=== PATIENT | female | born 2000 | race Caucasian/White ===

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

== ENCOUNTER 2021-02-15 05:43 | Emergency (ER) | payer BC, MEDICAID ==
[~2021-02-15] VITALS: Ht 175.2 cm; Wt 62.1 kg
--- NOTE | 2021-02-15 06:53 | ED Psychosocial ---
General Chief Complaint: Psych/Social Disorder Stated Complaint: ANXIETY Nursing Triage Note: ARRIVES THIS AM STATING SHE HAS BEEN HAVING DEPRESSION RELATED TO GIVING HER BABY UP FOR ADOPTION 11 MONTHS AGO AND FOR THE LAST 3 MONTHS SHE HAS HAD INCREASINGLY MORE ANXIETY THE DATE OF THE OF THE CHILD COMES UP NEXT MONTH. STATES SHE IS VERY ANXIOUS, WAKING AROUND 530 TO 6AM DAILY WITH HER STOMACH TIGHT, FEELING NAUSEOUS AND SHAKEY BECAUSE OF HER ANXIETY. STATES SHE HAS BEEN TO [facility], [facility] AND "NO ONE WILL HELP ME". PATIENT IS TEARFUL. CALL LIGHT IN REACH, ENCOURAGED TO CALL FOR NEEDS, WARM BLANKET PROVIDED. Source: patient Exam Limitations: no limitations (CYNTHIA HUGGINS STUDENT) History of Present Illness Date Seen by Provider: Feb 15, 2021 Time Seen by Provider: 06:45 Initial Comments Patient is a 20-year-old female who presents to the emergency department with the chief complaint of anxiety. Patient states that her anxiety is primarily associated to giving her baby for adoption about 1 year ago. She states her anxiety woke her up this morning at 430AM. She reports that when she gets anxious, she also gets an "upset stomach", nausea, and vomiting. Patient denies suicidal ideation. She denies auditory or visual hallucinations but does report occasionally feeling "phantom kicks" from her previous . She normally talks to her father about her anxiety, which helps calm her down, but she states she was at a friend's house last night. She currently lives with her father in [place] and is getting ready to move into a new house. She states that it was an open adoption, and that she is in good communication with the family and receives photos. She states she wants relief of her symptoms and treatment for her anxiety, and is interested in therapy. She has previously tried 3 different therapists for this but has not found one she likes yet. Patient does vape 3-5 times a day and is drinks socially with friends on weekends. She is a , delivered on Feb 26 2020, full term, and had no complications. Denies fever, chill, recent illness, symptoms. All review of systems reviewed and negative except stated above. Timing/Duration: this morning, other (last 3 months) Severity: mild Associated Symptoms: anxiety (CYNTHIA HUGGINS MED STUDENT) Allergies and Home Medications Allergies Coded Allergies: No Known Drug Allergies (Unverified , 10/22/16) Home Medications Hydroxyzine Pamoate 25 Mg Capsule, 25 MG PO HS PRN for INSOMNIA Prescribed by: FRANK PORTER on 10/01/20 165 Hydroxyzine Pamoate 25 Mg Capsule, 25 MG PO Q6H PRN for anxiety Prescribed by: SHANTEL INFANTE on 02/15/21 0736 Mag Hydrox/Aluminum Hyd/Simeth 355 Ml Oral.susp, 15 ML PO BID Prescribed by: SYDNEE GUZMÁN on 10/23/20 134 Naproxen 500 Mg Tablet, 500 MG PO BID Prescribed by: FRANK PORTER on 06/23/20 043 Nitrofurantoin Monohyd/M-Cryst 100 Mg Capsule, 1 TAB PO BID Prescribed by: FRANK PORTER on 10/01/201651 Omeprazole 20 Mg Capsule.dr, 20 MG PO BID Prescribed by: FRANK PORTER on 06/23/20430 Ondansetron 4 Mg Tab.rapdis, 4 MG PO Q8H PRN for nausea Prescribed by: SHANTEL INFANTE on 02/15/21 0736 Pantoprazole Sodium 40 Mg Tablet.dr, 40 MG PO DAILY Prescribed by: SYDNEE GUZMÁN on 10/23/20 134 Sucralfate 1 Gm Tablet, 1 GM PO QIDACHS Prescribed by: FRANK PORTER on 06/23/20430 Patient Home Medication List Home Medication List Reviewed: Yes (SHANTEL INFANTE MD) Review of Systems Constitutional: no symptoms reported EENTM: no symptoms reported Respiratory: no symptoms reported Cardiovascular: no symptoms reported Gastrointestinal: abdominal pain (epigastric, mild), diarrhea (nonbloody, once this am), loss of appetite (lost at the site of food), nausea (mild), vomiting (nonbloody) Genitourinary: no symptoms reported : No LMP: Feb 01, 2021 Control/STD Prophylaxis: Depo Provera Musculoskeletal: no symptoms reported Skin: no symptoms reported Psychiatric/Neurological: See HPI, Anxiety, Depressed, Emotional Problems (CYNTHIA HUGGINS MED STUDENT) All Other Systems Reviewed Negative Unless Noted: Yes (CYNTHIA HUGGINS MED STUDENT) Past Pjargaf-Ewvdbh-Dzjyoh Hx Patient Social History Alcohol Use: Occasionally Uses Number of Drinks Today: AA Alcohol Beverage of Choice: Beer Type Used: Electronic/Vapor Recent Infectious Disease Expo: No Recent Hopitalizations: No Ebola Symptoms: Denies Symptoms Listed (CYNTHIA HUGGINS MED STUDENT) Past Medical History Surgeries: Yes Adenoidectomy, Tonsillectomy Respiratory: No Cardiac: No Neurological: No Sexually Transmitted Disease: No Genitourinary: Yes Kidney Infection Gastrointestinal: No Musculoskeletal: No Endocrine: No HEENT: No Tonsilitis Cancer: No Psychosocial: No Integumentary: No Blood Disorders: No (CYNTHIA HUGGINS MED STUDENT) Physical Exam Vital Signs - First Documented 02/15/21 05:50 Temp 36.6 Pulse 112 Resp 18 B/P (MAP) 123/67 Pulse Ox 100 (SHANTEL INFANTE MD) Capillary Refill : (CYNTHIA HUGGINS MED STUDENT) Height, Weight, BMI Height: 5'8.00" Weight: 132lbs. oz. 59.764151me; 20.00 BMI Method:Stated General Appearance: WD/WN, no apparent distress Neck: normal inspection Respiratory: chest non-tender, lungs clear, normal breath sounds, no respiratory distress, no accessory muscle use Cardiovascular: regular rate, rhythm, no gallop, no JVD, no murmur Gastrointestinal: normal bowel sounds, soft, no organomegaly, no pulsatile mass; No distended, No guarding, No rebound; tenderness (mild tenderness to palpation in epigastric region) Extremities: non-tender, normal inspection, no pedal edema Neurologic/Psychiatric: alert, oriented x 3 Appearance/Memory: appropriate appearance, appropriate insight (Patient appears to have good insight about the source of her anxiety, and shows willingness to take next steps in treatment and therapy.), neat, no memory impairment Behavior/Eye Contact: cooperative, good eye contact, normal speech, other (appropriately tearful) Thoughts/Hallucinations: normal thought pattern, no apparent hallucination, other ("phantom kicks" in belly) Skin: normal color, warm/dry Lymphatic: no adenopathy (CYNTHIA HUGGINS MED STUDENT) Progress/Results/Core Measures Results/Orders My Orders Orders - SHANTEL INFANTE MD Ondansetron Oral Dissolve Tab (Zofran (02/15/21 07:15) Hydroxyzine Cap/Tab (Vistaril) (02/15/21 07:15) (SHANTEL INFANTE MD) Medications Given in ED (SHANTEL INFANTE MD) Vital Signs/I&O (SHANTEL INFANTE MD) Departure Impression Primary Impression: Anxiety Disposition: 01 HOME, SELF-CARE Condition: Stable Departure-Patient Inst. Decision time for Depature: 07:32 (SHANTEL INFANTE MD) Referrals: [facility] [place] PHYSICIAN (PCP) Primary Care Physician Patient Instructions: Anxiety, Adult (DC) Add. Discharge Instructions: Drink plenty of fluids to stay well-hydrated. Make sure that you are getting proper nutrition. Take the Vistaril 1 tablet every 6 hours as needed for anxiety. The Zofran is used for nausea. You can take this every 8 hours. Please call [facility] at [phone] to get plugged into counselling services. You can also call [facility] in [place], [place] and they can help direct you to resources. Come back to the Emergency Department if you have any worsening symptoms, new concerns or emergent complaints. Scripts Ondansetron (Ondansetron Odt) 4 Mg Tab.rapdis 4 MG PO Q8H PRN for nausea, #20 TAB Prov: SHANTEL INFANTE MD 02/15/21 Hydroxyzine Pamoate (Vistaril) 25 Mg Capsule 25 MG PO Q6H PRN for anxiety, #30 CAP Prov: SHANTEL INFANTE MD 02/15/21 I have seen and evaluated the patient I performed the history and physical examination. I agree with the medical student's assessment and documentation. I have performed the medical decision making on this patient. (SHANTEL INFANTE MD) CYNTHIA HUGGINS MED STUDENT Feb 15, 2021 06:53 SHANTEL INFANTE MD Feb 15, 2021 07:37
[2021-02-15] MEDS ORDERED: hydrOXYzine (VISTARIL/ATARAX) 25 MG capsule/tablet PO ONE (07:15)
[2021-02-15] MEDS ORDERED: ONDANSETRON 4 MG (ZOFRAN) ORAL DISSOLVE TAB PO ONE (07:15)
[2021-02-15] MEDS ORDERED: ONDA4TAB11 PO ×2 (07:34→07:36)
[2021-02-15] MEDS ORDERED: HYDR25CA PO ×2 (07:34→07:36)
== END 2021-02-15 08:04 | disposition home or self-care (01) ==
LOC: EDUNIT# 05:43 → ER 05:47
DX: F41.9 Anxiety disorder, unspecified (principal)
CPT/HCPCS: 99283

== ENCOUNTER 2021-03-25 22:08 | Emergency (ER) | payer BC, MEDICAID ==
[~2021-03-25] VITALS: Ht 172 cm; Wt 61.0 kg
[~2021-03-25 22:08] MED LIST changes: +ONDA4TAB11 PO
[2021-03-25 22:38] LABS: BILIRUBIN,URINE NEGATIVE (NEGATIVE); CLARITY,URINE CLOUDY; COLOR,URINE YELLOW; GLUCOSE, URINE (UA) NEGATIVE (NEGATIVE); KETONES,URINE NEGATIVE (NEGATIVE); LEUKOCYTE ESTERASE ,URINE 2+ (NEGATIVE); NITRITE,URINE POSITIVE (NEGATIVE); PROTEIN,URINE 2+ (NEGATIVE)
[2021-03-25] MEDS ORDERED: KETOROLAC 30 MG/ML VIAL IVP STA (22:41)
[2021-03-25] MEDS ORDERED: ONDANSETRON 4 MG/2 ML (SDV) Z0FRAN IVP ONE (22:45)
[2021-03-25] MEDS ORDERED: LACTATED RINGERS 1,000 ML IV ONE (22:45)
[2021-03-25 22:46] LABS: BASOPHILS % (AUTO) 0 % (0-10); EOSINOPHILS % (AUTO) 0 % (0-10); HEMATOCRIT 36 % (35-52); HEMOGLOBIN 11.8 g/dL (11.5-16.0); LYMPHOCYTES % (AUTO) 7 % (12-44); MEAN CORPUSCULAR HEMOGLOBIN 29 pg (25-34); MEAN CORPUSCULAR HGB CONC 33 g/dL (32-36); MEAN CORPUSCULAR VOLUME 87 fL (80-99); MEAN PLATELET VOLUME 10.2 fL (9.0-12.2); MONOCYTES # (AUTO) 1.1 10^3/uL (0.0-1.0); MONOCYTES % (AUTO) 7 % (0-12); NEUTROPHILS # (AUTO) 12.1 10^3/uL (1.8-7.8); NEUTROPHILS % (AUTO) 85 % (42-75); PLATELET COUNT 246 10^3/uL (130-400); WHITE BLOOD COUNT 14.3 10^3/uL (4.3-11.0)
[2021-03-25 22:49] LABS: BACTERIA,URINE LARGE /HPF; RBC,URINE 50-100 /HPF; WBC,URINE 50-100 /HPF
[2021-03-25 22:59] LABS: AMPHETAMINE SCREEN, URINE NEGATIVE (NEGATIVE); BARBITURATE SCREEN URINE NEGATIVE (NEGATIVE); BENZODIAZEPINES SCREEN URINE NEGATIVE (NEGATIVE); CANNABINOID SCREEN, URINE POSITIVE (NEGATIVE); COCAINE SCREEN URINE NEGATIVE (NEGATIVE); METHADONE STAT NEGATIVE (NEGATIVE); METHAMPHETAMINE SCREEN URINE S NEGATIVE (NEGATIVE); OPIATE SCREEN URINE NEGATIVE (NEGATIVE); OXYCODONE STAT NEGATIVE (NEGATIVE); PROPOXYPHENE STAT NEGATIVE (NEGATIVE); TRICYCLIC ANTIDEPRESSANTS SCRE NEGATIVE (NEGATIVE)
[2021-03-25 23:06] LABS: ALANINE AMINOTRANSFERASE 12 U/L (0-55); ALBUMIN 4.3 GM/DL (3.2-4.5); ALKALINE PHOSPHATASE 67 U/L (40-136); AMYLASE 23 U/L (25-125); BILIRUBIN,TOTAL 0.5 MG/DL (0.1-1.0); BUN/CREATININE RATIO 11; CARBON DIOXIDE 21 MMOL/L (21-32); CHLORIDE 108 MMOL/L (98-107); CREATININE SERUM 0.85 MG/DL (0.60-1.30); GFR ESTIMATED > 60; GLUCOSE 88 MG/DL (70-105); LIPASE 11 U/L (8-78); MAGNESIUM 1.7 MG/DL (1.6-2.4); POTASSIUM 3.9 MMOL/L (3.6-5.0); SODIUM 139 MMOL/L (135-145); TOTAL PROTEIN 6.7 GM/DL (6.4-8.2)
[2021-03-25 23:34] LABS: BAND NEUTROPHILS 0 %; BASOPHILS % (MANUAL) 0 %; EOSINOPHILS % (MANUAL) 1 %; LYMPHOCYTES % (MANUAL) 5 %; MONOCYTES % (MANUAL) 4 %; NEUTROPHILS % (MANUAL) 90 %; RBC MORPH NORMAL
[2021-03-25] MEDS ORDERED: cefTRIAXone FOR IV USE 1,000 MG in WATER (STERILE) FOR INJECTION 10 ML IV ONE (23:45)
[2021-03-26] MEDS ORDERED: fentaNYL INJ 100 MCG/2 ML AMP IVP ONE
[2021-03-26] MEDS ORDERED: KETO10TA PO ×2 (00:40→02:38)
[2021-03-26] MEDS ORDERED: NITR-65 PO ×2 (00:40→02:38)
[2021-03-26] MEDS ORDERED: ACHD5005 PO ×2 (00:40→02:38)
[2021-03-26] MEDS ORDERED: TMSL.4C PO ×2 (00:40→02:38)
[2021-03-26] MEDS ORDERED: ONDA8TAB13 PO ×2 (00:40→02:38)
[2021-03-26] MEDS ORDERED: RX-NAPROXEN (NAPROSYN) 250 MG TAB PPK#4 PO STA (00:40)
[2021-03-26] MEDS ORDERED: RX-ONDANSETRON 4 MG ODT (ZOFRAN) PPK #4 PO STA (00:40)
--- NOTE | 2021-03-26 00:40 | ED Abdominal Pain ---
General Chief Complaint: Abdominal/GI Problems Stated Complaint: ABD PAIN Nursing Triage Note: PT ARRIVES TO ER WITH C/O L LOWER ABD PAIN X1 DAY. PT STATES PAIN FEELS LIKE A BURNING, STABBING PAIN. PT ALSO SAID SHE HAS VOMITTED TODAY Sepsis Screen: No Definite Risk Source of Information: Patient History of Present Illness Date Seen by Provider: Mar 25, 2021 Time Seen by Provider: 22:29 Initial Comments PT ARRIVES VIA POV C/O LLQ PAIN/CRAMPING ALL DAY TODAY PAIN RADIATES TO LEFT FLANK STATES PAIN WAXES AND WANES AND IS VERY SHARP AT TIMES NOTHING WORSENS OR IMPROVES PAIN STATES SHE "CAN'T WALK" DUE TO PAIN, BUT PT WAS ABLE TO WALK INTO ER AND BACK TO ER ROOM ON HER OWN C/O NAUSEA AND VOMITING DUE TO PAIN --HAS VOMITED >5 <10 TIMES TODAY C/O URINARY URGENCY AND FREQUENCY, BUT NO PAIN ON URINATION NO FEVER LAST FOOD INTAKE WAS AT 1300--ATE A SANDWICH. DRANK WATER AN HOUR AGO. NO HISTORY OF SIMILAR HAS NOT TAKEN ANYTHING FOR PAIN LMP 02/20/21--AND LASTED UNTIL 4 DAYS AGO. PT IS ON DEPO-PROVERA. LAST SHOT WAS APPROXIMATELY 1 MONTH AGO. PCP: DIANNA Allergies and Home Medications Allergies Coded Allergies: No Known Drug Allergies (Unverified , 10/22/16) Home Medications Hydroxyzine Pamoate 25 Mg Capsule, 25 MG PO HS PRN for INSOMNIA Prescribed by: FRANK PORTER on 10/01/20 1652 Hydroxyzine Pamoate 25 Mg Capsule, 25 MG PO Q6H PRN for anxiety Prescribed by: SHANTEL INFANTE on 02/15/21 0736 Ketorolac Tromethamine 10 Mg Tablet, 10 MG PO Q6H Prescribed by: EFRAÍN PINEDA on 03/26/21 0238 Mag Hydrox/Aluminum Hyd/Simeth 355 Ml Oral.susp, 15 ML PO BID Prescribed by: SYDNEE GUZMÁN on 10/23/20 1349 Naproxen 500 Mg Tablet, 500 MG PO BID Prescribed by: FRANK PORTER on 06/23/20 0431 Nitrofurantoin Monohyd/M-Cryst 100 Mg Capsule, 1 TAB PO BID Prescribed by: FRANK PORTER on 10/01/20 1652 Nitrofurantoin Monohyd/M-Cryst 100 Mg Capsule, 1 TAB PO BID Prescribed by: EFRAÍN PINEDA on 03/26/21237 Omeprazole 20 Mg Capsule.dr, 20 MG PO BID Prescribed by: FRANK PORTER on 06/23/20430 Ondansetron 4 Mg Tab.rapdis, 4 MG PO Q8H PRN for nausea Prescribed by: SHANTEL INFANTE on 02/15/21 0736 Ondansetron 8 Mg Tab.rapdis, 8 MG PO Q6H Prescribed by: EFRAÍN PINEDA on 03/26/21237 Pantoprazole Sodium 40 Mg Tablet.dr, 40 MG PO DAILY Prescribed by: SYDNEE GUZMÁN on 10/23/20 1349 Sucralfate 1 Gm Tablet, 1 GM PO QIDACHS Prescribed by: FRANK PORTER on 06/23/20430 Tamsulosin HCl 0.4 Mg Cap, 0.4 MG PO DAILY Prescribed by: EFRAÍN PINEDA on 03/26/21237 Patient Home Medication List Home Medication List Reviewed: Yes Review of Systems Review of Systems Constitutional: no symptoms reported Respiratory: No Symptoms Reported Cardiovascular: No Symptoms Reported Gastrointestinal: See HPI, Abdominal Pain; Denies Diarrhea; Nausea, Vomiting Genitourinary: See HPI, Frequency, Flank Pain, Urgency Musculoskeletal: see HPI, back pain Skin: no symptoms reported Psychiatric/Neurological: Anxiety Endocrine: No Symptoms Reported Hematologic/Lymphatic: No Symptoms Reported Past Bbifkzs-Vkfzbi-Kauzlo Hx Past Med/Social Hx: Reviewed and Corrections made Patient Social History Alcohol Use: Occasionally Uses Number of Drinks Today: AA Alcohol Beverage of Choice: Beer Drug of Choice: DENIES BUT UDS + FOR THC Smoking Status: Current Everyday Smoker Type Used: Electronic/Vapor 2nd Hand Smoke Exposure: Yes Recent Infectious Disease Expo: No Recent Hopitalizations: No Substance type: Marijuana Immunizations Up To Date Tetanus Booster (TDap): More than 5yrs Past Medical History Surgeries: Yes (WISDOM TEETH REMOVED) Adenoidectomy, Tonsillectomy Respiratory: No Cardiac: No Neurological: No Sexually Transmitted Disease: No Genitourinary: Yes Kidney Infection Gastrointestinal: No Musculoskeletal: No Endocrine: No HEENT: Yes (WISDOM TEETH REMOVED; S/P TONSILLECTOMY) Tonsilitis Cancer: No Psychosocial: No Integumentary: No Blood Disorders: No Physical Exam Vital Signs Vital Signs - First Documented 6/5/21 6/6/21 22:20 01:05 Temp 37.2 Pulse 107 Resp 20 B/P (MAP) 127/74 (91) Pulse Ox 100 O2 Delivery Room Air Capillary Refill : Less Than 3 Seconds Height/Weight/BMI Height: 5'8.00" Weight: 132lbs. oz. 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, no motor/sensory deficits, alert, oriented x 3 Skin: normal color, warm/dry; No rash; tattoos/piercings (MULTIPLE TATTOOS) Progress/Results/Core Measures Results/Orders Lab Results Laboratory Tests Test 03/25/21 22:10 03/25/21 22:40 Range/Units Urine Color YELLOW Urine Clarity CLOUDY Urine pH 6.0 5-9 Urine Specific [place] >=1.030 1.016-1.022 Urine Protein 2+ H NEGATIVE Urine Glucose (UA) NEGATIVE NEGATIVE Urine Ketones NEGATIVE NEGATIVE Urine Nitrite POSITIVE H NEGATIVE Urine Bilirubin NEGATIVE NEGATIVE Urine Urobilinogen 0.2 < = 1.0 MG/DL Urine Leukocyte Esterase 2+ H NEGATIVE Urine RBC (Auto) 3+ H NEGATIVE Urine RBC 50-100 H /HPF Urine WBC 50-100 H /HPF Urine Squamous Epithelial Cells 5-10 /HPF Urine Crystals NONE /LPF Urine Bacteria LARGE H /HPF Urine Casts NONE /LPF Urine Mucus NEGATIVE /LPF Urine Culture Indicated YES Urine Opiates Screen NEGATIVE NEGATIVE Urine Oxycodone Screen NEGATIVE NEGATIVE Urine Methadone Screen NEGATIVE NEGATIVE Urine Propoxyphene Screen NEGATIVE NEGATIVE Urine Barbiturates Screen NEGATIVE NEGATIVE Ur Tricyclic Antidepressants Screen NEGATIVE NEGATIVE Urine Phencyclidine Screen NEGATIVE NEGATIVE Urine Amphetamines Screen NEGATIVE NEGATIVE Urine Methamphetamines Screen NEGATIVE NEGATIVE Urine Benzodiazepines Screen NEGATIVE NEGATIVE Urine Cocaine Screen NEGATIVE NEGATIVE Urine Cannabinoids Screen POSITIVE H NEGATIVE White Blood Count 14.3 H 4.3-11.0 10^3/uL Red Blood Count 4.12 3.80-5.11 10^6/uL Hemoglobin 11.8 11.5-16.0 g/dL Hematocrit 36 35-52 % Mean Corpuscular Volume 87 80-99 fL Mean Corpuscular Hemoglobin 29 25-34 pg Mean Corpuscular Hemoglobin Concent 33 32-36 g/dL Red Cell Distribution Width 14.5 10.0-14.5 % Platelet Count 246 130-400 10^3/uL Mean Platelet Volume 10.2 9.0-12.2 fL Immature Granulocyte % (Auto) 0 % Neutrophils (%) (Auto) 85 H 42-75 % Lymphocytes (%) (Auto) 7 L 12-44 % Monocytes (%) (Auto) 7 0-12 % Eosinophils (%) (Auto) 0 0-10 % Basophils (%) (Auto) 0 0-10 % Neutrophils # (Auto) 12.1 H 1.8-7.8 10^3/uL Lymphocytes # (Auto) 1.0 1.0-4.0 10^3/uL Monocytes # (Auto) 1.1 H 0.0-1.0 10^3/uL Eosinophils # (Auto) 0.0 0.0-0.3 10^3/uL Basophils # (Auto) 0.0 0.0-0.1 10^3/uL Immature Granulocyte # (Auto) 0.0 0.0-0.1 10^3/uL Neutrophils % (Manual) 90 % Lymphocytes % (Manual) 5 % Monocytes % (Manual) 4 % Eosinophils % (Manual) 1 % Basophils % (Manual) 0 % Band Neutrophils 0 % Blood Morphology Comment NORMAL Sodium Level 139 135-145 MMOL/L Potassium Level 3.9 3.6-5.0 MMOL/L Chloride Level 108 H 98-107 MMOL/L Carbon Dioxide Level 21 21-32 MMOL/L Anion Gap 10 5-14 MMOL/L Blood Urea Nitrogen 9 7-18 MG/DL Creatinine 0.85 0.60-1.30 MG/DL Estimat Glomerular Filtration Rate > 60 BUN/Creatinine Ratio 11 Glucose Level 88 70-105 MG/DL Calcium Level 9.0 8.5-10.1 MG/DL Corrected Calcium 8.8 8.5-10.1 MG/DL Magnesium Level 1.7 1.6-2.4 MG/DL Total Bilirubin 0.5 0.1-1.0 MG/DL Aspartate Amino Transf (AST/SGOT) 14 5-34 U/L Alanine Aminotransferase (ALT/SGPT) 12 0-55 U/L Alkaline Phosphatase 67 40-136 U/L Total Protein 6.7 6.4-8.2 GM/DL Albumin 4.3 3.2-4.5 GM/DL Amylase Level 23 L 25-125 U/L Lipase 11 8-78 U/L Serum Test, Qualitative NEGATIVE NEGATIVE My Orders Orders - EFRAÍN PINEDA DO Ed Iv/Invasive Line Start (03/25/21 22:29) Amylase (03/25/21 22:29) Cbc With Automated Diff (03/25/21:29) Comprehensive Metabolic Panel (03/25/21 22:29) Drug Screen Stat (Urine) (03/25/21:29) Hcg,Qualitative Serum (03/25/21:) Lipase (03/25/21:29) Magnesium (03/25/21:29) Ua Culture If Indicated (03/25/21 22:29) Ed Iv/Invasive Line Start (03/25/21 22:36) Lactated Ringers (Lr 1000 Ml Iv Solution (03/25/21 22:45) Ondansetron Injection (Zofran Injectio (03/25/21 22:45) Ketorolac Injection (Toradol Injection) (03/25/21 22:41) Ct Abd/Pelvis Wo(Kidney Stone) (03/25/21 22:46) Abdomen/Kub 1view (03/25/21 22:46) Urine Culture (03/25/21 22:10) Manual Differential (03/25/21 22:40) Ceftriaxone For Iv Use (Rocephin For I (03/25/21 23:45) Fentanyl Inj (Sublimaze Injection) (03/26/21 00:00) Tamsulosin Capsule (Flomax Capsule) (03/26/21 00:45) Rx-Hydrocodone/Apap 5-325 Mg (Rx-Vicodin (03/26/21 00:45) Rx-Ondansetron Po (Rx-Zofran Po) (03/26/21 00:40) Rx-Naproxen (Rx-Naprosyn) (03/26/21 00:40) Medications Given in ED Current Medications Medications Dose Ordered Sig/Lane Route Start Time Stop Time Status Last Admin Dose Admin Acetaminophen/ Hydrocodone Bitart 1 ea Q4H PRN PO 03/26/21 00:45 03/26/21 01:06 DC 03/26/21 01:00 1 EA Ceftriaxone Sodium 1000 mg/ Sterile Water 10 ml @ 200 mls/hr ONCE ONCE IV 03/25/21 23:45 03/25/21 23:47 DC 03/25/21 23:58 200 MLS/HR Fentanyl Citrate 50 mcg ONCE ONCE IVP 03/26/21 00:00 03/26/21 00:01 DC 03/25/21 23:59 50 MCG Lactated Ringer's 1,000 ml @ 0 mls/hr Q0M ONCE IV 03/25/21 22:45 03/25/21 22:46 DC 03/25/21 22:49 1,000 MLS/HR Ondansetron HCl 4 mg ONCE ONCE IVP 03/25/21 22:45 03/25/21 22:46 DC 03/25/21 22:49 4 MG Vital Signs/I&O 03/25/21 03/26/21 22:20 01:05 Temp 37.2 Pulse 107 101 Resp 20 16 B/P (MAP) 127/74 (91) 105/76 (91) Pulse Ox 100 O2 Delivery Room Air Blood Pressure Mean: 91 Progress Progress Note : Progress Note GAVE IV FLUIDS, ZOFRAN AND TORADOL WITHOUT RELIEF PT LATER SCREAMING AND WAILING AND ON HER HANDS AND KNEES, THEN SITTING UP, ROCKING BACK AND FORTH, ETC GIVEN FENTANYL WITH MUCH IMPROVEMENT Diagnostic Imaging Comments KUB--CALCIFICATION IN LLQ, PENDING RADIOLOGIST REVIEW CT ABDOMEN/PELVIS--3 MM DISTAL URETERAL STONE AT LEFT UVJ, WITH MILD LEFT HYDRONEPHROSIS, FEW SMALL 1 MM STONES IN RIGHT KIDNEY. PER [facility] VIA FAX AT [phone] Reviewed: Reviewed by Me Departure Impression Primary Impression: Calculus of distal left ureter Additional Impression: UTI (urinary tract infection) Disposition: HOME, SELF-CARE Condition: Improved Departure-Patient Inst. Decision time for Depature: 00:25 Referrals: NO,LOCAL PHYSICIAN (PCP) Primary Care Physician VIET SAMUELS MD [facility] Patient Instructions: Urinary Tract Infection, Adult (DC), Kidney Stones (DC), How to Strain Your Urine Add. Discharge Instructions: LOTS OF CLEAR LIQUIDS STRAIN ALL URINE--RETURN ANY STONES TO 'S OFFICE FOLLOW UP WITH DR. SAMUELS IN 2-3 DAYS FOR FURTHER CARE--CALL ON SATURDAY MORNING TO SCHEDULE AN APPOINTMENT RETURN TO ER IF SYMPTOMS WORSEN All discharge instructions reviewed with patient and/or family. Voiced understanding. Scripts Tamsulosin HCl (Flomax) 0.4 Mg Cap 0.4 MG PO DAILY, #10 CAP Prov: EFRAÍN PINEDA DO 03/26/21 Ketorolac Tromethamine (Ketorolac Tromethamine) 10 Mg Tablet 10 MG PO Q6H for Pain, #15 TAB Prov: EFRAÍN PINEDA DO 03/26/21 Ondansetron (Ondansetron Odt) 8 Mg Tab.rapdis 8 MG PO Q6H, #10 TAB Prov: EFRAÍN PINEDA DO 03/26/21 Nitrofurantoin Monohyd/M-Cryst (Macrobid 100 mg Capsule) 100 Mg Capsule 1 TAB PO BID, #20 CAP Prov: EFRAÍN PINEDA DO 03/26/21 EFRAÍN PINEDA DO Mar 26, 2021 00:40
[2021-03-26] MEDS ORDERED: TAMSULOSIN 0.4 MG (FLOMAX) CAP PO SCH (00:45)
[2021-03-26 01:05] VITALS: BP 105/76
--- NOTE | 2021-03-26 05:52 | Diagnostic Imaging Report ---
EXAMINATION: Supine abdomen at 1146 PM INDICATION: Abdominal pain A single supine view is obtained. The CT abdomen/pelvis exam performed in conjunction with the study showed partial obstruction of the left collecting system due to 3 mm calcification at the ureterovesical junction. That obstructive calculus is again visualized on this study and does not seem to have changed in position. There is no other abnormality of the abdomen noted. IMPRESSION: The obstructive calculus in the distal left ureter seen on the recent CT abdomen/pelvis exam is again evident and does not appear to have changed. Dictated by: Dictated on workstation # [id number]
--- NOTE | 2021-03-26 06:58 | Diagnostic Imaging Report ---
PROCEDURE: CT urinary tract, rule out kidney stone. TECHNIQUE: Multiple contiguous axial images were obtained through the abdomen and pelvis without the use of intravenous contrast. Auto Exposure Controls were utilized during the CT exam to meet ALARA standards for radiation dose reduction. INDICATION: Left flank pain The previous CT abdomen/pelvis exam of 10/23/2020 failed to show any sign of an acute abnormality. There was a 2.7 cm left adnexal cyst. The images through the low pelvis do show that there is a 3 mm calculus at the ureterovesical junction on the left (image 105 of 27). The left ureter and left renal pelvis are slightly dilated and most likely there is partial obstruction of the left collecting system due to the aforementioned calculus. There also appear to be 2 minute (1 mm) nonobstructive calculi within both kidneys. There is no evidence for obstruction of the right collecting system. There are a number of prominent nodes in the region of the root of the mesentery. There is also some distortion of the mesenteric fat in this area. The possibility of coexistent mesenteric adenitis should be considered. The appendix was visualized and is not abnormally thickened. The left adnexal cyst seen on the previous study is not as well-visualized on this exam. There is no acute abnormality of the abdomen or pelvis noted otherwise. The lung bases are clear. The bone windows show no sign of a fracture or of a destructive lesion. IMPRESSION: 1. There is partial obstruction of the left collecting system due to a 3 mm calculus at the ureterovesical junction. There are also minute nonobstructive calculi within both kidneys. 2. The nodes in the region of the root of the mesentery and the distortion of the mesenteric fat in this area does suggest there may be an element of coexistent mesenteric adenitis. Clinical follow-up is recommended. 3.There is no acute abnormality of the abdomen or pelvis noted otherwise. 4. I agree with the [facility] interpretation of this exam. Dictated by: Dictated on workstation # [id number]
== END 2021-03-26 01:06 | disposition home or self-care (01) ==
LOC: EDUNIT# 22:08 → ER 22:09
DX: N13.2 Hydronephrosis with renal and ureteral calculous obstruction (principal); N39.0 Urinary tract infection, site not specified; F17.290 Nicotine dependence, other tobacco product, uncomplicated
CPT/HCPCS: 36415; 74018; 74176; 80053; 80306; 81000; 82150; 83690; 83735; 84703; 85007; 85027; 87077; 87088; 87186

== ENCOUNTER 2021-05-31 08:55 | Observation (INO) | payer BC, MEDICAID ==
[~2021-05-31] VITALS: Ht 172.7 cm; Wt 60.7 kg
[~2021-05-31 08:55] MED LIST changes: +ACHD5005 PO; +KETO10TA PO; +ONDA8TAB13 PO; +TMSL.4C PO
[2021-05-31] MEDS ORDERED: ONDANSETRON 4 MG (ZOFRAN) ORAL DISSOLVE TAB SL ONE ×2 (09:30→10:30)
[2021-05-31] MEDS ORDERED: LORazepam INJ 2 MG/ML (ATIVAN) VIAL IM ONE (09:30)
[2021-05-31] MEDS ORDERED: LACTATED RINGERS 1,000 ML IV ONE ×2 (10:45→13:45)
[2021-05-31] MEDS ORDERED: PROMETHAZINE INJ 25 MG/ML (PHENERGAN) AMP IVP ONE (10:45)
[2021-05-31 11:15] LABS: BASOPHILS % (AUTO) 0 % (0-10); EOSINOPHILS % (AUTO) 0 % (0-10); HEMATOCRIT 39 % (35-52); HEMOGLOBIN 13.1 g/dL (11.5-16.0); LYMPHOCYTES # (AUTO) 0.8 10^3/uL (1.0-4.0); LYMPHOCYTES % (AUTO) 8 % (12-44); MEAN CORPUSCULAR HEMOGLOBIN 29 pg (25-34); MEAN CORPUSCULAR HGB CONC 34 g/dL (32-36); MEAN CORPUSCULAR VOLUME 87 fL (80-99); MEAN PLATELET VOLUME 10.9 fL (9.0-12.2); MONOCYTES # (AUTO) 0.6 10^3/uL (0.0-1.0); MONOCYTES % (AUTO) 6 % (0-12); NEUTROPHILS % (AUTO) 85 % (42-75); PLATELET COUNT 282 10^3/uL (130-400); WHITE BLOOD COUNT 9.5 10^3/uL (4.3-11.0)
[2021-05-31 11:22] LABS: ALBUMIN 4.7 GM/DL (3.2-4.5); CHLORIDE 107 MMOL/L (98-107); POTASSIUM 3.1 MMOL/L (3.6-5.0); SODIUM 141 MMOL/L (135-145)
[2021-05-31 11:23] LABS: CALCIUM 9.7 MG/DL (8.5-10.1)
[2021-05-31 11:24] LABS: GLUCOSE 110 MG/DL (70-105)
[2021-05-31 11:25] LABS: TOTAL PROTEIN 7.5 GM/DL (6.4-8.2)
[2021-05-31 11:26] LABS: BILIRUBIN,TOTAL 1.1 MG/DL (0.1-1.0); CARBON DIOXIDE 18 MMOL/L (21-32)
[2021-05-31 11:28] LABS: ALKALINE PHOSPHATASE 58 U/L (40-136); CREATININE SERUM 0.87 MG/DL (0.60-1.30); GFR ESTIMATED 84
[2021-05-31 11:29] LABS: BUN/CREATININE RATIO 14
[2021-05-31 11:31] LABS: ALANINE AMINOTRANSFERASE 9 U/L (0-55); MAGNESIUM 1.6 MG/DL (1.6-2.4)
[2021-05-31 11:32] LABS: LIPASE 9 U/L (8-78)
[2021-05-31] MEDS ORDERED: KETOROLAC 30 MG/ML VIAL IVP ONE (12:00)
[2021-05-31 12:39] LABS: BILIRUBIN,URINE NEGATIVE (NEGATIVE); CLARITY,URINE CLEAR; COLOR,URINE YELLOW; GLUCOSE, URINE (UA) NEGATIVE (NEGATIVE); KETONES,URINE 3+ (NEGATIVE); LEUKOCYTE ESTERASE ,URINE NEGATIVE (NEGATIVE); NITRITE,URINE NEGATIVE (NEGATIVE); PROTEIN,URINE TRACE (NEGATIVE)
[2021-05-31 12:53] LABS: AMPHETAMINE SCREEN, URINE NEGATIVE (NEGATIVE); BARBITURATE SCREEN URINE NEGATIVE (NEGATIVE); BENZODIAZEPINES SCREEN URINE NEGATIVE (NEGATIVE); CANNABINOID SCREEN, URINE POSITIVE (NEGATIVE); COCAINE SCREEN URINE NEGATIVE (NEGATIVE); METHADONE STAT NEGATIVE (NEGATIVE); METHAMPHETAMINE SCREEN URINE S NEGATIVE (NEGATIVE); OPIATE SCREEN URINE POSITIVE (NEGATIVE); OXYCODONE STAT NEGATIVE (NEGATIVE); PROPOXYPHENE STAT NEGATIVE (NEGATIVE); TRICYCLIC ANTIDEPRESSANTS SCRE NEGATIVE (NEGATIVE)
[2021-05-31 12:59] LABS: BACTERIA,URINE FEW /HPF; WBC,URINE 0-2 /HPF
[2021-05-31] MEDS ORDERED: SCOPOLAMINE 1.5 MG (TRANSDERM-SCOP) PATCH TD ONE (13:15)
[2021-05-31] MEDS ORDERED: ONDANSETRON 4 MG/2 ML (SDV) Z0FRAN IVP ONE (15:15)
--- NOTE | 2021-05-31 15:18 | Diagnostic Imaging Report ---
PROCEDURE: US Gallbladder. TECHNIQUE: Multiple Real-time grayscale images were obtained over the right upper quadrant in various projections. INDICATION: Right upper quadrant abdominal pain. FINDINGS: Grayscale imaging of the gallbladder reveals no intraluminal filling defect. There is no gallbladder wall thickening or pericholecystic fluid. No intra or extrahepatic biliary ductal dilatation is identified. No pancreatic, right renal, abdominal aortic, or inferior vena caval abnormality is documented. No ascites was noted. IMPRESSION: Unremarkable gallbladder ultrasound. Dictated by: Dictated on workstation # [id number]
--- NOTE | 2021-05-31 15:27 | ED General ---
General Chief Complaint: Psych/Social Disorder Stated Complaint: PANIC ATTACK Nursing Triage Note: AMB TO ED WITH C/O ANXIEY AND PANIC ATTACT REPORTS SOMETHING HAPPENED TO SET IT OFF. ROCKING BACK AND [place] ON ADMT. DID DRIVE SELF TO HOSPITAL Source of Information: Patient, Old Records Exam Limitations: No Limitations History of Present Illness Date Seen by Provider: May 31, 2021 Time Seen by Provider: 09:25 Initial Comments This 20-year-old young lady presents to the emergency room with nausea and vomiting, epigastric pain, and panic attack. She states this was triggered by a social situation last night. She has had this type of GI reaction to social distress and anxiety in the past. She has recently placed a child into adoption as well. See prior records for more information. She denies any recent illness before the anxiety and vomiting started last night. She denies any drug or alcohol use but states she has notable secondhand marijuana smoke exposure from her roommates. She has not smoked marijuana herself in about 3 months. She does not take any prescribed medications. She is in distress on arrival and does not want to talk or have an IV placed. Sublingual Zofran and IM Ativan were used initially to help manage her symptoms. She has history of ureteral and kidney stones but states this pain is different and centrally located rather than located in the flanks. Allergies and Home Medications Allergies Coded Allergies: Penicillins (Verified Allergy, Unknown, 05/31/21) morphine (Verified Allergy, Unknown, 05/31/21) Home Medications Hydroxyzine Pamoate 25 Mg Capsule, 25 MG PO HS PRN for INSOMNIA Prescribed by: FRANK PORTER on 10/01/20 1652 Hydroxyzine Pamoate 25 Mg Capsule, 25 MG PO Q6H PRN for anxiety Prescribed by: SHANTEL INFANTE on 02/15/21 0736 Ketorolac Tromethamine 10 Mg Tablet, 10 MG PO Q6H Prescribed by: EFRAÍN PINEDA on 03/26/21 0238 Mag Hydrox/Aluminum Hyd/Simeth 355 Ml Oral.susp, 15 ML PO BID Prescribed by: SYDNEE GUZMÁN on 10/23/20 1349 Naproxen 500 Mg Tablet, 500 MG PO BID Prescribed by: FRANK PORTER on 06/23/20 0431 Nitrofurantoin Monohyd/M-Cryst 100 Mg Capsule, 1 TAB PO BID Prescribed by: FRANK PORTER on 10/01/20 1652 Nitrofurantoin Monohyd/M-Cryst 100 Mg Capsule, 1 TAB PO BID Prescribed by: EFRAÍN PINEDA on 03/26/21237 Omeprazole 20 Mg Capsule.dr, 20 MG PO BID Prescribed by: FRANK PORTER on 06/23/20430 Ondansetron 4 Mg Tab.rapdis, 4 MG PO Q8H PRN for nausea Prescribed by: SHANTEL INFANTE on 02/15/21 0736 Ondansetron 8 Mg Tab.rapdis, 8 MG PO Q6H Prescribed by: EFRAÍN PINEDA on 03/26/21237 Pantoprazole Sodium 40 Mg Tablet.dr, 40 MG PO DAILY Prescribed by: SYDNEE GUZMÁN on 10/23/20 1349 Sucralfate 1 Gm Tablet, 1 GM PO QIDACHS Prescribed by: FRANK PORTER on 06/23/20430 Tamsulosin HCl 0.4 Mg Cap, 0.4 MG PO DAILY Prescribed by: EFRAÍN PINEDA on 03/26/21237 Patient Home Medication List Home Medication List Reviewed: Yes Review of Systems Review of Systems Constitutional: see HPI EENTM: no symptoms reported Respiratory: see HPI, other (Rapid breathing with appearance of hyperventilating) Cardiovascular: no symptoms reported Gastrointestinal: see HPI Genitourinary: no symptoms reported Musculoskeletal: muscle pain, muscle cramps Skin: no symptoms reported Psychiatric/Neurological: See HPI Hematologic/Lymphatic: No Symptoms Reported Immunological/Allergic: no symptoms reported Past Aaatdej-Asfwrt-Gcqnjk Hx Patient Social History Tobacco Use?: No Substance use?: Yes Substance type: Marijuana Pt feels they are or have been: No Immunizations Up To Date Tetanus Booster (TDap): More than 5yrs Past Medical History Surgeries: Yes (WISDOM TEETH REMOVED) Adenoidectomy, Tonsillectomy Respiratory: No Cardiac: No Neurological: No Sexually Transmitted Disease: No Genitourinary: Yes Kidney Infection, Kidney Stones Gastrointestinal: No Musculoskeletal: No Endocrine: No HEENT: Yes (WISDOM TEETH REMOVED; S/P TONSILLECTOMY) Tonsilitis Cancer: No Psychosocial: No Integumentary: No Blood Disorders: No Physical Exam Vital Signs Vital Signs - First Documented 05/31/21 05/31/21 09:08 11:22 Temp 36.2 Pulse 99 Resp 18 B/P (MAP) 94/77 (83) Pulse Ox 100 O2 Delivery Room Air Capillary Refill : Less Than 3 Seconds Height, Weight, BMI Height: 5'8.00" Weight: 132lbs. oz. 59.217656xg; 19.00 BMI Method:Stated General Appearance: Moderate Distress (Vomiting) HEENT: PERRL/EOMI, Normal ENT Inspection Neck: Normal Inspection Respiratory: Lungs Clear, Normal Breath Sounds, No Accessory Muscle Use Cardiovascular: Regular Rate, Rhythm, No Edema, No Murmur Gastrointestinal: Normal Bowel Sounds, Soft, Tenderness (Epigastric) Extremity: Normal Inspection, No Pedal Edema Neurologic/Psychiatric: Alert, Other (Anxious, tremors, difficulty focusing on questions and interview) Skin: Normal Color, Warm/Dry Progress/Results/Core Measures Suspected Sepsis SIRS Temperature: Pulse: 99 Respiratory Rate: 18 Laboratory Tests 05/31/21 11:00: White Blood Count 9.5 Blood Pressure 94 /77 Mean: 99 Laboratory Tests 05/31/21 11:00: Creatinine 0.87, Platelet Count 282, Total Bilirubin 1.1H Results/Orders Lab Results Laboratory Tests Test 05/31/21 11:00 05/31/21 12:27 Range/Units White Blood Count 9.5 4.3-11.0 10^3/uL Red Blood Count 4.51 3.80-5.11 10^6/uL Hemoglobin 13.1 11.5-16.0 g/dL Hematocrit 39 35-52 % Mean Corpuscular Volume 87 80-99 fL Mean Corpuscular Hemoglobin 29 25-34 pg Mean Corpuscular Hemoglobin Concent 34 32-36 g/dL Red Cell Distribution Width 14.2 10.0-14.5 % Platelet Count 282 130-400 10^3/uL Mean Platelet Volume 10.9 9.0-12.2 fL Immature Granulocyte % (Auto) 0 % Neutrophils (%) (Auto) 85 H 42-75 % Lymphocytes (%) (Auto) 8 L 12-44 % Monocytes (%) (Auto) 6 0-12 % Eosinophils (%) (Auto) 0 0-10 % Basophils (%) (Auto) 0 0-10 % Neutrophils # (Auto) 8.0 H 1.8-7.8 10^3/uL Lymphocytes # (Auto) 0.8 L 1.0-4.0 10^3/uL Monocytes # (Auto) 0.6 0.0-1.0 10^3/uL Eosinophils # (Auto) 0.0 0.0-0.3 10^3/uL Basophils # (Auto) 0.0 0.0-0.1 10^3/uL Immature Granulocyte # (Auto) 0.0 0.0-0.1 10^3/uL Sodium Level 141 135-145 MMOL/L Potassium Level 3.1 L 3.6-5.0 MMOL/L Chloride Level 107 98-107 MMOL/L Carbon Dioxide Level 18 L 21-32 MMOL/L Anion Gap 16 H 5-14 MMOL/L Blood Urea Nitrogen 12 7-18 MG/DL Creatinine 0.87 0.60-1.30 MG/DL Estimat Glomerular Filtration Rate 84 BUN/Creatinine Ratio 14 Glucose Level 110 H 70-105 MG/DL Calcium Level 9.7 8.5-10.1 MG/DL Corrected Calcium 8.5-10.1 MG/DL Magnesium Level 1.6 1.6-2.4 MG/DL Total Bilirubin 1.1 H 0.1-1.0 MG/DL Aspartate Amino Transf (AST/SGOT) 13 5-34 U/L Alanine Aminotransferase (ALT/SGPT) 9 0-55 U/L Alkaline Phosphatase 58 40-136 U/L Total Protein 7.5 6.4-8.2 GM/DL Albumin 4.7 H 3.2-4.5 GM/DL Lipase 9 8-78 U/L Serum Test, Qualitative NEGATIVE NEGATIVE Serum Alcohol < 10 <10 MG/DL Urine Color YELLOW Urine Clarity CLEAR Urine pH 7.0 5-9 Urine Specific [place] 1.015 L 1.016-1.022 Urine Protein TRACE H NEGATIVE Urine Glucose (UA) NEGATIVE NEGATIVE Urine Ketones 3+ H NEGATIVE Urine Nitrite NEGATIVE NEGATIVE Urine Bilirubin NEGATIVE NEGATIVE Urine Urobilinogen 0.2 < = 1.0 MG/DL Urine Leukocyte Esterase NEGATIVE NEGATIVE Urine RBC (Auto) 2+ H NEGATIVE Urine RBC 10-25 H /HPF Urine WBC 0-2 /HPF Urine Squamous Epithelial Cells 2-5 /HPF Urine Crystals NONE /LPF Urine Bacteria FEW H /HPF Urine Casts NONE /LPF Urine Mucus MODERATE H /LPF Urine Culture Indicated YES Urine Opiates Screen POSITIVE H NEGATIVE Urine Oxycodone Screen NEGATIVE NEGATIVE Urine Methadone Screen NEGATIVE NEGATIVE Urine Propoxyphene Screen NEGATIVE NEGATIVE Urine Barbiturates Screen NEGATIVE NEGATIVE Ur Tricyclic Antidepressants Screen NEGATIVE NEGATIVE Urine Phencyclidine Screen NEGATIVE NEGATIVE Urine Amphetamines Screen NEGATIVE NEGATIVE Urine Methamphetamines Screen NEGATIVE NEGATIVE Urine Benzodiazepines Screen NEGATIVE NEGATIVE Urine Cocaine Screen NEGATIVE NEGATIVE Urine Cannabinoids Screen POSITIVE H NEGATIVE My Orders Orders - APOLONIA BERG MD Lorazepam Injection (Ativan Injection) (05/31/21 09:30) Ondansetron Oral Dissolve Tab (Zofran (05/31/21 09:30) Ondansetron Oral Dissolve Tab (Zofran (05/31/21 10:30) Ed Iv/Invasive Line Start (05/31/21 10:40) Lactated Ringers (Lr 1000 Ml Iv Solution (05/31/21 10:45) Alcohol (05/31/21 10:40) Cbc With Automated Diff (05/31/21 10:40) Comprehensive Metabolic Panel (05/31/21 10:40) Drug Screen Stat (Urine) (05/31/21 10:40) Hcg,Qualitative Serum (05/31/21 10:40) Magnesium (05/31/21 10:40) Ua Culture If Indicated (05/31/21 10:40) Lipase (05/31/21 10:40) Promethazine Injection (Phenergan Injec (05/31/21 10:45) Ketorolac Injection (Toradol Injection) (05/31/21 12:00) Urine Culture (05/31/21 12:27) Scopolamine Patch (Transderm-Scop Patch) (05/31/21 13:15) Lactated Ringers (Lr 1000 Ml Iv Solution (05/31/21 13:45) Us Gallbladder [id number] (05/31/21 14:45) Ondansetron Injection (Zofran Injectio (05/31/21 15:15) Medications Given in ED Current Medications Medications Dose Ordered Sig/Lane Route Start Time Stop Time Status Last Admin Dose Admin Ketorolac Tromethamine 30 mg ONCE ONCE IVP 05/31/21 12:00 05/31/21 12:01 DC 05/31/21 12:23 30 MG Lactated Ringer's 1,000 ml @ 0 mls/hr Q0M ONCE IV 05/31/21 13:45 05/31/21 13:46 DC 05/31/21 13:55 1,000 MLS/HR Ondansetron HCl 8 mg ONCE ONCE IVP 05/31/21 15:15 05/31/21 15:16 DC 05/31/21 15:20 8 MG Scopolamine 1.5 mg ONCE ONCE TD 05/31/21 13:15 05/31/21 13:16 DC 05/31/21 13:49 1.5 MG Vital Signs/I&O 05/31/21 05/31/21 09:08 11:22 Temp 36.2 Pulse 99 97 Resp 18 18 B/P (MAP) 94/77 (83) 110/93 (99) Pulse Ox 100 O2 Delivery Room Air Capillary Refill : Less Than 3 Seconds Blood Pressure Mean: 99 Progress Note : Time: 15:24 Progress Note Patient continued to have persistent vomiting and nausea despite Zofran 4 mg sublingual, Phenergan 25 mg IV, and scopolamine patch. She is now receiving additional Zofran 8 mg IV. I do not have confidence based on her lack of resp onse to medications that she can manage the symptoms at home. Gallbladder ultrasound was obtained and was unremarkable. She is on her second liter of LR. She is hypokalemic and will have potassium replaced by IV route on admission. Case was discussed with Dr. Green who is in agreement with admission. Diagnostic Imaging Diagonstic Imaging: Ultrasound Plain Films/CT/US/NM/MRI: abdomen Comments NAME: ABHISHEK HENRIQUEZ [facility] REC#: [id number] PT STATUS: REG ER : 2000 PHYSICIAN: APOLONIA BERG MD ADMIT DATE: 05/31/21/ER Draft Date of Exam:05/31/21 US GALLBLADDER [id number] PROCEDURE: US Gallbladder. TECHNIQUE: Multiple Real-time grayscale images were obtained over the right upper quadrant in various projections. INDICATION: Right upper quadrant abdominal pain. FINDINGS: Grayscale imaging of the gallbladder reveals no intraluminal filling defect. There is no gallbladder wall thickening or pericholecystic fluid. No intra or extrahepatic biliary ductal dilatation is identified. No pancreatic, right renal, abdominal aortic, or inferior vena caval abnormality is documented. No ascites was noted. IMPRESSION: Unremarkable gallbladder ultrasound. Dictated on workstation # [id number] Dict: 05/31/21 1516 Trans: 05/31/21 1518 [id number] Interpreted by: CLINT CHUN MD Departure Communication (Admissions) Time/Spoke to Admitting Phy: 14:40 Dr. Green Impression Primary Impression: Intractable nausea and vomiting Additional Impressions: Anxiety Hypokalemia Disposition: ADMITTED INPATIENT Condition: Stable Admissions Decision to Admit Reason: Admit from ER (General) Decision to Admit/Date: May 31, 2021 Time/Decision to Admit Time: 14:40 Departure-Patient Inst. Referrals: NO,LOCAL PHYSICIAN (PCP/Family) Primary Care Physician APOLONIA BERG MD May 31, 2021 15:26
[2021-05-31 16:48] VITALS: BP 115/64
[2021-05-31] MEDS ORDERED: PROMETHAZINE INJ 25 MG/ML (PHENERGAN) AMP IV PRN (17:00)
[2021-05-31] MEDS ORDERED: CATHETER FLUSH 10 ML SYR IV PRN (17:00)
[2021-05-31] MEDS: D5 1/2 NS W/KCL 40 MEQ/L 1,000 ML IV SCH (17:24)
[2021-05-31 19:31] VITALS: BP 100/54
[2021-05-31] MEDS: FAMOTIDINE 20MG/2ML IV (PEPCID) IV SCH (19:47)
[2021-05-31] MEDS: ONDANSETRON 4 MG/2 ML (SDV) Z0FRAN IV PRN (21:17)
[2021-05-31] MEDS: KETOROLAC 15 MG/ML VIAL IV PRN (21:58)
[2021-05-31] MEDS: LORazepam INJ 2 MG/ML (ATIVAN) VIAL IV PRN (22:04)
[2021-05-31 23:52] VITALS: BP 114/61
[2021-06-01] MEDS: LORazepam INJ 2 MG/ML (ATIVAN) VIAL IV PRN ×2 (00:30→22:43)
[2021-06-01] MEDS: D5 1/2 NS W/KCL 40 MEQ/L 1,000 ML IV SCH ×4 (01:35→20:18)
[2021-06-01 04:17] VITALS: BP 100/54
[2021-06-01 06:59] LABS: POTASSIUM 4.7 MMOL/L (3.6-5.0)
[2021-06-01 07:00] LABS: CALCIUM 8.7 MG/DL (8.5-10.1)
[2021-06-01 07:04] LABS: CREATININE SERUM 0.95 MG/DL (0.60-1.30)
[2021-06-01 07:58] VITALS: BP 97/49
[2021-06-01] MEDS: FAMOTIDINE 20MG/2ML IV (PEPCID) IV SCH ×2 (09:02→20:28)
--- NOTE | 2021-06-01 10:17 | Short Stay Summary-Hospitalist ---
History of Present Illness HPI/Chief Complaint Pt is a 20yoCF who was admitted due to intractable nauea and vomiting. She presented to the ER due to a panic attack. Her symptoms started the evening of 05/30 when she was triggered for her anxiety by an issue with "jealousy." She reports GI upset is common for her when she is anxious. She had significant nausea and vomiting. They attempted to get her symptoms under control in the ER but she continued to dry heave and was unable to keep anything down. Overnight she need phenergan once for nausea and did not take much in orally. She is still sleeping and her breakfast tray was untouched when I saw her around 10am. Her only request is to have her curtain shut. Source: patient Date Seen 06/01/21 Time Seen by a Provider: 10:16 Attending Physician Kayla Green MD PCP No,Local Physician Referring Physician Date of Admission May 31, 2021 at 15:19 Home Medications & Allergies Home Medications Reviewed patient Home Medication Reconciliation performed by pharmacy medication reconciliations audiology technician and/or nursing. Patients Allergies have been reviewed. Allergies Allergies Coded Allergies Penicillins (Verified Allergy, Unknown, 05/31/21) morphine (Verified Allergy, Unknown, 05/31/21) Past Scwnfwi-Omexvh-Rxmuqw Hx Patient Social History Marrital Status: single Tobacco Use?: No Use of E-Cig and/or Vaping dev: Yes E-Cig or Vaping type used: Nicotine Use of E-Cig and/or Vaping Edmund: Current Everyday User Substance use?: Yes Substance type: Marijuana Substance frequency: Rarely Alcohol Use?: Yes Alcohol type: Hard Liquor Alcohol Frequency: Once in a while Pt feels they are or have been: No Immunizations Up To Date First/Initial COVID19 Vaccinat: HAS NOT RECEIVED VACCINE Tetanus Booster (TDap): Unknown Hepatitis A: No Hepatitis B: No Current Status status: No status: No Advance Directives: No Communicates: Verbally Primary Language: Macedonian Preferred Spoken Language: Macedonian Is interpretation needed?: No Implanted or Applied Medical D: None Past Medical History Surgeries: Adenoidectomy, Tonsillectomy Sexually Transmitted Disease: No Kidney Infection, Kidney Stones Tonsilitis Anxiety Blood Disorders: No Family Medical History Reviewed Nursing Family Hx Review of Systems Constitutional: No chills, No fever EENTM: no symptoms reported Respiratory: no symptoms reported Cardiovascular: No chest pain, No palpitations Gastrointestinal: see HPI Genitourinary: No dysuria Musculoskeletal: no symptoms reported Skin: no symptoms reported Psychiatric/Neurological: See HPI Physical Exam Physical Exam Vital Signs Vital Signs - First Documented 05/31/21 05/31/21 09:08 11:22 Temp 36.2 Pulse 99 Resp 18 B/P (MAP) 94/77 (83) Pulse Ox 100 O2 Delivery Room Air Capillary Refill : Less Than 3 Seconds Height, Weight, BMI Height: 5'8.00" Weight: 132lbs. oz. 59.034072ij; 20.35 BMI Method:Stated General Appearance: No Apparent Distress, WD/WN, Thin Neck: Normal Inspection, Supple Respiratory: Lungs Clear, No Accessory Muscle Use, No Respiratory Distress Cardiovascular: Regular Rate, Rhythm, No Edema, No Murmur Gastrointestinal: Normal Bowel Sounds, Non Tender, Soft Extremity: Normal Inspection, No Pedal Edema Neurologic/Psychiatric: Alert, Oriented x3, Normal Mood/Affect Skin: Normal Color, Warm/Dry Results Results/Procedures Labs Laboratory Tests 06/01/21 06:35 Patient resulted labs reviewed. Imaging: Reviewed Imaging Report Imaging [facility] [place] NAME: ABHISHEK HENRIQUEZ [facility] REC#: [id number] PT STATUS: ADM Yordy : 2000 PHYSICIAN: APOLONIA BERG MD ADMIT DATE: 05/31/21 Signed Date of Exam:05/31/21 US GALLBLADDER [id number] PROCEDURE: US Gallbladder. TECHNIQUE: Multiple Real-time grayscale images were obtained over the right upper quadrant in various projections. INDICATION: Right upper quadrant abdominal pain. FINDINGS: Grayscale imaging of the gallbladder reveals no intraluminal filling defect. There is no gallbladder wall thickening or pericholecystic fluid. No intra or extrahepatic biliary ductal dilatation is identified. No pancreatic, right renal, abdominal aortic, or inferior vena caval abnormality is documented. No ascites was noted. IMPRESSION: Unremarkable gallbladder ultrasound. Dictated by: Dictated on workstation # [id number] Dict: 05/31/21 1516 Trans: 06/01/21 0751 [id number] Interpreted by: CLINT CHUN MD Electronically signed by: CLINT CHUN MD 06/01/21 0751 Short Stay Diagnosis Discharge Diagnosis-Short Stay Admission Diagnosis Intractable nausea and vomiting Final Discharge Diagnosis Intractable nausea and vomiting Conclusion Plan Intractable nausea and vomiting No further vomiting overnight Encouraged to eat breakfast Will DC home if tolerates diet throughout the day Needs PCP follow up Diagnosis/Problems Diagnosis/Problems (1) Intractable nausea and vomiting Status: Acute (2) Anxiety Status: Acute (3) Hypokalemia Status: Acute KAYLA GREEN MD Jun 01, 2021 10:17
[2021-06-01] MEDS: ONDANSETRON 4 MG/2 ML (SDV) Z0FRAN IV PRN ×2 (10:49→17:22)
[2021-06-01 11:55] VITALS: BP 106/54
[2021-06-01] MEDS: hydrOXYzine (ATARAX) 10 MG TAB PO PRN ×2 (13:07→20:28)
[2021-06-01] MEDS ORDERED: NAPH15DR62 OP (14:06)
[2021-06-01] MEDS ORDERED: NAPR220T66 PO (14:06)
[2021-06-01 15:18] VITALS: BP 98/53
[2021-06-01] MEDS ORDERED: PROMETHAZINE INJ 25 MG/ML (PHENERGAN) AMP IV PRN (17:00)
[2021-06-01 19:30] VITALS: BP 103/75
[2021-06-01] MEDS: KETOROLAC 15 MG/ML VIAL IV PRN (23:44)
[2021-06-02] VITALS: BP 125/81
[2021-06-02] MEDS: ONDANSETRON 4 MG/2 ML (SDV) Z0FRAN IV PRN (04:19)
[2021-06-02] MEDS: LORazepam INJ 2 MG/ML (ATIVAN) VIAL IV PRN ×2 (04:19→09:38)
[2021-06-02 04:35] VITALS: BP 108/70
[2021-06-02 07:35] VITALS: BP 105/57
[2021-06-02] MEDS: FAMOTIDINE 20MG/2ML IV (PEPCID) IV SCH ×2 (09:39→21:24)
[2021-06-02] MEDS: D5 1/2 NS W/KCL 40 MEQ/L 1,000 ML IV SCH (09:40)
[2021-06-02 11:34] VITALS: BP 117/60
[2021-06-02] MEDS ORDERED: PROMETHAZINE 25 MG (PHENERGAN) SUPP PR PRN (12:30)
[2021-06-02] MEDS ORDERED: PROMETHAZINE 25 MG (PHENERGAN) TAB PO PRN (12:30)
--- NOTE | 2021-06-02 12:36 | Progress Note - Hospitalist ---
Subjective HPI/CC On Admission Date Seen by Provider: Jun 02, 2021 Time Seen by Provider: 12:31 Pt is a 20yoCF who was admitted due to intractable nauea and vomiting. She presented to the ER due to a panic attack. Her symptoms started the evening of 05/30 when she was triggered for her anxiety by an issue with "jealousy." She reports GI upset is common for her when she is anxious. She had significant nausea and vomiting. They attempted to get her symptoms under control in the ER but she continued to dry heave and was unable to keep anything down. Overnight she need phenergan once for nausea and did not take much in orally. She is still sleeping and her breakfast tray was untouched when I saw her around 10am. Her only request is to have her curtain shut. Subjective/Events-last exam Pt reports feeling somewhat better today but hasn't eaten. Documentation indicates that she ate 100% of her dinner last night though. Breakfast tray was still at bedside when I saw her around 1030. Started crying upon discussion of going home tomorrow. Discussed plan to transition all meds to oral and do essentially a home trial. Objective Exam Vital Signs Vital Signs Date Time Temp Pulse Resp B/P (MAP) Pulse Ox O2 Delivery O2 Flow Rate FiO2 06/02/21 11:34 36.8 60 18 117/60 (79) 98 Room Air Capillary Refill : Less Than 3 Seconds General Appearance: No Apparent Distress, Thin Respiratory: Lungs Clear, No Respiratory Distress Cardiovascular: Regular Rate, Rhythm, No Murmur Neurologic/Psychiatric: Alert, Oriented x3 Results/Procedures Lab Patient resulted labs reviewed. Imaging: Reviewed Imaging Report Assessment/Plan Assessment and Plan Assess & Plan/Chief Complaint Intractable nausea and vomiting No further vomiting overnight Encouraged to eat breakfast again today Needs PCP follow up Will do home trial with only oral meds Discussed with Miguel SRIVASTAVA regarding plan for oral meds only Home tomorrow Diagnosis/Problems Diagnosis/Problems (1) Intractable nausea and vomiting Status: Acute (2) Anxiety Status: Acute (3) Hypokalemia Status: Acute KAYLA LARKIN MD Jun 02, 2021 12:36
[2021-06-02] MEDS: KETOROLAC 15 MG/ML VIAL IV PRN (15:22)
[2021-06-02] MEDS: ONDANSETRON 4 MG (ZOFRAN) ORAL DISSOLVE TAB PO PRN (15:22)
[2021-06-02 16:00] VITALS: BP 109/67
[2021-06-02 19:31] VITALS: BP 112/62
[2021-06-02] MEDS ORDERED: ACETAMINOPHEN 500 MG TAB (TYLENOL) PO PRN (22:30)
[2021-06-03] VITALS: BP 133/84
[2021-06-03] MEDS: ONDANSETRON 4 MG (ZOFRAN) ORAL DISSOLVE TAB PO PRN ×2 (00:19→08:13)
[2021-06-03 04:00] VITALS: BP 114/73
[2021-06-03] MEDS: hydrOXYzine (ATARAX) 10 MG TAB PO PRN ×2 (04:09→09:58)
[2021-06-03 07:53] VITALS: BP 112/76
[2021-06-03] MEDS: FAMOTIDINE 20MG/2ML IV (PEPCID) IV SCH (09:00)
[2021-06-03] MEDS ORDERED: HYDR-3584 PO (10:14)
[2021-06-03] MEDS ORDERED: PROM25TA14 PO (10:14)
[2021-06-03] MEDS ORDERED: ONDA4TAB11 PO (10:14)
--- NOTE | 2021-06-03 10:16 | Discharge Inst-Simple/Standard ---
Discharge Inst-Standard Discharge Medications New, Converted or Re-Newed RX: Transmitted to Pharmacy Patient Instructions/Follow Up Plan of Care/Instructions/FU: Please continue to take your medications as written. Please follow up with a primary care doctor to follow up this hospital stay. Activity as Tolerated: Yes Discharge Diet: No Restrictions Return to The Hospital For: Worsening nausea or vomiting, inability to keep anything down orally, fever, chills, if you feel you are getting worse. KAYLA LARKIN MD Jun 03, 2021 10:16
[2021-06-03] MEDS ORDERED: SCOPOLAMINE 1.5 MG (TRANSDERM-SCOP) PATCH TD NR (11:00)
--- NOTE | 2021-06-03 11:42 | Discharge Summary ---
Diagnosis/Chief Complaint Date of Admission May 31, 2021 at 15:19 Date of Discharge Discharge Date: Jun 03, 2021 Admission Diagnosis Intractable nausea and vomiting Primary Care No,Local Physician Discharge Diagnosis (1) Intractable nausea and vomiting Status: Acute (2) Anxiety Status: Acute (3) Hypokalemia Status: Acute Discharge Summary Discharge Physical Exam Allergies: Coded Allergies: Penicillins (Verified Allergy, Unknown, 05/31/21) morphine (Verified Allergy, Unknown, 05/31/21) Vitals & I&Os Vital Signs Date Time Temp Pulse Resp B/P (MAP) Pulse Ox O2 Delivery O2 Flow Rate FiO2 06/03/21 12:00 35.7 82 16 112/76 98 Room Air General Appearance: No Apparent Distress, WD/WN Respiratory: Lungs Clear, No Respiratory Distress Cardiovascular: Regular Rate, Rhythm, No Murmur Gastrointestinal: Normal Bowel Sounds, Soft Neurologic/Psychiatric: Alert, Oriented x3 Hospital Course Pt was admitted with intractable nausea and vomiting which was a somatic response to her anxiety and panic attacks. She was treated with IV antiemetics and hydroxyzine prn. She does not have a primary care physician and this was recommended to her. director learning services was also consulted to assist with setting her up with [facility] as well. She was discharged home in stable and improved condition. Labs (last 24 hrs) Microbiology 05/31/21 Urine Culture - Final, Complete Gram Pos Mixed Bacterial Carolyne Strep agalactiae Group B Patient resulted labs reviewed. Imaging: Reviewed Imaging Report Discussion & Recommendations Discharge Planning: >30 minutes discharge planning Discharge Home Medications: Active Scripts Active Ondansetron Odt (Ondansetron) 4 Mg Tab.rapdis 4 Mg PO Q6H PRN Hydroxyzine HCl 10 Mg Tablet 10 Mg PO TID PRN Promethazine Tablet (Promethazine HCl) 25 Mg Tablet 25 Mg PO Q4H PRN Reported Allergy Eye Drops (Naphazoline HCl/Pheniramine) 15 Ml Drops 1-2 Drops OP UD PRN Aleve (Naproxen Sodium) 220 Mg Tablet 220 Mg PO TID PRN Instructions to patient/family Please see electronic discharge instructions given to patient. KAYLA LARKIN MD Jun 03, 2021 11:42
[2021-06-03 12:00] VITALS: BP 112/76
[2021-06-06] MEDS ORDERED: SCOPOLAMINE PATCH REMOVAL TP SCH (11:00)
== END 2021-06-03 12:40 | disposition home or self-care (01) ==
LOC: EDUNIT# 08:55 → ER 08:56 → 4TH 15:19
PROVIDERS: ADMIT Family Medicine; ATTEND Family Medicine
DX: F41.9 Anxiety disorder, unspecified (principal); F41.0 Panic disorder [episodic paroxysmal anxiety]; R11.2 Nausea with vomiting, unspecified; E87.6 Hypokalemia; Z79.1 Long term (current) use of non-steroidal anti-inflammatories (NSAID); Z79.899 Other long term (current) drug therapy; Z87.442 Personal history of urinary calculi
CPT/HCPCS: 76705; 80048; 80053; 80306; 81000; 83690; 83735 ×2; 84703; 85025; 87077; 87088; 96361; 96372; 96374; 96375; 99284; G0378; G0480; 36415; 80320

== ENCOUNTER 2021-06-24 08:53 | Emergency (ER) | payer MEDICAID ==
[~2021-06-24] VITALS: Ht 172.7 cm; Wt 58.9 kg
[~2021-06-24 08:53] MED LIST changes: +HYDR-3584 PO; +NAPH15DR62 OP; +NAPR220T66 PO; +PROM25TA14 PO
[2021-06-24] MEDS ORDERED: ONDANSETRON 4 MG/2 ML (SDV) Z0FRAN IVP ONE (09:30)
[2021-06-24] MEDS ORDERED: LORazepam INJ 2 MG/ML (ATIVAN) VIAL IVP ONE (09:30)
[2021-06-24] MEDS ORDERED: LACTATED RINGERS 1,000 ML IV ONE (09:30)
[2021-06-24 09:33] LABS: BILIRUBIN,URINE NEGATIVE (NEGATIVE); CLARITY,URINE CLEAR; COLOR,URINE YELLOW; GLUCOSE, URINE (UA) NEGATIVE (NEGATIVE); KETONES,URINE 1+ (NEGATIVE); LEUKOCYTE ESTERASE ,URINE TRACE (NEGATIVE); NITRITE,URINE NEGATIVE (NEGATIVE); PROTEIN,URINE NEGATIVE (NEGATIVE)
[2021-06-24 09:40] LABS: RBC,URINE 0-2 /HPF; WBC,URINE RARE /HPF
[2021-06-24 09:41] LABS: BACTERIA,URINE TRACE /HPF
[2021-06-24 09:49] LABS: BASOPHILS % (AUTO) 0 % (0-10); EOSINOPHILS % (AUTO) 0 % (0-10); HEMATOCRIT 41 % (35-52); HEMOGLOBIN 13.4 g/dL (11.5-16.0); LYMPHOCYTES # (AUTO) 0.9 10^3/uL (1.0-4.0); LYMPHOCYTES % (AUTO) 15 % (12-44); MEAN CORPUSCULAR HEMOGLOBIN 29 pg (25-34); MEAN CORPUSCULAR HGB CONC 33 g/dL (32-36); MEAN CORPUSCULAR VOLUME 88 fL (80-99); MEAN PLATELET VOLUME 10.2 fL (9.0-12.2); MONOCYTES # (AUTO) 0.2 10^3/uL (0.0-1.0); MONOCYTES % (AUTO) 3 % (0-12); NEUTROPHILS # (AUTO) 5.2 10^3/uL (1.8-7.8); NEUTROPHILS % (AUTO) 81 % (42-75); PLATELET COUNT 268 10^3/uL (130-400); WHITE BLOOD COUNT 6.4 10^3/uL (4.3-11.0)
[2021-06-24] MEDS ORDERED: PROMETHAZINE INJ 25 MG/ML (PHENERGAN) AMP IVP ONE (10:00)
[2021-06-24 10:04] LABS: ALBUMIN 4.6 GM/DL (3.2-4.5); CHLORIDE 110 MMOL/L (98-107); POTASSIUM 3.9 MMOL/L (3.6-5.0); SODIUM 142 MMOL/L (135-145)
[2021-06-24 10:06] LABS: CALCIUM 9.9 MG/DL (8.5-10.1)
[2021-06-24 10:07] LABS: GLUCOSE 108 MG/DL (70-105); TOTAL PROTEIN 7.8 GM/DL (6.4-8.2)
[2021-06-24 10:08] LABS: CARBON DIOXIDE 18 MMOL/L (21-32)
[2021-06-24 10:09] LABS: BILIRUBIN,TOTAL 0.6 MG/DL (0.1-1.0)
[2021-06-24 10:10] LABS: ALKALINE PHOSPHATASE 57 U/L (40-136); CREATININE SERUM 0.85 MG/DL (0.60-1.30); GFR ESTIMATED 86
[2021-06-24 10:11] LABS: BUN/CREATININE RATIO 7
[2021-06-24 10:13] LABS: ALANINE AMINOTRANSFERASE 14 U/L (0-55); MAGNESIUM 1.9 MG/DL (1.6-2.4)
[2021-06-24 10:14] LABS: LIPASE 10 U/L (8-78)
[2021-06-24] MEDS ORDERED: FAMOTIDINE 20MG/2ML IV (PEPCID) IVP ONE (11:30)
[2021-06-24] MEDS ORDERED: HALOPERIDOL 5 MG/ML (HALDOL) VIAL IV ONE (11:30)
[2021-06-24] MEDS ORDERED: diphenhydrAMINE 50 MG/ML INJ (BENADRYL) IVP ONE (11:45)
[2021-06-24] MEDS ORDERED: fentaNYL INJ 100 MCG/2 ML AMP IVP ONE (13:30)
[2021-06-24] MEDS ORDERED: IOHEXOL 350 MG/ML 100 ML (OMNIPAQUE 350) VIAL IV ONE (13:45)
[2021-06-24] MEDS ORDERED: NS 100 ML (IVPB) BAG IV ONE (13:45)
[2021-06-24] MEDS ORDERED: HOLD METFORMIN - RECEIVED CONTRAST 20 ML VIAL IV SCH (13:45)
--- NOTE | 2021-06-24 14:29 | Diagnostic Imaging Report ---
PROCEDURE: CT abdomen and pelvis with contrast. TECHNIQUE: Multiple contiguous axial images were obtained through the abdomen and pelvis after administration of intravenous contrast. Auto Exposure Controls were utilized during the CT exam to meet ALARA standards for radiation dose reduction. All CT scans use one or more of the following dose optimizing techniques: automated exposure control, MA and/or KvP adjustment based on patient size and exam type or iterative reconstruction. DATE: June 24, 2021. COMPARISON: Right upper quadrant ultrasound May 31, 2021. CT abdomen pelvis March 25, 2021. INDICATION: 20-year-old female, abdominal pain for 4 months. FINDINGS: The visualized portions of the lung bases are clear. The heart is not enlarged. There is no pericardial effusion. The liver is heterogeneous in attenuation. The liver contours are not nodular. The gallbladder is unremarkable. There is no identified biliary ductal dilation. The main pancreatic duct is not grossly dilated. Unremarkable appearance of the pancreatic parenchyma. The spleen is normal in size. The adrenal glands are unremarkable. Unremarkable appearance of the renal parenchyma. The urinary collecting systems are not distended. There is no identified renal or ureteral stone. Urinary bladder is unremarkable. There is a cystic right adnexal mass measuring up to 5.5 cm in size in axial image 74. The intestinal tract is not distended. There is no evidence to suggest acute appendicitis. There are mildly prominent right lower quadrant lymph nodes measuring up to approximately 7 mm in short axis. There is no free intraperitoneal air. There is no drainable fluid collection. There is a small volume free pelvic fluid. There is no identified abnormally enlarged lymph node in the abdomen or pelvis meeting CT size criteria for adenopathy. There is a retroaortic left renal vein. There is a lumbar levoscoliosis. There is no identified acute bony abnormality. IMPRESSION: CT ABDOMEN AND PELVIS. 1. Very heterogeneous attenuation of the liver without nodular liver contours or focal identified liver lesion. Recommend correlation with liver function tests. 2. No evidence of cholelithiasis or acute cholecystitis. No biliary ductal dilation. 3. Cystic right adnexal mass which may reflect an ovarian cyst although is not able to be definitively classified on CT. 4. Small volume free pelvic fluid. Dictated by: Dictated on workstation # [id number]
[2021-06-24] MEDS ORDERED: KETOROLAC 30 MG/ML VIAL IVP ONE (15:00)
--- NOTE | 2021-06-24 15:00 | ED General ---
General Chief Complaint: Psych/Social Disorder Stated Complaint: PANIC ATTACK Nursing Triage Note: PT AMB TO RM 3 WITH COMPLAINT OF PANIC ATTACK. STATES STARTED THIS MORNING AROUND 0400. STATES SHE HAS BEEN UNABLE TO KEEP HER MEDICATIONS DOWN. TAKES HYDROXYZINE FOR ANXIETY. Source of Information: Patient, Old Records Exam Limitations: No Limitations History of Present Illness Date Seen by Provider: Jun 24, 2021 Time Seen by Provider: 09:14 Initial Comments This 20-year-old young lady presents to the emergency room with complaints of nausea, vomiting, generalized abdominal pain, and anxiety that woke her from sleep around 0300. She has had recurrent problems with similar symptoms over past several months. She was admitted to the hospital for similar symptoms in May. She presumes these episodes are triggered by anxiety. She denies any alcohol use for the past 4 months. She does use marijuana and has used as recently as last night. She is thin and reports very poor appetite in recent months. She also reports having significant pelvic cramping yesterday and passing a large clot. She wonders if she had a miscarriage. Serum test was negative on her prior admission. She also reports some diarrhea recently and believes there may have been some blood in the stool. Allergies and Home Medications Allergies Coded Allergies: Penicillins (Verified Allergy, Unknown, 05/31/21) morphine (Verified Allergy, Unknown, 05/31/21) Patient Home Medication List Home Medication List Reviewed: Yes Hydroxyzine HCl (Hydroxyzine HCl) 10 Mg Tablet, 10 MG PO TID PRN for anxiety Prescribed by: KAYLA LARKIN on 06/03/21 1014 Hydroxyzine HCl (Hydroxyzine HCl) 25 Mg Tablet, 25 MG PO Q6H PRN for ANXIETY Prescribed by: APOLONIA HAGEN on 06/24/21 1506 Naphazoline HCl/Pheniramine (Allergy Eye Drops) 15 Ml Drops, 1-2 DROPS OP UD PRN for EYE REDNESS/DRY EYES, (Reported) Entered as Reported by: RUFINO RAJAN on 06/01/21 1406 Naproxen Sodium (Aleve) 220 Mg Tablet, 220 MG PO TID PRN for PAIN-MILD (1-4), (Reported) Entered as Reported by: RUFINO RAJAN on 06/01/21 1406 Ondansetron (Ondansetron Odt) 4 Mg Tab.rapdis, 4 MG PO Q6H PRN for NAUSEA/VOMITING-1ST LINE Prescribed by: KAYLA LARKIN on 06/03/21 1014 Promethazine HCl (Promethazine Tablet) 25 Mg Tablet, 25 MG PO Q4H PRN for NAUSEA/VOMITING-2ND LINE Prescribed by: KAYLA LARKIN on 06/03/21 1014 Review of Systems Review of Systems Constitutional: no symptoms reported EENTM: no symptoms reported Respiratory: no symptoms reported Cardiovascular: no symptoms reported Gastrointestinal: see HPI Genitourinary: no symptoms reported : No Musculoskeletal: no symptoms reported Skin: no symptoms reported Psychiatric/Neurological: See HPI Hematologic/Lymphatic: No Symptoms Reported Immunological/Allergic: no symptoms reported Past Wbvludl-Kuswvz-Lppsha Hx Patient Social History Tobacco Use?: No Use of E-Cig and/or Vaping dev: Yes Substance use?: Yes Substance type: Marijuana Alcohol Use?: No Pt feels they are or have been: No Immunizations Up To Date Tetanus Booster (TDap): More than 5yrs First/Initial COVID19 Vaccinat: HAS NOT RECEIVED VACCINE Second COVID19 Vaccination James: HAS NOT RECEIVED VACCINE Past Medical History Surgeries: Yes (WISDOM TEETH REMOVED) Adenoidectomy, Tonsillectomy Respiratory: No Cardiac: No Neurological: No : No Sexually Transmitted Disease: No Genitourinary: Yes Kidney Infection, Kidney Stones Gastrointestinal: No Musculoskeletal: No Endocrine: No HEENT: Yes (WISDOM TEETH REMOVED; S/P TONSILLECTOMY) Tonsilitis Cancer: No Psychosocial: No Anxiety Integumentary: No Blood Disorders: No Physical Exam Vital Signs Vital Signs - First Documented 06/24/21 08:58 Temp 36.3 Pulse 100 Resp 16 B/P (MAP) 109/86 (94) Pulse Ox 100 O2 Delivery Room Air Capillary Refill : Less Than 3 Seconds Height, Weight, BMI Height: 5'8.00" Weight: 132lbs. oz. 59.116155vh; 19.00 BMI Method:Stated General Appearance: WD/WN, Anxious, Moderate Distress HEENT: PERRL/EOMI, Normal ENT Inspection Neck: Normal Inspection Respiratory: Lungs Clear, Normal Breath Sounds, No Accessory Muscle Use Cardiovascular: Regular Rate, Rhythm, No Edema, No Murmur Gastrointestinal: Normal Bowel Sounds, Soft, Tenderness (Generalized but more prominent in the right upper quadrant and right lower quadrant) Extremity: Normal Inspection, No Pedal Edema Neurologic/Psychiatric: Alert, Oriented x3, No Motor/Sensory Deficits, geomagnetist II- XII Norm as Tested, Other (Quite anxious, tremoring at times) Skin: Normal Color, Warm/Dry Progress/Results/Core Measures Suspected Sepsis SIRS Temperature: Pulse: 100 Respiratory Rate: 16 Laboratory Tests 06/24/21 09:44: White Blood Count 6.4 Blood Pressure 109 /86 Mean: 94 Laboratory Tests 06/24/21 09:44: Creatinine 0.85, Platelet Count 268, Total Bilirubin 0.6 Results/Orders Lab Results Laboratory Tests Test 06/24/21 09:20 06/24/21 09:44 Range/Units Urine Color YELLOW Urine Clarity CLEAR Urine pH 6.0 5-9 Urine Specific [place] <=1.005 1.016-1.022 Urine Protein NEGATIVE NEGATIVE Urine Glucose (UA) NEGATIVE NEGATIVE Urine Ketones 1+ H NEGATIVE Urine Nitrite NEGATIVE NEGATIVE Urine Bilirubin NEGATIVE NEGATIVE Urine Urobilinogen 0.2 < = 1.0 MG/DL Urine Leukocyte Esterase TRACE H NEGATIVE Urine RBC (Auto) 3+ H NEGATIVE Urine RBC 0-2 /HPF Urine WBC RARE /HPF Urine Squamous Epithelial Cells 2-5 /HPF Urine Crystals NONE /LPF Urine Bacteria TRACE /HPF Urine Casts NONE /LPF Urine Mucus NEGATIVE /LPF Urine Culture Indicated NO White Blood Count 6.4 4.3-11.0 10^3/uL Red Blood Count 4.63 3.80-5.11 10^6/uL Hemoglobin 13.4 11.5-16.0 g/dL Hematocrit 41 35-52 % Mean Corpuscular Volume 88 80-99 fL Mean Corpuscular Hemoglobin 29 25-34 pg Mean Corpuscular Hemoglobin Concent 33 32-36 g/dL Red Cell Distribution Width 13.7 10.0-14.5 % Platelet Count 268 130-400 10^3/uL Mean Platelet Volume 10.2 9.0-12.2 fL Immature Granulocyte % (Auto) 0 % Neutrophils (%) (Auto) 81 H 42-75 % Lymphocytes (%) (Auto) 15 12-44 % Monocytes (%) (Auto) 3 0-12 % Eosinophils (%) (Auto) 0 0-10 % Basophils (%) (Auto) 0 0-10 % Neutrophils # (Auto) 5.2 1.8-7.8 10^3/uL Lymphocytes # (Auto) 0.9 L 1.0-4.0 10^3/uL Monocytes # (Auto) 0.2 0.0-1.0 10^3/uL Eosinophils # (Auto) 0.0 0.0-0.3 10^3/uL Basophils # (Auto) 0.0 0.0-0.1 10^3/uL Immature Granulocyte # (Auto) 0.0 0.0-0.1 10^3/uL Sodium Level 142 135-145 MMOL/L Potassium Level 3.9 3.6-5.0 MMOL/L Chloride Level 110 H 98-107 MMOL/L Carbon Dioxide Level 18 L 21-32 MMOL/L Anion Gap 14 5-14 MMOL/L Blood Urea Nitrogen 6 L 7-18 MG/DL Creatinine 0.85 0.60-1.30 MG/DL Estimat Glomerular Filtration Rate 86 BUN/Creatinine Ratio 7 Glucose Level 108 H 70-105 MG/DL Calcium Level 9.9 8.5-10.1 MG/DL Corrected Calcium 8.5-10.1 MG/DL Magnesium Level 1.9 1.6-2.4 MG/DL Total Bilirubin 0.6 0.1-1.0 MG/DL Aspartate Amino Transf (AST/SGOT) 18 5-34 U/L Alanine Aminotransferase (ALT/SGPT) 14 0-55 U/L Alkaline Phosphatase 57 40-136 U/L Total Protein 7.8 6.4-8.2 GM/DL Albumin 4.6 H 3.2-4.5 GM/DL Lipase 10 8-78 U/L TSH [place] Testing 0.48 0.35-4.94 UIU/ML Serum Test, Qualitative NEGATIVE NEGATIVE My Orders Orders - APOLONIA BERG MD Ondansetron Injection (Zofran Injectio (06/24/21 09:30) Lorazepam Injection (Ativan Injection) (06/24/21 09:30) Ed Iv/Invasive Line Start (06/24/21:27) Lactated Ringers (Lr 1000 Ml Iv Solution (06/24/21 09:30) Cbc With Automated Diff (06/24/21:27) Comprehensive Metabolic Panel (06/24/21 09:27) Hcg,Qualitative Serum (9/4/21 09:27) Lipase (06/24/21 09:27) Magnesium (06/24/21 09:27) Ua Culture If Indicated (06/24/21 09:27) Thyroid Analyzer (06/24/21 09:51) Promethazine Injection (Phenergan Injec (06/24/21 10:00) Famotidine Injection (Pepcid Injection) (06/24/21 11:30) Haloperidol Injection (Haldol Injectio (06/24/21 11:30) Diphenhydramine Injection (Benadryl Inje (06/24/21 11:45) Fentanyl Inj (Sublimaze Injection) (06/24/21 13:30) Ct Abdomen/Pelvis W (06/24/21 13:21) Iohexol Injection (Omnipaque 350 Mg/Ml 1 (06/24/21 13:45) Received Contrast (Hold Metformin- Contr (06/24/21 13:45) Ns (Ivpb) (Sodium Chloride 0.9% Ivpb Bag (06/24/21 13:45) Ketorolac Injection (Toradol Injection) (06/24/21 15:00) Medications Given in ED Current Medications Medications Dose Ordered Sig/Lane Route Start Time Stop Time Status Last Admin Dose Admin Diphenhydramine HCl 25 mg ONCE ONCE IVP 06/24/21 11:45 06/24/21 11:46 DC 06/24/21 11:44 25 MG Famotidine 20 mg ONCE ONCE IVP 06/24/21 11:30 06/24/21 11:31 DC 06/24/21 11:44 20 MG Fentanyl Citrate 50 mcg ONCE ONCE IVP 06/24/21 13:30 06/24/21 13:31 DC 06/24/21 13:33 50 MCG Haloperidol Lactate 2.5 mg ONCE ONCE IV 06/24/21 11:30 06/24/21 11:31 DC 06/24/21 12:28 2.5 MG Iohexol 100 ml ONCE ONCE IV 06/24/21 13:45 06/24/21 13:46 DC 06/24/21 13:56 75 ML Ketorolac Tromethamine 15 mg ONCE ONCE IVP 06/24/21 15:00 06/24/21 15:01 DC 06/24/21 15:35 15 MG Lactated Ringer's 1,000 ml @ 0 mls/hr Q0M ONCE IV 06/24/21 09:30 06/24/21 09:31 DC 06/24/21 09:38 0 MLS/HR Lorazepam 0.5 mg ONCE ONCE IVP 06/24/21 09:30 06/24/21 09:31 DC 06/24/21 09:38 0.5 MG Ondansetron HCl 8 mg ONCE ONCE IVP 06/24/21 09:30 06/24/21 09:31 DC 06/24/21 09:38 8 MG Promethazine HCl 25 mg ONCE ONCE IVP 06/24/21 10:00 06/24/21 10:01 DC 06/24/21 10:00 25 MG Sodium Chloride 100 ml ONCE ONCE IV 06/24/21 13:45 06/24/21 13:46 DC 06/24/21 13:56 80 ML Vital Signs/I&O 06/24/21 06/24/21 08:58 15:37 Temp 36.3 Pulse 100 76 Resp 16 15 B/P (MAP) 109/86 (94) 114/75 Pulse Ox 100 99 O2 Delivery Room Air Room Air Capillary Refill : Less Than 3 Seconds Blood Pressure Mean: 94 Progress Note : Time: 14:53 Progress Note Patient was initially treated with Zofran, Ativan, and IV fluids. This initially helped her anxiety but she had refractory nausea and vomiting. Phenergan was added to her bag of LR. This seemed to help her nausea but she seemed to have some agitation associated with it. Benadryl was given to counter that agitation. She had again some refractory nausea and Haldol was given. The Haldol did resolve the nausea and vomiting. Pain was rebounding and she was given fentanyl prior to CT scan. Since she was having persistent pain, as well as multiple visits to the ER and an observation visit, imaging was determined to be appropriate. CT scan showed a cystic structure in the right pelvis consistent with ovarian association. There was no significant free fluid. She also demonstrated an unusually heterogeneous liver. The cause of this is uncertain. Patient denies any history of alcohol consumption within the last month. She only occasionally drink alcohol prior to that. Transaminases and bilirubin are not consistent with liver disease. Patient was reexamined and found to have tenderness in both the right upper quadrant and right lower q uadrant. She states the right lower quadrant tenderness has been present for about 3 years and is relatively unchanged. The right upper quadrant tenderness is newer. Patient symptoms are relatively well controlled at this time. Plan is to discharge home if she is able to tolerate an oral fluid challenge. Toradol will be given for additional pain control. Diagnostic Imaging Diagonstic Imaging: CT Plain Films/CT/US/NM/MRI: abdomen, pelvis Comments CT abdomen and pelvis viewed by me and report reviewed. See report below: NAME: ABHISHEK HENRIQUEZ [facility] REC#: [id number] PT STATUS: REG ER : 2001 PHYSICIAN: APOLONIA BERG MD ADMIT DATE: 06/24/21/ER Draft Date of Exam:06/24/21 CT ABDOMEN/PELVIS W PROCEDURE: CT abdomen and pelvis with contrast. TECHNIQUE: Multiple contiguous axial images were obtained through the abdomen and pelvis after administration of intravenous contrast. Auto Exposure Controls were utilized during the CT exam to meet ALARA standards for radiation dose reduction. All CT scans use one or more of the following dose optimizing techniques: automated exposure control, MA and/or KvP adjustment based on patient size and exam type or iterative reconstruction. DATE: June 24, 2021. COMPARISON: Right upper quadrant ultrasound May 31, 2021. CT abdomen pelvis March 25, 2021. INDICATION: 20-year-old female, abdominal pain for 4 months. FINDINGS: The visualized portions of the lung bases are clear. The heart is not enlarged. There is no pericardial effusion. The liver is heterogeneous in attenuation. The liver contours are not nodular. The gallbladder is unremarkable. There is no identified biliary ductal dilation. The main pancreatic duct is not grossly dilated. Unremarkable appearance of the pancreatic parenchyma. The spleen is normal in size. The adrenal glands are unremarkable. Unremarkable appearance of the renal parenchyma. The urinary collecting systems are not distended. There is no identified renal or ureteral stone. Urinary bladder is unremarkable. There is a cystic right adnexal mass measuring up to 5.5 cm in size in axial image 74. The intestinal tract is not distended. There is no evidence to suggest acute appendicitis. There are mildly prominent right lower quadrant lymph nodes measuring up to approximately 7 mm in short axis. There is no free intraperitoneal air. There is no drainable fluid collection. There is a small volume free pelvic fluid. There is no identified abnormally enlarged lymph node in the abdomen or pelvis meeting CT size criteria for adenopathy. There is a retroaortic left renal vein. There is a lumbar levoscoliosis. There is no identified acute bony abnormality. IMPRESSION: CT ABDOMEN AND PELVIS. 1. Very heterogeneous attenuation of the liver without nodular liver contours or focal identified liver lesion. Recommend correlation with liver function tests. 2. No evidence of cholelithiasis or acute cholecystitis. No biliary ductal dilation. 3. Cystic right adnexal mass which may reflect an ovarian cyst although is not able to be definitively classified on CT. 4. Small volume free pelvic fluid. Dictated on workstation # [id number] Dict: 06/24/21 1416 Trans: 06/24/21 1427 [facility] [id number] Interpreted by: WILLIS JACOBS Departure Impression Primary Impression: Nausea & vomiting Qualified Codes: R11.2 - Nausea with vomiting, unspecified Additional Impressions: Right sided abdominal pain Anxiety Right ovarian cyst Abnormal CT of liver Marijuana use Disposition: HOME, SELF-CARE Condition: Improved Departure-Patient Inst. Decision time for Depature: 14:59 Referrals: MORRO ADRIAN MD [facility]/TROY MALDONADO MD, DANIEL J MD ,LOCAL PHYSICIAN (PCP) Primary Care Physician SOHEILA AKERS RICK D MD STEWART, CHAD C MD Patient Instructions: Ovarian Cysts, Severe Abdominal Pain Add. Discharge Instructions: Start with a noncarbonated clear liquid diet. Gradually advance your diet with small quantities of bland food as tolerated. Avoid use of marijuana as this may ultimately worsen your vomiting and abdominal pain. It is best to stop completely and long-term to determine if marijuana is a contributing factor to your abdominal pain and vomiting. You did have some abnormal findings on your CT scan including a heterogeneous liver and an ovarian cyst. The long-term significances of these findings are uncertain. You should follow-up with a primary care provider soon as possible to discuss monitoring of these findings. Discuss these imaging results with your primary care provider to determine if further studies such as ultrasound of the liver, gallbladder, and ovaries are appropriate. You may continue using hydroxyzine for anxiety. You are being prescribed a higher dose than your previous dose for better control of your anxiety. Use Zofran (ondansetron) for your primary nausea control. Add Phenergan (promethazine) to the Zofran for additional nausea control if needed. If promethazine makes you jittery or agitated, you may take the hydroxyzine or Benadryl (diphenhydramine) 25 to 50 mg to counteract any agitation. A list of primary care providers is provided below for your convenience. Call with questions or concerns. Return to the ER if you have worsening symptoms. All discharge instructions reviewed with patient and/or family. Voiced understanding. Scripts Hydroxyzine HCl (Hydroxyzine HCl) 25 Mg Tablet 25 MG PO Q6H PRN for ANXIETY, #20 TAB Prov: APOLONIA BERG MD 06/24/21 APOLONIA BERG MD Jun 24, 2021 14:59
[2021-06-24] MEDS ORDERED: HYDR-700 PO (15:06)
[2021-06-24 15:37] VITALS: BP 114/75
== END 2021-06-24 15:37 | disposition home or self-care (01) ==
LOC: EDUNIT# 08:53 → ER 08:55
DX: R11.2 Nausea with vomiting, unspecified (principal); F41.9 Anxiety disorder, unspecified; N83.201 Unspecified ovarian cyst, right side; R93.2 Abnormal findings on diagnostic imaging of liver and biliary tract; F12.90 Cannabis use, unspecified, uncomplicated
CPT/HCPCS: 36415; 74177; 80053; 81000; 83690; 83735; 84443; 84703; 85025

== ENCOUNTER 2021-07-01 04:48 | Emergency (ER) | payer MEDICAID ==
[~2021-07-01] VITALS: Ht 172.7 cm; Wt 55.0 kg
[~2021-07-01 04:48] MED LIST changes: +HYDR-700 PO
[2021-07-01] MEDS ORDERED: FAMOTIDINE 20 MG (PEPCID) TABLET PO STA (05:45)
[2021-07-01] MEDS ORDERED: LIDOCAINE 2% VISCOUS 15 ML UDC PO ONE (05:45)
[2021-07-01] MEDS ORDERED: ANTACID SUSP 30 ML UDC (MYLANTA) PO ONE (05:45)
--- NOTE | 2021-07-01 05:57 | ED Abdominal Pain ---
General Chief Complaint: Abdominal/GI Problems Stated Complaint: ABD PAIN & LIVER PAIN Nursing Triage Note: Pt ambulatory into ER with complaint of pain to abdomen. Pt states that she was seen in ER for same thing on 06/25/21, but didn't follow up or get prescriptions filled. Pt rates pain at a 9/10. Source of Information: Patient Exam Limitations: No Limitations (FRANK PORTER) History of Present Illness Date Seen by Provider: Jul 01, 2021 Time Seen by Provider: 05:22 Initial Comments Patient to the ER by private conveyance from home with chief complaint of waking up around 3:00 in the morning with some epigastric abdominal pain. She is had this in the past. She took some antiacids and it made it better but then her anxiety was getting the better of her so she decided to come in. She was here 6 days ago seen worked up and had a CT scan showing some nonspecific heterogeneity of the liver and told to follow-up with a primary care provider. She has not selected a primary care provider. She does see a counselor for her anxiety and she feels that her anxiety has been getting under better control. She is not on any medicines for it just yet. She has never had EGD. She has no family or personal history of irritable bowel or inflammatory bowel. She had an episode of stool this morning with a little bright red blood in it. She does not have any pain in her rectum. She did just finish her menstrual cycle today. She says since she has been using Depo-Medrol since she was 17 she is not having very regular periods. No fevers chills. She did have some nausea and took a Zofran but says that the taste of it makes her vomit so she promptly vomited that back up. She is not having any nausea presently. She states that she stopped using marijuana after her last visit when she was told that it can cause high cannabis hyperemesis syndrome. (FRANK PORTER) Allergies and Home Medications Allergies Coded Allergies: Penicillins (Verified Allergy, Unknown, 05/31/21) morphine (Verified Allergy, Unknown, 05/31/21) Patient Home Medication List Home Medication List Reviewed: Yes (FRANK PORTER) Home Medication List Reviewed: Yes (EFRAÍN PINEDA DO) Hydroxyzine HCl (Hydroxyzine HCl) 10 Mg Tablet, 10 MG PO TID PRN for anxiety Prescribed by: KAYLA LARKIN on 06/03/21 1014 Hydroxyzine HCl (Hydroxyzine HCl) 25 Mg Tablet, 25 MG PO Q6H PRN for ANXIETY Prescribed by: APOLONIA HAGEN on 06/24/21 1506 Hyoscyamine Sulfate (Levsin-Sl) 0.125 Mg Tab.subl, 0.25 MG SL Q4H Prescribed by: EFRAÍN PINEDA on 07/01/21 0745 Naphazoline HCl/Pheniramine (Allergy Eye Drops) 15 Ml Drops, 1-2 DROPS OP UD PRN for EYE REDNESS/DRY EYES, (Reported) Entered as Reported by: RUFINO RAJAN on 06/01/21 1406 Naproxen Sodium (Aleve) 220 Mg Tablet, 220 MG PO TID PRN for PAIN-MILD (1-4), (Reported) Entered as Reported by: RUFINO RAJAN on 06/01/21 1406 Ondansetron (Ondansetron Odt) 4 Mg Tab.rapdis, 4 MG PO Q6H PRN for NAUSEA/VOMITING-1ST LINE Prescribed by: KAYLA LARKIN on 06/03/21 1014 Ondansetron (Ondansetron Odt) 8 Mg Tab.rapdis, 8 MG PO Q6H Prescribed by: EFRAÍN PINEDA on 07/01/21 0745 Pantoprazole Sodium (Protonix) 40 Mg Tablet.dr, 40 MG PO DAILY Prescribed by: EFRAÍN PINEDA on 07/01/21 0745 Promethazine HCl (Promethazine Tablet) 25 Mg Tablet, 25 MG PO Q4H PRN for NAUSEA/VOMITING-2ND LINE Prescribed by: KAYLA LARKIN on 06/03/21 1014 Sucralfate (Carafate) 1 Gm Tablet, 1 GM PO QID Prescribed by: EFRAÍN PINEDA on 07/01/21 0745 Review of Systems Review of Systems Constitutional: No chills, No diaphoresis EENTM: No Blurred Vision, No Double Vision Respiratory: Denies Cough, Denies Shortness of Air Cardiovascular: Denies Chest Pain, Denies Lightheadedness Gastrointestinal: Denies Constipated; Diarrhea, Nausea, Vomiting Genitourinary: Denies Burning, Denies Discharge, Denies Drainage Musculoskeletal: No back pain, No joint pain (FRANK PORTER) All Other Systems Reviewed Negative Unless Noted: Yes (FRANK PORTER) Past [place] Hx Patient Social History Tobacco Use?: No Use of E-Cig and/or Vaping dev: Yes E-Cig or Vaping type used: Nicotine Substance use?: No Alcohol Use?: Yes Alcohol type: Beer Alcohol Frequency: Couple times a week Pt feels they are or have been: No (FRANK PORTER) Immunizations Up To Date Tetanus Booster (TDap): More than 5yrs Influenza Vaccine Up-to-Date: No; Not Current First/Initial COVID19 Vaccinat: 06/27/21 Second COVID19 Vaccination James: HAS NOT RECEIVED VACCINE COVID19 Vaccine Hvac R Instructor: Jose (FRANK PORTER) Past Medical History Surgeries: Yes (WISDOM TEETH REMOVED) Adenoidectomy, Tonsillectomy Respiratory: No Cardiac: No Neurological: No Sexually Transmitted Disease: No Genitourinary: Yes Kidney Infection, Kidney Stones Gastrointestinal: No Musculoskeletal: No Endocrine: No HEENT: Yes (WISDOM TEETH REMOVED; S/P TONSILLECTOMY) Tonsilitis Cancer: No Psychosocial: No Anxiety Integumentary: No Blood Disorders: No (FRANK PORTER) Hx Para: 1 (HAD A BABY AT AGE 18, GAVE UP FOR ADOPTION) (EFRAÍN PINEDA DO) Physical Exam Vital Signs Vital Signs - First Documented 07/01/21 04:58 Temp 36.5 Pulse 90 Resp 18 B/P (MAP) 116/84 (95) Pulse Ox 99 O2 Delivery Room Air (EFRAÍN PINEDA DO) Vital Signs Capillary Refill : Less Than 3 Seconds (FRANK PORTER) Height/Weight/BMI Height: 5'8.00" Weight: 132lbs. oz. 59.106174xm; 18.00 BMI Method:Stated General Appearance: mild distress, thin HEENT: PERRL/EOMI, pharynx normal Neck: full range of motion, normal inspection Respiratory: lungs clear, normal breath sounds, no respiratory distress, no accessory muscle use Cardiovascular: normal peripheral pulses, regular rate, rhythm Peripheral Pulses: 2+ Radial Pulses (R), 2+ Radial Pulses (L) Gastrointestinal: normal bowel sounds, non tender, soft, no organomegaly, other (Negative for mesenteric signs, Montgomery sign, Rovsing sign, McBurney's point tenderness or rebound tenderness) Extremities: normal range of motion, non-tender, normal capillary refill Neurologic/Psychiatric: alert, oriented x 3, other (Anxious affect) Skin: normal color, warm/dry (FRANK PORTER) Progress/Results/Core Measures Results/Orders Lab Results Laboratory Tests Test 07/01/21 06:35 07/01/21 07:10 Range/Units White Blood Count 5.7 4.3-11.0 10^3/uL Red Blood Count 4.49 3.80-5.11 10^6/uL Hemoglobin 13.2 11.5-16.0 g/dL Hematocrit 41 35-52 % Mean Corpuscular Volume 91 80-99 fL Mean Corpuscular Hemoglobin 29 25-34 pg Mean Corpuscular Hemoglobin Concent 32 32-36 g/dL Red Cell Distribution Width 13.9 10.0-14.5 % Platelet Count 295 130-400 10^3/uL Mean Platelet Volume 10.3 9.0-12.2 fL Immature Granulocyte % (Auto) 0 % Neutrophils (%) (Auto) 71 42-75 % Lymphocytes (%) (Auto) 22 12-44 % Monocytes (%) (Auto) 7 0-12 % Eosinophils (%) (Auto) 0 0-10 % Basophils (%) (Auto) 0 0-10 % Neutrophils # (Auto) 4.1 1.8-7.8 10^3/uL Lymphocytes # (Auto) 1.2 1.0-4.0 10^3/uL Monocytes # (Auto) 0.4 0.0-1.0 10^3/uL Eosinophils # (Auto) 0.0 0.0-0.3 10^3/uL Basophils # (Auto) 0.0 0.0-0.1 10^3/uL Immature Granulocyte # (Auto) 0.0 0.0-0.1 10^3/uL Sodium Level 142 135-145 MMOL/L Potassium Level 3.8 3.6-5.0 MMOL/L Chloride Level 107 98-107 MMOL/L Carbon Dioxide Level 25 21-32 MMOL/L Anion Gap 10 5-14 MMOL/L Blood Urea Nitrogen 9 7-18 MG/DL Creatinine 0.83 0.60-1.30 MG/DL Estimat Glomerular Filtration Rate 88 BUN/Creatinine Ratio 11 Glucose Level 106 H 70-105 MG/DL Calcium Level 9.5 8.5-10.1 MG/DL Corrected Calcium 9.1 8.5-10.1 MG/DL Magnesium Level 2.1 1.6-2.4 MG/DL Total Bilirubin 0.3 0.1-1.0 MG/DL Aspartate Amino Transf (AST/SGOT) 11 5-34 U/L Alanine Aminotransferase (ALT/SGPT) 13 0-55 U/L Alkaline Phosphatase 59 40-136 U/L Total Protein 7.2 6.4-8.2 GM/DL Albumin 4.5 3.2-4.5 GM/DL Amylase Level 22 L 25-125 U/L Lipase 14 8-78 U/L Serum Test, Qualitative NEGATIVE NEGATIVE Serum Alcohol < 10 <10 MG/DL Urine Color YELLOW Urine Clarity CLEAR Urine pH 8.0 5-9 Urine Specific [place] 1.015 L 1.016-1.022 Urine Protein NEGATIVE NEGATIVE Urine Glucose (UA) NEGATIVE NEGATIVE Urine Ketones NEGATIVE NEGATIVE Urine Nitrite NEGATIVE NEGATIVE Urine Bilirubin NEGATIVE NEGATIVE Urine Urobilinogen 0.2 < = 1.0 MG/DL Urine Leukocyte Esterase TRACE H NEGATIVE Urine RBC (Auto) TRACE-I NEGATIVE Urine RBC RARE /HPF Urine WBC 2-5 /HPF Urine Squamous Epithelial Cells 2-5 /HPF Urine Crystals NONE /LPF Urine Bacteria FEW H /HPF Urine Casts NONE /LPF Urine Mucus NEGATIVE /LPF Urine Culture Indicated NO Urine Opiates Screen NEGATIVE NEGATIVE Urine Oxycodone Screen NEGATIVE NEGATIVE Urine Methadone Screen NEGATIVE NEGATIVE Urine Propoxyphene Screen NEGATIVE NEGATIVE Urine Barbiturates Screen NEGATIVE NEGATIVE Ur Tricyclic Antidepressants Screen NEGATIVE NEGATIVE Urine Phencyclidine Screen NEGATIVE NEGATIVE Urine Amphetamines Screen NEGATIVE NEGATIVE Urine Methamphetamines Screen NEGATIVE NEGATIVE Urine Benzodiazepines Screen NEGATIVE NEGATIVE Urine Cocaine Screen NEGATIVE NEGATIVE Urine Cannabinoids Screen POSITIVE H NEGATIVE (EFRAÍN PINEDA DO) My Orders Orders - EFRAÍN PINEDA DO Ed Iv/Invasive Line Start (07/01/21 06:30) Alcohol (07/01/21 06:30) Amylase (07/01/21 06:30) Cbc With Automated Diff (07/01/21 06:30) Comprehensive Metabolic Panel (07/01/21 06:30) Drug Screen Stat (Urine) (07/01/21 06:30) Hcg,Qualitative Serum (07/01/21 06:30) Lipase (07/01/21 06:30) Magnesium (07/01/21 06:30) Ua Culture If Indicated (07/01/21 06:30) Ed Iv/Invasive Line Start (07/01/21 06:30) Lactated Ringers (Lr 1000 Ml Iv Solution (07/01/21 06:30) Ondansetron Injection (Zofran Injectio (07/01/21 06:30) Hyoscyamine Sl Tablet (Levsin Sl Tablet) (07/01/21 06:45) Acute Abd Series (07/01/21 07:40) (EFRAÍN PINEDA DO) Medications Given in ED Current Medications Medications Dose Ordered Sig/Lane Route Start Time Stop Time Status Last Admin Dose Admin Al Hydrox/Mg Hydrox/Simethicone 30 ml ONCE ONCE PO 07/01/21 05:45 07/01/21 05:47 DC 07/01/21 05:56 30 ML Hyoscyamine Sulfate 0.25 mg ONCE ONCE PO 07/01/21 06:45 07/01/21 06:46 DC 07/01/21 06:40 0.25 MG Lactated Ringer's 1,000 ml @ 0 mls/hr Q0M ONCE IV 07/01/21 06:30 07/01/21 06:32 DC 07/01/21 06:40 0 MLS/HR Lidocaine HCl 15 ml ONCE ONCE PO 07/01/21 05:45 07/01/21 05:47 DC 07/01/21 05:57 15 ML Ondansetron HCl 4 mg ONCE ONCE IVP 07/01/21 06:30 07/01/21 06:32 DC 07/01/21 06:40 4 MG (EFRAÍN PINEDA DO) Vital Signs/I&O 07/01/21 04:58 Temp 36.5 Pulse 90 Resp 18 B/P (MAP) 116/84 (95) Pulse Ox 99 O2 Delivery Room Air (EFRAÍN PINEDA DO) Blood Pressure Mean: 95 Progress Progress Note : Time: 05:51 Progress Note After lengthy discussion and reviewing her previous x-rays and labs patient feels that she is having some bad gastritis and we discussed following up with general surgery to discuss an EGD if a round of Carafate and doubling up her Nexium did not help. She thought that would be a good idea. We can give her a GI cocktail and if her pain gets better we will let her go home and she is okay with this plan. We did discuss doing some blood work but as she has a soft, nonacute, nontender abdomen and normal vital signs and was just here and examined extensively a few days ago she is okay with completing the rest of her work-up outpatient. (FRANK PORTER) Progress Note : Progress Note 06--ASSUMED CARE FROM DR. PORTER AT [facility]IFT [facility], PT STILL WITH C/O ABDOMINAL PAIN AND NAUSEA. PT WITH CONSTANT MOVEMENTS OF ENTIRE BODY, HOLDING EPIGASTRIC AREA AND ROCKING BACK AND FORTH. . PT STATES PAIN HAS MOVED DOWN TO UMBILICAL AREA. PT HAD NORMAL GALLBLADDER ULTRASOUND 05/24/21, AND ESSENTIALLY NORMAL CT ABDOMEN AND PELVIS ( EXCEPT FOR HETEROGENEOUS APPEARANCE OF LIVER) ON 06/24/21--BOTH FOR THIS SAME COMPLAINT. LMP--BEGAN 4 DAYS AGO. GIVEN IV FLUIDS, ZOFRAN AND LEVSIN WITH COMPLETE RELIEF OF SYMPTOMS. ABDOMEN IS NON-TENDER, PT IS NOW LAYING OUTSTRETCHED, PLAYING/TEXTING ON PHONE. (EFRAÍN PINEDA DO) Diagnostic Imaging Comments ABDOMEN XRAYS--NO ACUTE PROCESS, PER RADIOLOGIST REPORT AT 0830 Reviewed: Reviewed by Me (EFRAÍN PINEDA DO) Departure Impression Primary Impression: Gastritis Qualified Codes: K29.00 - Acute gastritis without bleeding Additional Impressions: Bright red blood per rectum Marijuana use Epigastric abdominal pain Disposition: HOME, SELF-CARE Condition: Improved Departure-Patient Inst. Decision time for Depature: 08:30 (EFRAÍN PINEDA DO) Referrals: THEODORE OH,LOCAL PHYSICIAN (PCP) Primary Care Physician Patient Instructions: Abdominal Pain, Adult ED, Bloody Stools, Adult ED, Gastri tis (DC), Marijuana Use and Addiction (DC) Add. Discharge Instructions: TakeI would like you to start taking the Carafate half an hour before meals and at bedtime for the next 2 weeks. Your Nexium 20 mg twice a day for the next month. If you not seeing some improvement in 1 to 2 weeks then follow-up with Dr. Oh, general surgery by calling for an appointment. You can discuss the possibilities of irritable bowel, inflammatory bowel, gastritis and whether or not endoscopy could be helpful to sort out your symptoms. If you are having pain then I would suggest you start with an antacid such as Maalox, Mylanta, Tums, Rolaids etc. NO MARIJUANA All discharge instructions reviewed with patient and/or family. Voiced understanding. Scripts Sucralfate (Carafate) 1 Gm Tablet 1 GM PO QID, #60 TAB Prov: EFRAÍN PINEDA DO 07/01/21 Hyoscyamine Sulfate (Levsin-Sl) 0.125 Mg Tab.subl 0.25 MG SL Q4H, #20 TAB Prov: EFRAÍN PNIEDA DO 07/01/21 Ondansetron (Ondansetron Odt) 8 Mg Tab.rapdis 8 MG PO Q6H, #20 TAB Prov: EFRÍAN PINEDA DO 07/01/21 Pantoprazole Sodium (Protonix) 40 Mg Tablet.dr 40 MG PO DAILY, #15 TAB Prov: EFRAÍN PINEDA DO 07/01/21 Copy Copies To 1: THEODORE OH TITUS J Jul 01, 2021 05:57 EFRAÍN PINEDA DO Jul 01, 2021 06:40
[2021-07-01] MEDS ORDERED: LACTATED RINGERS 1,000 ML IV ONE (06:30)
[2021-07-01] MEDS ORDERED: ONDANSETRON 4 MG/2 ML (SDV) Z0FRAN IVP ONE (06:30)
[2021-07-01] MEDS ORDERED: HYOSCYAMINE 0.125 MG (LEVSIN) TAB PO ONE (06:45)
[2021-07-01 06:51] LABS: BASOPHILS % (AUTO) 0 % (0-10); EOSINOPHILS % (AUTO) 0 % (0-10); HEMATOCRIT 41 % (35-52); HEMOGLOBIN 13.2 g/dL (11.5-16.0); LYMPHOCYTES # (AUTO) 1.2 10^3/uL (1.0-4.0); LYMPHOCYTES % (AUTO) 22 % (12-44); MEAN CORPUSCULAR HEMOGLOBIN 29 pg (25-34); MEAN CORPUSCULAR HGB CONC 32 g/dL (32-36); MEAN CORPUSCULAR VOLUME 91 fL (80-99); MEAN PLATELET VOLUME 10.3 fL (9.0-12.2); MONOCYTES # (AUTO) 0.4 10^3/uL (0.0-1.0); MONOCYTES % (AUTO) 7 % (0-12); NEUTROPHILS # (AUTO) 4.1 10^3/uL (1.8-7.8); NEUTROPHILS % (AUTO) 71 % (42-75); PLATELET COUNT 295 10^3/uL (130-400); WHITE BLOOD COUNT 5.7 10^3/uL (4.3-11.0)
[2021-07-01 07:03] LABS: ALBUMIN 4.5 GM/DL (3.2-4.5); CHLORIDE 107 MMOL/L (98-107); POTASSIUM 3.8 MMOL/L (3.6-5.0); SODIUM 142 MMOL/L (135-145)
[2021-07-01 07:04] LABS: AMYLASE 22 U/L (25-125); CALCIUM 9.5 MG/DL (8.5-10.1)
[2021-07-01 07:05] LABS: GLUCOSE 106 MG/DL (70-105); TOTAL PROTEIN 7.2 GM/DL (6.4-8.2)
[2021-07-01 07:06] LABS: CARBON DIOXIDE 25 MMOL/L (21-32)
[2021-07-01 07:07] LABS: BILIRUBIN,TOTAL 0.3 MG/DL (0.1-1.0)
[2021-07-01 07:08] LABS: ALKALINE PHOSPHATASE 59 U/L (40-136)
[2021-07-01 07:09] LABS: CREATININE SERUM 0.83 MG/DL (0.60-1.30); GFR ESTIMATED 88
[2021-07-01 07:10] LABS: BUN/CREATININE RATIO 11
[2021-07-01 07:11] LABS: MAGNESIUM 2.1 MG/DL (1.6-2.4)
[2021-07-01 07:12] LABS: ALANINE AMINOTRANSFERASE 13 U/L (0-55)
[2021-07-01 07:13] LABS: LIPASE 14 U/L (8-78)
[2021-07-01 07:19] LABS: BILIRUBIN,URINE NEGATIVE (NEGATIVE); CLARITY,URINE CLEAR; COLOR,URINE YELLOW; GLUCOSE, URINE (UA) NEGATIVE (NEGATIVE); KETONES,URINE NEGATIVE (NEGATIVE); LEUKOCYTE ESTERASE ,URINE TRACE (NEGATIVE); NITRITE,URINE NEGATIVE (NEGATIVE); PROTEIN,URINE NEGATIVE (NEGATIVE)
[2021-07-01 07:27] LABS: BACTERIA,URINE FEW /HPF; RBC,URINE RARE /HPF
[2021-07-01 07:35] LABS: AMPHETAMINE SCREEN, URINE NEGATIVE (NEGATIVE); BARBITURATE SCREEN URINE NEGATIVE (NEGATIVE); BENZODIAZEPINES SCREEN URINE NEGATIVE (NEGATIVE); CANNABINOID SCREEN, URINE POSITIVE (NEGATIVE); COCAINE SCREEN URINE NEGATIVE (NEGATIVE); METHADONE STAT NEGATIVE (NEGATIVE); METHAMPHETAMINE SCREEN URINE S NEGATIVE (NEGATIVE); OPIATE SCREEN URINE NEGATIVE (NEGATIVE); OXYCODONE STAT NEGATIVE (NEGATIVE); PROPOXYPHENE STAT NEGATIVE (NEGATIVE); TRICYCLIC ANTIDEPRESSANTS SCRE NEGATIVE (NEGATIVE)
[2021-07-01] MEDS ORDERED: ONDA8TAB13 PO (07:45)
[2021-07-01] MEDS ORDERED: PANT40TA2 PO (07:45)
[2021-07-01] MEDS ORDERED: HYOS0.1283 SL (07:45)
[2021-07-01] MEDS ORDERED: SUCR1TAB36 PO (07:45)
--- NOTE | 2021-07-01 08:16 | Diagnostic Imaging Report ---
INDICATION: Abdominal pain FINDINGS: The heart size is normal. Lungs are clear. No pleural effusion or pneumothorax. Mediastinum is unremarkable. The bowel gas pattern is nonspecific. No free air. There are no abnormal abdominal calcifications. IMPRESSION: No acute cardiopulmonary abnormality. Nonspecific bowel gas pattern. Dictated by: Dictated on workstation # [id number]
[2021-07-01 08:37] VITALS: BP 106/66
== END 2021-07-01 08:38 | disposition home or self-care (01) ==
LOC: EDUNIT# 04:48 → ER 04:52
DX: K29.70 Gastritis, unspecified, without bleeding (principal); K62.5 Hemorrhage of anus and rectum; F12.90 Cannabis use, unspecified, uncomplicated; F41.9 Anxiety disorder, unspecified; Z79.899 Other long term (current) drug therapy
CPT/HCPCS: 74022; 80053; 80306; 81000; 82150; 83690; 83735; 84703 ×2; 85025; 99284; G0480; 36415; 80320

== ENCOUNTER 2021-07-14 06:28 | Emergency (ER) | payer MEDICAID ==
[~2021-07-14] VITALS: Ht 172.7 cm; Wt 55.0 kg
[2021-07-14] MEDS ORDERED: LACTATED RINGERS 1,000 ML IV STA (06:59)
[2021-07-14] MEDS ORDERED: ANTACID SUSP 30 ML UDC (MYLANTA) PO ONE (07:00)
--- NOTE | 2021-07-14 07:07 | ED Abdominal Pain ---
General Chief Complaint: Abdominal/GI Problems Stated Complaint: VOMITING,ABD PAIN,SHAKES,ANXIETY Nursing Triage Note: MID ABDOMINAL PAIN, N/V/D, SORE THROAT, ANXIETY SINCE 0100 Source of Information: Patient Exam Limitations: No Limitations History of Present Illness Date Seen by Provider: Jul 14, 2021 Time Seen by Provider: 06:40 Initial Comments 21-year-old female with past medical history of epigastric pain and vomiting that has been ongoing for a couple of months coming in for the same. She states she has been to the ER numerous times for the same issue. Around 1 AM every morning she begins vomiting nonbloody nonbilious vomit. This occurs multiple times through the night. This is occurred literally every night for over a month. Had the problems for several months, but now have been more consistent. Has been told that it is potentially cannabis hyperemesis. She states she stopped smoking for about a month and did a "cleanse". She states that this did not help so now she is smoking again. Does not take any medications daily as of right now. Denies any abdominal surgeries. Is having normal bowel movements. Denies any fever, chest pain, shortness of breath, weakness, numbness, severe abdominal pain, rash, dysuria, or any other concerns. She says the vomiting is severe, constant in the mornings, and nothing seems to make it better. She does turn the shower on very hot in the mornings and sits in the steamy bathroom which does seem to help sometimes. Allergies and Home Medications Allergies Coded Allergies: Penicillins (Verified Allergy, Unknown, 05/31/21) morphine (Verified Allergy, Unknown, 05/31/21) Patient Home Medication List Home Medication List Reviewed: Yes Hydroxyzine HCl (Hydroxyzine HCl) 10 Mg Tablet, 10 MG PO TID PRN for anxiety Prescribed by: KAYLA LARKIN on 06/03/21 1014 Last Action: Last Taken Edited Ondansetron (Ondansetron Odt) 8 Mg Tab.rapdis, 8 MG PO Q6H Prescribed by: EFRAÍN PINEDA on 07/01/21 0745 Last Action: Last Taken Edited Promethazine HCl (Promethazine Tablet) 25 Mg Tablet, 25 MG PO Q4H PRN for NAUSEA/VOMITING-2ND LINE Prescribed by: KAYLA LARKIN on 06/03/21 1014 Last Action: Last Taken Edited Discontinued Medications Hydroxyzine HCl (Hydroxyzine HCl) 25 Mg Tablet, 25 MG PO Q6H PRN for ANXIETY Discontinued Reason: No Longer Taking Prescribed by: APOLONIA HAGEN on 06/24/21 1506 Last Action: Discontinued Hyoscyamine Sulfate (Levsin-Sl) 0.125 Mg Tab.subl, 0.25 MG SL Q4H Discontinued Reason: No Longer Taking Prescribed by: EFRAÍN IPNEDA on 07/01/2145 Last Action: Discontinued Naphazoline HCl/Pheniramine (Allergy Eye Drops) 15 Ml Drops, 1-2 DROPS OP UD PRN for EYE REDNESS/DRY EYES, (Reported) Discontinued Reason: No Longer Taking Entered as Reported by: RUFINO RAJAN on 06/01/21 1406 Last Action: Discontinued Naproxen Sodium (Aleve) 220 Mg Tablet, 220 MG PO TID PRN for PAIN-MILD (1-4), (Reported) Discontinued Reason: No Longer Taking Entered as Reported by: RUFINO RAJAN on 06/01/21 140 Last Action: Discontinued Ondansetron (Ondansetron Odt) 4 Mg Tab.rapdis, 4 MG PO Q6H PRN for NAUSEA/VOMITING-1ST LINE Discontinued Reason: No Longer Taking Prescribed by: KAYLA LARKIN on 06/03/21 1014 Last Action: Discontinued Pantoprazole Sodium (Protonix) 40 Mg Tablet.dr, 40 MG PO DAILY Discontinued Reason: No Longer Taking Prescribed by: EFRAÍN PINEDA on 07/01/21744 Last Action: Discontinued Sucralfate (Carafate) 1 Gm Tablet, 1 GM PO QID Discontinued Reason: No Longer Taking Prescribed by: EFRAÍN PINEDA on 07/01/21744 Last Action: Discontinued Review of Systems Review of Systems Constitutional: No chills, No fever EENTM: No Symptoms Reported Respiratory: Denies Cough Cardiovascular: Denies Chest Pain Gastrointestinal: Denies Diarrhea; Nausea, Vomiting Genitourinary: Denies Burning, Denies Discharge Musculoskeletal: No back pain Skin: No rash Psychiatric/Neurological: Anxiety Endocrine: No Symptoms Reported Hematologic/Lymphatic: No Symptoms Reported All Other Systems Reviewed Negative Unless Noted: Yes Past Lfekqds-Biupia-Rxeelw Hx Patient Social History Tobacco Use?: No Substance use?: Yes Substance type: Marijuana Alcohol Use?: No Pt feels they are or have been: No Immunizations Up To Date Tetanus Booster (TDap): More than 5yrs First/Initial COVID19 Vaccinat: 06/17/21 Second COVID19 Vaccination James: HAS NOT RECEIVED VACCINE COVID19 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 Past Medical History Surgery/Hospitalization HX: ANXIETY, GERD, UTI Surgeries: Yes (WISDOM TEETH REMOVED) Adenoidectomy, Tonsillectomy Respiratory: No Cardiac: No Neurological: No Sexually Transmitted Disease: No Genitourinary: Yes Kidney Infection, Kidney Stones Gastrointestinal: No Musculoskeletal: No Endocrine: No HEENT: Yes (WISDOM TEETH REMOVED; S/P TONSILLECTOMY) Tonsilitis Cancer: No Psychosocial: No Anxiety Integumentary: No Blood Disorders: No Physical Exam Vital Signs Vital Signs - First Documented 07/14/21 06:38 Temp 36.0 Pulse 101 Resp 18 B/P (MAP) 118/83 (95) Pulse Ox 96 O2 Delivery Room Air Capillary Refill : Less Than 3 Seconds Height/Weight/BMI Height: 5'8.00" Weight: 132lbs. oz. [id number]; 18.00 BMI Method:Stated General Appearance: WD/WN, no apparent distress HEENT: PERRL/EOMI, normal ENT inspection, pharynx normal Neck: non-tender, full range of motion, supple Respiratory: chest non-tender, lungs clear, normal breath sounds, no respiratory distress, no accessory muscle use Cardiovascular: regular rate, rhythm, no edema, no murmur Gastrointestinal: normal bowel sounds, non tender, soft; No distended, No guarding, No rebound Extremities: normal range of motion, non-tender, normal inspection, no pedal edema, no calf tenderness, normal capillary refill Back: normal inspection, no CVA tenderness, no vertebral tenderness Neurologic/Psychiatric: no motor/sensory deficits, alert, normal mood/affect Skin: normal color, warm/dry Lymphatic: no adenopathy Progress/Results/Core Measures Results/Orders Lab Results Laboratory Tests Test 07/14/21 07:08 07/14/21 07:37 Range/Units Urine Color YELLOW Urine Clarity CLEAR Urine pH 6.0 5-9 Urine Specific [place] 1.020 1.016-1.022 Urine Protein NEGATIVE NEGATIVE Urine Glucose (UA) NEGATIVE NEGATIVE Urine Ketones NEGATIVE NEGATIVE Urine Nitrite NEGATIVE NEGATIVE Urine Bilirubin NEGATIVE NEGATIVE Urine Urobilinogen 0.2 < = 1.0 MG/DL Urine Leukocyte Esterase 1+ H NEGATIVE Urine RBC (Auto) 1+ H NEGATIVE Urine RBC 0-2 /HPF Urine WBC 2-5 /HPF Urine Squamous Epithelial Cells 2-5 /HPF Urine Crystals NONE /LPF Urine Bacteria TRACE /HPF Urine Casts NONE /LPF Urine Mucus NEGATIVE /LPF Urine Culture Indicated NO White Blood Count 10.1 4.3-11.0 10^3/uL Red Blood Count 4.55 3.80-5.11 10^6/uL Hemoglobin 13.4 11.5-16.0 g/dL Hematocrit 41 35-52 % Mean Corpuscular Volume 89 80-99 fL Mean Corpuscular Hemoglobin 30 25-34 pg Mean Corpuscular Hemoglobin Concent 33 32-36 g/dL Red Cell Distribution Width 13.9 10.0-14.5 % Platelet Count 252 130-400 10^3/uL Mean Platelet Volume 10.3 9.0-12.2 fL Immature Granulocyte % (Auto) 0 % Neutrophils (%) (Auto) 82 H 42-75 % Lymphocytes (%) (Auto) 12 12-44 % Monocytes (%) (Auto) 5 0-12 % Eosinophils (%) (Auto) 0 0-10 % Basophils (%) (Auto) 0 0-10 % Neutrophils # (Auto) 8.3 H 1.8-7.8 10^3/uL Lymphocytes # (Auto) 1.2 1.0-4.0 10^3/uL Monocytes # (Auto) 0.5 0.0-1.0 10^3/uL Eosinophils # (Auto) 0.0 0.0-0.3 10^3/uL Basophils # (Auto) 0.0 0.0-0.1 10^3/uL Immature Granulocyte # (Auto) 0.0 0.0-0.1 10^3/uL Sodium Level 141 135-145 MMOL/L Potassium Level 3.8 3.6-5.0 MMOL/L Chloride Level 109 H 98-107 MMOL/L Carbon Dioxide Level 21 21-32 MMOL/L Anion Gap 11 5-14 MMOL/L Blood Urea Nitrogen 8 7-18 MG/DL Creatinine 0.93 0.60-1.30 MG/DL Estimat Glomerular Filtration Rate 77 BUN/Creatinine Ratio 9 Glucose Level 99 70-105 MG/DL Calcium Level 9.8 8.5-10.1 MG/DL Corrected Calcium 8.5-10.1 MG/DL Total Bilirubin 0.8 0.1-1.0 MG/DL Aspartate Amino Transf (AST/SGOT) 11 5-34 U/L Alanine Aminotransferase (ALT/SGPT) 13 0-55 U/L Alkaline Phosphatase 59 40-136 U/L Total Protein 7.4 6.4-8.2 GM/DL Albumin 4.7 H 3.2-4.5 GM/DL Lipase 13 8-78 U/L My Orders Orders - TOREY MUNOZ MD Cbc With Automated Diff (07/14/21 06:59) Comprehensive Metabolic Panel (07/14/21 06:59) Lipase (07/14/21 06:59) Ua Culture If Indicated (07/14/21 06:59) Antacid Suspension (Mylanta Suspension (07/14/21 07:00) Lactated Ringers (Lr 1000 Ml Iv Solution (07/14/21 06:59) Ed Iv/Invasive Line Start (07/14/21 06:59) Urine Bedside (07/14/21 06:59) Ekg Tracing (07/14/21 06:59) Ed Iv/Invasive Line Start (07/14/21 06:59) Droperidol Injection (Inapsine Injection (07/14/21 07:15) Diphenhydramine Injection (Benadryl Inje (07/14/21 08:00) Medications Given in ED Current Medications Medications Dose Ordered Sig/Lane Route Start Time Stop Time Status Last Admin Dose Admin Al Hydrox/Mg Hydrox/Simethicone 30 ml ONCE ONCE PO 07/14/21 07:00 07/14/21 07:01 DC 07/14/21 07:40 30 ML Diphenhydramine HCl 25 mg ONCE ONCE IM 07/14/21 08:00 07/14/21 08:01 DC 07/14/21 08:02 25 MG Droperidol 1.25 mg ONCE PRN IV 07/14/21 07:15 07/14/21 07:43 1.25 MG Vital Signs/I&O 07/14/21 06:38 Temp 36.0 Pulse 101 Resp 18 B/P (MAP) 118/83 (95) Pulse Ox 96 O2 Delivery Room Air Blood Pressure Mean: 95 Progress Progress Note : Progress Note 21-year-old female with above history coming in due to epigastric discomfort with vomiting. ABCs were intact and vitals were stable on presentation. Physical exam reassuring with no signs of peritonitis on abdominal exam. She is overall well-appearing. I reviewed her previous emergency department visits here including CT scan that was negative for any acute abnormalities. She was seen here on July 01 for the same issue, had normal labs on that day. We will repeat labs today to be sure this is not pancreatitis as well as to assure that her electrolytes or still normal given the frequent vomiting. EKG obtained to assess QTC. IV placed and she was given a bolus of IV fluids as well as droperidol. I do believe this is some form of cyclical vomiting whether it is cannabis hyperemesis or some other. Electrolytes are reassuring, lipase normal, LFTs normal. Vitals remained normal on reassessment. Patient never had any vomiting while in the emergency department. Tolerating p.o. I believe she is stable for discharge with outpatient follow-up. She was sent home with strict return precautions. Initial ECG Impression Date: Jul 14, 2021 Initial ECG Impression Time: 07:24 Initial ECG Rate: 68 Initial ECG Rhythm: Normal Sinus Comment Normal sinus with a rate of 68, narrow QRS, normal axis, no significant ST changes or T wave abnormalities, QTC of 412 Departure Impression Primary Impression: Nausea & vomiting Qualified Codes: R11.2 - Nausea with vomiting, unspecified Disposition: 01 HOME, SELF-CARE Condition: Stable Departure-Patient Inst. Decision time for Depature: 08:26 Referrals: NO,LOCAL PHYSICIAN (PCP/Family) Primary Care Physician Patient Instructions: Cannabis Hyperemesis Syndrome, Nausea and Vomiting, Adult Add. Discharge Instructions: You were seen in the emergency department for vomiting and anxiousness that occurs in the morning. It is possible you have some type of cyclical vomiting syndrome which could include cannabis hyperemesis syndrome. In patients that vomit constantly like this that do smoke cannabis, we do recommend you stop for a very prolonged period of time as this often is the cause. Please follow-up with a GI doctor and a primary care doctor. All discharge instructions reviewed with patient and/or family. Voiced understanding. Scripts Promethazine HCl (Promethazine Tablet) 25 Mg Tablet 25 MG PO Q8H PRN for NAUSEA/VOMITING for 5 Days, #15 TAB 0 Refills Prov: TOREY MUNOZ MD 07/14/21 TOREY MUNOZ MD Jul 14, 2021 07:07
[2021-07-14] MEDS ORDERED: DROPERIDOL 5 MG/2 ML (INAPSINE) ED ONLY! IV PRN (07:15)
[2021-07-14 07:23] LABS: BILIRUBIN,URINE NEGATIVE (NEGATIVE); CLARITY,URINE CLEAR; COLOR,URINE YELLOW; GLUCOSE, URINE (UA) NEGATIVE (NEGATIVE); KETONES,URINE NEGATIVE (NEGATIVE); LEUKOCYTE ESTERASE ,URINE 1+ (NEGATIVE); NITRITE,URINE NEGATIVE (NEGATIVE); PROTEIN,URINE NEGATIVE (NEGATIVE)
[2021-07-14 07:32] LABS: BACTERIA,URINE TRACE /HPF; RBC,URINE 0-2 /HPF
[2021-07-14 07:46] LABS: BASOPHILS % (AUTO) 0 % (0-10); EOSINOPHILS % (AUTO) 0 % (0-10); HEMATOCRIT 41 % (35-52); HEMOGLOBIN 13.4 g/dL (11.5-16.0); LYMPHOCYTES # (AUTO) 1.2 10^3/uL (1.0-4.0); LYMPHOCYTES % (AUTO) 12 % (12-44); MEAN CORPUSCULAR HEMOGLOBIN 30 pg (25-34); MEAN CORPUSCULAR HGB CONC 33 g/dL (32-36); MEAN CORPUSCULAR VOLUME 89 fL (80-99); MEAN PLATELET VOLUME 10.3 fL (9.0-12.2); MONOCYTES # (AUTO) 0.5 10^3/uL (0.0-1.0); MONOCYTES % (AUTO) 5 % (0-12); NEUTROPHILS # (AUTO) 8.3 10^3/uL (1.8-7.8); NEUTROPHILS % (AUTO) 82 % (42-75); PLATELET COUNT 252 10^3/uL (130-400); WHITE BLOOD COUNT 10.1 10^3/uL (4.3-11.0)
[2021-07-14 07:56] LABS: ALBUMIN 4.7 GM/DL (3.2-4.5); CHLORIDE 109 MMOL/L (98-107); POTASSIUM 3.8 MMOL/L (3.6-5.0); SODIUM 141 MMOL/L (135-145)
[2021-07-14 07:57] LABS: CALCIUM 9.8 MG/DL (8.5-10.1)
[2021-07-14 07:58] LABS: GLUCOSE 99 MG/DL (70-105); TOTAL PROTEIN 7.4 GM/DL (6.4-8.2)
[2021-07-14 07:59] LABS: CARBON DIOXIDE 21 MMOL/L (21-32)
[2021-07-14 08:00] LABS: BILIRUBIN,TOTAL 0.8 MG/DL (0.1-1.0)
[2021-07-14] MEDS ORDERED: diphenhydrAMINE 50 MG/ML INJ (BENADRYL) IM ONE (08:00)
[2021-07-14 08:02] LABS: ALKALINE PHOSPHATASE 59 U/L (40-136); CREATININE SERUM 0.93 MG/DL (0.60-1.30); GFR ESTIMATED 77
[2021-07-14 08:03] LABS: BUN/CREATININE RATIO 9
[2021-07-14 08:05] LABS: ALANINE AMINOTRANSFERASE 13 U/L (0-55); LIPASE 13 U/L (8-78)
[2021-07-14] MEDS ORDERED: PROM25TA14 PO (08:28)
[2021-07-14] MEDS ORDERED: LORazepam 0.5 MG (ATIVAN) TABLET PO STA (08:28)
[2021-07-14 09:00] VITALS: BP 111/82
== END 2021-07-14 09:00 | disposition home or self-care (01) ==
LOC: EDUNIT# 06:28 → ER 06:32
DX: R11.2 Nausea with vomiting, unspecified (principal); F41.9 Anxiety disorder, unspecified; K21.9 Gastro-esophageal reflux disease without esophagitis; Z79.899 Other long term (current) drug therapy
CPT/HCPCS: 36415; 80053; 81000; 83690; 84703; 85025; 93005

== ENCOUNTER 2021-08-15 07:51 | Emergency (ER) | payer MEDICAID ==
[~2021-08-15] VITALS: Ht 172 cm; Wt 60.3 kg
[2021-08-15] MEDS ORDERED: FAMOTIDINE 20MG/2ML IV (PEPCID) IVP ONE (08:15)
[2021-08-15] MEDS ORDERED: fentaNYL INJ 100 MCG/2 ML AMP IVP ONE (08:15)
[2021-08-15] MEDS ORDERED: PROMETHAZINE INJ 25 MG/ML (PHENERGAN) AMP IVP ONE (08:15)
[2021-08-15] MEDS ORDERED: LACTATED RINGERS 1,000 ML IV ONE ×2 (08:15→09:45)
[2021-08-15] MEDS ORDERED: ONDANSETRON 4 MG/2 ML (SDV) Z0FRAN IVP ONE (08:15)
[2021-08-15 08:34] LABS: BASOPHILS % (AUTO) 0 % (0-10); EOSINOPHILS % (AUTO) 0 % (0-10); HEMATOCRIT 38 % (35-52); HEMOGLOBIN 12.6 g/dL (11.5-16.0); LYMPHOCYTES # (AUTO) 0.6 10^3/uL (1.0-4.0); LYMPHOCYTES % (AUTO) 4 % (12-44); MEAN CORPUSCULAR HEMOGLOBIN 29 pg (25-34); MEAN CORPUSCULAR HGB CONC 33 g/dL (32-36); MEAN CORPUSCULAR VOLUME 88 fL (80-99); MEAN PLATELET VOLUME 10.5 fL (9.0-12.2); MONOCYTES # (AUTO) 0.5 10^3/uL (0.0-1.0); MONOCYTES % (AUTO) 4 % (0-12); NEUTROPHILS # (AUTO) 13.4 10^3/uL (1.8-7.8); NEUTROPHILS % (AUTO) 92 % (42-75); PLATELET COUNT 275 10^3/uL (130-400); WHITE BLOOD COUNT 14.6 10^3/uL (4.3-11.0)
[2021-08-15 08:41] LABS: ALBUMIN 4.5 GM/DL (3.2-4.5); CHLORIDE 101 MMOL/L (98-107); POTASSIUM 3.3 MMOL/L (3.6-5.0); SODIUM 136 MMOL/L (135-145)
[2021-08-15 08:42] LABS: CALCIUM 10.2 MG/DL (8.5-10.1)
[2021-08-15 08:44] LABS: GLUCOSE 132 MG/DL (70-105); TOTAL PROTEIN 7.7 GM/DL (6.4-8.2)
[2021-08-15 08:45] LABS: BILIRUBIN,TOTAL 1.3 MG/DL (0.1-1.0); CARBON DIOXIDE 22 MMOL/L (21-32)
[2021-08-15 08:47] LABS: ALKALINE PHOSPHATASE 63 U/L (40-136); CREATININE SERUM 0.84 MG/DL (0.60-1.30); GFR ESTIMATED 86
[2021-08-15 08:48] LABS: BUN/CREATININE RATIO 11
[2021-08-15 08:50] LABS: ALANINE AMINOTRANSFERASE 12 U/L (0-55); MAGNESIUM 1.5 MG/DL (1.6-2.4)
[2021-08-15 08:51] LABS: LIPASE 7 U/L (8-78)
[2021-08-15 08:53] LABS: BAND NEUTROPHILS 2 %; EOSINOPHILS % (MANUAL) 1 %; LYMPHOCYTES % (MANUAL) 6 %; MONOCYTES % (MANUAL) 6 %; NEUTROPHILS % (MANUAL) 85 %; RBC MORPH NORMAL
--- NOTE | 2021-08-15 09:09 | ED Abdominal Pain ---
General Chief Complaint: Abdominal/GI Problems Stated Complaint: VOMITING Nursing Triage Note: PT PRESENTS TO ED VIA POV FROM HOME WITH COMPLAINTS OF N/V X 24 HOURS, UNABLE TO SLEEP. PT REPORTS BACK PAIN AND HEAVIER THAN NORMAL BLEEDING FOR HER MENSTRAUL CYCLE. Source of Information: Patient Exam Limitations: No Limitations History of Present Illness Date Seen by Provider: Aug 15, 2021 Time Seen by Provider: 08:01 Initial Comments This 21 year old young lady presents to the ER with nausea, vomiting, and abdominal pain since last nights. She has had numerous ER visits for similar complaints and numerous abdominal imaging studies. Much of her symptoms have been attributed to regular marijuana use. She has not been following with a PCP or seeking referral to GI or surgical specialists as previously instructed. She also has not been taking antacids routinely. She reports her last marijuana use was about 1 month ago but she has regular second-hand exposure. Allergies and Home Medications Allergies Coded Allergies: Penicillins (Verified Allergy, Unknown, 05/31/21) morphine (Verified Allergy, Unknown, 05/31/21) Patient Home Medication List Home Medication List Reviewed: Yes Famotidine (Pepcid) 20 Mg Tablet, 20 MG PO BID Prescribed by: APOLONIA HAGEN on 08/15/21 1224 Hydroxyzine HCl (Hydroxyzine HCl) 10 Mg Tablet, 10 MG PO TID PRN for anxiety Prescribed by: KAYLA LARKIN on 06/03/21 1014 Hyoscyamine Sulfate (Levsin-Sl) 0.125 Mg Tab.subl, 1-2 TAB SL Q4H PRN for CRAMPS Prescribed by: APOLONIA HAGEN on 08/15/21 1224 Ondansetron (Ondansetron Odt) 8 Mg Tab.rapdis, 8 MG PO Q6H Prescribed by: EFRAÍN PINEDA on 07/01/21 0745 Ondansetron (Ondansetron Odt) 4 Mg Tab.rapdis, 4 MG PO Q4H PRN for NAUSEA/V OMITING Prescribed by: APOLONIA HAGEN on 08/15/21 1224 Promethazine HCl (Promethazine Tablet) 25 Mg Tablet, 25 MG PO Q4H PRN for NAUSEA/VOMITING-2ND LINE Prescribed by: KAYLA LARKIN on 06/03/21 1014 Promethazine HCl (Promethazine Tablet) 25 Mg Tablet, 25 MG PO Q8H PRN for NAUSEA/VOMITING Prescribed by: TOREY MUNOZ on 07/14/21 0828 Sulfamethoxazole/Trimethoprim (Bactrim Ds Tablet) 1 Each Tablet, 1 EACH PO BID Prescribed by: APOLONIA HAGEN on 08/15/21 1224 Review of Systems Review of Systems Constitutional: no symptoms reported EENTM: No Symptoms Reported Respiratory: No Symptoms Reported Cardiovascular: No Symptoms Reported Gastrointestinal: See HPI Genitourinary: No Symptoms Reported Musculoskeletal: no symptoms reported Skin: no symptoms reported Psychiatric/Neurological: No Symptoms Reported Endocrine: No Symptoms Reported Hematologic/Lymphatic: No Symptoms Reported Past Pvcrwct-Cfpvam-Hdcmqq Hx Patient Social History Tobacco Use?: No Substance use?: Yes Substance type: Marijuana Alcohol Use?: No Pt feels they are or have been: No Immunizations Up To Date Tetanus Booster (TDap): More than 5yrs First/Initial COVID19 Vaccinat: 06/17/21 Second COVID19 Vaccination James: 06/17/21 Third COVID19 Vaccination Date: HAS NOT RECEIVED VACCINE COVID19 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 Past Medical History Surgery/Hospitalization HX: ANXIETY, GERD, UTI Surgeries: Yes (WISDOM TEETH REMOVED) Adenoidectomy, Tonsillectomy Respiratory: No Cardiac: No Neurological: No Sexually Transmitted Disease: No Genitourinary: Yes Kidney Infection, Kidney Stones Gastrointestinal: No Musculoskeletal: No Endocrine: No HEENT: Yes (WISDOM TEETH REMOVED; S/P TONSILLECTOMY) Tonsilitis Cancer: No Psychosocial: No Anxiety Integumentary: No Blood Disorders: No Physical Exam Vital Signs Vital Signs - First Documented 08/15/21 08:11 Temp 37.1 Pulse 111 Resp 18 B/P (MAP) 133/99 (110) Pulse Ox 96 Capillary Refill : Less Than 3 Seconds Height/Weight/BMI Height: 5'8.00" Weight: 132lbs. oz. 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, no motor/sensory deficits, alert, normal mood/affect, oriented x 3 Skin: normal color, warm/dry Progress/Results/Core Measures Results/Orders Lab Results Laboratory Tests Test 08/15/21 08:14 08/15/21 10:50 Range/Units White Blood Count 14.6 H 4.3-11.0 10^3/uL Red Blood Count 4.36 3.80-5.11 10^6/uL Hemoglobin 12.6 11.5-16.0 g/dL Hematocrit 38 35-52 % Mean Corpuscular Volume 88 80-99 fL Mean Corpuscular Hemoglobin 29 25-34 pg Mean Corpuscular Hemoglobin Concent 33 32-36 g/dL Red Cell Distribution Width 13.1 10.0-14.5 % Platelet Count 275 130-400 10^3/uL Mean Platelet Volume 10.5 9.0-12.2 fL Immature Granulocyte % (Auto) 0 % Neutrophils (%) (Auto) 92 H 42-75 % Lymphocytes (%) (Auto) 4 L 12-44 % Monocytes (%) (Auto) 4 0-12 % Eosinophils (%) (Auto) 0 0-10 % Basophils (%) (Auto) 0 0-10 % Neutrophils # (Auto) 13.4 H 1.8-7.8 10^3/uL Lymphocytes # (Auto) 0.6 L 1.0-4.0 10^3/uL Monocytes # (Auto) 0.5 0.0-1.0 10^3/uL Eosinophils # (Auto) 0.0 0.0-0.3 10^3/uL Basophils # (Auto) 0.0 0.0-0.1 10^3/uL Immature Granulocyte # (Auto) 0.0 0.0-0.1 10^3/uL Neutrophils % (Manual) 85 % Lymphocytes % (Manual) 6 % Monocytes % (Manual) 6 % Eosinophils % (Manual) 1 % Band Neutrophils 2 % Blood Morphology Comment NORMAL Erythrocyte Sedimentation Rate 30 H 0-20 MM/HR Sodium Level 136 135-145 MMOL/L Potassium Level 3.3 L 3.6-5.0 MMOL/L Chloride Level 101 98-107 MMOL/L Carbon Dioxide Level 22 21-32 MMOL/L Anion Gap 13 5-14 MMOL/L Blood Urea Nitrogen 9 7-18 MG/DL Creatinine 0.84 0.60-1.30 MG/DL Estimat Glomerular Filtration Rate 86 BUN/Creatinine Ratio 11 Glucose Level 132 H 70-105 MG/DL Calcium Level 10.2 H 8.5-10.1 MG/DL Corrected Calcium 9.8 8.5-10.1 MG/DL Magnesium Level 1.5 L 1.6-2.4 MG/DL Total Bilirubin 1.3 H 0.1-1.0 MG/DL Aspartate Amino Transf (AST/SGOT) 16 5-34 U/L Alanine Aminotransferase (ALT/SGPT) 12 0-55 U/L Alkaline Phosphatase 63 40-136 U/L C-Reactive Protein High Sensitivity 12.28 H 0.00-0.50 MG/DL Total Protein 7.7 6.4-8.2 GM/DL Albumin 4.5 3.2-4.5 GM/DL Lipase 7 L 8-78 U/L Serum Test, Qualitative NEGATIVE NEGATIVE Serum Alcohol < 10 <10 MG/DL Urine Color YELLOW Urine Clarity CLEAR Urine pH 6.5 5-9 Urine Specific [place] <=1.005 1.016-1.022 Urine Protein NEGATIVE NEGATIVE Urine Glucose (UA) NEGATIVE NEGATIVE Urine Ketones NEGATIVE NEGATIVE Urine Nitrite NEGATIVE NEGATIVE Urine Bilirubin NEGATIVE NEGATIVE Urine Urobilinogen 0.2 < = 1.0 MG/DL Urine Leukocyte Esterase 1+ H NEGATIVE Urine RBC (Auto) 3+ H NEGATIVE Urine RBC 5-10 H /HPF Urine WBC 5-10 H /HPF Urine Squamous Epithelial Cells 2-5 /HPF Urine Crystals PRESENT H /LPF Urine Bacteria FEW H /HPF Urine Casts NONE /LPF Urine Mucus NEGATIVE /LPF Urine Culture Indicated YES Urine Opiates Screen POSITIVE H NEGATIVE Urine Oxycodone Screen NEGATIVE NEGATIVE Urine Methadone Screen NEGATIVE NEGATIVE Urine Propoxyphene Screen NEGATIVE NEGATIVE Urine Barbiturates Screen NEGATIVE NEGATIVE Ur Tricyclic Antidepressants Screen NEGATIVE NEGATIVE Urine Phencyclidine Screen NEGATIVE NEGATIVE Urine Amphetamines Screen NEGATIVE NEGATIVE Urine Methamphetamines Screen NEGATIVE NEGATIVE Urine Benzodiazepines Screen NEGATIVE NEGATIVE Urine Cocaine Screen NEGATIVE NEGATIVE Urine Cannabinoids Screen POSITIVE H NEGATIVE Micro Results Microbiology 08/15/21 Urine Culture - Preliminary, Resulted Strep agalactiae Group B See Comments Mixed Bacterial Carolyne My Orders Orders - BRUEGGEMANN,APOLONIA T MD Cbc With Automated Diff (08/15/21 08:01) Comprehensive Metabolic Panel (08/15/21 08:01) Hs C Reactive Protein (08/15/21 08:01) Hcg,Qualitative Serum (08/15/21 08:01) Lipase (08/15/21 08:01) Ua Culture If Indicated (08/15/21 08:01) Ed Iv/Invasive Line Start (08/15/21 08:01) Lactated Ringers (Lr 1000 Ml Iv Solution (08/15/21 08:15) Promethazine Injection (Phenergan Injec (08/15/21 08:15) Ondansetron Injection (Zofran Injectio (08/15/21 08:15) Drug Screen Stat (Urine) (08/15/21 08:01) Fentanyl Inj (Sublimaze Injection) (08/15/21 08:15) Famotidine Injection (Pepcid Injection) (08/15/21 08:15) Alcohol (08/15/21 08:17) Magnesium (08/15/21 08:17) Manual Differential (08/15/21 08:14) Magnesium 1 Gm/100 Ml Ivpb (Magnesium Roche (08/15/21 09:15) Erythrocyte Sedimentation Rate (08/15/21 09:10) Lactated Ringers (Lr 1000 Ml Iv Solution (08/15/21 09:45) Urine Culture (08/15/21 10:50) Medications Given in ED Vital Signs/I&O 08/15/21 08/15/21 08:11 12:33 Temp 37.1 Pulse 111 94 Resp 18 18 B/P (MAP) 133/99 (110) 105/61 Pulse Ox 96 98 Blood Pressure Mean: 110 Progress Progress Note : Progress Note Patient was treated with Zofran, Phenergan, 2 L of LR, a gram of magnesium, and fentanyl 25 mcg. She had much improvement with these treatments. She had a minimal tenderness in the lower abdomen after work-up and treatment. She was offered a pelvic exam for STI screening which she declined. She prefers to have this done as an outpatient. Subtle UTI was noted on urinalysis. Antibiotic therapy was prescribed. The importance of complete and sustained THC abstinence was stressed. Even secondhand smoke could be enough to trigger cannabis hyperemesis syndrome and I made this clear to the patient. She was strongly advised to follow-up with a primary care provider and establish behavioral health services to help manage anxiety and substance use. She was also advised to seek referral for endoscopy and or gastroenterology consultation. Departure Impression Primary Impression: Lower abdominal pain Additional Impressions: Nausea and vomiting Qualified Codes: R11.2 - Nausea with vomiting, unspecified Cannabis hyperemesis syndrome concurrent with and due to cannabis abuse Urinary tract infection Qualified Codes: N39.0 - Urinary tract infection, site not specified Disposition: 01 HOME, SELF-CARE Condition: Improved Departure-Patient Inst. Decision time for Depature: 12:21 Referrals: [facility] [place] NO,LOCAL PHYSICIAN (PCP) Primary Care Physician Patient Instructions: Severe Abdominal Pain, Adult (DC), Cannabis Hyperemesis Syndrome Add. Discharge Instructions: Start with a clear liquid diet today and gradually advance your diet with small quantities of bland food as tolerated. Complete your antibiotic as prescribed for urinary tract infection. Follow-up with a primary care provider in a few days to review urine culture results. You need to establish with a primary care provider for follow-up care. I suggest checking with the [facility] of [facility] as they have comprehensive services in one facility that includes medical care, women's health services, psychiatric and counseling services, and addiction treatment services. You should have a pelvic exam as soon as possible as well. For pain try taking Tylenol (acetaminophen) up to 1000 mg every 6 hours as needed. Try to avoid NSAID medications such as ibuprofen or naproxen as they may irritate your stomach more. For cramping pain you may take Levsin (hyoscyamine) as prescribed. This is sublingual and is taken by placing under your tongue and allowing it to dissolve. Zofran for nausea is also sublingual. Call with questions or concerns. Avoid exposure to all marijuana products and smoke, including secondhand smoke as this may be a trigger for your recurrent gastrointestinal symptoms. Return to the ER if you have worsening symptoms. All discharge instructions reviewed with patient and/or family. Voiced understanding. Scripts Ondansetron (Ondansetron Odt) 4 Mg Tab.rapdis 4 MG PO Q4H PRN for NAUSEA/VOMITING, #10 TAB Prov: APOLONIA BERG MD 08/15/21 Hyoscyamine Sulfate (Levsin-Sl) 0.125 Mg Tab.subl 1-2 TAB SL Q4H PRN for CRAMPS, #10 TAB 0 Refills Prov: APOLONIA BERG MD 08/15/21 Sulfamethoxazole/Trimethoprim (Bactrim Ds Tablet) 1 Each Tablet 1 EACH PO BID, #14 TAB Prov: APOLONIA BERG MD 08/15/21 Famotidine (Pepcid) 20 Mg Tablet 20 MG PO BID, #60 TAB Prov: APOLONIA BERG MD 08/15/21 APOLONIA BERG MD Aug 15, 2021 09:09
[2021-08-15] MEDS ORDERED: MAGNESIUM 1 GM/100 ML IVPB 100 ML IV ONE (09:15)
[2021-08-15 10:58] LABS: BILIRUBIN,URINE NEGATIVE (NEGATIVE); CLARITY,URINE CLEAR; COLOR,URINE YELLOW; GLUCOSE, URINE (UA) NEGATIVE (NEGATIVE); KETONES,URINE NEGATIVE (NEGATIVE); LEUKOCYTE ESTERASE ,URINE 1+ (NEGATIVE); NITRITE,URINE NEGATIVE (NEGATIVE); PH,URINE 6.5 (5-9); PROTEIN,URINE NEGATIVE (NEGATIVE)
[2021-08-15 11:14] LABS: AMPHETAMINE SCREEN, URINE NEGATIVE (NEGATIVE); BARBITURATE SCREEN URINE NEGATIVE (NEGATIVE); BENZODIAZEPINES SCREEN URINE NEGATIVE (NEGATIVE); CANNABINOID SCREEN, URINE POSITIVE (NEGATIVE); COCAINE SCREEN URINE NEGATIVE (NEGATIVE); METHADONE STAT NEGATIVE (NEGATIVE); METHAMPHETAMINE SCREEN URINE S NEGATIVE (NEGATIVE); OPIATE SCREEN URINE POSITIVE (NEGATIVE); OXYCODONE STAT NEGATIVE (NEGATIVE); PROPOXYPHENE STAT NEGATIVE (NEGATIVE); TRICYCLIC ANTIDEPRESSANTS SCRE NEGATIVE (NEGATIVE)
[2021-08-15 11:21] LABS: BACTERIA,URINE FEW /HPF
[2021-08-15] MEDS ORDERED: HYOS0.1283 SL (12:24)
[2021-08-15] MEDS ORDERED: SULF1TAB38 PO (12:24)
[2021-08-15] MEDS ORDERED: ONDA4TAB11 PO (12:24)
[2021-08-15] MEDS ORDERED: FAMO-119 PO (12:24)
[2021-08-15 12:33] VITALS: BP 105/61
== END 2021-08-15 12:33 | disposition home or self-care (01) ==
LOC: EDUNIT# 07:51 → ER 07:53
DX: R10.30 Lower abdominal pain, unspecified (principal); R11.2 Nausea with vomiting, unspecified; F12.10 Cannabis abuse, uncomplicated; N39.0 Urinary tract infection, site not specified; K21.9 Gastro-esophageal reflux disease without esophagitis; F41.9 Anxiety disorder, unspecified; Z79.899 Other long term (current) drug therapy
CPT/HCPCS: 80053; 80306; 81000; 83690; 83735; 84703; 85007; 85027; 85652; 86141; 87077; 87088; 99284; G0480; 36415; 80320

== ENCOUNTER 2021-08-15 19:57 | Emergency (ER) | payer MEDICAID ==
[~2021-08-15] VITALS: Ht 172.7 cm; Wt 55.0 kg
[~2021-08-15 19:57] MED LIST changes: +FAMO-119 PO; +SULF1TAB38 PO
[2021-08-15] MEDS ORDERED: diphenhydrAMINE 50 MG/ML INJ (BENADRYL) IVP ONE (20:00)
[2021-08-15] MEDS ORDERED: HALOPERIDOL 5 MG/ML (HALDOL) VIAL IV ONE (20:00)
[2021-08-15] MEDS ORDERED: NS IV 1000 ML 1,000 ML IV SCH (20:00)
--- NOTE | 2021-08-15 20:12 | ED Abdominal Pain ---
General Chief Complaint: Abdominal/GI Problems Stated Complaint: STOMACH PAIN Source of Information: Patient Exam Limitations: No Limitations History of Present Illness Date Seen by Provider: Aug 15, 2021 Time Seen by Provider: 20:09 Initial Comments To ER by private vehicle from home with reports of persistent nausea vomiting and abdominal pain. She was seen here this morning for the same. She has hyperemesis cannabinoid syndrome and was educated about this again this morning. She then went home and smoke more marijuana and comes back this evening with uncontrollable nausea and vomiting. Timing/Duration: 1-2 Days Severity/Quality: Moderate Location: Generalized Abdomen Radiation: No Radiation Activities at Onset: None Associated Symptoms: Nausea/Vomiting Allergies and Home Medications Allergies Coded Allergies: Penicillins (Verified Allergy, Unknown, 05/31/21) morphine (Verified Allergy, Unknown, 05/31/21) Patient Home Medication List Home Medication List Reviewed: Yes Famotidine (Pepcid) 20 Mg Tablet, 20 MG PO BID Prescribed by: APOLONIA HAGEN on 08/15/21 1224 Hydroxyzine HCl (Hydroxyzine HCl) 10 Mg Tablet, 10 MG PO TID PRN for anxiety Prescribed by: KAYLA LARKIN on 06/03/21 1014 Hyoscyamine Sulfate (Levsin-Sl) 0.125 Mg Tab.subl, 1-2 TAB SL Q4H PRN for CRAMPS Prescribed by: APOLONIA HAGEN on 08/15/21 1224 Ondansetron (Ondansetron Odt) 8 Mg Tab.rapdis, 8 MG PO Q6H Prescribed by: EFRAÍN PINEDA on 07/01/21 0745 Ondansetron (Ondansetron Odt) 4 Mg Tab.rapdis, 4 MG PO Q4H PRN for NAUSEA/VOMITING Prescribed by: APOLONIA HAGEN on 08/15/21 1224 Promethazine HCl (Promethazine Tablet) 25 Mg Tablet, 25 MG PO Q4H PRN for NAUSEA/VOMITING-2ND LINE Prescribed by: KAYLA LARKIN on 06/03/21 1014 Promethazine HCl (Promethazine Tablet) 25 Mg Tablet, 25 MG PO Q8H PRN for YESSI SEA/VOMITING Prescribed by: TOREY MUNOZ on 07/14/21 0828 Sulfamethoxazole/Trimethoprim (Bactrim Ds Tablet) 1 Each Tablet, 1 EACH PO BID Prescribed by: APOLONIA HAGEN on 08/15/21 1224 Review of Systems Review of Systems Constitutional: see HPI EENTM: No Symptoms Reported Respiratory: No Symptoms Reported Cardiovascular: No Symptoms Reported Gastrointestinal: See HPI, Abdominal Pain Genitourinary: No Symptoms Reported Musculoskeletal: no symptoms reported Skin: no symptoms reported Psychiatric/Neurological: No Symptoms Reported Endocrine: No Symptoms Reported Past Thcoagl-Jydjrl-Nibelv Hx Patient Social History Tobacco Use?: No Use of E-Cig and/or Vaping dev: Yes E-Cig or Vaping type used: Nicotine, Marijuana Use of E-Cig and/or Vaping Edmund: Current Everyday User Substance use?: Yes Substance type: Marijuana Substance frequency: Daily Alcohol Use?: No Pt feels they are or have been: No Immunizations Up To Date Tetanus Booster (TDap): More than 5yrs Influenza Vaccine Up-to-Date: No; Not Current First/Initial COVID19 Vaccinat: 06/17/21 Second COVID19 Vaccination James: 06/17/21 Third COVID19 Vaccination Date: 06/17/21 Past Medical History Surgery/Hospitalization HX: ANXIETY, GERD, UTI Surgeries: Yes (WISDOM TEETH REMOVED) Adenoidectomy, Tonsillectomy Respiratory: No Cardiac: No Neurological: No Sexually Transmitted Disease: No Genitourinary: Yes Kidney Infection, Kidney Stones Gastrointestinal: No Musculoskeletal: No Endocrine: No HEENT: Yes (WISDOM TEETH REMOVED; S/P TONSILLECTOMY) Tonsilitis Cancer: No Psychosocial: No Anxiety Integumentary: No Blood Disorders: No Physical Exam Vital Signs Vital Signs - First Documented 08/15/21 20:08 Temp 36.3 Pulse 121 Resp 24 B/P (MAP) 127/78 (94) Pulse Ox 96 O2 Delivery Room Air Capillary Refill : Height/Weight/BMI Height: 5'8.00" Weight: 132lbs. oz. [id number]; 20.00 BMI Method:Stated General Appearance: WD/WN, no apparent distress, thin (Unable to sit still, moaning, vomiting) Respiratory: no respiratory distress, no accessory muscle use Cardiovascular: regular rate, rhythm, no murmur Gastrointestinal: normal bowel sounds, soft Extremities: normal range of motion, non-tender Neurologic/Psychiatric: alert, normal mood/affect, oriented x 3 Skin: normal color, warm/dry Progress/Results/Core Measures Results/Orders Lab Results Laboratory Tests Test 08/15/21 20:04 08/15/21 20:20 08/15/21 21:07 Range/Units White Blood Count 13.3 H 4.3-11.0 10^3/uL Red Blood Count 4.17 3.80-5.11 10^6/uL Hemoglobin 12.2 11.5-16.0 g/dL Hematocrit 36 35-52 % Mean Corpuscular Volume 87 80-99 fL Mean Corpuscular Hemoglobin 29 25-34 pg Mean Corpuscular Hemoglobin Concent 34 32-36 g/dL Red Cell Distribution Width 13.3 10.0-14.5 % Platelet Count 270 130-400 10^3/uL Mean Platelet Volume 10.4 9.0-12.2 fL Immature Granulocyte % (Auto) 0 % Neutrophils (%) (Auto) 83 H 42-75 % Lymphocytes (%) (Auto) 13 12-44 % Monocytes (%) (Auto) 4 0-12 % Eosinophils (%) (Auto) 0 0-10 % Basophils (%) (Auto) 0 0-10 % Neutrophils # (Auto) 11.1 H 1.8-7.8 10^3/uL Lymphocytes # (Auto) 1.7 1.0-4.0 10^3/uL Monocytes # (Auto) 0.5 0.0-1.0 10^3/uL Eosinophils # (Auto) 0.0 0.0-0.3 10^3/uL Basophils # (Auto) 0.0 0.0-0.1 10^3/uL Immature Granulocyte # (Auto) 0.0 0.0-0.1 10^3/uL Sodium Level 138 135-145 MMOL/L Potassium Level 3.4 L 3.6-5.0 MMOL/L Chloride Level 104 98-107 MMOL/L Carbon Dioxide Level 17 L 21-32 MMOL/L Anion Gap 17 H 5-14 MMOL/L Blood Urea Nitrogen 8 7-18 MG/DL Creatinine 0.83 0.60-1.30 MG/DL Estimat Glomerular Filtration Rate 88 BUN/Creatinine Ratio 10 Glucose Level 105 70-105 MG/DL Calcium Level 9.7 8.5-10.1 MG/DL Corrected Calcium 9.5 8.5-10.1 MG/DL Total Bilirubin 0.9 0.1-1.0 MG/DL Aspartate Amino Transf (AST/SGOT) 16 5-34 U/L Alanine Aminotransferase (ALT/SGPT) 13 0-55 U/L Alkaline Phosphatase 60 40-136 U/L Total Protein 7.4 6.4-8.2 GM/DL Albumin 4.2 3.2-4.5 GM/DL Serum Test, Qualitative NEGATIVE NEGATIVE Serum Alcohol < 10 <10 MG/DL Urine Opiates Screen POSITIVE H NEGATIVE Urine Oxycodone Screen NEGATIVE NEGATIVE Urine Methadone Screen NEGATIVE NEGATIVE Urine Propoxyphene Screen NEGATIVE NEGATIVE Urine Barbiturates Screen NEGATIVE NEGATIVE Ur Tricyclic Antidepressants Screen NEGATIVE NEGATIVE Urine Phencyclidine Screen NEGATIVE NEGATIVE Urine Amphetamines Screen NEGATIVE NEGATIVE Urine Methamphetamines Screen NEGATIVE NEGATIVE Urine Benzodiazepines Screen POSITIVE H NEGATIVE Urine Cocaine Screen NEGATIVE NEGATIVE Urine Cannabinoids Screen POSITIVE H NEGATIVE My Orders Orders - SYDNEE GUZMÁN APRN Diphenhydramine Injection (Benadryl Inje (08/15/21 20:00) Haloperidol Injection (Haldol Injectio (08/15/21 20:00) Ns Iv 1000 Ml (Sodium Chloride 0.9%) (08/15/21 20:00) Cbc With Automated Diff (08/15/21 20:00) Comprehensive Metabolic Panel (08/15/21 20:00) Hcg,Qualitative Serum (08/15/21 20:00) Ed Iv/Invasive Line Start (08/15/21 20:00) Drug Screen Stat (Urine) (08/15/21 20:00) Alcohol (08/15/21 20:36) Ct Abdomen/Pelvis W (08/15/21 21:06) Lorazepam Injection (Ativan Injection) (08/15/21 21:15) Lidocaine 2% Viscous 15 Ml (Xylocaine Vi (08/15/21 21:15) Antacid Suspension (Mylanta Suspension (08/15/21 21:15) Iohexol Injection (Omnipaque 350 Mg/Ml 1 (08/15/21 21:45) Received Contrast (Hold Metformin- Contr (08/15/21 21:45) Sodium Chloride Flush (Catheter Flush Sy (08/15/21 21:45) Ns (Ivpb) (Sodium Chloride 0.9% Ivpb Bag (08/15/21 21:45) Lipase (08/15/21 22:15) Medications Given in ED Current Medications Medications Dose Ordered Sig/Lane Route Start Time Stop Time Status Last Admin Dose Admin Al Hydrox/Mg Hydrox/Simethicone 30 ml ONCE ONCE PO 08/15/21 21:15 08/15/21 21:16 DC 08/15/21 21:29 30 ML Diphenhydramine HCl 25 mg ONCE ONCE IVP 08/15/21 20:00 08/15/21 20:08 DC 08/15/21 20:16 25 MG Haloperidol Lactate 5 mg ONCE ONCE IV 08/15/21 20:00 08/15/21 20:08 DC 08/15/21 20:16 5 MG Iohexol 100 ml ONCE ONCE IV 08/15/21 21:45 08/15/21 21:46 DC 08/15/21 21:42 68 ML Lidocaine HCl 15 ml ONCE ONCE PO 08/15/21 21:15 08/15/21 21:16 DC 08/15/21 21:29 15 ML Lorazepam 1 mg ONCE ONCE IVP 08/15/21 21:15 08/15/21 21:16 DC 08/15/21 21:28 1 MG Sodium Chloride 10 ml NEEDED PRN IV 08/15/21 21:45 08/15/21 21:42 10 ML Sodium Chloride 100 ml ONCE ONCE IV 08/15/21 21:45 08/15/21 21:46 DC 08/15/21 21:42 80 ML Vital Signs/I&O 08/15/21 20:08 Temp 36.3 Pulse 121 Resp 24 B/P (MAP) 127/78 (94) Pulse Ox 96 O2 Delivery Room Air Departure Communication (Admissions) [id number]-patient is sleeping at this time. She awakens to verbal stimuli. I asked her how she is feeling and she states better. I offered her admission for IV fluids nausea control and further evaluation with surgery versus discharged home for outpatient follow-up with surgery. She would prefer to go home she states. I then called Dr. Magallanes and he agrees to follow-up with her outpatient and agrees with this plan. NAME: ABHISHEK HENRIQUEZ [facility] REC#: [id number] PT STATUS: REG ER : 2000 PHYSICIAN: SYDNEE GUZMÁN APRN ADMIT DATE: 08/15/21/ER Signed Date of Exam:08/15/21 CT ABDOMEN/PELVIS W PROCEDURE: CT abdomen and pelvis with contrast. TECHNIQUE: Multiple contiguous axial images were obtained through the abdomen and pelvis after administration of intravenous contrast. Auto Exposure Controls were utilized during the CT exam to meet ALARA standards for radiation dose reduction. All CT scans use one or more of the following dose optimizing techniques: automated exposure control, MA and/or KvP adjustment based on patient size and exam type or iterative reconstruction. INDICATION: Abdominal pain and vomiting. COMPARISON made to a prior CT from June 242020. FINDINGS: The lung bases demonstrate some patchy opacities bilaterally that most likely are reflective of atelectasis. In the appropriate setting minimal early infiltrate or pneumonia is not excluded. There is no effusion or pericardial collection The liver has a very heterogeneous enhancement pattern which appears unchanged from the prior exam. The spleen is normal in size. The appearance of the liver is nonspecific. An infiltrative process is not excluded. This could also be seen in the setting of hepatitis. The gallbladder is nondistended without radiodense gallstones or findings of biliary dilatation. The portal veins are not evident. There is abnormal fluid demonstrated about the head of the pancreas as well as abnormal density demonstrated within the retroperitoneum adjacent to the origin of the celiac and SMA. There is no pancreatic ductal dilatation. There is no adrenal mass. The kidneys enhance normally and are nonobstructed. The stomach is nondistended. There are no findings of bowel dilation. There is no focal abnormal bowel thickening. Similar density is demonstrated throughout the mesenteric root extending along the course of the mesenteric vessels as that within the retroperitoneum. There is also trace free fluid within the pelvis. The bladder is nondistended. The uterus and adnexa are unremarkable. Abdominal aorta unremarkable. There is no acute or suspicious osseous abnormality. IMPRESSION: 1. Diffuse abnormal fluid or density demonstrated throughout the retroperitoneum as well as extending throughout the mesenteric root. This could be inflammatory changes related to a pancreatitis. This may be better characterized with MRI of the abdomen with contrast. A neoplastic process is not completely excluded. Other more unusual considerations such as a lymphangioma are also considered. 2. While unchanged there also is a markedly abnormal appearance of the enhancement pattern of the liver and there is nonvisualization of the portal vein. 3. No findings of bowel obstruction or appendicitis. 4. No definable abscess or free air. Dictated by: Dictated on workstation # [id number] Dict: 08/15/212143 Trans: 08/15/212209 [facility] [id number] Interpreted by: DEWEY JEAN MD Electronically signed by: DEWEY JEAN MD 08/15/212209 Impression Primary Impression: Abdominal pain Additional Impressions: Nausea and vomiting Abnormal CT of the abdomen Disposition: ADMITTED INPATIENT Condition: Stable Admissions Decision to Admit Reason: Admit from ER (General) Decision to Admit/Date: Aug 15, 2021 Time/Decision to Admit Time: 22:17 Departure-Patient Inst. Decision time for Depature: 22:26 Referrals: EMBER JOHNSON BRETT D DO ENOCH, BETHANY N MD HUDSON, CASEY V DO NO,LOCAL PHYSICIAN (PCP) Primary Care Physician Patient Instructions: No Instuctions Given Add. Discharge Instructions: 1. Significantly reduce marijuana intake 2. Follow-up with primary care this week. Call tomorrow to make an appointment to be seen. You will need to have an MRI of the abdomen scheduled to further evaluate the findings on today's CT. Also, call Dr. Magallanes from surgery to make an appointment to be seen. Call his office tomorrow. All discharge instructions reviewed with patient and/or family. Voiced understanding. SYDNEE GUZMÁN APRN Aug 15, 2021 20:12
[2021-08-15 20:13] LABS: BASOPHILS % (AUTO) 0 % (0-10); EOSINOPHILS % (AUTO) 0 % (0-10); HEMATOCRIT 36 % (35-52); HEMOGLOBIN 12.2 g/dL (11.5-16.0); LYMPHOCYTES # (AUTO) 1.7 10^3/uL (1.0-4.0); LYMPHOCYTES % (AUTO) 13 % (12-44); MEAN CORPUSCULAR HEMOGLOBIN 29 pg (25-34); MEAN CORPUSCULAR HGB CONC 34 g/dL (32-36); MEAN CORPUSCULAR VOLUME 87 fL (80-99); MEAN PLATELET VOLUME 10.4 fL (9.0-12.2); MONOCYTES # (AUTO) 0.5 10^3/uL (0.0-1.0); MONOCYTES % (AUTO) 4 % (0-12); NEUTROPHILS # (AUTO) 11.1 10^3/uL (1.8-7.8); NEUTROPHILS % (AUTO) 83 % (42-75); PLATELET COUNT 270 10^3/uL (130-400); WHITE BLOOD COUNT 13.3 10^3/uL (4.3-11.0)
[2021-08-15 20:33] LABS: ALBUMIN 4.2 GM/DL (3.2-4.5); BILIRUBIN,TOTAL 0.9 MG/DL (0.1-1.0); CALCIUM 9.7 MG/DL (8.5-10.1); CREATININE SERUM 0.83 MG/DL (0.60-1.30); POTASSIUM 3.4 MMOL/L (3.6-5.0); TOTAL PROTEIN 7.4 GM/DL (6.4-8.2)
[2021-08-15] MEDS ORDERED: LIDOCAINE 2% VISCOUS 15 ML UDC PO ONE (21:15)
[2021-08-15] MEDS ORDERED: ANTACID SUSP 30 ML UDC (MYLANTA) PO ONE (21:15)
[2021-08-15] MEDS ORDERED: LORazepam INJ 2 MG/ML (ATIVAN) VIAL IVP ONE (21:15)
[2021-08-15 21:23] LABS: AMPHETAMINE SCREEN, URINE NEGATIVE (NEGATIVE); BARBITURATE SCREEN URINE NEGATIVE (NEGATIVE); BENZODIAZEPINES SCREEN URINE POSITIVE (NEGATIVE); CANNABINOID SCREEN, URINE POSITIVE (NEGATIVE); COCAINE SCREEN URINE NEGATIVE (NEGATIVE); METHADONE STAT NEGATIVE (NEGATIVE); METHAMPHETAMINE SCREEN URINE S NEGATIVE (NEGATIVE); OPIATE SCREEN URINE POSITIVE (NEGATIVE); OXYCODONE STAT NEGATIVE (NEGATIVE); PROPOXYPHENE STAT NEGATIVE (NEGATIVE); TRICYCLIC ANTIDEPRESSANTS SCRE NEGATIVE (NEGATIVE)
[2021-08-15] MEDS ORDERED: HOLD METFORMIN - RECEIVED CONTRAST 20 ML VIAL IV SCH (21:45)
[2021-08-15] MEDS ORDERED: NS 100 ML (IVPB) BAG IV ONE (21:45)
[2021-08-15] MEDS ORDERED: IOHEXOL 350 MG/ML 100 ML (OMNIPAQUE 350) VIAL IV ONE (21:45)
[2021-08-15] MEDS ORDERED: CATHETER FLUSH 10 ML SYR IV PRN (21:45)
--- NOTE | 2021-08-15 22:08 | Diagnostic Imaging Report ---
PROCEDURE: CT abdomen and pelvis with contrast. TECHNIQUE: Multiple contiguous axial images were obtained through the abdomen and pelvis after administration of intravenous contrast. Auto Exposure Controls were utilized during the CT exam to meet ALARA standards for radiation dose reduction. All CT scans use one or more of the following dose optimizing techniques: automated exposure control, MA and/or KvP adjustment based on patient size and exam type or iterative reconstruction. INDICATION: Abdominal pain and vomiting. COMPARISON made to a prior CT from June 242020. FINDINGS: The lung bases demonstrate some patchy opacities bilaterally that most likely are reflective of atelectasis. In the appropriate setting minimal early infiltrate or pneumonia is not excluded. There is no effusion or pericardial collection The liver has a very heterogeneous enhancement pattern which appears unchanged from the prior exam. The spleen is normal in size. The appearance of the liver is nonspecific. An infiltrative process is not excluded. This could also be seen in the setting of hepatitis. The gallbladder is nondistended without radiodense gallstones or findings of biliary dilatation. The portal veins are not evident. There is abnormal fluid demonstrated about the head of the pancreas as well as abnormal density demonstrated within the retroperitoneum adjacent to the origin of the celiac and SMA. There is no pancreatic ductal dilatation. There is no adrenal mass. The kidneys enhance normally and are nonobstructed. The stomach is nondistended. There are no findings of bowel dilation. There is no focal abnormal bowel thickening. Similar density is demonstrated throughout the mesenteric root extending along the course of the mesenteric vessels as that within the retroperitoneum. There is also trace free fluid within the pelvis. The bladder is nondistended. The uterus and adnexa are unremarkable. Abdominal aorta unremarkable. There is no acute or suspicious osseous abnormality. IMPRESSION: 1. Diffuse abnormal fluid or density demonstrated throughout the retroperitoneum as well as extending throughout the mesenteric root. This could be inflammatory changes related to a pancreatitis. This may be better characterized with MRI of the abdomen with contrast. A neoplastic process is not completely excluded. Other more unusual considerations such as a lymphangioma are also considered. 2. While unchanged there also is a markedly abnormal appearance of the enhancement pattern of the liver and there is nonvisualization of the portal vein. 3. No findings of bowel obstruction or appendicitis. 4. No definable abscess or free air. Dictated by: Dictated on workstation # [id number]
[2021-08-15 22:40] VITALS: BP 111/60
== END 2021-08-15 22:33 | disposition other institution (70) ==
LOC: EDUNIT# 19:57 → ER 19:58
DX: R10.9 Unspecified abdominal pain (principal); R11.2 Nausea with vomiting, unspecified; F41.9 Anxiety disorder, unspecified; K21.9 Gastro-esophageal reflux disease without esophagitis; F17.200 Nicotine dependence, unspecified, uncomplicated; Z79.899 Other long term (current) drug therapy
CPT/HCPCS: 74177; 80053; 80306; 83690; 84703; 85025; 99284; G0480; 36415; 80320

== ENCOUNTER 2021-08-19 12:30 | Inpatient (IN) | payer MEDICAID ==
[~2021-08-19] VITALS: Ht 172 cm; Wt 70.0 kg
[2021-08-19] MEDS ORDERED: PANTOPRAZOLE 40 MG (PROTONIX) VIAL IV ONE (13:00)
[2021-08-19] MEDS ORDERED: NS IV 1000 ML 1,000 ML IV ONE ×2 (13:00→14:30)
[2021-08-19] MEDS ORDERED: PROMETHAZINE INJ 25 MG/ML (PHENERGAN) AMP IVP ONE ×2 (13:00→14:30)
[2021-08-19] MEDS ORDERED: LORazepam INJ 2 MG/ML (ATIVAN) VIAL IVP ONE (13:00)
[2021-08-19] MEDS ORDERED: fentaNYL INJ 100 MCG/2 ML AMP IVP ONE (13:00)
[2021-08-19 13:31] LABS: BASOPHILS % (AUTO) 0 % (0-10); EOSINOPHILS % (AUTO) 0 % (0-10); HEMATOCRIT 36 % (35-52); HEMOGLOBIN 12.4 g/dL (11.5-16.0); LYMPHOCYTES # (AUTO) 0.3 10^3/uL (1.0-4.0); LYMPHOCYTES % (AUTO) 2 % (12-44); MEAN CORPUSCULAR HEMOGLOBIN 30 pg (25-34); MEAN CORPUSCULAR HGB CONC 34 g/dL (32-36); MEAN CORPUSCULAR VOLUME 86 fL (80-99); MEAN PLATELET VOLUME 9.8 fL (9.0-12.2); MONOCYTES # (AUTO) 0.2 10^3/uL (0.0-1.0); MONOCYTES % (AUTO) 1 % (0-12); NEUTROPHILS # (AUTO) 15.9 10^3/uL (1.8-7.8); NEUTROPHILS % (AUTO) 96 % (42-75); PLATELET COUNT 392 10^3/uL (130-400); WHITE BLOOD COUNT 16.6 10^3/uL (4.3-11.0)
--- NOTE | 2021-08-19 13:32 | ED Abdominal Pain ---
General Chief Complaint: Abdominal/GI Problems Stated Complaint: VOMITING Nursing Triage Note: ARRIVED VIA AMB TO ROOM 07 WITH COMPLAINTS OF N/V. STATES SHE WAS HERE X2 DAYS AGO AND THEY WANTED TO ADMIT HER BUT SHE WENT HOME. TODAY SHE WANTS ADMITTED. STATES SHE HAS NOT SMOKED POT IN 2 DAYS. Source of Information: Patient Exam Limitations: No Limitations (CHON BROWN APRN) History of Present Illness Date Seen by Provider: Aug 19, 2021 Time Seen by Provider: 12:55 Initial Comments This is a 21 yo female who presented to the ER with c/o mid abdominal pain, Nausea, vomiting for the past several days. States that she has been to the ER here twice for her intractable nausea and vomiting and was prescribed Pepcid and Bactrim for her pain and UTI. States that anytime she attempts to take the Pepcid she vomits. Has been unable to take the Bactrim due to persistent emesis. States that she is not even able to drink water as anything she puts and comes immediately back up. Denies any fever. Does report some chills, fatigue. She is currently on her menstrual period. (CHON BROWN APRN) Allergies and Home Medications Allergies Coded Allergies: Penicillins (Verified Allergy, Unknown, Hives/Rash, 08/21/21) Patient Home Medication List Home Medication List Reviewed: Yes (CHON BROWN APRN) Acetaminophen/Pamabrom (Midol Caplet) 1 Each Tablet, 1-2 EACH PO Q6H PRN for CRAMPS, (Reported) Entered as Reported by: RUFINO RAJAN on 08/21/211407 Last Action: Reviewed Aspirin/Acetaminophen/Caffeine (Excedrin Migraine Caplet) 1 Each Tablet, 2 EACH PO Q6-8HR PRN for Headache, (Reported) Entered as Reported by: RUFINO RAJAN on 08/21/211407 Last Action: Reviewed Calcium Carbonate (Tums Smoothies) 300 Mg Tab.chew, 300-600 MG PO Q6H PRN for INDIGESTION, (Reported) Entered as Reported by: RUFINO RAJAN on 08/21/211407 Last Action: Reviewed Famotidine (Famotidine) 20 Mg Tablet, 20 MG PO BID, (Reported) Entered as Reported by: RUFINO RAJAN on 08/21/211407 Last Action: Reviewed Medroxyprogesterone Acetate (Medroxyprogesterone Acetate) 150 Mg/1 Ml Vial, 1 ML IM EVERY 3 MONTHS, (Reported) Entered as Reported by: RUFINO RAJAN on 08/21/211408 Last Action: Reviewed Multivit-Min/Iron/Folic/Vit K1 (Centrum Chewables Adults Tab) 1 Each Tab.chew, 1 EACH PO DAILY, (Reported) Entered as Reported by: RUFINO RAJAN on 08/21/211407 Last Action: Reviewed Sulfamethoxazole/Trimethoprim (Bactrim Ds Tablet) 1 Each Tablet, 1 EA PO BID, (Reported) Entered as Reported by: RUFINO RAJAN on 08/21/211407 Last Action: Reviewed Discontinued Medications Famotidine (Pepcid) 20 Mg Tablet, 20 MG PO BID Discontinued Reason: No Longer Taking Prescribed by: APOLONIA HAGEN on 08/15/211223 Last Action: Discontinued Hydroxyzine HCl (Hydroxyzine HCl) 10 Mg Tablet, 10 MG PO TID PRN for anxiety Discontinued Reason: No Longer Taking Prescribed by: KAYLA LARKIN on 06/03/21 101 Last Action: Discontinued Hyoscyamine Sulfate (Levsin-Sl) 0.125 Mg Tab.subl, 1-2 TAB SL Q4H PRN for CRAMPS Discontinued Reason: No Longer Taking Prescribed by: APOLONIA HAGEN on 08/15/211223 Last Action: Discontinued Ondansetron (Ondansetron Odt) 8 Mg Tab.rapdis, 8 MG PO Q6H Discontinued Reason: No Longer Taking Prescribed by: EFRAÍN PINEDA on 07/01/21 0745 Last Action: Discontinued Ondansetron (Ondansetron Odt) 4 Mg Tab.rapdis, 4 MG PO Q4H PRN for NAUSEA/VOMITING Discontinued Reason: No Longer Taking Prescribed by: APOLONIA HAGEN on 08/15/21 122 Last Action: Discontinued Promethazine HCl (Promethazine Tablet) 25 Mg Tablet, 25 MG PO Q4H PRN for NAUSEA/VOMITING-2ND LINE Discontinued Reason: No Longer Taking Prescribed by: KAYLA LARKIN on 06/03/21 1014 Last Action: Discontinued Promethazine HCl (Promethazine Tablet) 25 Mg Tablet, 25 MG PO Q8H PRN for NAUSEA/VOMITING Discontinued Reason: No Longer Taking Prescribed by: TOREY MUNOZ on 07/14/21 0828 Last Action: Discontinued Sulfamethoxazole/Trimethoprim (Bactrim Ds Tablet) 1 Each Tablet, 1 EACH PO BID Discontinued Reason: No Longer Taking Prescribed by: APOLONIA HAGEN on 08/15/21 1224 Last Action: Discontinued Review of Systems Review of Systems Constitutional: see HPI EENTM: No Symptoms Reported Respiratory: No Symptoms Reported Cardiovascular: No Symptoms Reported Gastrointestinal: See HPI Genitourinary: No Symptoms Reported Musculoskeletal: no symptoms reported Skin: no symptoms reported Psychiatric/Neurological: Anxiety Endocrine: No Symptoms Reported (CHON BROWN APRN) Past Hfebbfu-Gnfagx-Tpawrc Hx Patient Social History Smoking Status: Never a Smoker Substance use?: Yes Substance type: Marijuana Alcohol Use?: No (CHON BROWN APRN) Immunizations Up To Date Tetanus Booster (TDap): More than 5yrs First/Initial COVID19 Vaccinat: 06/17/21 Second COVID19 Vaccination James: 07/03/21 Third COVID19 Vaccination Date: 06/17/21 COVID19 Vaccine Bounty Trapper: MODERNA (CHON BROWN APRN) Past Medical History Surgery/Hospitalization HX: ANXIETY, GERD, UTI Surgeries: Yes (WISDOM TEETH REMOVED) Adenoidectomy, Tonsillectomy Respiratory: No Cardiac: No Neurological: No Sexually Transmitted Disease: No Genitourinary: Yes Kidney Infection, Kidney Stones Gastrointestinal: No Musculoskeletal: No Endocrine: No HEENT: Yes (WISDOM TEETH REMOVED; S/P TONSILLECTOMY) Tonsilitis Cancer: No Psychosocial: No Anxiety Integumentary: No Blood Disorders: No (CHON BROWN APRN) Physical Exam Vital Signs Vital Signs - First Documented 08/19/21 12:35 Temp 36.3 Pulse 127 Resp 16 B/P (MAP) 183/171 (175) Pulse Ox 95 O2 Delivery Room Air (APOLONIA BERG MD) Vital Signs Capillary Refill : Less Than 3 Seconds (CHON BROWN APRN) Height/Weight/BMI Height: 5'8.00" Weight: 132lbs. oz. 59.833737lm; 18.00 BMI Method:Stated General Appearance: WD/WN, other (anxious ) HEENT: PERRL/EOMI, TMs normal, pharynx normal Neck: full range of motion, supple, normal inspection Respiratory: lungs clear, normal breath sounds, no respiratory distress, no accessory muscle use Cardiovascular: regular rate, rhythm, no edema, no murmur Gastrointestinal: normal bowel sounds, soft; No distended; tenderness Extremities: non-tender, normal inspection Back: normal inspection, no vertebral tenderness Neurologic/Psychiatric: no motor/sensory deficits, alert, normal mood/affect, oriented x 3 Skin: normal color, warm/dry (CHON BROWN APRN) Focused Exam Lactate Level 08/19/21 14:10: Lactic Acid Level 0.88 (APOLONIA BERG MD) Lactic Acid Level Laboratory Tests Test 08/19/21 14:10 Lactic Acid Level 0.88 MMOL/L (0.50-2.00) (APOLONIA BREG MD) Progress/Results/Core Measures Results/Orders Lab Results Laboratory Tests Test 08/19/21 13:10 08/19/21 13:42 08/19/21 14:10 08/19/21 15:57 Range/Units White Blood Count 16.6 H 4.3-11.0 10^3/uL Red Blood Count 4.17 3.80-5.11 10^6/uL Hemoglobin 12.4 11.5-16.0 g/dL Hematocrit 36 35-52 % Mean Corpuscular Volume 86 80-99 fL Mean Corpuscular Hemoglobin 30 25-34 pg Mean Corpuscular Hemoglobin Concent 34 32-36 g/dL Red Cell Distribution Width 13.4 10.0-14.5 % Platelet Count 392 130-400 10^3/uL Mean Platelet Volume 9.8 9.0-12.2 fL Immature Granulocyte % (Auto) 0 % Neutrophils (%) (Auto) 96 H 42-75 % Lymphocytes (%) (Auto) 2 L 12-44 % Monocytes (%) (Auto) 1 0-12 % Eosinophils (%) (Auto) 0 0-10 % Basophils (%) (Auto) 0 0-10 % Neutrophils # (Auto) 15.9 H 1.8-7.8 10^3/uL Lymphocytes # (Auto) 0.3 L 1.0-4.0 10^3/uL Monocytes # (Auto) 0.2 0.0-1.0 10^3/uL Eosinophils # (Auto) 0.0 0.0-0.3 10^3/uL Basophils # (Auto) 0.0 0.0-0.1 10^3/uL Immature Granulocyte # (Auto) 0.1 0.0-0.1 10^3/uL Sodium Level 134 L 135-145 MMOL/L Potassium Level 3.1 L 3.6-5.0 MMOL/L Chloride Level 97 L 98-107 MMOL/L Carbon Dioxide Level 20 L 21-32 MMOL/L Anion Gap 17 H 5-14 MMOL/L Blood Urea Nitrogen 7 7-18 MG/DL Creatinine 0.80 0.60-1.30 MG/DL Estimat Glomerular Filtration Rate 91 BUN/Creatinine Ratio 9 Glucose Level 88 70-105 MG/DL Calcium Level 9.7 8.5-10.1 MG/DL Corrected Calcium 9.6 8.5-10.1 MG/DL Total Bilirubin 0.6 0.1-1.0 MG/DL Aspartate Amino Transf (AST/SGOT) 23 5-34 U/L Alanine Aminotransferase (ALT/SGPT) 18 0-55 U/L Alkaline Phosphatase 86 40-136 U/L C-Reactive Protein High Sensitivity 34.98 H 0.00-0.50 MG/DL Total Protein 7.7 6.4-8.2 GM/DL Albumin 4.1 3.2-4.5 GM/DL Lipase 4 L 8-78 U/L Procalcitonin 0.20 H <0.10 NG/ML Urine Color YELLOW Urine Clarity CLEAR Urine pH 6.0 5-9 Urine Specific [place] >=1.030 1.016-1.022 Urine Protein 2+ H NEGATIVE Urine Glucose (UA) NEGATIVE NEGATIVE Urine Ketones 3+ H NEGATIVE Urine Nitrite NEGATIVE NEGATIVE Urine Bilirubin NEGATIVE NEGATIVE Urine Urobilinogen 1.0 < = 1.0 MG/DL Urine Leukocyte Esterase NEGATIVE NEGATIVE Urine RBC (Auto) 2+ H NEGATIVE Urine RBC 5-10 H /HPF Urine WBC 2-5 /HPF Urine Squamous Epithelial Cells 5-10 /HPF Urine Crystals PRESENT H /LPF Urine Amorphous Sediment RARE SAHARA URATES H /LPF Urine Bacteria MODERATE H /HPF Urine Casts NONE /LPF Urine Mucus SMALL H /LPF Urine Culture Indicated YES Urine Opiates Screen POSITIVE H NEGATIVE Urine Oxycodone Screen NEGATIVE NEGATIVE Urine Methadone Screen NEGATIVE NEGATIVE Urine Propoxyphene Screen NEGATIVE NEGATIVE Urine Barbiturates Screen NEGATIVE NEGATIVE Ur Tricyclic Antidepressants Screen NEGATIVE NEGATIVE Urine Phencyclidine Screen NEGATIVE NEGATIVE Urine Amphetamines Screen NEGATIVE NEGATIVE Urine Methamphetamines Screen NEGATIVE NEGATIVE Urine Benzodiazepines Screen POSITIVE H NEGATIVE Urine Cocaine Screen NEGATIVE NEGATIVE Urine Cannabinoids Screen POSITIVE H NEGATIVE Lactic Acid Level 0.88 0.50-2.00 MMOL/L SARS-CoV-2 RNA (RT-PCR) Not Detected Not Detecte (APOLONIA BERG MD) Micro Results Microbiology 08/19/21 Blood Culture - Preliminary, Resulted No growth 08/19/21 Blood Culture - Preliminary, Resulted No growth 08/19/21 Urine Culture - Final, Complete See Comments (APOLONIA BERG MD) Vital Signs/I&O 08/19/21 12:35 Temp 36.3 Pulse 127 Resp 16 B/P (MAP) 183/171 (175) Pulse Ox 95 O2 Delivery Room Air (APOLONIA BERG MD) Blood Pressure Mean: 175 Progress Progress Note : Progress Note Upon arrival patient retching profusely and appears very anxious. Stated to RN "If I go home I feel like I am going to ". States "something is wrong with me and I need help". Orders given for NS, Phenergan 12.5mg, Ativan 0.5mg for anxiety, Fentanyl 25mcg IVP for pain, and Protonix 40mg IVP. Orders placed for basic labs and CRP. Significant elevation in CRP. Added lactic, BC x2, and procal. Case discussed with Dr. Arshad. Based on CT findings from visit on 08/15 and todays symptoms and labs, would like repeat of CT abd/pelvis. CT abd/pelvis shows improvement of inflammatory changes previously seen. Would like patient admitted and will plan to have MRI on Saturday. Discussed case with Dr. Mendoza for admission for pneumonia and enteritis. Will admit to medical unit. Plan of care reviewed with patient and she is agreeable with plan. Much improvement in symptoms after initial therapies. No concerns voices. VSS. She is stable to transfer to medical unit. (CHON BROWN APRN) Diagnostic Imaging Diagonstic Imaging: Xray Plain Films/CT/US/NM/MRI: abdomen Comments [facility]. [place], [place] NAME: ABHISHEK HENRIQUEZ [facility] REC#: [id number] PT STATUS: REG ER : 2000 PHYSICIAN: CHON BROWN APRN ADMIT DATE: 08/19/21/ER Signed Date of Exam:08/19/21 CHEST 1 VIEW, AP/PA ONLY HISTORY: Cough COMPARISON: 07/01/2021 TECHNIQUE: Frontal view of the chest FINDINGS: There are new airspace opacities in the left lung base. No pleural effusion or pneumothorax is seen. The cardiac silhouette is normal in size. IMPRESSION: 1. New airspace opacities in the left lung base, concerning for pneumonia. Dictated by: Dictated on workstation # [id number] Dict: 08/19/21 1423 Trans: 08/19/21 1448 [facility] [id number] Interpreted by: ARIAS TORIBIO MD Electronically signed by: ARIAS TORIBIO MD 08/19/21 1448 Reviewed: Reviewed by Al Diagonstic Imaging: CT Comments [facility], [place], [place] NAME: ABHISHEK HENRIQUEZ [facility] REC#: [id number] PT STATUS: ADM IN : 2000 PHYSICIAN: CHON BROWN APRN ADMIT DATE: 08/19/21/[facility] Signed Date of Exam:08/19/21 CT ABDOMEN/PELVIS W PROCEDURE: CT abdomen and pelvis with contrast. TECHNIQUE: Multiple contiguous axial images were obtained through the abdomen and pelvis after administration of intravenous contrast. Auto Exposure Controls were utilized during the CT exam to meet ALARA standards for radiation dose reduction. All CT scans use one or more of the following dose optimizing techniques: automated exposure control, MA and/or KvP adjustment based on patient size and exam type or iterative reconstruction. INDICATION: Mid epigastric abdominal pain. COMPARISON: 08/15/2021. FINDINGS: Groundglass and airspace opacities are seen in the lung bases, significantly increased since the prior exam. The heart is normal in size. The liver demonstrates no focal lesion. The main portal vein is patent. The spleen appears normal. The pancreas parenchyma is unremarkable. The adrenal glands appear normal. The kidneys demonstrate no hydronephrosis. Small hypodense lesions in the left kidney are likely simple cysts. Hyperdensities in the bilateral kidneys may represent early excretion of contrast. The bowel loops are nondistended without evidence of obstruction. The small bowel loops appear fluid-filled. There is a paucity of fat present. The appendix appears normal. No free fluid or free air is seen. Fatty infiltration through the retroperitoneum is again seen, unchanged since prior exams. No acute osseous abnormality is seen. IMPRESSION: 1. Groundglass and airspace opacities in the lung bases, significantly increased since the prior study, concerning for infection. 2. Fluid-filled loops of small bowel, may represent a mild enteritis. 3. Redemonstrated fat infiltration throughout the retroperitoneum and in the mesenteric root, similar to prior exams. This is nonspecific, but pancreatitis would be in the differential, recommend correlation with lipase. Dictated by: Dictated on workstation # [id number] Dict: 08/19/21 1516 Trans: 08/19/21 1703 [facility] [id number] Interpreted by: ARIAS TORIBIO MD Electronically signed by: ARIAS TORIBIO MD 08/19/21 8155 Reviewed: Reviewed by Me (CHON BROWN APRN) Departure Communication (Admissions) Time/Spoke to Admitting Phy: 15:36 Dr. Mendoza accepted admit to medical unit. Time/Spoke to Consulting Phy: 15:[address] Arshad. Will plan for MRI on Saturday. Family Conversation 1619: Updated pt. father Estrada per patient request. (CHON BROWN APRN) Impression Primary Impression: Pneumonia Additional Impressions: Intractable nausea and vomiting Enteritis Disposition: ADMITTED INPATIENT Condition: Stable Admissions Decision to Admit Reason: Admit from ER (General) Decision to Admit/Date: Aug 19, 2021 Time/Decision to Admit Time: 16:07 (CHON BROWN APRN) Departure-Patient Inst. Referrals: NO,LOCAL PHYSICIAN (PCP/Family) Primary Care Physician ATTENDING PHYSICIAN NOTE: Dr. Mariah Restrepo was attending physician physically present in the emergency department during the care of this patient. (APOLONIA BERG MD) CHON BROWN APRN Aug 19, 2021 13:32 APOLONIA BERG MD Aug 21, 2021 22:40
[2021-08-19 13:36] LABS: ALBUMIN 4.1 GM/DL (3.2-4.5); POTASSIUM 3.1 MMOL/L (3.6-5.0)
[2021-08-19 13:38] LABS: CALCIUM 9.7 MG/DL (8.5-10.1)
[2021-08-19 13:39] LABS: TOTAL PROTEIN 7.7 GM/DL (6.4-8.2)
[2021-08-19 13:41] LABS: BILIRUBIN,TOTAL 0.6 MG/DL (0.1-1.0)
[2021-08-19 13:43] LABS: CREATININE SERUM 0.8 MG/DL (0.60-1.30)
[2021-08-19 13:51] LABS: CLARITY,URINE CLEAR; COLOR,URINE YELLOW; GLUCOSE, URINE (UA) NEGATIVE (NEGATIVE); KETONES,URINE 3+ (NEGATIVE); LEUKOCYTE ESTERASE ,URINE NEGATIVE (NEGATIVE); NITRITE,URINE NEGATIVE (NEGATIVE); PROTEIN,URINE 2+ (NEGATIVE)
[2021-08-19] MEDS ORDERED: cefTRIAXone 1,000 MG in WATER (STERILE) FOR INJECTION 10 ML IV ONE (14:00)
[2021-08-19 14:04] LABS: AMPHETAMINE SCREEN, URINE NEGATIVE (NEGATIVE); BARBITURATE SCREEN URINE NEGATIVE (NEGATIVE); BENZODIAZEPINES SCREEN URINE POSITIVE (NEGATIVE); CANNABINOID SCREEN, URINE POSITIVE (NEGATIVE); COCAINE SCREEN URINE NEGATIVE (NEGATIVE); METHADONE STAT NEGATIVE (NEGATIVE); METHAMPHETAMINE SCREEN URINE S NEGATIVE (NEGATIVE); OPIATE SCREEN URINE POSITIVE (NEGATIVE); OXYCODONE STAT NEGATIVE (NEGATIVE); PROPOXYPHENE STAT NEGATIVE (NEGATIVE); TRICYCLIC ANTIDEPRESSANTS SCRE NEGATIVE (NEGATIVE)
[2021-08-19 14:07] LABS: AMORPHOUS SEDIMENT,UR RARE AMOR URATES /LPF; BACTERIA,URINE MODERATE /HPF; BILIRUBIN,URINE NEGATIVE (NEGATIVE)
--- NOTE | 2021-08-19 14:32 | Diagnostic Imaging Report ---
HISTORY: Cough COMPARISON: 07/01/2021 TECHNIQUE: Frontal view of the chest FINDINGS: There are new airspace opacities in the left lung base. No pleural effusion or pneumothorax is seen. The cardiac silhouette is normal in size. IMPRESSION: 1. New airspace opacities in the left lung base, concerning for pneumonia. Dictated by: Dictated on workstation # [id number]
[2021-08-19] MEDS ORDERED: CATHETER FLUSH 10 ML SYR IV PRN (15:00)
[2021-08-19] MEDS ORDERED: HOLD METFORMIN - RECEIVED CONTRAST 20 ML VIAL IV SCH (15:00)
[2021-08-19] MEDS ORDERED: IOHEXOL 350 MG/ML 100 ML (OMNIPAQUE 350) VIAL IV ONE (15:00)
[2021-08-19] MEDS ORDERED: NS 100 ML (IVPB) BAG IV ONE (15:00)
--- NOTE | 2021-08-19 15:28 | Diagnostic Imaging Report ---
PROCEDURE: CT abdomen and pelvis with contrast. TECHNIQUE: Multiple contiguous axial images were obtained through the abdomen and pelvis after administration of intravenous contrast. Auto Exposure Controls were utilized during the CT exam to meet ALARA standards for radiation dose reduction. All CT scans use one or more of the following dose optimizing techniques: automated exposure control, MA and/or KvP adjustment based on patient size and exam type or iterative reconstruction. INDICATION: Mid epigastric abdominal pain. COMPARISON: 08/15/2021. FINDINGS: Groundglass and airspace opacities are seen in the lung bases, significantly increased since the prior exam. The heart is normal in size. The liver demonstrates no focal lesion. The main portal vein is patent. The spleen appears normal. The pancreas parenchyma is unremarkable. The adrenal glands appear normal. The kidneys demonstrate no hydronephrosis. Small hypodense lesions in the left kidney are likely simple cysts. Hyperdensities in the bilateral kidneys may represent early excretion of contrast. The bowel loops are nondistended without evidence of obstruction. The small bowel loops appear fluid-filled. There is a paucity of fat present. The appendix appears normal. No free fluid or free air is seen. Fatty infiltration through the retroperitoneum is again seen, unchanged since prior exams. No acute osseous abnormality is seen. IMPRESSION: 1. Groundglass and airspace opacities in the lung bases, significantly increased since the prior study, concerning for infection. 2. Fluid-filled loops of small bowel, may represent a mild enteritis. 3. Redemonstrated fat infiltration throughout the retroperitoneum and in the mesenteric root, similar to prior exams. This is nonspecific, but pancreatitis would be in the differential, recommend correlation with lipase. Dictated by: Dictated on workstation # [id number]
[2021-08-19] MEDS: cefTRIAXone 1,000 MG/SWFI 10 ML IV PUSH IV SCH ×2 (17:02)
[2021-08-19] MEDS: LACTATED RINGERS 1,000 ML IV SCH (17:03)
[2021-08-19 17:04] VITALS: BP 116/55
[2021-08-19] MEDS: metroNIDAZOLE 500 MG/100 ML IVPB (PRE-MIX) IV SCH (17:05)
[2021-08-19 17:07] VITALS: BP 99/63
[2021-08-19] MEDS: KETOROLAC 30 MG/ML VIAL IV PRN (18:31)
[2021-08-19 20:23] VITALS: BP 95/65
[2021-08-19] MEDS: PROMETHAZINE INJ 25 MG/ML (PHENERGAN) AMP IV PRN (20:33)
[2021-08-19] MEDS: fentaNYL INJ 100 MCG/2 ML AMP IV PRN ×2 (20:33→23:03)
[2021-08-19] MEDS ORDERED: MELATONIN 3 MG TABLET PO PRN (21:00)
[2021-08-19] MEDS ORDERED: CALCIUM CARBONATE 500 MG (TUMS) TAB.CHEW PO PRN (21:00)
[2021-08-19] MEDS ORDERED: DOCUSATE SODIUM 100 MG (COLACE) CAP PO PRN (21:00)
[2021-08-19] MEDS ORDERED: diphenhydrAMINE 25 MG TAB (BENADRYL) PO PRN (21:00)
[2021-08-19] MEDS: polyethylene glycoL POWDER 17 GM (MIRALAX) PACK PO SCH (21:54)
[2021-08-19] MEDS: LORazepam INJ 2 MG/ML (ATIVAN) VIAL IV PRN (23:03)
[2021-08-20] MEDS: metroNIDAZOLE 500 MG/100 ML IVPB (PRE-MIX) IV SCH ×3 (00:25→16:55)
[2021-08-20] MEDS: fentaNYL INJ 100 MCG/2 ML AMP IV PRN ×2 (02:47→07:34)
[2021-08-20] MEDS: KETOROLAC 30 MG/ML VIAL IV PRN ×3 (02:48→19:46)
[2021-08-20] MEDS: LORazepam INJ 2 MG/ML (ATIVAN) VIAL IV PRN ×2 (03:02→07:34)
[2021-08-20] MEDS: HYDROcodone/APAP 5 MG/325 MG (LORTAB) TAB PO PRN ×2 (04:34→09:24)
[2021-08-20 05:00] VITALS: BP 131/74
[2021-08-20 05:23] LABS: BASOPHILS % (AUTO) 0 % (0-10); EOSINOPHILS # (AUTO) 0.2 10^3/uL (0.0-0.3); EOSINOPHILS % (AUTO) 1 % (0-10); HEMATOCRIT 31 % (35-52); HEMOGLOBIN 10.2 g/dL (11.5-16.0); LYMPHOCYTES # (AUTO) 0.5 10^3/uL (1.0-4.0); LYMPHOCYTES % (AUTO) 4 % (12-44); MEAN CORPUSCULAR HEMOGLOBIN 29 pg (25-34); MEAN CORPUSCULAR HGB CONC 33 g/dL (32-36); MEAN CORPUSCULAR VOLUME 88 fL (80-99); MEAN PLATELET VOLUME 9.7 fL (9.0-12.2); MONOCYTES # (AUTO) 0.2 10^3/uL (0.0-1.0); MONOCYTES % (AUTO) 2 % (0-12); NEUTROPHILS # (AUTO) 11.5 10^3/uL (1.8-7.8); NEUTROPHILS % (AUTO) 93 % (42-75); PLATELET COUNT 300 10^3/uL (130-400); WHITE BLOOD COUNT 12.4 10^3/uL (4.3-11.0)
[2021-08-20 05:38] LABS: POTASSIUM 3.4 MMOL/L (3.6-5.0)
[2021-08-20 05:39] LABS: CALCIUM 8.4 MG/DL (8.5-10.1)
[2021-08-20 05:44] LABS: CREATININE SERUM 0.67 MG/DL (0.60-1.30)
--- NOTE | 2021-08-20 05:44 | History & Physical-Hospitalist ---
History of Present Illness HPI/Chief Complaint Chief complaint: Nausea and vomiting History of present illness: This is a 21-year-old white female clinic patient of [facility] who presents with hyperemesis cannabinois with fever and pneumonia. She has been maintained on IV fluids. Abdominal CT shows enteritis prompting consult with Dr. Arshad. Antinausea meds and pain meds will be changed to help with supportive care. She reports having hallucinations and reports that she feels like she is high.. Difficult to understand conversations from the patient. Source: patient Exam Limitations: clinical condition Date Seen 08/20/21 Time Seen by a Provider: 12:00 Attending Physician Sybil Mendoza DO PCP No,Local Physician Referring Physician Date of Admission Aug 19, 2021 at 16:02 Home Medications & Allergies Home Medications Reviewed patient Home Medication Reconciliation performed by pharmacy medication reconciliations sprinkler repair technician and/or nursing. Patients Allergies have been reviewed. Allergies Allergies Coded Allergies Penicillins (Verified Allergy, Unknown, 05/31/21) Past Dfolhcw-Dawmhu-Cmmvbr Hx Patient Social History Marrital Status: single Employed/Student: unemployed Smoking Status: Never a Smoker Substance use?: Yes Substance type: Marijuana Alcohol Use?: No Immunizations Up To Date First/Initial COVID19 Vaccinat: 07/03/21 Second COVID19 Vaccination James: 07/03/21 Tetanus Booster (TDap): Unknown Hepatitis A: No Hepatitis B: No Current Status status: No status: No Primary Language: Italian Preferred Spoken Language: Italian Implanted or Applied Medical D: Contraceptive device Past Medical History Surgeries: Adenoidectomy, Tonsillectomy Sexually Transmitted Disease: No Kidney Infection, Kidney Stones Tonsilitis Anxiety Blood Disorders: No Review of Systems Constitutional: see HPI EENTM: no symptoms reported Respiratory: no symptoms reported Cardiovascular: no symptoms reported Gastrointestinal: melena, nausea, vomiting Genitourinary: no symptoms reported Musculoskeletal: no symptoms reported Skin: no symptoms reported Psychiatric/Neurological: No Symptoms Reported All Other Systems Reviewed Negative Unless Noted: Yes Physical Exam Physical Exam Vital Signs Vital Signs - First Documented 08/19/21 12:35 Temp 36.3 Pulse 127 Resp 16 B/P (MAP) 183/171 (175) Pulse Ox 95 O2 Delivery Room Air Capillary Refill : Less Than 3 Seconds Height, Weight, BMI Height: 5'8.00" Weight: 132lbs. oz. 59.476481ir; 18.25 BMI Method:Stated General Appearance: Anxious, Chronically ill, Mild Distress, Thin Eyes: Right Eye Normal Inspection, Right Eye PERRL HEENT: PERRL/EOMI, Normal ENT Inspection, Pharynx Normal, Moist Mucous Membranes Neck: Full Range of Motion, Normal Inspection, Non Tender Respiratory: Chest Non Tender, Lungs Clear, Normal Breath Sounds, No Accessory Muscle Use, No Respiratory Distress Cardiovascular: Regular Rate, Rhythm, No Edema, No Gallop, No JVD, No Murmur, Normal Peripheral Pulses Gastrointestinal: Normal Bowel Sounds, No Organomegaly, No Pulsatile Mass, Non Tender, Soft Back: Normal Inspection, No CVA Tenderness, No Vertebral Tenderness Extremity: Normal Capillary Refill, Normal Inspection, Normal Range of Motion, Non Tender, No Calf Tenderness, No Pedal Edema Neurologic/Psychiatric: Alert, Oriented x3, No Motor/Sensory Deficits, Normal Mood/Affect Skin: Normal Color, Warm/Dry Lymphatic: No Adenopathy Results Results/Procedures Labs Laboratory Tests 08/19/21 13:10 08/20/21 05:13 Patient resulted labs reviewed. Assessment/Plan Admission Diagnosis Assessment: Hyperemesis cannabinoids Pneumonia Infectious enteritis Dehydration Hallucinations Leukocytosis Plan: Supportive care IV antibiotics Dr. Arshad consult Admission Status: Inpatient Order (span 2 midnights) Reason for Inpatient Admission: Pneumonia with severe nausea and vomiting Diagnosis/Problems Diagnosis/Problems (1) Cannabis hyperemesis syndrome concurrent with and due to cannabis abuse Status: Acute (2) Intractable nausea and vomiting Status: Acute (3) Pneumonia Status: Acute (4) Enteritis Status: Acute (5) Abdominal pain Status: Acute (6) Nausea and vomiting Status: Acute (7) Abnormal CT of the abdomen Status: Acute SYBIL MENDOZA DO Aug 20, 2021 05:44
[2021-08-20] MEDS: LACTATED RINGERS 1,000 ML IV SCH ×3 (06:10→14:21)
[2021-08-20] MEDS ORDERED: MAGNESIUM 1 GM/100 ML IVPB 100 ML IV ONE (07:15)
[2021-08-20 07:55] VITALS: BP 128/79
[2021-08-20] MEDS: PANTOPRAZOLE 40 MG (PROTONIX) VIAL IV SCH (09:12)
[2021-08-20] MEDS: polyethylene glycoL POWDER 17 GM (MIRALAX) PACK PO SCH ×2 (09:14→19:46)
[2021-08-20] MEDS: POTASSIUM CL 10MEQ/50ML IVPB 50 ML IV SCH ×4 (09:15→17:50)
[2021-08-20] MEDS: ENOXAPARIN 30 MG/0.3 ML (LOVENOX) SYR SC SCH (09:18)
[2021-08-20 12:00] VITALS: BP 124/74
[2021-08-20] MEDS ORDERED: diphenhydrAMINE 50 MG/ML INJ (BENADRYL) IVP ONE (12:30)
[2021-08-20] MEDS: ONDANSETRON 4 MG/2 ML (SDV) Z0FRAN IVP PRN (12:51)
[2021-08-20] MEDS: morphine INJ 4 MG/ML 1 ML (VIAL/SYRINGE) IVP PRN ×4 (12:52→21:41)
[2021-08-20 13:09] LABS: OCCULT BLOOD,GASTRIC FLUID NEGATIVE (NEGATIVE)
--- NOTE | 2021-08-20 14:31 | Consultation - Surgery ---
History of Present Illness History of Present Illness Patient Consulted On(adelita/time) 08/20/21 14:26 Time Seen by Provider: 11:36 History of Present Illness Surgery asked to consult regarding abdominal pain, N&V. HPI per ED: This is a 21 yo female who presented to the ER with c/o mid abdominal pain, Nausea, vomiting for the past several days. States that she has been to the ER here twice for her intractable nausea and vomiting and was prescribed Pepcid and Bactrim for her pain and UTI. States that anytime she attempts to take the Pepcid she vomits. Has been unable to take the Bactrim due to persistent emesis. States that she is not even able to drink water as anything she puts and comes immediately back up. Denies any fever. Does report some chills, fatigue. She is currently on her menstrual period. When I saw patient this afternoon she was in severe pain, sitting in her bed crying. She states the pain is so bad and nothing is helping. She is also very hungry, but when she thinks about eating...that makes her want to vomit. She is rating the pain as a 10 out of 10 on a 1-10 scale, right in the middle of her abdomen going to her back. Sharp stabbing pain and she just had a bout of emesis that was dark black. She states that whatever they gave her last night helped, but the medicine this morning was not helping her at all. Allergies and Home Medications Allergies Coded Allergies: Penicillins (Verified Allergy, Unknown, 05/31/21) morphine (Verified Allergy, Unknown, 05/31/21) Patient Home Medication List Home Medication List Reviewed: Yes Famotidine (Pepcid) 20 Mg Tablet, 20 MG PO BID Prescribed by: APOLONIA HAGEN on 08/15/21 1224 Hydroxyzine HCl (Hydroxyzine HCl) 10 Mg Tablet, 10 MG PO TID PRN for anxiety Prescribed by: KAYLA LARKIN on 06/03/21 1014 Hyoscyamine Sulfate (Levsin-Sl) 0.125 Mg Tab.subl, 1-2 TAB SL Q4H PRN for CRAMPS Prescribed by: APOLONIA HAGEN on 08/15/21 1224 Ondansetron (Ondansetron Odt) 8 Mg Tab.rapdis, 8 MG PO Q6H Prescribed by: EFRAÍN PINEDA on 07/01/21 0745 Ondansetron (Ondansetron Odt) 4 Mg Tab.rapdis, 4 MG PO Q4H PRN for NAUSEA/VOMITING Prescribed by: APOLONIA HAGEN on 08/15/21 1224 Promethazine HCl (Promethazine Tablet) 25 Mg Tablet, 25 MG PO Q4H PRN for NAUSEA/VOMITING-2ND LINE Prescribed by: KAYLA LARKIN on 06/03/21 1014 Promethazine HCl (Promethazine Tablet) 25 Mg Tablet, 25 MG PO Q8H PRN for NAUSEA/VOMITING Prescribed by: TOREY MUNOZ on 07/14/21 0828 Sulfamethoxazole/Trimethoprim (Bactrim Ds Tablet) 1 Each Tablet, 1 EACH PO BID Prescribed by: APOLONIA HAGEN on 08/15/21 1224 Past [id number] Hx Patient Social History Drug of Choice: DENIES BUT UDS + FOR THC Smoking Status: Never a Smoker Type Used: Electronic/Vapor 2nd Hand Smoke Exposure: Yes Recent Hopitalizations: No Alcohol Use?: No Substance type: Marijuana Have you traveled recently?: No Immunizations Up To Date Tetanus Booster (TDap): More than 5yrs Surgeries History of Surgeries: Yes (WISDOM TEETH REMOVED) Surgeries: Adenoidectomy, Tonsillectomy Respiratory History of Respiratory Disorde: No Cardiovascular History of Cardiac Disorders: No Neurological History of Neurological Disord: No Reproductive System Sexually Transmitted Disease: No Genitourinary History of Genitourinary Disor: Yes Genitourinary Disorders: Kidney Infection, Kidney Stones Gastrointestinal History of Gastrointestinal Di: No Musculoskeletal History of Musculoskeletal Dis: No Endocrine History of Endocrine Disorders: No HEENT History of HEENT Disorders: Yes (WISDOM TEETH REMOVED; S/P TONSILLECTOMY) HEENT Disorders: Tonsilitis Cancer History of Cancer: No Psychosocial History of Psychiatric Problem: No Behavioral Health Disorders: Anxiety Integumentary History of Skin or Integumenta: No Blood Transfusions History of Blood Disorders: No Family Medical History Significant Family History: Diabetes (denied in her parents), Hypertension (denied in her parents) Review of Systems-General Constitutional: malaise, weakness EENTM: No blurred vision, No double vision, No epistaxis, No throat pain, No throat swelling Respiratory: No cough, No dyspnea on exertion, No hemoptysis, No short of breath Cardiovascular: No chest pain, No edema, No palpitations Gastrointestinal: abdominal pain; No jaundice; nausea, vomiting Genitourinary: dysuria, frequency; No hematuria Musculoskeletal: joint pain, joint swelling, muscle stiffness Skin: No change in color, No change in hair/nails Psychiatric/Neurological: Denies Anxiety, Denies Depressed, Denies Seizure, Denies Tremors Physical Exam-General Problems Physical Exam Vital Signs Vital Signs - First Documented 08/19/21 12:35 Temp 36.3 Pulse 127 Resp 16 B/P (MAP) 183/171 (175) Pulse Ox 95 O2 Delivery Room Air Capillary Refill : Less Than 3 Seconds General Appearance: moderate distress, thin Eyes: Bilateral Eye PERRL, Bilateral Eye EOMI HEENT: pharynx normal; No scleral icterus (R), No scleral icterus (L) Neck: non-tender, supple Respiratory: lungs clear, normal breath sounds, no respiratory distress, no accessory muscle use Cardiovascular: regular rate, rhythm, no murmur Gastrointestinal: soft, no organomegaly, guarding (voluntary), tenderness (diffusely), hernia (small umbilical) Rectal: deferred Back: no CVA tenderness Extremities: no pedal edema, no calf tenderness Neurologic/Psychiatric: alert, oriented x 3 Skin: normal color, warm/dry Lymphatic: no adenopathy (neck, axilla or groin) Data Review Labs Laboratory Tests 08/19/21 15:57: SARS-CoV-2 RNA (RT-PCR) Not Detected 08/20/21 05:13: White Blood Count 12.4H, Red Blood Count 3.50L, Hemoglobin 10.2L, Hematocrit 31L , Mean Corpuscular Volume 88, Mean Corpuscular Hemoglobin 29, Mean Corpuscular Hemoglobin Concent 33, Red Cell Distribution Width 13.6, Platelet Count 300, Mean Platelet Volume 9.7, Immature Granulocyte % (Auto) 0, Neutrophils (%) (Auto) 93H, Lymphocytes (%) (Auto) 4L, Monocytes (%) (Auto) 2, Eosinophils (%) (Auto) 1, Basophils (%) (Auto) 0, Neutrophils # (Auto) 11.5H, Lymphocytes # (Auto) 0.5L, Monocytes # (Auto) 0.2, Eosinophils # (Auto) 0.2, Basophils # (Auto) 0.0, Immature Granulocyte # (Auto) 0.0, Sodium Level 136, Potassium Level 3.4L, Chloride Level 104, Carbon Dioxide Level 21, Anion Gap 11, Blood Urea Nitrogen 8, Creatinine 0.67, Estimat Glomerular Filtration Rate 112, BUN/Creatinine Ratio 12, Glucose Level 88, Calcium Level 8.4L, Magnesium Level 1.8 08/20/21 12:45: Gastric Fluid Occult Blood NEGATIVE Radiology Date of Exam:08/19/21 CT ABDOMEN/PELVIS W PROCEDURE: CT abdomen and pelvis with contrast. TECHNIQUE: Multiple contiguous axial images were obtained through the abdomen and pelvis after administration of intravenous contrast. Auto Exposure Controls were utilized during the CT exam to meet ALARA standards for radiation dose reduction. All CT scans use one or more of the following dose optimizing techniques: automated exposure control, MA and/or KvP adjustment based on patient size and exam type or iterative reconstruction. INDICATION: Mid epigastric abdominal pain. COMPARISON: 08/15/2021. FINDINGS: Groundglass and airspace opacities are seen in the lung bases, significantly increased since the prior exam. The heart is normal in size. The liver demonstrates no focal lesion. The main portal vein is patent. The spleen appears normal. The pancreas parenchyma is unremarkable. The adrenal glands appear normal. The kidneys demonstrate no hydronephrosis. Small hypodense lesions in the left kidney are likely simple cysts. Hyperdensities in the bilateral kidneys may represent early excretion of contrast. The bowel loops are nondistended without evidence of obstruction. The small bowel loops appear fluid-filled. There is a paucity of fat present. The appendix appears normal. No free fluid or free air is seen. Fatty infiltration through the retroperitoneum is again seen, unchanged since prior exams. No acute osseous abnormality is seen. IMPRESSION: 1. Groundglass and airspace opacities in the lung bases, significantly increased since the prior study, concerning for infection. 2. Fluid-filled loops of small bowel, may represent a mild enteritis. 3. Redemonstrated fat infiltration throughout the retroperitoneum and in the mesenteric root, similar to prior exams. This is nonspecific, but pancreatitis would be in the differential, recommend correlation with lipase. Dictated by: Dictated on workstation # [id number] Dict: 08/19/21 1516 Trans: 08/19/21 1703 [facility] [id number] Interpreted by: ARIAS TORIBIO MD Electronically signed by: ARIAS TORIBIO MD 08/19/21 1703 Assessment/Plan Assessment/Plan Assessment/Plan Abdominal pain with N&V r/o pancreatitis Retroperitoneal inflammation Plan is NPO, IV fluids, pain meds (switching to morphine) and anti-emetics (adding Zofran). Plan will order an MRI of abdomen/pelvis to better delineate what is going on in the retroperitoneal space. I reviewed the CT myself and compared it to the one done on the ; fluid/inflammation appears to be somewhat better but there is still a lot of it. Pt appears to be in severe pain, but doesn't look like pancreatitis because Lipase is completely normal. THEODORE OH DO Aug 20, 2021 14:31
[2021-08-20 15:49] VITALS: BP 149/86
[2021-08-20] MEDS: cefTRIAXone 1,000 MG/SWFI 10 ML IV PUSH IV SCH ×2 (16:55)
[2021-08-20 19:40] VITALS: BP 140/82
[2021-08-20] MEDS: PROMETHAZINE INJ 25 MG/ML (PHENERGAN) AMP IV PRN (21:37)
[2021-08-20 23:59] VITALS: BP 125/83
[2021-08-21] MEDS: metroNIDAZOLE 500 MG/100 ML IVPB (PRE-MIX) IV SCH ×3 (00:24→16:29)
[2021-08-21] MEDS: LACTATED RINGERS 1,000 ML IV SCH ×4 (00:24→21:26)
[2021-08-21] MEDS: morphine INJ 4 MG/ML 1 ML (VIAL/SYRINGE) IVP PRN ×3 (02:08→21:00)
[2021-08-21] MEDS: LORazepam INJ 2 MG/ML (ATIVAN) VIAL IV PRN (02:08)
[2021-08-21 04:28] VITALS: BP 115/76
[2021-08-21 05:19] LABS: BASOPHILS % (AUTO) 0 % (0-10); EOSINOPHILS # (AUTO) 0.2 10^3/uL (0.0-0.3); EOSINOPHILS % (AUTO) 2 % (0-10); HEMATOCRIT 31 % (35-52); HEMOGLOBIN 10.1 g/dL (11.5-16.0); LYMPHOCYTES # (AUTO) 0.7 10^3/uL (1.0-4.0); LYMPHOCYTES % (AUTO) 6 % (12-44); MEAN CORPUSCULAR HEMOGLOBIN 29 pg (25-34); MEAN CORPUSCULAR HGB CONC 33 g/dL (32-36); MEAN CORPUSCULAR VOLUME 88 fL (80-99); MEAN PLATELET VOLUME 9.5 fL (9.0-12.2); MONOCYTES # (AUTO) 0.2 10^3/uL (0.0-1.0); MONOCYTES % (AUTO) 1 % (0-12); NEUTROPHILS # (AUTO) 10.5 10^3/uL (1.8-7.8); NEUTROPHILS % (AUTO) 91 % (42-75); PLATELET COUNT 356 10^3/uL (130-400); WHITE BLOOD COUNT 11.5 10^3/uL (4.3-11.0)
[2021-08-21 05:34] LABS: ALBUMIN 2.9 GM/DL (3.2-4.5)
[2021-08-21 05:35] LABS: CALCIUM 8.3 MG/DL (8.5-10.1)
[2021-08-21 05:36] LABS: TOTAL PROTEIN 5.5 GM/DL (6.4-8.2)
[2021-08-21 05:38] LABS: BILIRUBIN,TOTAL 0.4 MG/DL (0.1-1.0)
[2021-08-21 05:40] LABS: CREATININE SERUM 0.67 MG/DL (0.60-1.30)
[2021-08-21] MEDS: PROMETHAZINE INJ 25 MG/ML (PHENERGAN) AMP IV PRN ×2 (05:43→16:29)
--- NOTE | 2021-08-21 07:31 | Progress Note - Surgery ---
CARLOS MANUEL VYAS 08/21/21 0731: Subjective Date Seen by a Provider: Aug 21, 2021 Time Seen by a Provider: 07:00 Subjective/Events-last exam HPI per ED: This is a 21 yo female who presented to the ER with c/o mid abdominal pain, Nausea, vomiting for the past several days. States that she has been to the ER here twice for her intractable nausea and vomiting and was prescribed Pepcid and Bactrim for her pain and UTI. States that anytime she attempts to take the Pepcid she vomits. Has been unable to take the Bactrim due to persistent emesis. States that she is not even able to drink water as anything she puts and comes immediately back up. Denies any fever. Does report some chills, fatigue. She is currently on her menstrual period. Pt was having abdominal pain that is diffuse throughout her abdomen(6/10) when I visited her this morning. Said she last vomited this morning. Noticed it was dark, did not necessarily notice blood in it. Pt said the thought of eating food makes her nauseated and want to vomit. Had a child in February which was sent for adoption. Pt weighed 189lbs at full term, 165lbs after , and 120lbs currently. Review of Systems General: Chills, Night Sweats, Fatigue HEENT: Head Aches, Visual Changes (Pt reports her vision is blurry) Pulmonary: Dyspnea; No Cough Cardiovascular: No: Chest Pain, Palpitations Gastrointestinal: Nausea, Vomiting, Abdominal Pain (6/10 pain right now), Other (No bowel movement for a few days); No: Diarrhea, Constipation Genitourinary: No Dysuria; Other (notices urine is dark) Neurological: Weakness Focused Exam Lactate Level 08/19/21 14:10: Lactic Acid Level 0.88 Objective Exam Vital Signs Date Time Temp Pulse Resp B/P (MAP) Pulse Ox O2 Delivery O2 Flow Rate FiO2 08/21/21 05:51 37.5 08/21/21 04:28 37.8 106 18 115/76 (89) 98 Room Air 08/21/21 02:38 37.0 08/21/21 02:08 37.0 08/20/21 23:59 37.0 101 18 125/83 (97) 97 Room Air 08/20/21 20:00 Room Air 08/20/21 19:40 37.6 116 18 140/82 (101) 97 Room Air 08/20/21 15:49 36.8 91 18 149/86 (107) 96 Room Air 08/20/21 12:00 35.8 102 18 124/74 (91) 95 Room Air 08/20/21 08:00 Room Air 08/20/21 07:55 35.3 110 18 128/79 (95) 97 Room Air I & O 08/21/21 07:00 Intake Total 1130 ml Output Total 1175 ml Balance -45 ml Capillary Refill : Less Than 3 Seconds General Appearance: Anxious, Chronically ill, Mild Distress, Thin HEENT: PERRL/EOMI, Pharynx Normal, Moist Mucous Membranes Neck: Full Range of Motion, Normal Inspection, Non Tender Respiratory: Chest Non Tender, Lungs Clear, Normal Breath Sounds, No Accessory Muscle Use, No Respiratory Distress Cardiovascular: Regular Rate, Rhythm, No Edema, No Murmur Peripheral Pulses: 2+ Dorsalis Pedis (R), 2+ Left Dors-Pedis (L), 2+ Radial Pulses (R), 2+ Radial Pulses (L) Gastrointestinal: soft, no organomegaly, guarding (voluntary), tenderness (diffusely. Though patient did not express pain with pressure from stethescope applied), hernia (small umbilical) Extremity: Normal Capillary Refill, Normal Inspection, Normal Range of Motion, Non Tender, No Pedal Edema Neurologic/Psychiatric: Alert, Oriented x3, No Motor/Sensory Deficits, Normal Mood/Affect (anxious) Skin: Normal Color, Warm/Dry Lymphatic: No Adenopathy (cervical) Results Lab Laboratory Tests 08/20/21 12:45: Gastric Fluid Occult Blood NEGATIVE 08/21/21 05:03: White Blood Count 11.5H, Red Blood Count 3.55L, Hemoglobin 10.1L, Hematocrit 31L , Mean Corpuscular Volume 88, Mean Corpuscular Hemoglobin 29, Mean Corpuscular Hemoglobin Concent 33, Red Cell Distribution Width 13.8, Platelet Count 356, Mean Platelet Volume 9.5, Immature Granulocyte % (Auto) 1, Neutrophils (%) (Auto) 91H, Lymphocytes (%) (Auto) 6L, Monocytes (%) (Auto) 1, Eosinophils (%) (Auto) 2, Basophils (%) (Auto) 0, Neutrophils # (Auto) 10.5H, Lymphocytes # (Auto) 0.7L, Monocytes # (Auto) 0.2, Eosinophils # (Auto) 0.2, Basophils # (Auto) 0.0, Immature Granulocyte # (Auto) 0.1, Sodium Level 137, Potassium Level 4.0, Chloride Level 104, Carbon Dioxide Level 20L, Anion Gap 13, Blood Urea Nitrogen 8, Creatinine 0.67, Estimat Glomerular Filtration Rate 112, BUN/Creat inine Ratio 12, Glucose Level 86, Calcium Level 8.3L, Corrected Calcium 9.2, Total Bilirubin 0.4, Aspartate Amino Transf (AST/SGOT) 29, Alanine Aminotransferase (ALT/SGPT) 24, Alkaline Phosphatase 96, Total Protein 5.5L, Albumin 2.9L Microbiology 08/19/21 Blood Culture - Preliminary, Resulted No growth Assessment/Plan Assessment/Plan Assessment/Plan Abdominal pain with N&V r/o pancreatitis Retroperitoneal inflammation Emesis from cannabinoid use Plan is NPO, IV fluids, pain meds (switching to morphine) and anti-emetics (adding Zofran). Plan will order an MRI of abdomen/pelvis to better delineate what is going on in the retroperitoneal space. I reviewed the CT myself and compared it to the one done on the ; fluid/inflammation appears to be somewhat better but there is still a lot of it. Pt appears to be in severe pain, but doesn't look like pancreatitis because Lipase is completely normal. BAUTISTA ARSHAD DO 08/21/21 1337: Subjective Time Seen by a Provider: 12:37 Subjective/Events-last exam Pt seen and examined, stated she was very hungry and wanted to eat but also complained of moderate-severe pain not really controlled. Review of Systems General: Chills, Night Sweats, Fatigue HEENT: Head Aches, Visual Changes (Pt reports her vision is blurry) Pulmonary: Dyspnea; No Cough Cardiovascular: No: Chest Pain, Palpitations Gastrointestinal: Nausea, Vomiting, Abdominal Pain (6/10 pain right now), Other (No bowel movement for a few days); No: Diarrhea, Constipation Genitourinary: Other (notices urine is dark) Objective Exam General Appearance: Anxious, Chronically ill, Mild Distress (secondary to pain), Thin HEENT: Moist Mucous Membranes Respiratory: Lungs Clear, Normal Breath Sounds, No Accessory Muscle Use, No Respiratory Distress Cardiovascular: Regular Rate, Rhythm, No Murmur Gastrointestinal: soft, no organomegaly, guarding (voluntary), tenderness (diffusely. Though patient did not express pain with pressure from stethescope applied), hernia (small umbilical) Neurologic/Psychiatric: Alert, Oriented x3 Assessment/Plan Assessment/Plan Assessment/Plan Abdominal pain with N&V r/o pancreatitis Retroperitoneal inflammation Plan is to try clears and continue IV fluids, pain meds and anti-emetics. MRI of abdomen/pelvis done unfortunately; doesn't really help because nothing obvious seen (I went over images with Radiologist). Pt continues to be in se chaitanya pain, but no etiology at this time. Supervisory-Addendum Brief Verification & Attestation Participated in pt care: history, MDM, physical Personally performed: exam, history, MDM, supervision of care Care discussed with: Medical Student Procedures: n/a Verification and Attestation of Medical Student E/M Service A medical student performed and documented this service. I then reviewed and verified all information documented by the medical student and made modifications to such information, when appropriate. I personally performed a physical exam, medical decision making and then discussed any differences between the notes and made revisions as necessary to create one note. Bautista Arshad , 08/21/21 , 13:37 CARLOS MANUEL VYAS Aug 21, 2021 07:31 BAUTISTA ARSHAD DO Aug 21, 2021 13:37
[2021-08-21 08:00] VITALS: BP 119/74
[2021-08-21] MEDS: polyethylene glycoL POWDER 17 GM (MIRALAX) PACK PO SCH ×2 (08:42→19:44)
[2021-08-21] MEDS: ENOXAPARIN 30 MG/0.3 ML (LOVENOX) SYR SC SCH (08:42)
[2021-08-21] MEDS: PANTOPRAZOLE 40 MG (PROTONIX) VIAL IV SCH (08:42)
[2021-08-21] MEDS: ONDANSETRON 4 MG/2 ML (SDV) Z0FRAN IVP PRN ×3 (10:36→21:26)
[2021-08-21] MEDS: KETOROLAC 30 MG/ML VIAL IV PRN ×3 (10:36→17:29)
--- NOTE | 2021-08-21 11:23 | Progress Note - Surgery ---
Subjective Date Seen by a Provider: Aug 21, 2021 Time Seen by a Provider: 08:30 Subjective/Events-last exam Ms. Rider is a 21 y/o female here for cannabis induced hyperemesis and diffuse abdominal pain. Patient reports that her pain is a 7/10 this morning and worse than yesterday. She says her pain is diffuse in her abdomen alongside retrosternal chest pain. She denies GERD. Patient has been NPO since midnight in preparation for an EGD. She reports feeling very dehydrated and like she is going to "pass out" if she doesn't get some water or ice chips. Patient having an MRI done today in order to r/o pancreatitis because the CT was inconclusive. Review of Systems General: Chills, Malaise HEENT: Head Aches; No Visual Changes Pulmonary: Dyspnea; No Cough Cardiovascular: Chest Pain (Retrosternal, denies GERD, unknown etiology); No: Palpitations Gastrointestinal: Nausea, Vomiting, Abdominal Pain (Diffuse in all four quadrants) Neurological: No: Weakness, Confusion Focused Exam Lactate Level 08/19/21 14:10: Lactic Acid Level 0.88 Respiratory: Chest Non Tender, Lungs Clear, Normal Breath Sounds, No Accessory Muscle Use, No Respiratory Distress Cardiovascular: No Murmur, Normal Peripheral Pulses (Radial), Tachycardia Peripheral Pulses: 2+ Radial Pulses (R), 2+ Radial Pulses (L) Skin: normal color, warm/dry Objective Exam Vital Signs Date Time Temp Pulse Resp B/P (MAP) Pulse Ox O2 Delivery O2 Flow Rate FiO2 08/21/21 10:22 Room Air 08/21/21 08:00 Room Air 08/21/21 08:00 36.6 111 18 119/74 (89) 95 Room Air 08/21/21 05:51 37.5 08/21/21 04:28 37.8 106 18 115/76 (89) 98 Room Air 08/21/21 02:38 37.0 08/21/21 02:08 37.0 08/20/21 23:59 37.0 101 18 125/83 (97) 97 Room Air 08/20/21 20:00 Room Air 08/20/21 19:40 37.6 116 18 140/82 (101) 97 Room Air 08/20/21 15:49 36.8 91 18 149/86 (107) 96 Room Air 08/20/21 12:00 35.8 102 18 124/74 (91) 95 Room Air I & O 08/21/21 07:00 Intake Total 1130 ml Output Total 1175 ml Balance -45 ml Capillary Refill : Less Than 3 Seconds General Appearance: Anxious, Mild Distress, Thin HEENT: PERRL/EOMI; No Scleral Icterus (L), No Scleral Icterus (R) Neck: Normal Inspection, Non Tender; No Lymphadenopathy (L), No Lymphadenopathy (R) Respiratory: Chest Non Tender, Lungs Clear, Normal Breath Sounds, No Accessory Muscle Use, No Respiratory Distress Cardiovascular: No Murmur, Normal Peripheral Pulses, Tachycardia Peripheral Pulses: 2+ Radial Pulses (R), 2+ Radial Pulses (L) Gastrointestinal: normal bowel sounds, soft, no organomegaly, tenderness (Diffuse tenderness to palpation in all four quadrants) Extremity: Normal Capillary Refill, Normal Inspection, Non Tender Neurologic/Psychiatric: Alert, Oriented x3, No Motor/Sensory Deficits, 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 Norm as Tested Skin: Normal Color, Warm/Dry Lymphatic: No Adenopathy (Head and neck) Results Lab Laboratory Tests 08/20/21 12:45: Gastric Fluid Occult Blood NEGATIVE 08/21/21 05:03: White Blood Count 11.5H, Red Blood Count 3.55L, Hemoglobin 10.1L, Hematocrit 31L , Mean Corpuscular Volume 88, Mean Corpuscular Hemoglobin 29, Mean Corpuscular Hemoglobin Concent 33, Red Cell Distribution Width 13.8, Platelet Count 356, Mean Platelet Volume 9.5, Immature Granulocyte % (Auto) 1, Neutrophils (%) (Auto) 91H, Lymphocytes (%) (Auto) 6L, Monocytes (%) (Auto) 1, Eosinophils (%) (Auto) 2, Basophils (%) (Auto) 0, Neutrophils # (Auto) 10.5H, Lymphocytes # (Auto) 0.7L, Monocytes # (Auto) 0.2, Eosinophils # (Auto) 0.2, Basophils # (Auto) 0.0, Immature Granulocyte # (Auto) 0.1, Sodium Level 137, Potassium Level 4.0, Chloride Level 104, Carbon Dioxide Level 20L, Anion Gap 13, Blood Urea Nitrogen 8, Creatinine 0.67, Estimat Glomerular Filtration Rate 112, BUN/Creatinine Ratio 12, Glucose Level 86, Calcium Level 8.3L, Corrected Calcium 9.2, Total Bilirubin 0.4, Aspartate Amino Transf (AST/SGOT) 29, Alanine Aminotransferase (ALT/SGPT) 24, Alkaline Phosphatase 96, Total Protein 5.5L, Albumin 2.9L Microbiology 08/19/21 Blood Culture - Preliminary, Resulted No growth 08/19/21 Urine Culture - Final, Complete See Comments Assessment/Plan Assessment/Plan Assessment/Plan Abdominal pain with N&V r/o pancreatitis Retroperitoneal inflammation Plan is NPO, IV fluids, pain meds (switching to morphine) and anti-emetics (adding Zofran). Plan will order an MRI of abdomen/pelvis to better delineate what is going on in the retroperitoneal space. I reviewed the CT myself and compared it to the one done on the ; fluid/inflammation appears to be somewhat better but there is still a lot of it. Pt appears to be in severe pain, but doesn't look like pancreatitis because Lipase is completely normal. RADHA STEWARD Aug 21, 2021 11:23
--- NOTE | 2021-08-21 11:30 | Progress Note - Hospitalist ---
BINRADHA Amber 08/21/21 1130: Subjective HPI/CC On Admission Date Seen by Provider: Aug 21, 2021 Time Seen by Provider: 08:30 N/V Subjective/Events-last exam Ms. Rider is a 21 y/o female here for cannabis induced hyperemesis and diffuse abdominal pain. Patient reports that her pain is a 7/10 this morning and worse than yesterday. She says her pain is diffuse in her abdomen alongside retrosternal chest pain. She denies GERD. Patient has been NPO since midnight in preparation for an EGD. She reports feeling very dehydrated and like she is going to "pass out" if she doesn't get some water or ice chips. Patient having an MRI done today in order to r/o pancreatitis because the CT was inconclusive. WBC trending down to 11.5. Potassium trending up to 4. Review of Systems General: Chills, Fatigue, Malaise Pulmonary: Dyspnea; No Cough Cardiovascular: Chest Pain (Retrosternal, denies GERD, unknown etiology); No: Palpitations Gastrointestinal: Nausea, Vomiting, Abdominal Pain Neurological: No: Weakness, Confusion Focused Exam Lactate Level 08/19/21 14:10: Lactic Acid Level 0.88 Respiratory: Chest Non Tender, Lungs Clear, Normal Breath Sounds, No Accessory Muscle Use, No Respiratory Distress Cardiovascular: No Murmur, Normal Peripheral Pulses, Tachycardia Capillary Refill: Less Than 3 Seconds Peripheral Pulses: 2+ Radial Pulses (R), 2+ Radial Pulses (L) Skin: normal color, warm/dry Objective Exam Vital Signs Vital Signs Date Time Temp Pulse Resp B/P (MAP) Pulse Ox O2 Delivery O2 Flow Rate FiO2 08/21/21 10:22 Room Air 08/21/21 08:00 36.6 111 18 119/74 (89) 95 Capillary Refill : Less Than 3 Seconds General Appearance: Anxious, Moderate Distress (Patient in a moderate amount of pain and distressed about NPO status), Thin HEENT: PERRL/EOMI; No Scleral Icterus (L), No Scleral Icterus (R) Neck: Normal Inspection, Non Tender; No Lymphadenopathy (L), No Lymphadenopathy (R) Respiratory: Chest Non Tender, Lungs Clear, Normal Breath Sounds, No Accessory Muscle Use, No Respiratory Distress Cardiovascular: No Murmur, Normal Peripheral Pulses, Tachycardia Gastrointestinal: Normal Bowel Sounds, Soft, Tenderness (Tender to palpation in all four quadrants) Extremity: Normal Capillary Refill (Upper extremity), Normal Inspection Neurologic/Psychiatric: Alert, Oriented x3, No Motor/Sensory Deficits, regulator mechanic II- XII Norm as Tested Skin: Normal Color, Warm/Dry Lymphatic: No Adenopathy (Head and neck) Results/Procedures Lab Laboratory Tests 08/21/21 05:03 Patient resulted labs reviewed. Assessment/Plan Assessment and Plan Assess & Plan/Chief Complaint Assessment: Cannabis induced hyperemesis Pneumonia Infectious enteritis Dehydration Hallucinations Leukocytosis Plan: Continue IV fluids and IV antibiotics. Continue medication as needed for pain and nausea. MRI being done today to r/o pancreatitis. Surgery consulted SYBIL STARK DO 08/22/21 0518: Subjective Subjective/Events-last exam Patient appears to be better Talks about how much where she is but that is not matching up clinically White count is returning back to normal range Patient appears to have difficulty with coping We will continue to be supportive Refuse most of the MRI Pneumonia treatment maintained Review of Systems General: Fatigue, Malaise Gastrointestinal: Nausea, Vomiting, Abdominal Pain Objective Exam General Appearance: Anxious, Moderate Distress (Patient in a moderate amount of pain and distressed about NPO status), Thin Respiratory: Lungs Clear, Normal Breath Sounds Cardiovascular: Tachycardia Neurologic/Psychiatric: Alert, Oriented x3, Depressed Affect Assessment/Plan Assessment and Plan Assess & Plan/Chief Complaint MRI reviewed Continue supportive care Antibiotics for pneumonia Supervisory-Addendum Brief Verification & Attestation Participated in pt care: history, MDM, physical Personally performed: exam, history, MDM, supervision of care Care discussed with: Medical Student Procedures: n/a Results interpretation: Verified all documentation Verification and Attestation of Medical Student E/M Service A medical student performed and documented this service in my presence. I reviewed and verified all information documented by the medical student and made modifications to such information, when appropriate. I personally performed the physical exam and medical decision making. Sybil Stark, Aug 22, 2021,05:17 RADHA STEWARD Aug 21, 2021 11:30 SYBIL STARK DO Aug 22, 2021 05:18
[2021-08-21 12:35] VITALS: BP 127/84
--- NOTE | 2021-08-21 13:29 | Diagnostic Imaging Report ---
PROCEDURE: MR imaging abdomen without contrast. TECHNIQUE: Multiplanar, multisequence MR imaging of the abdomen was performed without contrast. INDICATION: Nausea and vomiting. COMPARISON: CT abdomen and pelvis of 08/15/2021 and 08/19/2021 FINDINGS: Examination was initially ordered with and without contrast, but the patient refused to perform follow-up imaging. Additionally, the MRCP images were not able to be obtained. On the obtained images, some mild T2 hyperintense signal in the retroperitoneum around the region of the pancreas corresponding to the abnormal density seen on CT. This remains nonspecific and poorly assessed on this noncontrast exam. No intrahepatic biliary dilatation. Allowing for motion artifact, no large filling defects within the gallbladder that would suggest cholelithiasis. Common bile duct is nondilated but poorly visualized. No ascites. Multifocal pulmonary abnormalities are better assessed on CT from 08/20/2021. IMPRESSION: 1. Limited examination as patient refused to complete the entirety of the exam. Therefore, postcontrast imaging and MRCP imaging was not able be performed. 2. There is small amount of T2 hyperintense non-masslike signal around the pancreas that corresponds to the area of abnormal density seen on CT. As per CT, this may be sequela of pancreatitis or other inflammatory process. There are no masslike features that would suggest lymphadenopathy. Dictated by: Dictated on workstation # [id number]
[2021-08-21] MEDS ORDERED: CALC-778 PO (14:08)
[2021-08-21] MEDS ORDERED: SULF1TAB38 PO (14:08)
[2021-08-21] MEDS ORDERED: ACET1TAB96 PO (14:08)
[2021-08-21] MEDS ORDERED: MULT-1112 PO (14:08)
[2021-08-21] MEDS ORDERED: ASPI-789 PO (14:08)
[2021-08-21] MEDS ORDERED: FAMO20TA5 PO (14:08)
[2021-08-21] MEDS ORDERED: MEDR150V4 IM (14:09)
[2021-08-21 16:11] VITALS: BP 137/84
[2021-08-21] MEDS: cefTRIAXone 1,000 MG/SWFI 10 ML IV PUSH IV SCH ×2 (16:29)
[2021-08-21] MEDS: HYDROcodone/APAP 5 MG/325 MG (LORTAB) TAB PO PRN (17:30)
[2021-08-21 19:32] VITALS: BP 136/90
[2021-08-21 23:30] VITALS: BP 120/77
[2021-08-22] MEDS: metroNIDAZOLE 500 MG/100 ML IVPB (PRE-MIX) IV SCH ×3 (00:27→16:55)
[2021-08-22] MEDS: morphine INJ 4 MG/ML 1 ML (VIAL/SYRINGE) IVP PRN (00:37)
[2021-08-22 00:38] VITALS: BP 131/88
[2021-08-22] MEDS: PROMETHAZINE INJ 25 MG/ML (PHENERGAN) AMP IV PRN ×2 (00:42→18:02)
[2021-08-22] MEDS: LORazepam INJ 2 MG/ML (ATIVAN) VIAL IV PRN ×3 (03:35→21:53)
[2021-08-22] MEDS: ONDANSETRON 4 MG/2 ML (SDV) Z0FRAN IVP PRN ×4 (03:35→20:48)
[2021-08-22] MEDS: KETOROLAC 30 MG/ML VIAL IV PRN ×2 (03:47→10:42)
[2021-08-22 05:39] LABS: BASOPHILS % (AUTO) 0 % (0-10); EOSINOPHILS # (AUTO) 0.2 10^3/uL (0.0-0.3); EOSINOPHILS % (AUTO) 1 % (0-10); HEMATOCRIT 29 % (35-52); HEMOGLOBIN 9.8 g/dL (11.5-16.0); LYMPHOCYTES # (AUTO) 0.4 10^3/uL (1.0-4.0); LYMPHOCYTES % (AUTO) 3 % (12-44); MEAN CORPUSCULAR HEMOGLOBIN 29 pg (25-34); MEAN CORPUSCULAR HGB CONC 33 g/dL (32-36); MEAN CORPUSCULAR VOLUME 87 fL (80-99); MEAN PLATELET VOLUME 9.6 fL (9.0-12.2); MONOCYTES # (AUTO) 0.2 10^3/uL (0.0-1.0); MONOCYTES % (AUTO) 2 % (0-12); NEUTROPHILS # (AUTO) 11.2 10^3/uL (1.8-7.8); NEUTROPHILS % (AUTO) 94 % (42-75); PLATELET COUNT 379 10^3/uL (130-400)
[2021-08-22 06:05] LABS: ALBUMIN 2.6 GM/DL (3.2-4.5); BILIRUBIN,TOTAL 0.4 MG/DL (0.1-1.0); CALCIUM 8.1 MG/DL (8.5-10.1); CREATININE SERUM 0.58 MG/DL (0.60-1.30); POTASSIUM 3.5 MMOL/L (3.6-5.0); TOTAL PROTEIN 5.2 GM/DL (6.4-8.2)
--- NOTE | 2021-08-22 07:06 | Progress Note - Surgery ---
LILLIAMCARLOS MANUEL 08/22/21 0706: Subjective Date Seen by a Provider: Aug 22, 2021 Time Seen by a Provider: 06:45 Subjective/Events-last exam Pt reports she is doing much better. Abdominal pain is at 4/10 which is improved from 6/10 yesterday. Pt also has not vomitted or felt nauseated between yesterday and when I saw her this morning. Said she appreciates being able to intake liquids and is tolerating it well Review of Systems General: No Chills, No Night Sweats; Fatigue HEENT: No Head Aches, No Visual Changes Pulmonary: No Dyspnea, No Cough Cardiovascular: No: Chest Pain, Palpitations Gastrointestinal: Abdominal Pain (4/10); No: Nausea, Vomiting Genitourinary: No Dysuria, No Frequency Neurological: No: Weakness, Change in speech, Confusion Focused Exam Lactate Level 08/19/21 14:10: Lactic Acid Level 0.88 Objective Exam Vital Signs Date Time Temp Pulse Resp B/P (MAP) Pulse Ox O2 Delivery O2 Flow Rate FiO2 08/22/21 00:38 114 20 131/88 (102) 93 Room Air 08/21/21 23:30 36.8 96 16 120/77 (91) 95 Room Air 08/21/21 22:15 Room Air 08/21/21 19:42 Room Air 08/21/21 19:32 36.5 102 20 136/90 (105) 97 Room Air 08/21/21 16:11 37.4 126 18 137/84 (101) 98 Room Air 08/21/21 12:35 36.6 122 18 127/84 (98) 97 Room Air 08/21/21 10:22 Room Air 08/21/21 08:00 Room Air 08/21/21 08:00 36.6 111 18 119/74 (89) 95 Room Air I & O 08/22/21 07:00 Intake Total 2000 ml Output Total 800 ml Balance 1200 ml Capillary Refill : Less Than 3 Seconds General Appearance: No Apparent Distress, WD/WN, Thin HEENT: PERRL/EOMI, Moist Mucous Membranes Neck: Full Range of Motion, Normal Inspection, Non Tender, Supple; No Lymphadenopathy (L), No Lymphadenopathy (R) Respiratory: Chest Non Tender, Lungs Clear, Normal Breath Sounds, No Accessory Muscle Use, No Respiratory Distress Cardiovascular: Regular Rate, Rhythm, No Murmur (??Splitting of second heart sound), Tachycardia Peripheral Pulses: 2+ Dorsalis Pedis (R), 2+ Left Dors-Pedis (L), 2+ Radial Pulses (R), 2+ Radial Pulses (L) Gastrointestinal: soft, no organomegaly; No guarding; tenderness (diffusely. Though patient did not express pain with pressure from stethescope applied), hernia (small umbilical) Extremity: Normal Capillary Refill (Upper extremity), Normal Inspection Neurologic/Psychiatric: Alert, Oriented x3 Skin: Normal Color, Warm/Dry Lymphatic: No Adenopathy (Head and neck) Results Lab Laboratory Tests 08/22/21 05:30: White Blood Count 12.0H, Red Blood Count 3.37L, Hemoglobin 9.8L, Hematocrit 29L, Mean Corpuscular Volume 87, Mean Corpuscular Hemoglobin 29, Mean Corpuscular Hemoglobin Concent 33, Red Cell Distribution Width 13.9, Platelet Count 379, Mean Platelet Volume 9.6, Immature Granulocyte % (Auto) 0, Neutrophils (%) (Auto) 94H, Lymphocytes (%) (Auto) 3L, Monocytes (%) (Auto) 2, Eosinophils (%) (Auto) 1, Basophils (%) (Auto) 0, Neutrophils # (Auto) 11.2H, Lymphocytes # (Auto) 0.4L, Monocytes # (Auto) 0.2, Eosinophils # (Auto) 0.2, Basophils # (Auto) 0.0, Immature Granulocyte # (Auto) 0.0, Sodium Level 137, Potassium Level 3.5L, Chloride Level 104, Carbon Dioxide Level 20L, Anion Gap 13, Blood Urea Nitrogen 7, Creatinine 0.58L, Estimat Glomerular Filtration Rate 133, BUN/Creatinine Ratio 12, Glucose Level 88, Calcium Level 8.1L, Corrected Calcium 9.2, Total Bilirubin 0.4, Aspartate Amino Transf (AST/SGOT) 16, Alanine Aminotransferase (ALT/SGPT) 12, Alkaline Phosphatase 75, Total Protein 5.2L, Albumin 2.6L, Amylase Level 10L, Lipase 4L Microbiology 08/19/21 Blood Culture - Preliminary, Resulted No growth 08/19/21 Urine Culture - Final, Complete See Comments Assessment/Plan Assessment/Plan Assessment/Plan Abdominal pain with N&V N&V resolved. Pt has not has episodes since yesterday. Tolerating liquids well. Pt having 4/10 abdominal pain. Plan is to advance forward with diet (soft foods then normal foods) since liquids are being tolerated. pancreatitis- ruled out with normal lipase Retroperitoneal inflammation Plan is to try clears and continue IV fluids, pain meds and anti-emetics. MRI of abdomen/pelvis done unfortunately; doesn't really help because nothing obvious seen (I went over images with Radiologist). Pt continues to be in severe pain, but no etiology at this time. BAUTISTA ARSHAD DO 08/22/21 1317: Subjective Time Seen by a Provider: 11:31 Subjective/Events-last exam Pt seen and examined, tolerating clears and wants more to eat "something solid". Denies N/V. Review of Systems General: No Chills, No Night Sweats Pulmonary: No Dyspnea, No Cough Cardiovascular: No: Chest Pain, Palpitations Gastrointestinal: Abdominal Pain (4/10); No: Nausea, Vomiting Objective Exam General Appearance: No Apparent Distress, Thin Respiratory: Lungs Clear, Normal Breath Sounds, No Accessory Muscle Use, No Respiratory Distress Cardiovascular: Regular Rate, Rhythm, No Murmur (??Splitting of second heart sound) Gastrointestinal: soft, no organomegaly; No guarding; tenderness (diffusely. Though patient did not express pain with pressure from stethescope applied), hernia (small umbilical) Assessment/Plan Assessment/Plan Assessment/Plan Abdominal pain with N&V N&V resolved. Pt has not has episodes since yesterday. Tolerating liquids well. Pt having 4/10 abdominal pain. Plan is to advance forward with diet (soft foods then normal foods) since liquids are being tolerated. pancreatitis- ruled out with normal lipase Retroperitoneal inflammation Supervisory-Addendum Brief Verification & Attestation Participated in pt care: history, MDM, physical Personally performed: exam, history, MDM, supervision of care Care discussed with: Medical Student Procedures: n/a Verification and Attestation of Medical Student E/M Service A medical student performed and documented this service. I then reviewed and verified all information documented by the medical student and made modifications to such information, when appropriate. I personally performed a physical exam, medical decision making and then discussed any differences between the notes and made revisions as necessary to create one note. Bautista Arshad , 08/22/21 , 13:17 CARLOS MANUEL VYAS Aug 22, 2021 07:06 BAUTISTA ARSHAD DO Aug 22, 2021 13:17
[2021-08-22 07:26] VITALS: BP 115/67
[2021-08-22] MEDS: LACTATED RINGERS 1,000 ML IV SCH (08:00)
[2021-08-22] MEDS: PANTOPRAZOLE 40 MG (PROTONIX) VIAL IV SCH (08:03)
[2021-08-22] MEDS: ENOXAPARIN 30 MG/0.3 ML (LOVENOX) SYR SC SCH (08:03)
[2021-08-22] MEDS: polyethylene glycoL POWDER 17 GM (MIRALAX) PACK PO SCH ×2 (08:04→20:48)
[2021-08-22] MEDS: HYDROcodone/APAP 5 MG/325 MG (LORTAB) TAB PO PRN ×3 (08:18→20:50)
[2021-08-22] MEDS ORDERED: FUROSEMIDE 40 MG/4 ML INJ (LASIX) IVP ONE (11:00)
--- NOTE | 2021-08-22 11:18 | Progress Note - Hospitalist ---
BINRADHA Amber 08/22/21 1118: Subjective HPI/CC On Admission Date Seen by Provider: Aug 22, 2021 Time Seen by Provider: 08:01 N/V Subjective/Events-last exam Ms. Rider is a 21 y/o female who originally presented to the ED on 19 August 2021 for N/V. HPI per ED included for convenience. Patient was admitted for intractable N/V, enteritis, and pneumonia. A CT scan was done to r/o pancreatitis but was inconclusive. Amylase and Lipase are within normal limits. An MRI was done yesterday as followup to the CT scan but was unable to be completed. As a result, the results were inconclusive. Today she reports her abdominal pain is at a 4-5/10 and she is still very nauseous. Patient says she feels worse this morning but has not thrown up since yesterday. She also reports trouble breathing this morning but it has since improved and appeared to be transient. Her father was visiting today and he mentioned she has had a history of GI issues since she was an . They have never seen a specialist. A referral is being made to a GI specialist to uncover the origin of her long-term GI issues. She is being managed medically for her N/V and is on ceftriaxone and metronidazole for her pneumonia. HPI per ED: This is a 21 yo female who presented to the ER with c/o mid abdominal pain, Nausea, vomiting for the past several days. States that she has been to the ER here twice for her intractable nausea and vomiting and was prescribed Pepcid and Bactrim for her pain and UTI. States that anytime she attempts to take the Pepcid she vomits. Has been unable to take the Bactrim due to persistent emesis. States that she is not even able to drink water as anything she puts and comes immediately back up. Denies any fever. Does report some chills, fatigue. She is currently on her menstrual period. Review of Systems General: Chills, Fatigue HEENT: No Head Aches, No Visual Changes Pulmonary: Dyspnea, Cough Cardiovascular: Chest Pain (Retrosternal); No: Palpitations Gastrointestinal: Nausea, Vomiting (Has not vomited today), Abdominal Pain Neurological: Numbness (Transient "pins and needles" in her feet); No: Weakness Focused Exam Lactate Level 08/19/21 14:10: Lactic Acid Level 0.88 Respiratory: Chest Non Tender, Lungs Clear (Lungs sound clear despite pneumonia), Normal Breath Sounds, No Accessory Muscle Use, No Respiratory Distress Cardiovascular: Regular Rate, Rhythm, No Murmur, Normal Peripheral Pulses, Other (Minor foot and ankle swelling) Capillary Refill: Less Than 3 Seconds Peripheral Pulses: 2+ Dorsalis Pedis (R), 2+ Left Dors-Pedis (L), 2+ Radial Pulses (R), 2+ Radial Pulses (L) Skin: normal color, warm/dry Objective Exam Vital Signs Vital Signs Date Time Temp Pulse Resp B/P (MAP) Pulse Ox O2 Delivery O2 Flow Rate FiO2 08/22/21 08:00 90 Room Air 08/22/21 07:26 36.0 94 19 115/67 (83) Capillary Refill : Less Than 3 Seconds General Appearance: Thin, Other (Patient frustrated with the large amount of people rounding on her) HEENT: PERRL/EOMI, Moist Mucous Membranes Neck: Normal Inspection, Non Tender Respiratory: Chest Non Tender, Lungs Clear (Lungs clear despite pneumonia), Normal Breath Sounds, No Accessory Muscle Use, No Respiratory Distress Cardiovascular: Regular Rate, Rhythm, No Murmur, Normal Peripheral Pulses Extremity: Normal Capillary Refill, Normal Inspection, Non Tender, No Calf Tenderness, Pedal Edema, Swelling (Foot and ankle) Neurologic/Psychiatric: Alert, Oriented x3, No Motor/Sensory Deficits Skin: Normal Color, Warm/Dry Lymphatic: No Adenopathy (Head and neck) Results/Procedures Lab Laboratory Tests 08/22/21 05:30 Patient resulted labs reviewed. Assessment/Plan Assessment and Plan Assess & Plan/Chief Complaint Assessment: Cannabis induced hyperemesis - Patient does not think her cannabis use is contributing to her N/V Pneumonia - Being treated with ceftriaxone and metronidazole. Lungs clear Infectious enteritis Dehydration Plan: Continue IV fluids and IV antibiotics. Continue medication as needed for pain and nausea. Unable to definitively r/o pancreatitis with MRI. - Amylase and lipase 10 and 4 respectively. Ambulation encouraged. Surgery consulted. SYBIL STARK DO 08/23/21 0548: Subjective Subjective/Events-last exam Patient doing a lot better Very difficulty coping Father at bedside Discussed marijuana use of which he fully supports and does not feel that is a factor with the nausea and vomiting We will attempt to get gastroenterology follow-up appointment Father says she has poor follow-ups Review of Systems General: Fatigue Gastrointestinal: Nausea, Vomiting (Has not vomited today), Abdominal Pain Objective Exam General Appearance: No Apparent Distress, WD/WN, Anxious, Thin Respiratory: Lungs Clear (Lungs clear despite pneumonia), Normal Breath Sounds Cardiovascular: Regular Rate, Rhythm Neurologic/Psychiatric: Alert, Oriented x3, No Motor/Sensory Deficits Assessment/Plan Assessment and Plan Assess & Plan/Chief Complaint Continue supportive care Ambulate Hep-Lock IV fluid Lasix 10 mg IV x1 Supervisory-Addendum Brief Verification & Attestation Participated in pt care: history, MDM, physical Personally performed: exam, history, MDM, supervision of care Care discussed with: Medical Student Procedures: n/a Results interpretation: Verified all documentation Verification and Attestation of Medical Student E/M Service A medical student performed and documented this service in my presence. I reviewed and verified all information documented by the medical student and made modifications to such information, when appropriate. I personally performed the physical exam and medical decision making. Sybil Stark Aug 23, 2021,05:47 RADHA STEWARD Aug 22, 2021 11:18 SYBIL STARK DO Aug 23, 2021 05:48
[2021-08-22 15:40] VITALS: BP_SYST 135; BP_SYST 151; BP_DIAS 85; BP_DIAS 87
[2021-08-22] MEDS: cefTRIAXone 1,000 MG/SWFI 10 ML IV PUSH IV SCH ×2 (16:55)
[2021-08-22] MEDS: METOCLOPRAMIDE INJ 10 MG/2 ML (REGLAN) IV PRN (22:54)
[2021-08-23] VITALS (13 sets, daily range): BP systolic 104–140; BP diastolic 66–86
[2021-08-23] MEDS: metroNIDAZOLE 500 MG/100 ML IVPB (PRE-MIX) IV SCH ×3 (01:21→17:19)
[2021-08-23] MEDS: LORazepam INJ 2 MG/ML (ATIVAN) VIAL IV PRN ×4 (05:11→22:41)
[2021-08-23] MEDS: HYDROcodone/APAP 5 MG/325 MG (LORTAB) TAB PO PRN (06:35)
[2021-08-23 07:06] LABS: BASOPHILS % (AUTO) 0 % (0-10); EOSINOPHILS # (AUTO) 0.1 10^3/uL (0.0-0.3); EOSINOPHILS % (AUTO) 1 % (0-10); HEMATOCRIT 33 % (35-52); HEMOGLOBIN 10.9 g/dL (11.5-16.0); LYMPHOCYTES # (AUTO) 0.7 10^3/uL (1.0-4.0); LYMPHOCYTES % (AUTO) 5 % (12-44); MEAN CORPUSCULAR HEMOGLOBIN 29 pg (25-34); MEAN CORPUSCULAR HGB CONC 34 g/dL (32-36); MEAN CORPUSCULAR VOLUME 86 fL (80-99); MEAN PLATELET VOLUME 9.4 fL (9.0-12.2); MONOCYTES # (AUTO) 0.2 10^3/uL (0.0-1.0); MONOCYTES % (AUTO) 1 % (0-12); NEUTROPHILS # (AUTO) 12.2 10^3/uL (1.8-7.8); NEUTROPHILS % (AUTO) 92 % (42-75); PLATELET COUNT 513 10^3/uL (130-400); WHITE BLOOD COUNT 13.3 10^3/uL (4.3-11.0)
--- NOTE | 2021-08-23 07:20 | Progress Note - Surgery ---
CARLOS MANUEL VYAS 08/23/2120: Subjective Date Seen by a Provider: Aug 23, 2021 Time Seen by a Provider: 07:05 Subjective/Events-last exam Pt reports eating 2 spoonfuls of mashed potatoes which caused her to vomit them also have loose, black stools last night. Said she still does not feel quite strong or ready to leave hospital. Especially because she cannot hold down the mashed potates Pt reported that she was on O2 last night because her O2 sat dropped. Pt was on 3 L of O2 after reviewing vitals. Review of Systems General: No Chills, No Night Sweats; Fatigue HEENT: No Head Aches, No Visual Changes Pulmonary: Dyspnea, Cough Cardiovascular: No: Chest Pain, Palpitations Gastrointestinal: Nausea (Pt feels some nausea, not as bad as initial presentation to hospital), Vomiting (Vomiting after eating mashed potatoes), Abdominal Pain (4/10), Other (Pt described dark, black, loose stools after eating mashed potatoes) Genitourinary: No Dysuria, No Frequency Musculoskeletal: No: back pain Neurological: Weakness; No: Change in speech, Confusion (Pt still does not feel quite strong) Objective Exam Vital Signs Date Time Temp Pulse Resp B/P (MAP) Pulse Ox O2 Delivery O2 Flow Rate FiO2 08/23/21 06:24 94 Room Air 08/23/21 05:20 94 Nasal Cannula 3.00 08/23/21 05:15 89 Room Air 08/23/21 00:00 37.1 116 18 132/80 (97) 91 Room Air 08/22/21 20:00 90 Room Air 08/22/21 15:40 36.2 98 20 135/85 (102) 96 Room Air 08/22/21 08:00 90 Room Air 08/22/21 07:26 36.0 94 19 115/67 (83) 88 Room Air I & O 08/23/21 07:00 Intake Total 1810 ml Output Total 1000 ml Balance 810 ml Capillary Refill : Less Than 3 Seconds General Appearance: No Apparent Distress, WD/WN, Anxious, Thin HEENT: PERRL/EOMI, Moist Mucous Membranes Neck: Full Range of Motion, Normal Inspection, Non Tender, Supple; No Lymphadenopathy (L), No Lymphadenopathy (R) Respiratory: Lungs Clear (Lungs clear despite pneumonia), Normal Breath Sounds Cardiovascular: Regular Rate, Rhythm Peripheral Pulses: 2+ Dorsalis Pedis (R), 2+ Left Dors-Pedis (L), 2+ Radial Pulses (R), 2+ Radial Pulses (L) Gastrointestinal: soft, no organomegaly; No guarding; tenderness (Diffusely. Pt did express some tenderness and gaurding with pressure from stethescope.), hernia (small umbilical) Extremity: Normal Capillary Refill (Upper extremity), Normal Inspection Neurologic/Psychiatric: Alert, Oriented x3, No Motor/Sensory Deficits Skin: Normal Color, Warm/Dry Lymphatic: No Adenopathy (Head and neck) Results Lab Laboratory Tests 08/23/21 06:50: White Blood Count 13.3H, Red Blood Count 3.79L, Hemoglobin 10.9L, Hematocrit 33L , Mean Corpuscular Volume 86, Mean Corpuscular Hemoglobin 29, Mean Corpuscular Hemoglobin Concent 34, Red Cell Distribution Width 13.7, Platelet Count 513H, Mean Platelet Volume 9.4, Immature Granulocyte % (Auto) 1, Neutrophils (%) (Auto) 92H, Lymphocytes (%) (Auto) 5L, Monocytes (%) (Auto) 1, Eosinophils (%) (Auto) 1, Basophils (%) (Auto) 0, Neutrophils # (Auto) 12.2H, Lymphocytes # (Auto) 0.7L, Monocytes # (Auto) 0.2, Eosinophils # (Auto) 0.1, Basophils # (Auto) 0.0, Immature Granulocyte # (Auto) 0.1 Microbiology 08/19/21 Blood Culture - Preliminary, Resulted No growth 08/19/21 Urine Culture - Final, Complete See Comments Assessment/Plan Assessment/Plan Assessment/Plan Abdominal pain with N&V N&V have returned after eating mashed potatoes. Tolerating liquids well. Pt having 4/10 abdominal pain. Pt did not tolerate mashed potatoes. Caused vomitting and dark diarrhea. pancreatitis- ruled out with normal lipase Plan to do EGD and Colonoscopy Retroperitoneal inflammation BAUTISTA ARSHAD DO 08/23/21 1648: Subjective Time Seen by a Provider: 15:56 Subjective/Events-last exam Pt seen and examined, states she feels a little better and walked in the [place]. Still has some abdominal pain and is requiring pain meds. Review of Systems General: No Chills, No Night Sweats; Fatigue Pulmonary: No Dyspnea, No Cough Cardiovascular: No: Chest Pain, Palpitations Gastrointestinal: Nausea (Pt feels some nausea, not as bad as initial presentation to hospital), Vomiting (Vomiting after eating mashed potatoes), Abdominal Pain (4/10) Genitourinary: No Dysuria, No Frequency Objective Exam General Appearance: No Apparent Distress, Anxious, Thin HEENT: PERRL/EOMI, Moist Mucous Membranes Respiratory: Lungs Clear (Lungs clear despite pneumonia), Normal Breath Sounds, No Accessory Muscle Use, No Respiratory Distress Cardiovascular: Regular Rate, Rhythm, No Murmur Gastrointestinal: soft, no organomegaly; No guarding; tenderness (diffusely. Though patient did not express pain with pressure from stethescope applied), her hu (small umbilical) Assessment/Plan Assessment/Plan Assessment/Plan Abdominal pain with N&V N&V resolved. Pt has not has episodes since yesterday. Tolerating liquids well. Pt no longer having abdominal pain. Pt did not tolerate mashed potatoes. Caused vomitting and dark diarrhea. pancreatitis- ruled out with normal lipase Plan to do EGD and Colonoscopy Retroperitoneal inflammation CTA of chest did not show any PE, did show some ground-glass patchy infiltrate, still not sure what caused retroperitoneal fluid. Control symptoms, treat possible pneumonia Supervisory-Addendum Brief Verification & Attestation Participated in pt care: history, MDM, physical Personally performed: exam, history, MDM, supervision of care Care discussed with: Medical Student Procedures: n/a Verification and Attestation of Medical Student E/M Service A medical student performed and documented this service. I then reviewed and verified all information documented by the medical student and made modifications to such information, when appropriate. I personally performed a physical exam, medical decision making and then discussed any differences between the notes and made revisions as necessary to create one note. Bautista Arshad , 08/23/21 , 16:48 CARLOS MANUEL VYAS Aug 23, 2021 07:20 BAUTISTA ARSHAD DO Aug 23, 2021 16:48
[2021-08-23 07:26] LABS: ALBUMIN 2.7 GM/DL (3.2-4.5); BILIRUBIN,TOTAL 0.4 MG/DL (0.1-1.0); CALCIUM 8.3 MG/DL (8.5-10.1); CREATININE SERUM 0.71 MG/DL (0.60-1.30); POTASSIUM 3.4 MMOL/L (3.6-5.0); TOTAL PROTEIN 5.7 GM/DL (6.4-8.2)
[2021-08-23] MEDS: polyethylene glycoL POWDER 17 GM (MIRALAX) PACK PO SCH ×2 (08:28→20:07)
[2021-08-23] MEDS: PANTOPRAZOLE 40 MG (PROTONIX) VIAL IV SCH (08:28)
[2021-08-23 08:41] LABS: BAND NEUTROPHILS 3 %; BASOPHILS % (MANUAL) 0 %; ELLIPT/OVALOCYTES SLIGHT; EOSINOPHILS % (MANUAL) 0 %; LYMPHOCYTES % (MANUAL) 12 %; MONOCYTES % (MANUAL) 0 %; NEUTROPHILS % (MANUAL) 85 %
[2021-08-23] MEDS ORDERED: ENOXAPARIN 30 MG/0.3 ML (LOVENOX) SYR SC SCH (09:00)
[2021-08-23] MEDS: PROMETHAZINE INJ 25 MG/ML (PHENERGAN) AMP IV PRN ×2 (09:18→22:41)
[2021-08-23] MEDS: KETOROLAC 30 MG/ML VIAL IV PRN ×2 (12:34→22:41)
[2021-08-23] MEDS: METOCLOPRAMIDE INJ 10 MG/2 ML (REGLAN) IV PRN ×2 (12:34→18:44)
[2021-08-23] MEDS ORDERED: ENOXAPARIN 100 MG/1 ML (LOVENOX) SYR SC SCH (12:45)
--- NOTE | 2021-08-23 12:47 | Progress Note - Hospitalist ---
RADHA STEWARD 08/23/21 1247: Subjective HPI/CC On Admission Date Seen by Provider: Aug 23, 2021 Time Seen by Provider: 08:12 N/V and pneumonia Subjective/Events-last exam Ms. Rider reports she is feeling better this morning. She still reports nausea and says she vomited yesterday afternoon while eating dinner. She says she has been able to tolerate applesauce and Powerade in addition to water. She says her stomach pain is a 4/10. This morning her oxygen saturation dropped and she required 3.0 L oxygen for "a little while" until she felt better. During the encounter this morning she was breathing normally. Her lungs sounded worse today compared to yesterday despite her reporting she felt better. Review of Systems General: No Chills, No Fatigue HEENT: No Head Aches Pulmonary: Dyspnea, Cough Cardiovascular: Chest Pain (retrosternal); No: Palpitations Gastrointestinal: Nausea, Vomiting, Abdominal Pain Neurological: No: Weakness, Confusion Focused Exam Capillary Refill: Less Than 3 Seconds Peripheral Pulses: 2+ Dorsalis Pedis (R), 2+ Left Dors-Pedis (L), 2+ Radial Pulses (R), 2+ Radial Pulses (L) Objective Exam Vital Signs Vital Signs Date Time Temp Pulse Resp B/P (MAP) Pulse Ox O2 Delivery O2 Flow Rate FiO2 08/23/21 08:00 37.0 91 16 121/82 (95) 92 Room Air 08/23/21 05:20 3.00 Capillary Refill : Less Than 3 Seconds General Appearance: Mild Distress (Patient in slight amount of pain), Thin HEENT: PERRL/EOMI, Moist Mucous Membranes Neck: Normal Inspection, Non Tender Respiratory: Chest Non Tender, No Accessory Muscle Use, No Respiratory Distress, Crackles (Bilateral lower lobes, worse than yesterday) Cardiovascular: No Murmur, Normal Peripheral Pulses, Tachycardia Gastrointestinal: Normal Bowel Sounds, Soft, Tenderness (Diffuse tenderness) Extremity: Normal Capillary Refill, Normal Inspection, Non Tender, No Calf Tenderness, Swelling (Hands and feet) Neurologic/Psychiatric: Alert, Oriented x3, No Motor/Sensory Deficits, Normal Mood/Affect, certified prosthetist II-XII Norm as Tested Skin: Normal Color, Warm/Dry Lymphatic: No Adenopathy (Head and neck) Results/Procedures Lab Laboratory Tests 08/23/21 06:50 Patient resulted labs reviewed. Assessment/Plan Assessment and Plan Assess & Plan/Chief Complaint Assessment: Cannabis induced hyperemesis - Patient does not think her cannabis use is contributing to her N/V Pneumonia - Being treated with ceftriaxone and metronidazole. Lungs worse today - D-dimer and Procalcitonin ordered. 3.65 and 0.52 respectively. - CT angiogram ordered d/t worsening D-dimer and Procalcitonin Infectious enteritis Dehydration Plan: Continue IV fluids and IV antibiotics. Continue medication as needed for pain and nausea. Unable to definitively r/o pancreatitis with MRI. - Amylase and lipase 10 and 4 respectively. Ambulation encouraged. Surgery consulted. KRISTYN STARK DO 08/23/212128: Subjective Subjective/Events-last exam Pt doing well Father at the bedside SOB was concerning even though she has been on Lovenox for DVT prophylaxis she really hasn't mobilized enough even though she walked yesterday Crackles B/L lungs Tried to eat solid food but vomited Abdominal pain is a 4/10 Elevated d-dimer 3.[address] angiogram and abdomen and pelvis and that was reviewed, no PE will get venous doppler ultrasound After rounds I was contacted by RN at 1999 regarding fever and O2 sat of 84% prompting O2 placement with resolved the hypoxia. Fever 38.8. I arranged for transfer to ICU and ordered septic protocol with CXR which revealed extensive infiltrates progressed from earlier today so I extended abx to Meropenem and Vanc and maintained Flagyl and I updated father on his cell phone and then updated EICU in-depth. Solumedrol was initiated on their rec due to vaping injury they have seen a lot of recently which may help. Lovenox maintained at 1mg/kg SQ Q12 hours. Objective Exam General Appearance: WD/WN, Anxious, Chronically ill, Mild Distress (Patient in slight amount of pain), Thin Respiratory: Crackles (Bilateral lower lobes, worse than yesterday), Wheezing Cardiovascular: Tachycardia Rectal: Tenderness Neurologic/Psychiatric: Alert, Oriented x3, No Motor/Sensory Deficits, Normal Mood/Affect Assessment/Plan Assessment and Plan Assess & Plan/Chief Complaint Assessment: Progression of infiltrates on CXR with hypoxia- move to ICU and check ABG broaden abx to Riley and Vanc while maintained on Flagyl Elevated d-dimer without PE on CT Chest and no DVT Doppler LE Vaping hx could cause lung injury Hyperemesis cannabis Abdominal pain with moderate pelvis fluid on CT h/o long standing bowel dysfunction since 6mo old Plan: ICU EICU updated Abx Solumedrol O2 Supervisory-Addendum Brief Verification & Attestation Participated in pt care: history, MDM, physical Personally performed: exam, history, MDM, supervision of care Care discussed with: Medical Student Procedures: n/a Results interpretation: Verified all documentation Verification and Attestation of Medical Student E/M Service A medical student performed and documented this service in my presence. I reviewed and verified all information documented by the medical student and made modifications to such information, when appropriate. I personally performed the physical exam and medical decision making. Kristyn Stark, Aug 23, 2021,22:06 RADHA STEWARD Aug 23, 2021 12:47 KRISTYN STARK DO Aug 23, 2021 21:29
[2021-08-23] MEDS: ONDANSETRON 4 MG/2 ML (SDV) Z0FRAN IVP PRN ×3 (12:54→22:42)
[2021-08-23] MEDS: morphine INJ 4 MG/ML 1 ML (VIAL/SYRINGE) IVP PRN ×2 (12:57→20:07)
[2021-08-23] MEDS ORDERED: CATHETER FLUSH 10 ML SYR IV PRN (13:45)
[2021-08-23] MEDS ORDERED: RT-ALBUTEROL SULF 2.5 MG/3 ML PRE-MIX VIAL INH PRN (13:45)
[2021-08-23] MEDS ORDERED: NS 100 ML (IVPB) BAG IV ONE (13:45)
[2021-08-23] MEDS ORDERED: IOHEXOL 350 MG/ML 100 ML (OMNIPAQUE 350) VIAL IV ONE (13:45)
[2021-08-23] MEDS ORDERED: HOLD METFORMIN - RECEIVED CONTRAST 20 ML VIAL IV SCH (13:45)
--- NOTE | 2021-08-23 14:38 | Diagnostic Imaging Report ---
INDICATION: Pneumonia and positive D-dimer with intractable pain. EXAMINATION: CT angiogram chest. TECHNIQUE: Thin axial sections through the chest, abdomen, and pelvis were obtained following intravenous contrast bolus. Multiplanar MIP images were reconstructed and reviewed. All CT scans use one or more of the following dose optimizing techniques: automated exposure control, MA and/or KvP adjustment based on patient size and exam type or iterative reconstruction. FINDINGS: Evaluation of the pulmonary arterial system is without evidence of thromboembolism. No definite filling defects are seen within central, lobar, or segmental branches. The thoracic aorta is of normal caliber. No dissection is seen. There is no pericardial fluid. There are very small bilateral pleural effusions. The axillae are unremarkable. There are some mildly prominent lymph nodes in the mediastinum and hola bilaterally. Pulmonary parenchymal evaluation does show extensive patchy airspace infiltrates involving the bilateral upper lobes as well as the right middle lobe, lingula, and bilateral lower lobes. This is most consolidated in the left lower lobe. CT ABDOMEN AND PELVIS: No discrete liver mass is identified. The gallbladder is unremarkable. No biliary ductal dilatation is seen. The pancreas and spleen are unremarkable. No adrenal mass is detected. The kidneys are unremarkable. The aorta is nonaneurysmal. The low density throughout the retroperitoneum seen on prior CTs dating back to 08/15/2021 persists. There is normal enhancement of the pancreatic parenchyma. No well-formed fluid collection is seen. There is trace fluid in the right upper quadrant in Morison's pouch. There is a small amount of fluid in the right gutter. There is a moderate amount of free fluid in the pelvis. The pelvic free fluid has increased since the prior study. The bladder and uterus are unremarkable. IMPRESSION: 1. No evidence of pulmonary embolism or thoracic aortic dissection. 2. Patchy airspace and groundglass pulmonary infiltrates bilaterally as well as trace bilateral pleural effusions. There is probable reactive mediastinal and hilar lymphadenopathy. 3. Continued nonspecific low-density throughout the central retroperitoneum, similar to recent prior CTs. The patient has developed some increased free fluid in the upper abdomen as well as the pelvis since the prior CT. Dictated by: Dictated on workstation # [id number]
--- NOTE | 2021-08-23 15:38 | Diagnostic Imaging Report ---
INDICATION: Pneumonia. TIME OF EXAM: 01:41 p.m. COMPARISON: Correlation is made with prior chest from 06/23/2020. FINDINGS: Heart size is normal. Patchy airspace infiltrates are noted in the left perihilar region as well as both lung bases consistent with pneumonia. There is a small left effusion. No pneumothorax is detected. IMPRESSION: Bilateral infiltrates suggestive of pneumonia and small left pleural effusion. Dictated by: Dictated on workstation # [id number]
--- NOTE | 2021-08-23 15:41 | Diagnostic Imaging Report ---
PROCEDURE: US Venous Lower Ext Kee. INDICATION: Elevated D-dimer. Intractable pain, pneumonia. TECHNIQUE: Multiple real-time grayscale images were obtained over the lower extremities in various projections, bilaterally. Additional duplex Doppler and color Doppler images were also obtained. CORRELATION STUDY: None FINDINGS: Color and grayscale sonographic images demonstrate no intraluminal defect within the visualized portion of the common femoral, superficial femoral and/or popliteal veins to suggest thrombus formation. These vessels demonstrate normal response to compression and augmentation. No soft tissue fluid collection. IMPRESSION: 1. Negative for deep venous thrombosis of either leg. Dictated by: Dictated on workstation # [id number]
[2021-08-23] MEDS: cefTRIAXone 1,000 MG/SWFI 10 ML IV PUSH IV SCH ×2 (17:19)
[2021-08-23] MEDS: ENOXAPARIN 60 MG/0.6 ML (LOVENOX) SYR SC SCH (17:19)
[2021-08-23] MEDS: ACETAMINOPHEN 325 MG TABLET PO PRN (20:25)
--- NOTE | 2021-08-23 21:47 | Diagnostic Imaging Report ---
EXAMINATION: Chest 1 view. HISTORY: Pneumonia. COMPARISON: 08/19/2021. FINDINGS: Bilateral lower zone airspace opacities have increased and are moderately severe. There is a small left effusion. No pneumothorax. Heart size is normal. IMPRESSION: 1. Increase in bilateral lower zone airspace opacities which are now moderate to severe. 2. New small left pleural effusion. Dictated by: Dictated on workstation # [id number]
[2021-08-23 21:57] LABS: BASOPHILS % (AUTO) 0 % (0-10); EOSINOPHILS # (AUTO) 0.1 10^3/uL (0.0-0.3); EOSINOPHILS % (AUTO) 1 % (0-10); HEMATOCRIT 30 % (35-52); HEMOGLOBIN 10.3 g/dL (11.5-16.0); LYMPHOCYTES # (AUTO) 0.8 10^3/uL (1.0-4.0); LYMPHOCYTES % (AUTO) 6 % (12-44); MEAN CORPUSCULAR HEMOGLOBIN 29 pg (25-34); MEAN CORPUSCULAR HGB CONC 34 g/dL (32-36); MEAN CORPUSCULAR VOLUME 85 fL (80-99); MEAN PLATELET VOLUME 9.2 fL (9.0-12.2); MONOCYTES # (AUTO) 0.2 10^3/uL (0.0-1.0); MONOCYTES % (AUTO) 2 % (0-12); NEUTROPHILS # (AUTO) 10.9 10^3/uL (1.8-7.8); NEUTROPHILS % (AUTO) 90 % (42-75); PLATELET COUNT 512 10^3/uL (130-400); WHITE BLOOD COUNT 12.1 10^3/uL (4.3-11.0)
[2021-08-23] MEDS: methylPREDNISolone 40 MG/ML (Solu-MEDROL) VIAL IV SCH ×2 (22:00→22:40)
[2021-08-23 22:06] LABS: ABG BASE EXCESS 2.4 MMOL/L (-2.5-2.5); ABG OXYGEN SATURATION 93 % (94-100); ABG PCO2 38 MMHG (35-45); ABG PH 7.46 (7.37-7.43); ABG PO2 64 MMHG (79-93); ALLENS TEST YES-POS; INSPIRED O2 21%; PATIENT TEMP 37.7; VENTILATOR NO
[2021-08-23] MEDS ORDERED: NS IV 1000 ML 1,000 ML IV SCH (22:15)
[2021-08-23] MEDS ORDERED: VANCOMYCIN 1 GM/NS 250 ML IVPB IV ONE ×2 (22:15)
[2021-08-23 22:19] LABS: ALBUMIN 2.7 GM/DL (3.2-4.5); BILIRUBIN,TOTAL 0.4 MG/DL (0.1-1.0); CALCIUM 8.1 MG/DL (8.5-10.1); CREATININE SERUM 0.63 MG/DL (0.60-1.30); POTASSIUM 3.1 MMOL/L (3.6-5.0); TOTAL PROTEIN 5.3 GM/DL (6.4-8.2)
[2021-08-23] MEDS ORDERED: NS IV 1000 ML 2,000 ML ONE (22:25)
[2021-08-23] MEDS ORDERED: VANCOMYCIN 1250 MG/NS 250 ML IVPB IV NR ×2 (22:30)
[2021-08-23] MEDS: NS IV 1000 ML 1,000 ML IV SCH (22:40)
[2021-08-23] MEDS: MEROPENEM 1,000 MG in WATER (STERILE) FOR INJECTION 20 ML IV SCH (22:41)
[2021-08-23] MEDS ORDERED: POTASSIUM CL 10MEQ/50ML IVPB 200 ML IV ONE (23:36)
[2021-08-23] MEDS ORDERED: MAGNESIUM 1 GM/100 ML IVPB 200 ML IV ONE (23:36)
[2021-08-23] MEDS: MAGNESIUM 1 GM/100 ML IVPB 100 ML IV SCH (23:41)
[2021-08-23] MEDS: POTASSIUM CL 10MEQ/50ML IVPB 50 ML IV SCH (23:43)
[2021-08-24] VITALS (15 sets, daily range): BP systolic 101–123; BP diastolic 65–92
[2021-08-24] MEDS: MAGNESIUM 1 GM/100 ML IVPB 100 ML IV SCH (00:37)
[2021-08-24] MEDS: POTASSIUM CL 10MEQ/50ML IVPB 50 ML IV SCH ×3 (00:37→02:24)
[2021-08-24] MEDS: metroNIDAZOLE 500 MG/100 ML IVPB (PRE-MIX) IV SCH (00:54)
[2021-08-24] MEDS: ENOXAPARIN 60 MG/0.6 ML (LOVENOX) SYR SC SCH ×2 (04:04→15:53)
[2021-08-24 04:47] LABS: BASOPHILS % (AUTO) 0 % (0-10); EOSINOPHILS % (AUTO) 0 % (0-10); HEMATOCRIT 32 % (35-52); HEMOGLOBIN 10.6 g/dL (11.5-16.0); LYMPHOCYTES # (AUTO) 0.3 10^3/uL (1.0-4.0); LYMPHOCYTES % (AUTO) 2 % (12-44); MEAN CORPUSCULAR HEMOGLOBIN 29 pg (25-34); MEAN CORPUSCULAR HGB CONC 33 g/dL (32-36); MEAN CORPUSCULAR VOLUME 86 fL (80-99); MEAN PLATELET VOLUME 9.1 fL (9.0-12.2); MONOCYTES # (AUTO) 0.1 10^3/uL (0.0-1.0); MONOCYTES % (AUTO) 1 % (0-12); NEUTROPHILS # (AUTO) 13.9 10^3/uL (1.8-7.8); NEUTROPHILS % (AUTO) 96 % (42-75); PLATELET COUNT 530 10^3/uL (130-400); WHITE BLOOD COUNT 14.5 10^3/uL (4.3-11.0)
[2021-08-24 05:20] LABS: ALBUMIN 2.6 GM/DL (3.2-4.5); BILIRUBIN,TOTAL 0.3 MG/DL (0.1-1.0); CALCIUM 8.3 MG/DL (8.5-10.1); CREATININE SERUM 0.59 MG/DL (0.60-1.30); MAGNESIUM 2.4 MG/DL (1.6-2.4); PHOSPHORUS 3.4 MG/DL (2.3-4.7); POTASSIUM 4.3 MMOL/L (3.6-5.0); TOTAL PROTEIN 5.3 GM/DL (6.4-8.2)
[2021-08-24] MEDS ORDERED: KCL 20 MEQ TAB (K-DUR) PO SCH (06:00)
[2021-08-24] MEDS ORDERED: POTASSIUM CL 10MEQ/50ML IVPB 50 ML IV SCH (06:00)
[2021-08-24] MEDS ORDERED: MAGNESIUM 1 GM/100 ML IVPB 100 ML IV SCH (06:00)
[2021-08-24] MEDS: methylPREDNISolone 40 MG/ML (Solu-MEDROL) VIAL IV SCH ×2 (06:05→19:46)
[2021-08-24] MEDS: VANCOMYCIN INJECTION 1,000 MG in NS (IVPB) 250 ML IV SCH ×3 (06:06→22:35)
[2021-08-24] MEDS: MEROPENEM 1,000 MG in WATER (STERILE) FOR INJECTION 20 ML IV SCH ×3 (06:06→22:05)
--- NOTE | 2021-08-24 07:46 | Progress Note - Surgery ---
CARLOS MANUEL VYAS 08/24/21 0746: Subjective Date Seen by a Provider: Aug 24, 2021 Time Seen by a Provider: 07:00 Subjective/Events-last exam Pt said she has been coughing over night and feels tired. No longer having abdominal pain, nausea, vomiting, or diarrhea Review of Systems General: Chills, Night Sweats, Fatigue HEENT: No Head Aches, No Visual Changes Pulmonary: Dyspnea, Cough (Pt described cough as wet sometimes, dry others) Cardiovascular: No: Chest Pain, Palpitations Gastrointestinal: No: Nausea, Vomiting, Abdominal Pain, Diarrhea Genitourinary: No Dysuria, No Frequency Musculoskeletal: No: neck pain, shoulder pain Neurological: No: Weakness, Numbness, Change in speech, Confusion Focused Exam Lactate Level 08/23/21 21:49: Lactic Acid Level 0.69 Objective Exam Vital Signs Date Time Temp Pulse Resp B/P (MAP) Pulse Ox O2 Delivery O2 Flow Rate FiO2 08/24/21 06:00 73 23 120/80 (93) 97 Nasal Cannula 2.00 08/24/21 05:00 73 25 108/75 (86) 96 Nasal Cannula 2.00 08/24/21 04:43 Nasal Cannula 2.00 08/24/21 04:22 36.2 08/24/21 04:00 83 28 101/69 (80) 96 Nasal Cannula 2.00 08/24/21 03:00 77 25 109/75 (86) 92 Nasal Cannula 2.00 08/24/21 02:00 78 29 108/74 (85) 96 Nasal Cannula 2.00 08/24/21 01:00 85 08/24/21 01:00 85 30 108/86 (93) 94 Nasal Cannula 2.00 08/24/21 00:54 36.9 08/24/21 00:00 89 32 109/65 (80) 94 Nasal Cannula 2.00 08/24/21 00:00 Nasal Cannula 2.00 08/23/21 23:46 Nasal Cannula 2.00 08/23/21 23:30 93 30 104/66 (79) 90 Room Air 08/23/21 23:00 93 32 107/68 (81) 90 Room Air 08/23/21 22:45 101 30 115/75 (88) 93 Room Air 08/23/21 22:30 110 26 114/80 (91) 95 Room Air 08/23/21 22:15 115 17 117/80 (92) 93 Room Air 08/23/21 22:04 111 08/23/21 22:00 113 24 120/76 (91) 93 Room Air 08/23/21 22:00 Room Air 08/23/21 21:55 37.7 125 20 124/82 (96) 92 Room Air 08/23/21 20:37 18 08/23/21 20:32 16 95 OxyMask 3.50 08/23/21 20:25 38.8 08/23/21 20:22 95 Nasal Cannula 4.50 08/23/21 20:00 Room Air 08/23/21 19:00 38.8 115 18 140/86 (104) 84 Room Air 08/23/21 16:00 36.9 97 18 121/77 (92) 92 Room Air 08/23/21 13:37 91 Room Air 08/23/21 13:35 37.0 91 92 21 08/23/21 08:00 37.0 91 16 121/82 (95) 92 Room Air 08/23/21 08:00 90 Room Air I & O 08/24/21 07:00 Intake Total 2902.5 ml Output Total 1000 ml Balance 1902.5 ml Capillary Refill : Less Than 3 Seconds General Appearance: No WD/WN; Anxious, Chronically ill, Mild Distress, Thin HEENT: PERRL/EOMI, Moist Mucous Membranes Neck: Full Range of Motion, Normal Inspection, Supple; No Lymphadenopathy (L), No Lymphadenopathy (R) Respiratory: Crackles, Wheezing, Other (Air sounds coarse with restircted movement upon breathing) Cardiovascular: Regular Rate, Rhythm, No Edema, No Murmur, Tachycardia Peripheral Pulses: 2+ Dorsalis Pedis (R), 2+ Left Dors-Pedis (L), 2+ Radial Pulses (R), 2+ Radial Pulses (L) Gastrointestinal: non tender, soft, no organomegaly, hernia Extremity: Normal Capillary Refill (Upper extremity), Normal Inspection Neurologic/Psychiatric: Alert, Oriented x3, No Motor/Sensory Deficits, Normal Mood/Affect Skin: Normal Color, Warm/Dry Lymphatic: Other (Cervical and Supraclavicular lymph nodes tender upon palpation.) Results Lab Laboratory Tests 08/23/21 21:49: White Blood Count 12.1H, Red Blood Count 3.55L, Hemoglobin 10.3L, Hematocrit 30L , Mean Corpuscular Volume 85, Mean Corpuscular Hemoglobin 29, Mean Corpuscular Hemoglobin Concent 34, Red Cell Distribution Width 13.8, Platelet Count 512H, Mean Platelet Volume 9.2, Immature Granulocyte % (Auto) 1, Neutrophils (%) (Auto) 90H, Lymphocytes (%) (Auto) 6L, Monocytes (%) (Auto) 2, Eosinophils (%) (Auto) 1, Basophils (%) (Auto) 0, Neutrophils # (Auto) 10.9H, Lymphocytes # (Auto) 0.8L, Monocytes # (Auto) 0.2, Eosinophils # (Auto) 0.1, Basophils # (Auto) 0.0, Immature Granulocyte # (Auto) 0.1, Sodium Level 136, Potassium Level 3.1L, Chloride Level 100, Carbon Dioxide Level 22, Anion Gap 14, Blood Urea Nitrogen 6L, Creatinine 0.63, Estimat Glomerular Filtration Rate 120, BU N/Creatinine Ratio 10, Glucose Level 112H, Lactic Acid Level 0.69, Calcium Level 8.1L, Corrected Calcium 9.1, Magnesium Level 1.7, Total Bilirubin 0.4, Aspartate Amino Transf (AST/SGOT) 18, Alanine Aminotransferase (ALT/SGPT) 8, Alkaline Phosphatase 63, Total Protein 5.3L, Albumin 2.7L, Procalcitonin 0.56H 08/23/21 21:55: Blood Gas Puncture Site LR, Blood Gas Patient Temperature 37.7, Arterial Blood pH 7.46H, Arterial Blood Partial Pressure CO2 38, Arterial Blood Partial Pressure O2 64L, Arterial Blood HCO3 26, Arterial Blood Total CO2 27.0, Arterial Blood Oxygen Saturation 93L, Arterial Blood Base Excess 2.4, Wesley Test YES-POS, Blood Gas Ventilator Setting NO, Blood Gas Inspired Oxygen 21%, SARS-CoV-2 RNA (RT-PCR) Not Detected 08/24/21 04:41: White Blood Count 14.5H, Red Blood Count 3.72L, Hemoglobin 10.6L, Hematocrit 32L , Mean Corpuscular Volume 86, Mean Corpuscular Hemoglobin 29, Mean Corpuscular Hemoglobin Concent 33, Red Cell Distribution Width 14.0, Platelet Count 530H, Mean Platelet Volume 9.1, Immature Granulocyte % (Auto) 1, Neutrophils (%) (Auto) 96H, Lymphocytes (%) (Auto) 2L, Monocytes (%) (Auto) 1, Eosinophils (%) (Auto) 0, Basophils (%) (Auto) 0, Neutrophils # (Auto) 13.9H, Lymphocytes # (Auto) 0.3L, Monocytes # (Auto) 0.1, Eosinophils # (Auto) 0.0, Basophils # (Auto) 0.0, Immature Granulocyte # (Auto) 0.1, Sodium Level 137, Potassium Level 4.3, Chloride Level 105, Carbon Dioxide Level 22, Anion Gap 10, Blood Urea Nitrogen 6L, Creatinine 0.59L, Estimat Glomerular Filtration Rate 130, BUN/Creatinine Ratio 10, Glucose Level 119H, Calcium Level 8.3L, Corrected Calcium 9.4, Magnesium Level 2.4, Total Bilirubin 0.3, Aspartate Amino Transf (AST/SGOT) 14, Alanine Aminotransferase (ALT/SGPT) 8, Alkaline Phosphatase 70, Total Protein 5.3L, Albumin 2.6L, Phosphorus Level 3.4 Microbiology 08/19/21 Blood Culture - Preliminary, Resulted No growth 08/19/21 Urine Culture - Final, Complete See Comments Assessment/Plan Assessment/Plan Assessment/Plan Abdominal pain with N&V N&V resolved. Pt has not has episodes since 2 days ago. Tolerating liquids well. Pt no longer having abdominal pain. pancreatitis- ruled out with normal lipase Retroperitoneal inflammation 08/23 CXR shows bilateral infiltrates that suggest pneumonia. Also shows a small left pleural effusion. bilateral infiltrates seem more diffuse than CXR on 08/19. Plan to do sputum culture BAUTISTA ARSHAD DO 08/24/21 1238: Subjective Time Seen by a Provider: 12:19 Subjective/Events-last exam Pt seen and examined, states she is nauseous and asking for Zofran. However, she also states she is hungry and really wants to drink some orange juice. She is no longer having any trouble breathing. Review of Systems General: Chills, Night Sweats, Fatigue Pulmonary: Dyspnea, Cough (Pt described cough as wet sometimes, dry others) Cardiovascular: No: Chest Pain, Palpitations Gastrointestinal: Nausea; No: Vomiting, Abdominal Pain, Diarrhea Genitourinary: No Dysuria, No Frequency Objective Exam General Appearance: Anxious, Mild Distress, Thin HEENT: Moist Mucous Membranes Respiratory: No Accessory Muscle Use, No Respiratory Distress, Crackles, Wheezing, Other (Air sounds coarse with restircted movement upon breathing) Cardiovascular: Regular Rate, Rhythm, No Murmur Gastrointestinal: non tender, soft, no organomegaly, hernia Assessment/Plan Assessment/Plan Assessment/Plan Abdominal pain with N&V N&V resolved. Pt has not has episodes since 2 days ago. Tolerating liquids well. Pt no longer having abdominal pain. pancreatitis- ruled out with normal lipase Retroperitoneal inflammation 08/23 CXR shows bilateral infiltrates that suggest pneumonia. Also shows a small left pleural effusion. bilateral infiltrates seem more diffuse than CXR on 08/19. Plan to do sputum culture. Repeat Covid test was negative. Supervisory-Addendum Brief Verification & Attestation Participated in pt care: history, MDM, physical Personally performed: exam, history, MDM, supervision of care Care discussed with: Medical Student Procedures: n/a Verification and Attestation of Medical Student E/M Service A medical student performed and documented this service. I then reviewed and verified all information documented by the medical student and made modifications to such information, when appropriate. I personally performed a physical exam, medical decision making and then discussed any differences between the notes and made revisions as necessary to create one note. Bautista Arshad , 08/24/21 , 12:37 CARLOS MANUEL VYAS Aug 24, 2021 07:46 BAUTISTA ARSHAD DO Aug 24, 2021 12:38
[2021-08-24] MEDS: NS IV 1000 ML 1,000 ML IV SCH ×2 (08:27→18:53)
[2021-08-24] MEDS: PANTOPRAZOLE 40 MG (PROTONIX) VIAL IV SCH (08:27)
[2021-08-24] MEDS: PROMETHAZINE INJ 25 MG/ML (PHENERGAN) AMP IV PRN (08:28)
[2021-08-24] MEDS: KETOROLAC 30 MG/ML VIAL IV PRN ×2 (08:28→15:52)
--- NOTE | 2021-08-24 09:29 | Diagnostic Imaging Report ---
INDICATION: Pneumonia. EXAMINATION: Chest 08/24/2021. COMPARISON: 10/23/2020 FINDINGS: There are persistent bibasilar infiltrates slightly improved since previous imaging with a small left pleural effusion again noted. The heart is stable. The pulmonary vasculature is slightly prominent. There is no pneumothorax. There is no acute osseous abnormality. Bilateral nipple rings incidentally noted. IMPRESSION: 1. Bibasilar infiltrates minimally improved with a small persistent left pleural effusion. 2. Pulmonary vascular congestion. Dictated by: Dictated on workstation # [id number]
[2021-08-24] MEDS: polyethylene glycoL POWDER 17 GM (MIRALAX) PACK PO SCH ×2 (09:35→19:46)
--- NOTE | 2021-08-24 10:00 | Tele-ICU Progress Note ---
Subjective Date Seen by a Provider: Aug 24, 2021 Time Seen by a Provider: 09:59 Sepsis Event Evaluation Height, Weight, BMI Height: 5'8.00" Weight: 132lbs. oz. 59.703435qo; 18.25 BMI Method:Stated Focused Exam Lactate Level 08/23/21 21:49: Lactic Acid Level 0.69 Exam Exam Patient acknowledged, consented, and participated in this virtual visit which was conducted using real time audio/video Vital Signs Date Time Temp Pulse Resp B/P (MAP) Pulse Ox O2 Delivery O2 Flow Rate FiO2 08/24/21 09:00 80 25 117/87 (95) 92 Nasal Cannula 2.00 08/24/21 08:00 75 22 95 Nasal Cannula 2.00 08/24/21 07:43 36.2 08/24/21 07:00 83 08/24/21 07:00 90 27 113/88 (96) 96 Nasal Cannula 2.00 08/24/21 06:00 73 23 120/80 (93) 97 Nasal Cannula 2.00 08/24/21 05:00 73 25 108/75 (86) 96 Nasal Cannula 2.00 08/24/21 04:43 Nasal Cannula 2.00 08/24/21 04:22 36.2 08/24/21 04:00 83 28 101/69 (80) 96 Nasal Cannula 2.00 08/24/21 03:00 77 25 109/75 (86) 92 Nasal Cannula 2.00 08/24/21 02:00 78 29 108/74 (85) 96 Nasal Cannula 2.00 08/24/21 01:00 85 08/24/21 01:00 85 30 108/86 (93) 94 Nasal Cannula 2.00 08/24/21 00:54 36.9 08/24/21 00:00 89 32 109/65 (80) 94 Nasal Cannula 2.00 08/24/21 00:00 Nasal Cannula 2.00 08/23/21 23:46 Nasal Cannula 2.00 08/23/21 23:30 93 30 104/66 (79) 90 Room Air 08/23/21 23:00 93 32 107/68 (81) 90 Room Air 08/23/21 22:45 101 30 115/75 (88) 93 Room Air 08/23/21 22:30 110 26 114/80 (91) 95 Room Air 08/23/21 22:15 115 17 117/80 (92) 93 Room Air 08/23/21 22:04 111 08/23/21 22:00 113 24 120/76 (91) 93 Room Air 08/23/21 22:00 Room Air 08/23/21 21:55 37.7 125 20 124/82 (96) 92 Room Air 08/23/21 20:37 18 08/23/21 20:32 16 95 OxyMask 3.50 08/23/21 20:25 38.8 08/23/21 20:22 95 Nasal Cannula 4.50 08/23/21 20:00 Room Air 08/23/21 19:00 38.8 115 18 140/86 (104) 84 Room Air 08/23/21 16:00 36.9 97 18 121/77 (92) 92 Room Air 08/23/21 13:37 91 Room Air 08/23/21 13:35 37.0 91 92 21 I & O 08/24/21 06:59 Intake Total 2902.5 ml Output Total 1000 ml Balance 1902.5 ml Height & Weight Height: 5'8.00" Weight: 132lbs. oz. 59.851855mx; 18.25 BMI Method:Stated General Appearance: No WD/WN; Anxious, Chronically ill, Mild Distress, Thin HEENT: PERRL/EOMI, Moist Mucous Membranes Neck: Full Range of Motion, Normal Inspection, Supple; No Lymphadenopathy (L), No Lymphadenopathy (R) Respiratory: Crackles, Wheezing, Other (Air sounds coarse with restircted movement upon breathing) Cardiovascular: Regular Rate, Rhythm, No Edema, No Murmur, Tachycardia Capillary Refill: Less Than 3 Seconds Peripheral Pulses: 2+ Dorsalis Pedis (R), 2+ Left Dors-Pedis (L), 2+ Radial Pulses (R), 2+ Radial Pulses (L) Gastrointestinal: non tender, soft, no organomegaly, hernia Extremity: Normal Capillary Refill (Upper extremity), Normal Inspection Neurologic/Psychiatric: Alert, Oriented x3, No Motor/Sensory Deficits, Normal Mood/Affect Skin: Normal Color, Warm/Dry Lymphatic: Other (Cervical and Supraclavicular lymph nodes tender upon palpation.) Results Lab Laboratory Tests 08/23/21 06:50 08/23/21 21:49 08/24/21 04:41 Assessment/Plan Assessment/Plan (Tele-ICU Physician , consultation) Available chart/ vitals / labs / Images reviewed H&P is from ER notes Patient's information available about PMH, Shx, Fhx allergy reviewed in EMR. ROS as per chart and RN report Now in ICU, hemodynamically stable Video assessment done using teleICU camera, rest of exam as per RN Discussed with RN. Consultants: SX Hospital course: 08/19 - [facility]d [facility] , [place] 08/24- to ICU with tachycrdia A/P Acute resp insufficiensy ( CTA chest 08/23 - NO PE , GGO - mild , LN ?) - 2 L NC -Bilateral infiltrates L>R that suggest PNA -ceftrxon + vanco 07/23 - 08/23 - MERREM = VNCO 08/23 Infectious enteritis? - sx consult follow , supportibe care , ABX -CT - low density throughout the retroperitoneum seen on prior CTs dating back to 08/15/2021 persists on 08/23 CT leukocutosis - worsening - ?due to steroids Hyperemesis cannabinois Sterois - SM 80 q8 h - indications ? - to taper as per bedside MD anemia - stable Elev ddimer 07/23 - CTA and US LE negative Lines : (Central Line Necessity Reviewed) Soni: OG: Nutrition: Analgesia: multiple meds Anxiety/ delirium ativan VTE Prophylaxis: lovenox 50 q12 Stress Ulcer Prophylaxis: PPI Glycemic Control: ok Plans in collaboration with bedside consultants and IM MDs. Discussed with RN to reach out if any questions or concerns A total of 31 minutes of critical care time was devoted to this patient today, required to treat and/or prevent further deterioration of critical care condition ( as above ) . SUMAN CASAS MD Aug 24, 2021 10:00
[2021-08-24] MEDS: ONDANSETRON 4 MG/2 ML (SDV) Z0FRAN IVP PRN (13:06)
--- NOTE | 2021-08-24 14:15 | Progress Note - Hospitalist ---
RADHA STEWARD 08/24/21 1415: Subjective HPI/CC On Admission Date Seen by Provider: Aug 24, 2021 Time Seen by Provider: 08:32 N/V and pneumonia Subjective/Events-last exam Ms. Rider was moved from the 4th floor to the ICU yesterday due to worsening pneumonia and meeting sepsis criteria. This morning she reports feeling better after the antibiotics and steroids. Patient reports her nausea has been d ecreasing and she has not vomited in 2 days. She is able to tolerate applesauce and Gatorade and wants to advance her diet as tolerated. Today she reports her abdominal pain as a 6/10 but it is not tender to palpation. Her breathing was worse last night and required oxygen but this morning it was improved. She reported a cough and shortness of breath overnight but it was improving quickly. Review of Systems General: Chills, Night Sweats, Fatigue, Malaise, Appetite (Improving) HEENT: No Head Aches Pulmonary: Dyspnea, Cough Cardiovascular: No: Chest Pain, Palpitations Gastrointestinal: Nausea, Abdominal Pain; No: Vomiting Neurological: No: Weakness, Confusion Focused Exam Lactate Level 08/23/21 21:49: Lactic Acid Level 0.69 Capillary Refill: Less Than 3 Seconds Peripheral Pulses: 2+ Dorsalis Pedis (R), 2+ Left Dors-Pedis (L), 2+ Radial Pulses (R), 2+ Radial Pulses (L) Objective Exam Vital Signs Vital Signs Date Time Temp Pulse Resp B/P (MAP) Pulse Ox O2 Delivery O2 Flow Rate FiO2 08/24/21 13:00 106 08/24/21 13:00 119/85 (96) 94 Nasal Cannula 2.00 08/24/21 12:00 29 08/24/21 11:59 36.7 08/23/21 13:35 21 Capillary Refill : Less Than 3 Seconds General Appearance: Anxious, Mild Distress (Patient was in slight amount of discomfort this morning) HEENT: PERRL/EOMI, Moist Mucous Membranes Neck: Normal Inspection, Non Tender Respiratory: Chest Non Tender, No Accessory Muscle Use, No Respiratory Distress, Crackles (Fine, minimal crackles in bilateral lower lobes. 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 Assessment/Plan Assessment and Plan Assess & Plan/Chief Complaint Assessment: Cannabis induced hyperemesis - Patient does not think her cannabis use is contributing to her N/V Pneumonia - Being treated with IV vancomycin and meropenem alongside methylprednisolone. Patient responding very well to treatment - D-dimer and Procalcitonin ordered. 3.65 and 0.52 respectively. - CXR today shows less infiltrates than yesterday, still present alongside a small L pleural effusion - CT angiogram ordered d/t worsening D-dimer and Procalcitonin. CT does not show any PE. CT shows hilar LAD - Lung injury could be d/t vaping, consider KUSH on ddx Infectious enteritis Dehydration Plan: Continue IV fluids, steroids and IV antibiotics. Patient moved down to 4th floor from ICU do to improving condition. Continue medication as needed for pain and nausea. Unable to definitively r/o pancreatitis with MRI. - Amylase and lipase 10 and 4 respectively. Ambulation encouraged. Surgery consulted. SYBIL STARK DO 08/25/21 0521: Subjective Subjective/Events-last exam Patient dramatically improved Chest x-ray improved Advancing diet Transferring to fourth floor Updated family at bedside Patient already wanting to go home Aggressive IV antibiotics required Review of Systems General: Fatigue, Malaise Pulmonary: Dyspnea Gastrointestinal: Nausea, Abdominal Pain Objective Exam General Appearance: No Apparent Distress, WD/WN, Chronically ill Respiratory: No Accessory Muscle Use, No Respiratory Distress, Crackles (Fine, minimal crackles in bilateral lower lobes. Improved from yesterday) Cardiovascular: Regular Rate, Rhythm Neurologic/Psychiatric: Alert, Oriented x3, No Motor/Sensory Deficits, Normal Mood/Affect Assessment/Plan Assessment and Plan Assess & Plan/Chief Complaint Dramatic improvement Transfer to floor Ambulate Lovenox Supportive care Supervisory-Addendum Brief Verification & Attestation Participated in pt care: history, MDM, physical Personally performed: exam, history, MDM, supervision of care Care discussed with: Medical Student Procedures: n/a Results interpretation: Verified all documentation Verification and Attestation of Medical Student E/M Service A medical student performed and documented this service in my presence. I reviewed and verified all information documented by the medical student and made modifications to such information, when appropriate. I personally performed the physical exam and medical decision making. Sybil Stark, Aug 25, 2021,05:19 RDAHA STEWARD Aug 24, 2021 14:15 SYBIL STARK DO Aug 25, 2021 05:21
[2021-08-24] MEDS: LORazepam 0.5 MG (ATIVAN) TABLET PO PRN ×2 (14:47→18:53)
[2021-08-24] MEDS ORDERED: TROUGH ORDER-PHARMACY XX NR (21:30)
[2021-08-24] MEDS: HYDROcodone/APAP 5 MG/325 MG (LORTAB) TAB PO PRN (22:05)
[2021-08-25 00:06] VITALS: BP 128/76
[2021-08-25] MEDS: NS IV 1000 ML 1,000 ML IV SCH (01:57)
[2021-08-25] MEDS: LORazepam 0.5 MG (ATIVAN) TABLET PO PRN ×2 (02:01→08:22)
[2021-08-25 04:24] VITALS: BP 133/92
[2021-08-25] MEDS: MEROPENEM 1,000 MG in WATER (STERILE) FOR INJECTION 20 ML IV SCH ×2 (05:32→15:12)
[2021-08-25] MEDS: ENOXAPARIN 60 MG/0.6 ML (LOVENOX) SYR SC SCH (05:32)
[2021-08-25] MEDS: VANCOMYCIN INJECTION 1,000 MG in NS (IVPB) 250 ML IV SCH (05:32)
[2021-08-25 05:57] LABS: BASOPHILS # (AUTO) 0.1 10^3/uL (0.0-0.1); BASOPHILS % (AUTO) 0 % (0-10); EOSINOPHILS % (AUTO) 0 % (0-10); HEMATOCRIT 33 % (35-52); HEMOGLOBIN 10.7 g/dL (11.5-16.0); LYMPHOCYTES % (AUTO) 4 % (12-44); MEAN CORPUSCULAR HEMOGLOBIN 29 pg (25-34); MEAN CORPUSCULAR HGB CONC 33 g/dL (32-36); MEAN CORPUSCULAR VOLUME 87 fL (80-99); MEAN PLATELET VOLUME 9.3 fL (9.0-12.2); MONOCYTES # (AUTO) 0.4 10^3/uL (0.0-1.0); MONOCYTES % (AUTO) 2 % (0-12); NEUTROPHILS # (AUTO) 24.8 10^3/uL (1.8-7.8); NEUTROPHILS % (AUTO) 93 % (42-75); PLATELET COUNT 589 10^3/uL (130-400); WHITE BLOOD COUNT 26.5 10^3/uL (4.3-11.0)
[2021-08-25 06:17] LABS: ALBUMIN 2.6 GM/DL (3.2-4.5); BILIRUBIN,TOTAL 0.2 MG/DL (0.1-1.0); CREATININE SERUM 0.66 MG/DL (0.60-1.30); POTASSIUM 4.4 MMOL/L (3.6-5.0); TOTAL PROTEIN 5.1 GM/DL (6.4-8.2)
[2021-08-25 06:21] LABS: BAND NEUTROPHILS 1 %; LYMPHOCYTES % (MANUAL) 2 %; METAMYELOCYTES % 1 %; NEUTROPHILS % (MANUAL) 96 %; PLATELET CLUMPS YES
--- NOTE | 2021-08-25 07:58 | Progress Note - Surgery ---
FUNMI PERKINS 08/25/21 0757: Subjective Date Seen by a Provider: Aug 25, 2021 Time Seen by a Provider: 06:50 Subjective/Events-last exam Patient stated she had a very rough night. Has been coughing significantly. Had issues breathing. Has been feeling fatigues and lightheaded. Patient stated she cannot ambulated without dyspnea and coughing. Patient has noted a lot of swelling in he legs and around her umbilicus. Patient has been having sweats throughout the night. Patient requesting something to help with breathing, oxygen or a breathing treatment. Patient received incentive spirometer. Patient denies nausea but belly still hurts, states it may be from coughing. Review of Systems General: No Chills; Night Sweats, Fatigue HEENT: No Head Aches, No Sore Throat Pulmonary: Dyspnea, Cough Cardiovascular: Chest Pain (Patient states it is probably from coughing o/n), Edema (Patient states swelling in legs and lower torso has been getting worse since yesterday.); No: Palpitations Gastrointestinal: Abdominal Pain (Belly pain has been present for several days.), Diarrhea, Constipation; No: Nausea, Vomiting Genitourinary: No Dysuria, No Hematuria Musculoskeletal: neck pain (Patient feeling sore and muscles are hurting. ), shoulder pain (Patient feeling sore and muscles are hurting. ) Neurological: Weakness (Patient fatigued and has decreased energy.); No: Numbness, Confusion Focused Exam Lactate Level 08/23/21 21:49: Lactic Acid Level 0.69 Objective Exam Vital Signs Date Time Temp Pulse Resp B/P (MAP) Pulse Ox O2 Delivery O2 Flow Rate FiO2 08/25/21 04:24 36.5 82 17 133/92 (106) 95 Room Air 08/25/21 00:06 37.1 77 17 128/76 (93) 93 Room Air 08/24/21 20:36 Room Air 08/24/21 19:51 37.2 103 20 121/84 (96) 92 Room Air 08/24/21 16:00 36.8 88 18 123/83 (96) 95 Room Air 08/24/21 13:00 106 08/24/21 13:00 80 119/85 (96) 94 Nasal Cannula 2.00 08/24/21 12:00 84 29 118/92 (101) 93 Nasal Cannula 2.00 08/24/21 11:59 36.7 08/24/21 11:00 88 117/78 (91) 95 Nasal Cannula 2.00 08/24/21 10:00 84 8 112/81 (91) 96 Nasal Cannula 2.00 08/24/21 09:00 80 25 117/87 (95) 92 Nasal Cannula 2.00 08/24/21 08:00 75 22 95 Nasal Cannula 2.00 08/24/21 08:00 Room Air I & O 08/25/21 07:00 Intake Total 1260 ml Output Total 4 ml Balance 1256 ml Capillary Refill : Less Than 3 Seconds General Appearance: No Apparent Distress, WD/WN, Chronically ill HEENT: PERRL/EOMI, Moist Mucous Membranes Neck: Normal Inspection, Non Tender Respiratory: No Accessory Muscle Use, No Respiratory Distress, Crackles (Fine, minimal crackles in bilateral lower lobes. Improved from yesterday), Inspiration (Decreased duration of inspiration) Cardiovascular: Regular Rate, Rhythm, Other Peripheral Pulses: 2+ Dorsalis Pedis (R), 2+ Left Dors-Pedis (L), 2+ Radial Pulses (R), 2+ Radial Pulses (L) Gastrointestinal: non tender, soft, no organomegaly, hernia Extremity: Normal Capillary Refill, Normal Inspection, Non Tender, No Calf Tenderness, Pedal Edema (Minor) Neurologic/Psychiatric: Alert, Oriented x3, No Motor/Sensory Deficits, Normal Mood/Affect Skin: Normal Color, Warm/Dry Lymphatic: No Adenopathy (Head and neck) Results Lab Laboratory Tests 08/24/21 21:37: Vancomycin Level Trough 15.0 08/25/21 05:40: White Blood Count 26.5H, Red Blood Count 3.73L, Hemoglobin 10.7L, Hematocrit 33L , Mean Corpuscular Volume 87, Mean Corpuscular Hemoglobin 29, Mean Corpuscular Hemoglobin Concent 33, Red Cell Distribution Width 14.2, Platelet Count 589H, Mean Platelet Volume 9.3, Immature Granulocyte % (Auto) 1, Neutrophils (%) (Auto) 93H, Lymphocytes (%) (Auto) 4L, Monocytes (%) (Auto) 2, Eosinophils (%) (Auto) 0, Basophils (%) (Auto) 0, Neutrophils # (Auto) 24.8H, Lymphocytes # (Auto) 1.0, Monocytes # (Auto) 0.4, Eosinophils # (Auto) 0.0, Basophils # (Auto) 0.1, Immature Granulocyte # (Auto) 0.3H, Neutrophils % (Manual) 96, Lymphocytes % (Manual) 2, Metamyelocytes % 1, Band Neutrophils 1, Clumped Platelets YES, Sodium Level 138, Potassium Level 4.4, Chloride Level 107, Carbon Dioxide Level 20L, Anion Gap 11, Blood Urea Nitrogen 17, Creatinine 0.66, Estimat Glomerular Filtration Rate 114, BUN/Creatinine Ratio 26, Glucose Level 134H, Calcium Level 8.0L, Corrected Calcium 9.1, Total Bilirubin 0.2, Aspartate Amino Transf (AST/SGOT) 16, Alanine Aminotransferase (ALT/SGPT) 7, Alkaline Phosphatase 61, Total Protein 5.1L, Albumin 2.6L Microbiology 08/23/21 MRSA Screen - Final, Complete MRSA not isolated 08/23/21 Blood Culture - Preliminary, Resulted No growth 08/19/21 Urine Culture - Final, Complete See Comments Assessment/Plan Assessment/Plan Assessment/Plan Abdominal pain with N&V N&V resolved. Pt has not has episodes since 2 days ago. Tolerating liquids well. Pt no longer having abdominal pain. pancreatitis- ruled out with normal lipase Retroperitoneal inflammation 08/23 CXR shows bilateral infiltrates that suggest pneumonia. Also shows a small left pleural effusion. bilateral infiltrates seem more diffuse than CXR on 08/19. Plan to do sputum culture. Repeat Covid test was negative. BAUTISTA ARSHAD DO 08/25/21 1030: Subjective Time Seen by a Provider: 10:02 Subjective/Events-last exam Pt seen and examined. She has multiple complaints today and is very tearful. She is mainly concerned about breathing, states she feels "like I can't catch my breath". She also states her arms and legs are heavy and she feels like she has gained 30lbs. She was unable to sleep last night and wants help sleeping; also states the "bed moved all night long". Review of Systems General: No Chills; Night Sweats, Fatigue HEENT: No Head Aches Pulmonary: Dyspnea, Cough Cardiovascular: Chest Pain (Patient states it is probably from coughing o/n), Edema (Patient states swelling in legs and lower torso has been getting worse since yesterday.); No: Palpitations Gastrointestinal: Diarrhea, Constipation; No: Nausea, Vomiting Objective Exam General Appearance: No Apparent Distress, Other (anxious) HEENT: PERRL/EOMI, Moist Mucous Membranes Respiratory: No Accessory Muscle Use, No Respiratory Distress, Crackles (Fine, minimal crackles in bilateral lower lobes. Improved from yesterday), Inspiration (Decreased duration of inspiration) Cardiovascular: Regular Rate, Rhythm, No Murmur Gastrointestinal: non tender, soft, no organomegaly, hernia Extremity: Pedal Edema (Minor) Assessment/Plan Assessment/Plan Assessment/Plan Abdominal pain with N&V - mostly resolved, will sign off and can reconsult if needed. Retroperitoneal inflammation Pneumonia - with patchy infiltrates 08/23 CXR shows bilateral infiltrates that suggest pneumonia. Also shows a small left pleural effusion. bilateral infiltrates seem more diffuse than CXR on 08/19. Plan to do sputum culture. Repeat Covid test was negative. Ordered a continuous pulse Ox, breathing treatments and hep-locked IV to try and help pt with some of her complaints. Supervisory-Addendum Brief Verification & Attestation Participated in pt care: history, MDM, physical Personally performed: exam, history, MDM, supervision of care Care discussed with: Medical Student Procedures: n/a Verification and Attestation of Medical Student E/M Service A medical student performed and documented this service. I then reviewed and verified all information documented by the medical student and made modifications to such information, when appropriate. I personally performed a physical exam, medical decision making and then discussed any differences between the notes and made revisions as necessary to create one note. Bautista Arshad , 08/25/21 , 10:41 FUNMI PERKINS Aug 25, 2021 07:57 BAUTISTA ARSHAD DO Aug 25, 2021 10:30
[2021-08-25 08:00] VITALS: BP 136/92
[2021-08-25] MEDS: PANTOPRAZOLE 40 MG (PROTONIX) VIAL IV SCH (08:18)
[2021-08-25] MEDS: ONDANSETRON 4 MG/2 ML (SDV) Z0FRAN IVP PRN ×2 (08:18→15:04)
[2021-08-25] MEDS: methylPREDNISolone 40 MG/ML (Solu-MEDROL) VIAL IV SCH (08:19)
[2021-08-25] MEDS: polyethylene glycoL POWDER 17 GM (MIRALAX) PACK PO SCH (08:24)
--- NOTE | 2021-08-25 09:46 | Diagnostic Imaging Report ---
INDICATION: History of pneumonia. Followup. COMPARISON: 08/24/2021 FINDINGS: Frontal and lateral Views of the chest were obtained. There are persistent bibasilar infiltrates, left greater than right. There is however interval improved aeration on the left with diminished left-sided effusion. No large effusion is seen on the right. There is no pneumothorax on either side. Cardiac silhouette and pulmonary vasculature are within normal limits. Osseous structures show no gross acute abnormalities. IMPRESSION: 1. Diminished left basilar effusion with improved aeration of the left base, but with persistent bibasilar infiltrate. Dictated by: Dictated on workstation # [id number]
[2021-08-25] MEDS: RT-ALBUTEROL SULF 2.5 MG/3 ML PRE-MIX VIAL INH PRN ×2 (10:46→15:12)
[2021-08-25 12:00] VITALS: BP 136/85
[2021-08-25] MEDS: ACETAMINOPHEN 325 MG TABLET PO PRN (12:03)
[2021-08-25] MEDS ORDERED: PRED10TA22 PO (12:25)
[2021-08-25] MEDS ORDERED: OMEP40CA6 PO (12:25)
[2021-08-25] MEDS ORDERED: ASPI-1238 PO (12:25)
[2021-08-25] MEDS ORDERED: ALBU2.5V4 INH (12:25)
[2021-08-25] MEDS ORDERED: LORA-404 PO (12:25)
[2021-08-25] MEDS ORDERED: ACHD5005 PO (12:25)
[2021-08-25] MEDS ORDERED: CITA20TA12 PO (12:25)
[2021-08-25] MEDS ORDERED: CEFD300C3 PO (12:25)
--- NOTE | 2021-08-25 12:26 | Discharge Summary ---
Discharge Summary Hospital Course Was the Problem List Reviewed?: Yes Problems/Dx: (1) Cannabis hyperemesis syndrome concurrent with and due to cannabis abuse Status: Acute (2) Intractable nausea and vomiting Status: Acute (3) Pneumonia Status: Acute (4) Enteritis Status: Acute (5) Abdominal pain Status: Acute (6) Nausea and vomiting Status: Acute (7) Abnormal CT of the abdomen Status: Acute Hospital Course Date of Admission: Aug 19, 2021 at 16:02 Admission Diagnosis : Family Physician/Provider: No,Local Physician Date of Discharge: 08/25/21 Discharge Diagnosis: Hyperemesis cannabis, lung injury from vaping, anxiety, depression, noncompliance with follow-up, chronic gastrointestinal dysfunction, hospital-acquired pneumonia, reactive airway disease Hospital Course: [ ]FADUMO DUNAWAY MED STUDENT 08/25/212234: Hospital course: Gauri was admitted 08/19/21 with complaints of nausea, intractable vomiting, abd pain, fever, pneumonia. She was initially managed with IVF, Abx, pain me dication. General surgery consulted for enteritis. CXR showed small L basilar developing pneumonia. CT and MRI abd showed signs of enteritis and fat infiltration in the retroperitoneum indicating possible pancreatitis, which was ruled out with normal lipase levels. Her symptoms improved modestly until 08/23/21 when she ran a fever and was desatting on room air. She was transferred to the ICU with sepsis protocol; IVF, broad spectrum Abx, and steroid therapy was initiated. Elevated D-Dimer prompted CTA chest and lower extremity venous doppler to assess for possible DVT or PE; neither of which were found. CXR showed worsening bilateral pneumonia and small L pleural effusion. Her condition improved significantly the next day and she was transferred back to the floor. Subsequent CXR's revealed improving lung infiltrates. Her nausea/vomiting and abd pain resolved by time of discharge. She states she was still having trouble breathing, but it has improved and she is maintaining O2sat on room air. She had trouble sleeping throughout her stay. She was given instructions to f/u with a GI physician after discharge, and was given prescriptions for oral Abx and nebulizer treatments. Labs and Pending Lab Test: Laboratory Tests 08/24/21 21:37: Vancomycin Level Trough 15.0 08/25/21 05:40: White Blood Count 26.5H, Red Blood Count 3.73L, Hemoglobin 10.7L, Hematocrit 33L , Mean Corpuscular Volume 87, Mean Corpuscular Hemoglobin 29, Mean Corpuscular Hemoglobin Concent 33, Red Cell Distribution Width 14.2, Platelet Count 589H, Mean Platelet Volume 9.3, Immature Granulocyte % (Auto) 1, Neutrophils (%) (Auto) 93H, Lymphocytes (%) (Auto) 4L, Monocytes (%) (Auto) 2, Eosinophils (%) (Auto) 0, Basophils (%) (Auto) 0, Neutrophils # (Auto) 24.8H, Lymphocytes # (Auto) 1.0, Monocytes # (Auto) 0.4, Eosinophils # (Auto) 0.0, Basophils # (Auto) 0.1, Immature Granulocyte # (Auto) 0.3H, Neutrophils % (Manual) 96, Lymphocytes % (Manual) 2, Metamyelocytes % 1, Band Neutrophils 1, Clumped Platelets YES, Sodium Level 138, Potassium Level 4.4, Chloride Level 107, Carbon Dioxide Level 20L, Anion Gap 11, Blood Urea Nitrogen 17, Creatinine 0.66, Estimat Glomerular Filtration Rate 114, BUN/Creatinine Ratio 26, Glucose Level 134H, Calcium Level 8.0L, Corrected Calcium 9.1, Total Bilirubin 0.2, Aspartate Amino Transf (AST/SGOT) 16, Alanine Aminotransferase (ALT/SGPT) 7, Alkaline Phosphatase 61, Total Protein 5.1L, Albumin 2.6L, Procalcitonin 0.29H Microbiology 08/23/21 MRSA Screen - Final, Complete MRSA not isolated 08/23/21 Blood Culture - Preliminary, Resulted No growth 08/19/21 Urine Culture - Final, Complete See Comments Home Meds Active Celexa (Citalopram Hydrobromide) 20 Mg Tablet 20 Mg PO DAILY Aspirin EC (Aspirin) 81 Mg Tablet.dr 81 Mg PO DAILY Prednisone 10 Mg Tab.ds.pk 10 Mg PO DAILY Take 4 tabs(40mg) once daily,decrease by 1 tab(10MG)daily. Omeprazole 40 Mg Capsule.dr 40 Mg PO BID Cefdinir 300 Mg Capsule 300 Mg PO BID Albuterol Sulfate 2.5 Mg/3 Ml Vial.neb 2.5 Mg INH RTQ6HR PRN Reported Medroxyprogesterone Acetate 150 Mg/1 Ml Vial 1 Ml IM EVERY 3 MONTHS Centrum Chewables Adults Tab (Multivit-Min/Iron/Folic/Vit K1) 1 Each Tab.chew 1 Each PO DAILY Midol Caplet (Acetaminophen/Pamabrom) 1 Each Tablet 1-2 Each PO Q6H PRN Excedrin Migraine Caplet (Aspirin/Acetaminophen/Caffeine) 1 Each Tablet 2 Each PO Q6-8HR PRN Tums Smoothies (Calcium Carbonate) 300 Mg Tab.chew 300-600 Mg PO Q6H PRN Bactrim Ds Tablet (Sulfamethoxazole/Trimethoprim) 1 Each Tablet 1 Ea PO BID FILLED 08-15-2021 #14/7 DAY SUPPLY Famotidine 20 Mg Tablet 20 Mg PO BID Assessment/Pt Instructions PCP in 1 week Gastroenterology as scheduled Discharge Planning: <30 minutes discharge planning Discharge Instructions Discharge Diet: No Restrictions Discharge Physical Examination Vital Signs Vital Signs Date Time Temp Pulse Resp B/P (MAP) Pulse Ox O2 Delivery O2 Flow Rate FiO2 08/25/21 12:00 36.8 87 14 136/85 (102) 92 Room Air 08/24/21 13:00 2.00 08/23/21 13:35 21 General Appearance: No Apparent Distress, WD/WN Respiratory: Lungs Clear Cardiovascular: Regular Rate, Rhythm Neurologic/Psychiatric: Alert, Oriented x3, No Motor/Sensory Deficits, Normal Mood/Affect Allergies: Coded Allergies: Penicillins (Verified Allergy, Unknown, Hives/Rash, 08/21/21) Discharge Summary Date of Admission Aug 19, 2021 at 16:02 Date of Discharge Discharge Date: Aug 25, 2021 Admission Diagnosis Assessment: Hyperemesis cannabinoids Pneumonia Infectious enteritis Dehydration Hallucinations Leukocytosis Plan: Supportive care IV antibiotics Dr. Arshad consult Discharge Diagnosis Dramatic improvement Transfer to floor Ambulate [facility] Supportive care (1) Cannabis hyperemesis syndrome concurrent with and due to cannabis abuse Status: Acute (2) Intractable nausea and vomiting Status: Acute (3) Pneumonia Status: Acute (4) Enteritis Status: Acute (5) Abdominal pain Status: Acute (6) Nausea and vomiting Status: Acute (7) Abnormal CT of the abdomen Status: Acute KRISTYN STARK DO Aug 25, 2021 12:26
[2021-08-25] MEDS: HYDROcodone/APAP 5 MG/325 MG (LORTAB) TAB PO PRN (15:12)
[2021-08-25 16:26] VITALS: BP 136/85
--- NOTE | 2021-08-25 22:35 | Progress Note ---
FADUMO DUNAWAY MED STUDENT 08/25/21 2235: Progress Note Hospital course: Gauri was admitted 08/19/21 with complaints of nausea, intractable vomiting, abd pain, fever, pneumonia. She was initially managed with IVF, Abx, pain medication. General surgery consulted for enteritis. CXR showed small L basilar developing pneumonia. CT and MRI abd showed signs of enteritis and fat infiltration in the retroperitoneum indicating possible pancreatitis, which was ruled out with normal lipase levels. Her symptoms improved modestly until 08/23/21 when she ran a fever and was desatting on room air. She was transferred to the ICU with sepsis protocol; IVF, broad spectrum Abx, and steroid therapy was initiated. Elevated D-Dimer prompted CTA chest and lower extremity venous doppler to assess for possible DVT or PE; neither of which were found. CXR showed worsening bilateral pneumonia and small L pleural effusion. Her condition improved significantly the next day and she was transferred back to the floor. Subsequent CXR's revealed improving lung infiltrates. Her nausea/vomiting and abd pain resolved by time of discharge. She states she was still having trouble breathing, but it has improved and she is maintaining O2sat on room air. She had trouble sleeping throughout her stay. She was given instructions to f/u with a GI physician after discharge, and was given prescriptions for oral Abx and nebulizer treatments. SYBIL STARK DO 08/26/21 0551: Supervisory-Addendum Brief Verification & Attestation Participated in pt care: history, MDM, physical Personally performed: exam, history, MDM, supervision of care Care discussed with: Medical Student Procedures: n/a Results interpretation: Verified all documentation Verification and Attestation of Medical Student E/M Service A medical student performed and documented this service in my presence. I reviewed and verified all information documented by the medical student and made modifications to such information, when appropriate. I personally performed the physical exam and medical decision making. Sybil Stark, Aug 26, 2021,05:51 FADUMO DUNAWAY MED STUDENT Aug 25, 2021 22:35 SYBIL STARK DO Aug 26, 2021 05:51
--- NOTE | 2021-08-29 09:47 | Physician Query Clarification ---
PQ-Uncertain Diagnosis Admission/Discharge Admission Date: Aug 19, 2021 at 16:02 Discharge Date: Aug 25, 2021 at 16:27 Dr. Mendoza, The medical record reflects the following clinical scenario: History/Risk Factors: pneumonia, n/v, cannibis abuse Clinical Findings: 08/23 WBC 13.3, Lactic acid 0.69, T 38.8, P 125, R 24 Treatment: sepsis protocol Question: Is sepsis a clinically valid diagnosis? Sepsis protocol was documented in 08/23 PN's with no further documentation in the medical record. Please document a response in Progress Note or Discharge Summary. 1. Yes, clinically valid, condition resolved. 2. No, condition ruled out. 3. Other, with explanation of clinical findings. 4. Undetermined, no explanation for clinical findings. PHYSICIAN RESPONSE Diagnosis clinically valid: No, conditon ruled out Please remember a lack of response to the above will prompt a phone page by CDI/Coding staff. In responding to this query, please exercise your independent professional judgment. The purpose of this communication is to more accurately reflect the complexity of your patients condition. The fact that a question is asked does not imply that any particular answer is desired or expected. Thank you for your timely response to this clarification. Requestors name: Vicki THIS PHYSICIAN QUERY FORM IS A PERMANENT PART OF THE MEDICAL RECORD VICKI TOM Aug 29, 2021 09:47 KRISTYN MENDOZA DO Aug 30, 2021 05:09
== END 2021-08-25 16:27 | disposition home or self-care (01) | DRG 205 ==
LOC: EDUNIT# 12:30 → ER 12:33 → 4TH 16:02 → ICU 08-23 21:51 → 4TH 08-24 13:00
PROVIDERS: ADMIT Internal Medicine; ATTEND Internal Medicine
DX: U07.0 Vaping-related disorder (principal); J18.9 Pneumonia, unspecified organism; N39.0 Urinary tract infection, site not specified; R44.3 Hallucinations, unspecified; K52.9 Noninfective gastroenteritis and colitis, unspecified; R11.2 Nausea with vomiting, unspecified; E86.0 Dehydration; F12.10 Cannabis abuse, uncomplicated; Z20.822 Contact with and (suspected) exposure to COVID-19; F41.9 Anxiety disorder, unspecified; F32.A Depression, unspecified; Z91.19 Patient's noncompliance with other medical treatment and regimen; K31.89 Other diseases of stomach and duodenum; J45.909 Unspecified asthma, uncomplicated; R09.02 Hypoxemia; K21.9 Gastro-esophageal reflux disease without esophagitis; Z79.82 Long term (current) use of aspirin; Z79.899 Other long term (current) drug therapy; Z88.0 Allergy status to penicillin; Z83.3 Family history of diabetes mellitus; Z82.49 Family history of ischemic heart disease and other diseases of the circulatory system
CPT/HCPCS: 36415; 71045; 71046; 71275; 74177; 74181; 80048; 80053; 80202; 80306; 81000; 82150; 82271; 82805; 83605; 83690; 83735; 84100; 84145; 84703; 85007; 85025; 85027; 85379; 86141; 87040; 87081; 87088; 87636; 93005; 93970; 94640; 94760; 96361; 96374; 96375; 96376

== ENCOUNTER 2021-08-27 01:49 | Emergency (ER) | payer MEDICAID ==
[~2021-08-27] VITALS: Ht 172.7 cm; Wt 60.0 kg
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
[2021-08-27 01:24] LABS: BASOPHILS % (AUTO) 0 % (0-10); EOSINOPHILS # (AUTO) 0.5 10^3/uL (0.0-0.3); EOSINOPHILS % (AUTO) 2 % (0-10); HEMATOCRIT 34 % (35-52); HEMOGLOBIN 11.2 g/dL (11.5-16.0); LYMPHOCYTES # (AUTO) 1.7 10^3/uL (1.0-4.0); LYMPHOCYTES % (AUTO) 8 % (12-44); MEAN CORPUSCULAR HEMOGLOBIN 28 pg (25-34); MEAN CORPUSCULAR HGB CONC 33 g/dL (32-36); MEAN CORPUSCULAR VOLUME 85 fL (80-99); MEAN PLATELET VOLUME 8.8 fL (9.0-12.2); MONOCYTES # (AUTO) 0.2 10^3/uL (0.0-1.0); MONOCYTES % (AUTO) 1 % (0-12); NEUTROPHILS % (AUTO) 85 % (42-75); PLATELET COUNT 791 10^3/uL (130-400); WHITE BLOOD COUNT 22.4 10^3/uL (4.3-11.0)
[2021-08-27 01:40] LABS: BILIRUBIN,URINE NEGATIVE (NEGATIVE); CLARITY,URINE CLEAR; COLOR,URINE YELLOW; GLUCOSE, URINE (UA) NEGATIVE (NEGATIVE); KETONES,URINE NEGATIVE (NEGATIVE); LEUKOCYTE ESTERASE ,URINE 1+ (NEGATIVE); NITRITE,URINE NEGATIVE (NEGATIVE); PROTEIN,URINE NEGATIVE (NEGATIVE)
[2021-08-27 01:47] LABS: ABG BASE EXCESS 3.4 MMOL/L (-2.5-2.5); ABG OXYGEN SATURATION 85 % (94-100); ABG PCO2 35 MMHG (35-45); ABG PO2 50 MMHG (79-93); ABG TCO2 27.7 MMOL/L (21.0-31.0); ALLENS TEST YES-POS; INSPIRED O2 4L; PATIENT TEMP 37.1; VENTILATOR NO
[~2021-08-27 01:49] MED LIST changes: +ACET1TAB96 PO; +ALBU2.5V4 INH; +ASPI-1238 PO; +ASPI-789 PO; +CALC-778 PO; +CEFD300C3 PO; +CEFEPIME INJECTION 2,000 MG in WATER (STERILE) FOR INJECTION 20 ML IV ONE; +CITA20TA12 PO; +FAMO20TA5 PO; +LACTATED RINGERS 1,000 ML IV ONE; +LORA-404 PO; +MEDR150V4 IM; +MULT-1112 PO; +OMEP40CA6 PO; +ONDANSETRON 4 MG/2 ML (SDV) Z0FRAN IVP ONE; +PRED10TA22 PO; +RT-ALBUTEROL/IPRATROPIUM 3 ML (DUONEB) VIAL INH ONE; +VANCOMYCIN INJECTION 750 MG in NS (IVPB) 100 ML IV ONE; +methylPREDNISolone 125 MG (Solu-MEDROL) VIAL IVP ONE
[2021-08-27 01:50] LABS: ALANINE AMINOTRANSFERASE 11 U/L (0-55); ALBUMIN 3.2 GM/DL (3.2-4.5); ALKALINE PHOSPHATASE 63 U/L (40-136); AMYLASE 14 U/L (25-125); BILIRUBIN,TOTAL 0.3 MG/DL (0.1-1.0); BUN/CREATININE RATIO 15; CALCIUM 8.4 MG/DL (8.5-10.1); CARBON DIOXIDE 21 MMOL/L (21-32); CHLORIDE 104 MMOL/L (98-107); CREATINE KINASE 44 U/L (29-168); CREATININE SERUM 0.74 MG/DL (0.60-1.30); GFR ESTIMATED 100; GLUCOSE 101 MG/DL (70-105); LIPASE 13 U/L (8-78); MAGNESIUM 2.2 MG/DL (1.6-2.4); POTASSIUM 3.9 MMOL/L (3.6-5.0); SODIUM 139 MMOL/L (135-145); TOTAL PROTEIN 5.9 GM/DL (6.4-8.2)
[2021-08-27 01:55] LABS: BACTERIA,URINE FEW /HPF; RBC,URINE 0-2 /HPF
[2021-08-27 01:56] LABS: URINE OTHER SPERM PRESENT /HPF
[2021-08-27 01:57] LABS: ACETAMINOPHEN < 10 UG/ML (10-30)
[2021-08-27] MEDS ORDERED: RT-IPRATROPIUM (ATROVENT) 0.5MG/2.5ML AMP IH ONE ×2 (01:57→02:00)
[2021-08-27] MEDS ORDERED: RT-BUDESONIDE NEBS 0.5 MG/2ML (PULMICORT) AMP ONE (01:57)
[2021-08-27 01:58] LABS: AMPHETAMINE SCREEN, URINE NEGATIVE (NEGATIVE); BARBITURATE SCREEN URINE NEGATIVE (NEGATIVE); BENZODIAZEPINES SCREEN URINE POSITIVE (NEGATIVE); CANNABINOID SCREEN, URINE POSITIVE (NEGATIVE); COCAINE SCREEN URINE NEGATIVE (NEGATIVE); METHADONE STAT NEGATIVE (NEGATIVE); METHAMPHETAMINE SCREEN URINE S NEGATIVE (NEGATIVE); OPIATE SCREEN URINE POSITIVE (NEGATIVE); OXYCODONE STAT NEGATIVE (NEGATIVE); PROPOXYPHENE STAT NEGATIVE (NEGATIVE); TRICYCLIC ANTIDEPRESSANTS SCRE NEGATIVE (NEGATIVE)
[2021-08-27 01:59] LABS: ERYTHROCYTE SEDIMENTATION RATE 31 MM/HR (0-20)
[2021-08-27] MEDS ORDERED: LORazepam INJ 2 MG/ML (ATIVAN) VIAL IVP ONE (02:00)
[2021-08-27] MEDS ORDERED: RT-BUDESONIDE NEBS 0.5 MG/2ML (PULMICORT) AMP INH SCH (02:00)
[2021-08-27 02:10] LABS: BAND NEUTROPHILS 3 %; LYMPHOCYTES % (MANUAL) 4 %; NEUTROPHILS % (MANUAL) 93 %
[2021-08-27 02:11] LABS: ELLIPT/OVALOCYTES SLIGHT; MICROCYTOSIS SLIGHT
[2021-08-27 02:12] LABS: CREATINE KINASE MB 0.3 NG/ML (<6.6); TSH (THYROID ANALYZER) 1.65 UIU/ML (0.35-4.94)
[2021-08-27] MEDS ORDERED: VANCOMYCIN INJECTION 500 MG in NS (IVPB) 100 ML IV ONE (02:45)
[2021-08-27] MEDS ORDERED: ONDANSETRON 4 MG/2 ML (SDV) Z0FRAN IVP ONE (03:45)
[2021-08-27 03:55] VITALS: BP 130/88
--- NOTE | 2021-08-27 06:23 | Diagnostic Imaging Report ---
INDICATION: Dyspnea, hypoxia COMPARISON: 08/25/2021 TECHNIQUE: Single radiograph of the chest dated 08/27/2021 FINDINGS: The cardiac silhouette is stable. No significant pulmonary vascular congestion. Extensive mixed interstitial and airspace opacities are identified bilaterally, left greater than right. These have slightly worsened since the prior examination. No large volume pleural effusion. No pneumothorax. No acute osseous abnormality. IMPRESSION: Worsened extensive left greater than right pulmonary infiltrates. Dictated by: Dictated on workstation # [id number]
== END 2021-08-27 03:55 | disposition short-term general hospital (02) ==
LOC: EDUNIT# 01:49 → ER 01:53
DX: J96.00 Acute respiratory failure, unspecified whether with hypoxia or hypercapnia (principal); J18.9 Pneumonia, unspecified organism; A41.9 Sepsis, unspecified organism; N39.0 Urinary tract infection, site not specified; R11.2 Nausea with vomiting, unspecified; F12.10 Cannabis abuse, uncomplicated; R00.0 Tachycardia, unspecified; K21.9 Gastro-esophageal reflux disease without esophagitis; F41.9 Anxiety disorder, unspecified; Z20.822 Contact with and (suspected) exposure to COVID-19; Z79.899 Other long term (current) drug therapy; Z79.82 Long term (current) use of aspirin
CPT/HCPCS: 71045; 80053; 80306; 81000; 82150; 82550; 82553; 82805; 83605; 83690; 83735; 83874; 83880; 84145; 84443; 84484; 84703; 85007; 85027; 85379; 85652; 86141; 87040; 87088; 87636; 93005; 93041; 94640; 99291; G0480 ×2; 36415; 80320; 80329; 96374; 96375; 96376

== ENCOUNTER 2021-11-14 21:37 | Emergency (ER) | payer MEDICAID ==
[~2021-11-14] VITALS: Ht 175.3 cm; Wt 62.1 kg
[~2021-11-14 21:37] MED LIST changes: -CEFEPIME INJECTION 2,000 MG in WATER (STERILE) FOR INJECTION 20 ML IV ONE; -LACTATED RINGERS 1,000 ML IV ONE; -ONDANSETRON 4 MG/2 ML (SDV) Z0FRAN IVP ONE; -RT-ALBUTEROL/IPRATROPIUM 3 ML (DUONEB) VIAL INH ONE; -VANCOMYCIN INJECTION 750 MG in NS (IVPB) 100 ML IV ONE; -methylPREDNISolone 125 MG (Solu-MEDROL) VIAL IVP ONE
[2021-11-14 22:25] VITALS: BP 119/91
[2021-11-14] MEDS ORDERED: CITA20TA9 (22:33)
[2021-11-14 23:03] LABS: BILIRUBIN,URINE NEGATIVE (NEGATIVE); CLARITY,URINE CLEAR; COLOR,URINE YELLOW; GLUCOSE, URINE (UA) NEGATIVE (NEGATIVE); KETONES,URINE 2+ (NEGATIVE); LEUKOCYTE ESTERASE ,URINE TRACE (NEGATIVE); NITRITE,URINE NEGATIVE (NEGATIVE); PROTEIN,URINE NEGATIVE (NEGATIVE)
[2021-11-14 23:09] LABS: BACTERIA,URINE FEW /HPF
--- NOTE | 2021-11-14 23:42 | ED Abdominal Pain ---
General Chief Complaint: Abdominal/GI Problems Stated Complaint: VOMITING/FEVER/CHILLS 5 WKS PREG Nursing Triage Note: C/O VOMITTING X1 HR. REPORTS 5 WEEKS WITH INFECTION IN UTERUS. ANXIETY, SUBJECTIVE FEVER. Source of Information: Patient Exam Limitations: No Limitations History of Present Illness Date Seen by Provider: Nov 14, 2021 Time Seen by Provider: 23:14 Initial Comments Patient ER by private conveyance from home with chief complaint of intractable nausea vomiting today. She is 5 weeks . No fevers chills cough diarrhea or constipation. No dysuria. Pain all over her abdomen. She states morphine works but she has to have Benadryl with it. She has a cannabis user. History of hyperemesis cannabis. Allergies and Home Medications Allergies Coded Allergies: Penicillins (Verified Allergy, Unknown, Hives/Rash, 08/21/21) Patient Home Medication List Home Medication List Reviewed: Yes Citalopram Hydrobromide (Citalopram HBr) 20 Mg Tablet, (Reported) Entered as Reported by: JAMESON BARRON on 11/14/212232 Last Action: New Order Discontinued Medications Acetaminophen/Pamabrom (Midol Caplet) 1 Each Tablet, 1-2 EACH PO Q6H PRN for CRAMPS, (Reported) Discontinued Reason: No Longer Taking Entered as Reported by: RUFINO RAJAN on 08/21/211407 Last Action: Discontinued Albuterol Sulfate (Albuterol Sulfate) 2.5 Mg/3 Ml Vial.neb, 2.5 MG INH RTQ6HR PRN for SHORTNESS OF BREATH Discontinued Reason: No Longer Taking Prescribed by: KRISTYN STARK on 08/25/211224 Last Action: Discontinued Aspirin (Aspirin EC) 81 Mg Tablet.dr, 81 MG PO DAILY Discontinued Reason: No Longer Taking Prescribed by: KRISTYN STARK on 08/25/21 1225 Last Action: Discontinued Aspirin/Acetaminophen/Caffeine (Excedrin Migraine Caplet) 1 Each Tablet, 2 EACH PO Q6-8HR PRN for Headache, (Reported) Discontinued Reason: No Longer Taking Entered as Reported by: RUFINO RAJAN on 08/21/211407 Last Action: Discontinued Calcium Carbonate (Tums Smoothies) 300 Mg Tab.chew, 300-600 MG PO Q6H PRN for INDIGESTION, (Reported) Discontinued Reason: No Longer Taking Entered as Reported by: RUFINO RAJNA on 08/21/211407 Last Action: Discontinued Cefdinir (Cefdinir) 300 Mg Capsule, 300 MG PO BID Discontinued Reason: No Longer Taking Prescribed by: KRISTYN STARK on 08/25/211224 Last Action: Discontinued Citalopram Hydrobromide (Celexa) 20 Mg Tablet, 20 MG PO DAILY Discontinued Reason: No Longer Taking Prescribed by: KRISTYN STARK on 08/25/211224 Last Action: Discontinued Famotidine (Famotidine) 20 Mg Tablet, 20 MG PO BID, (Reported) Discontinued Reason: No Longer Taking Entered as Reported by: RUFINO RAJAN on 08/21/211407 Last Action: Discontinued Hydrocodone Bit/Acetaminophen (HYDROcodone/APAP 5 MG/325 MG TAB) 1 Tab Tab, 1 EA PO Q4H PRN for PAIN-MODERATE (5-7) Discontinued Reason: No Longer Taking Prescribed by: KRISTYN STARK on 08/25/211224 Last Action: Discontinued Lorazepam (Ativan) 0.5 Mg Tablet, 0.5 MG PO BID PRN for ANXIETY Discontinued Reason: No Longer Taking Prescribed by: KRISTYN STARK on 08/25/211224 Last Action: Discontinued Medroxyprogesterone Acetate (Medroxyprogesterone Acetate) 150 Mg/1 Ml Vial, 1 ML IM EVERY 3 MONTHS, (Reported) Discontinued Reason: No Longer Taking Entered as Reported by: RUFINO RAJAN on 08/21/211408 Last Action: Discontinued Multivit-Min/Iron/Folic/Vit K1 (Centrum Chewables Adults Tab) 1 Each Tab.chew, 1 EACH PO DAILY, (Reported) Discontinued Reason: No Longer Taking Entered as Reported by: RUFINO RAJAN on 08/21/211407 Last Action: Discontinued Omeprazole (Omeprazole) 40 Mg Capsule.dr, 40 MG PO BID Discontinued Reason: No Longer Taking Prescribed by: KRISTYN STARK on 08/25/211224 Last Action: Discontinued Prednisone (Prednisone) 10 Mg Tab.ds.pk, 10 MG PO DAILY Discontinued Reason: No Longer Taking Prescribed by: KRISTYN STARK on 08/25/211224 Last Action: Discontinued Review of Systems Review of Systems Constitutional: No chills, No diaphoresis EENTM: No Blurred Vision, No Double Vision Respiratory: Denies Cough, Denies Shortness of Air Cardiovascular: Denies Chest Pain Gastrointestinal: See HPI, Abdominal Pain; Denies Constipated, Denies Diarrhea; Nausea, Poor Fluid Intake, Vomiting Genitourinary: Denies Burning, Denies Discharge Musculoskeletal: No back pain, No joint pain All Other Systems Reviewed Negative Unless Noted: Yes Past Wipyiph-Kszuvr-Dbmaei Hx Patient Social History Tobacco Use?: No Substance use?: Yes Substance type: Marijuana Alcohol Use?: No Pt feels they are or have been: No Immunizations Up To Date Tetanus Booster (TDap): More than 5yrs First/Initial COVID19 Vaccinat: 2020 Second COVID19 Vaccination James: 2020 Third COVID19 Vaccination Date: 07/03/21 Past Medical History Surgery/Hospitalization HX: ANXIETY, GERD, UTI, T/A Surgeries: Yes (WISDOM TEETH REMOVED) Adenoidectomy, Tonsillectomy Respiratory: Yes (PNEUMONIA 08/19/21) Cardiac: No Neurological: No Last Menstrual Period: Sep 27, 2021 Sexually Transmitted Disease: No Genitourinary: Yes Kidney Infection, Kidney Stones Gastrointestinal: Yes (CANNABIS HYPEREMESIS SYNDROME) Musculoskeletal: No Endocrine: No HEENT: Yes (WISDOM TEETH REMOVED; S/P TONSILLECTOMY) Tonsilitis Cancer: No Psychosocial: Yes Anxiety Integumentary: No Blood Disorders: No Family Medical History Diabetes, Hypertension Physical Exam Vital Signs Vital Signs - First Documented 11/14/21 22:25 Temp 36.1 Pulse 101 Resp 16 B/P (MAP) 119/91 (100) Pulse Ox 98 O2 Delivery Room Air Capillary Refill : Less Than 3 Seconds Height/Weight/BMI Height: 5'8.00" Weight: 132lbs. oz. 59.377614tw; 20.00 BMI Method:Stated General Appearance: mild distress, thin HEENT: PERRL/EOMI; No pharynx normal (Mildly dry oral mucosa) Neck: non-tender, full range of motion Respiratory: lungs clear, normal breath sounds, no respiratory distress, no accessory muscle use Cardiovascular: normal peripheral pulses, regular rate, rhythm Peripheral Pulses: 2+ Radial Pulses (R), 2+ Radial Pulses (L) Gastrointestinal: normal bowel sounds, non tender, soft Neurologic/Psychiatric: alert, oriented x 3, other (Irritable) Progress/Results/Core Measures Results/Orders Lab Results Laboratory Tests Test 11/14/21 22:28 11/14/21 23:00 11/14/21 23:56 Range/Units Urine Color YELLOW Urine Clarity CLEAR Urine pH 6.0 5-9 Urine Specific [place] >=1.030 1.016-1.022 Urine Protein NEGATIVE NEGATIVE Urine Glucose (UA) NEGATIVE NEGATIVE Urine Ketones 2+ H NEGATIVE Urine Nitrite NEGATIVE NEGATIVE Urine Bilirubin NEGATIVE NEGATIVE Urine Urobilinogen 0.2 < = 1.0 MG/DL Urine Leukocyte Esterase TRACE H NEGATIVE Urine RBC (Auto) 2+ H NEGATIVE Urine RBC 5-10 H /HPF Urine WBC 5-10 H /HPF Urine Squamous Epithelial Cells 2-5 /HPF Urine Renal Epithelial Cells NONE /HPF Urine Crystals NONE /LPF Urine Bacteria FEW H /HPF Urine Casts NONE /LPF Urine Mucus SMALL H /LPF Urine Culture Indicated YES Influenza Type A Antigen NEGATIVE NEGATIVE Influenza Type B Antigen NEGATIVE NEGATIVE White Blood Count 14.4 H 4.3-11.0 10^3/uL Red Blood Count 4.50 3.80-5.11 10^6/uL Hemoglobin 12.9 11.5-16.0 g/dL Hematocrit 40 35-52 % Mean Corpuscular Volume 88 80-99 fL Mean Corpuscular Hemoglobin 29 25-34 pg Mean Corpuscular Hemoglobin Concent 33 32-36 g/dL Red Cell Distribution Width 14.1 10.0-14.5 % Platelet Count 308 130-400 10^3/uL Mean Platelet Volume 10.3 9.0-12.2 fL Immature Granulocyte % (Auto) 0 % Neutrophils (%) (Auto) 86 H 42-75 % Lymphocytes (%) (Auto) 8 L 12-44 % Monocytes (%) (Auto) 5 0-12 % Eosinophils (%) (Auto) 0 0-10 % Basophils (%) (Auto) 0 0-10 % Neutrophils # (Auto) 12.4 H 1.8-7.8 10^3/uL Lymphocytes # (Auto) 1.2 1.0-4.0 10^3/uL Monocytes # (Auto) 0.8 0.0-1.0 10^3/uL Eosinophils # (Auto) 0.0 0.0-0.3 10^3/uL Basophils # (Auto) 0.0 0.0-0.1 10^3/uL Immature Granulocyte # (Auto) 0.0 0.0-0.1 10^3/uL Sodium Level 139 135-145 MMOL/L Potassium Level 3.2 L 3.6-5.0 MMOL/L Chloride Level 107 98-107 MMOL/L Carbon Dioxide Level 14 L 21-32 MMOL/L Anion Gap 18 H 5-14 MMOL/L Blood Urea Nitrogen 7 7-18 MG/DL Creatinine 0.79 0.60-1.30 MG/DL Estimat Glomerular Filtration Rate 110 BUN/Creatinine Ratio 9 Glucose Level 138 H 70-105 MG/DL Calcium Level 9.7 8.5-10.1 MG/DL Corrected Calcium 8.5-10.1 MG/DL Magnesium Level 2.0 1.6-2.4 MG/DL Total Bilirubin 0.7 0.1-1.0 MG/DL Aspartate Amino Transf (AST/SGOT) 15 5-34 U/L Alanine Aminotransferase (ALT/SGPT) 13 0-55 U/L Alkaline Phosphatase 66 40-136 U/L Total Protein 7.5 6.4-8.2 GM/DL Albumin 4.7 H 3.2-4.5 GM/DL My Orders Orders - FRANK PORTER Ua Culture If Indicated (11/14/21 22:54) Urine Bedside (11/14/21 22:54) Influenza A & B Antigens (11/14/21 22:54) Coronavirus Sars-Cov-2 So 2018 (11/14/21 22:54) Urine Culture (11/14/21 22:28) Ondansetron Injection (Zofran Injectio (11/14/21 23:45) Ceftriaxone 1 Gm Pre-Mix (Rocephin 1 Gm (11/14/21 23:45) Ed Iv/Invasive Line Start (11/14/21 23:35) Lactated Ringers (Lr 1000 Ml Iv Solution (11/14/21 23:45) Cbc With Automated Diff (11/14/21 23:35) Comprehensive Metabolic Panel (11/14/21 23:35) Magnesium (11/14/21 23:35) Morphine Injection (Morphine Injection (11/15/21 00:38) Diphenhydramine Injection (Benadryl Inje (11/15/21 00:45) Medications Given in ED Current Medications Medications Dose Ordered Sig/Lane Route Start Time Stop Time Status Last Admin Dose Admin Ceftriaxone Sodium/Dextrose 50 ml @ 100 mls/hr ONCE ONCE IV 11/14/21 23:45 11/15/21 00:14 DC 11/14/21 23:59 100 MLS/HR Lactated Ringer's 1,000 ml @ 0 mls/hr Q0M ONCE IV 11/14/21 23:45 11/14/21 23:46 DC 11/14/21 23:59 0 MLS/HR Ondansetron HCl 8 mg ONCE ONCE IVP 11/14/21 23:45 11/14/21 23:46 DC 11/14/21 23:59 8 MG Vital Signs/I&O 11/14/21 22:25 Temp 36.1 Pulse 101 Resp 16 B/P (MAP) 119/91 (100) Pulse Ox 98 O2 Delivery Room Air Blood Pressure Mean: 100 Progress Progress Note #1: Time: 23:41 Progress Note Ondansetron, fluids, basic labs and Rocephin for her UTI. Progress Note #2: Time: 01:35 Progress Note Ordered morphine and Benadryl for the side effects per patient's recommendation. If this does not control her pain we can use droperidol. Her nausea is significantly quelled after the ondansetron and she has no longer retching loudly just having epigastric pain. We can also try a GI cocktail. Before this medication could be administered however the patient decided to leave AGAINST MEDICAL ADVICE. Her nausea was at least better. We were unable to interact with her as we are in the room with another patient when she decided to leave. Departure Impression Primary Impression: Hyperemesis gravidarum Additional Impressions: UTI (urinary tract infection) Qualified Codes: N30.01 - Acute cystitis with hematuria Qualified Codes: Z3A.01 - Less than 8 weeks gestation of Disposition: 01 HOME, SELF-CARE Condition: Stable Departure-Patient Inst. Decision time for Depature: 01:36 Referrals: NO,LOCAL PHYSICIAN (PCP/Family) Primary Care Physician Patient Instructions: Urinary Tract Infection, Adult ED Add. Discharge Instructions: Keflex 1 capsule twice a day. Ondansetron 1 tablet every 6 hours as necessary for nausea or vomiting. Return to the ER as necessary for worsening symptoms. Make a follow-up appointment with your OB/supervisor pigment making. All discharge instructions reviewed with patient and/or family. Voiced understanding. Scripts Cephalexin (Cephalexin) 500 Mg Tablet 500 MG PO BID for 7 Days, #14 TAB 0 Refills Prov: FRANK PORTER 11/15/21 Ondansetron (Ondansetron Odt) 4 Mg Tab.rapdis 4 MG PO Q6H PRN for NAUSEA/VOMITING, #20 TAB 0 Refills Prov: FRANK PORTER 11/15/21 FRANK PORTER Nov 14, 2021 23:41
[2021-11-14] MEDS ORDERED: LACTATED RINGERS 1,000 ML IV ONE (23:45)
[2021-11-14] MEDS ORDERED: cefTRIAXone 1 GM PRE-MIX 50 ML IV ONE (23:45)
[2021-11-14] MEDS ORDERED: ONDANSETRON 4 MG/2 ML (SDV) Z0FRAN IVP ONE (23:45)
[2021-11-15 00:07] LABS: BASOPHILS % (AUTO) 0 % (0-10); EOSINOPHILS % (AUTO) 0 % (0-10); HEMATOCRIT 40 % (35-52); HEMOGLOBIN 12.9 g/dL (11.5-16.0); LYMPHOCYTES # (AUTO) 1.2 10^3/uL (1.0-4.0); LYMPHOCYTES % (AUTO) 8 % (12-44); MEAN CORPUSCULAR HEMOGLOBIN 29 pg (25-34); MEAN CORPUSCULAR HGB CONC 33 g/dL (32-36); MEAN CORPUSCULAR VOLUME 88 fL (80-99); MEAN PLATELET VOLUME 10.3 fL (9.0-12.2); MONOCYTES # (AUTO) 0.8 10^3/uL (0.0-1.0); MONOCYTES % (AUTO) 5 % (0-12); NEUTROPHILS # (AUTO) 12.4 10^3/uL (1.8-7.8); NEUTROPHILS % (AUTO) 86 % (42-75); PLATELET COUNT 308 10^3/uL (130-400); WHITE BLOOD COUNT 14.4 10^3/uL (4.3-11.0)
[2021-11-15 00:18] LABS: ALBUMIN 4.7 GM/DL (3.2-4.5); CHLORIDE 107 MMOL/L (98-107); POTASSIUM 3.2 MMOL/L (3.6-5.0); SODIUM 139 MMOL/L (135-145)
[2021-11-15 00:19] LABS: CALCIUM 9.7 MG/DL (8.5-10.1)
[2021-11-15 00:20] LABS: GLUCOSE 138 MG/DL (70-105); TOTAL PROTEIN 7.5 GM/DL (6.4-8.2)
[2021-11-15 00:21] LABS: CARBON DIOXIDE 14 MMOL/L (21-32)
[2021-11-15 00:22] LABS: BILIRUBIN,TOTAL 0.7 MG/DL (0.1-1.0)
[2021-11-15 00:24] LABS: ALKALINE PHOSPHATASE 66 U/L (40-136); CREATININE SERUM 0.79 MG/DL (0.60-1.30); GFR ESTIMATED 110
[2021-11-15 00:25] LABS: BUN/CREATININE RATIO 9
[2021-11-15 00:27] LABS: ALANINE AMINOTRANSFERASE 13 U/L (0-55)
[2021-11-15] MEDS ORDERED: morphine INJ 10 MG/ML 1ML (SYR OR VIAL) IVP STA (00:38)
[2021-11-15] MEDS ORDERED: diphenhydrAMINE 50 MG/ML INJ (BENADRYL) IVP ONE (00:45)
[2021-11-15] MEDS ORDERED: ONDA4TAB11 PO (01:37)
[2021-11-15] MEDS ORDERED: CEPH500T PO (01:37)
== END 2021-11-15 00:37 | disposition home or self-care (01) ==
LOC: EDUNIT# 21:37 → ER 21:51
DX: O21.0 Mild hyperemesis gravidarum (principal); O23.41 Unspecified infection of urinary tract in pregnancy, first trimester; F41.9 Anxiety disorder, unspecified; Z20.822 Contact with and (suspected) exposure to COVID-19; Z3A.01 Less than 8 weeks gestation of pregnancy
CPT/HCPCS: 36415; 80053; 81000; 83735; 84703; 85025; 87077; 87088; 87635; 87804

== ENCOUNTER → 2021-12-27 | Outpatient (CLI) | payer MEDICAID ==
[~2021-12-27] MED LIST changes: +CEPH500T PO; +CITA20TA9
[2021-12-27 11:03] LABS: BASOPHILS % (AUTO) 0 % (0-10); EOSINOPHILS % (AUTO) 0 % (0-10); HEMATOCRIT 37 % (35-52); HEMOGLOBIN 12.3 g/dL (11.5-16.0); LYMPHOCYTES # (AUTO) 1.2 10^3/uL (1.0-4.0); LYMPHOCYTES % (AUTO) 14 % (12-44); MEAN CORPUSCULAR HEMOGLOBIN 29 pg (25-34); MEAN CORPUSCULAR HGB CONC 33 g/dL (32-36); MEAN CORPUSCULAR VOLUME 87 fL (80-99); MEAN PLATELET VOLUME 10.7 fL (9.0-12.2); MONOCYTES # (AUTO) 0.5 10^3/uL (0.0-1.0); MONOCYTES % (AUTO) 6 % (0-12); NEUTROPHILS # (AUTO) 7.1 10^3/uL (1.8-7.8); NEUTROPHILS % (AUTO) 80 % (42-75); PLATELET COUNT 225 10^3/uL (130-400); WHITE BLOOD COUNT 8.8 10^3/uL (4.3-11.0)
== END ==
LOC: LAB 10:26
PROVIDERS: ATTEND Family Medicine
DX: Z34.92 Encounter for supervision of normal pregnancy, unspecified, second trimester (principal); Z3A.00 Weeks of gestation of pregnancy not specified
CPT/HCPCS: 36415; 84443; 85025; 86703; 86762; 86780; 86850; 86900; 86901; 87340

== ENCOUNTER 2022-01-13 20:15 | Emergency (ER) | payer MEDICAID ==
[~2022-01-13] VITALS: Ht 172.7 cm; Wt 65.8 kg
[2022-01-13 20:39] LABS: BASOPHILS % (AUTO) 0 % (0-10); EOSINOPHILS % (AUTO) 0 % (0-10); HEMATOCRIT 36 % (35-52); HEMOGLOBIN 12.5 g/dL (11.5-16.0); LYMPHOCYTES % (AUTO) 13 % (12-44); MEAN CORPUSCULAR HEMOGLOBIN 29 pg (25-34); MEAN CORPUSCULAR HGB CONC 34 g/dL (32-36); MEAN CORPUSCULAR VOLUME 83 fL (80-99); MEAN PLATELET VOLUME 10.4 fL (9.0-12.2); MONOCYTES # (AUTO) 1.2 10^3/uL (0.0-1.0); MONOCYTES % (AUTO) 7 % (0-12); NEUTROPHILS # (AUTO) 12.9 10^3/uL (1.8-7.8); NEUTROPHILS % (AUTO) 80 % (42-75); PLATELET COUNT 345 10^3/uL (130-400); WHITE BLOOD COUNT 16.2 10^3/uL (4.3-11.0)
[2022-01-13] MEDS ORDERED: ONDANSETRON 4 MG/2 ML (SDV) Z0FRAN IVP ONE (20:45)
[2022-01-13] MEDS ORDERED: PROMETHAZINE INJ 25 MG/ML (PHENERGAN) AMP IVP ONE (20:45)
[2022-01-13] MEDS ORDERED: LACTATED RINGERS 1,000 ML IV SCH ×2 (20:45→21:15)
--- NOTE | 2022-01-13 20:46 | ED GI ---
General Chief Complaint: Abdominal/GI Problems Stated Complaint: 14 WKS PREG, N/V Nursing Triage Note: PT TO RM 5 VIA WC, PT LYING ON FLOOR OF WAITING RM WHEN CALLED BACK. PT C/O UPPER ABD PAIN, FATIGUE, AND N/V/D SX YESTERDAY. PT A&OX4. Source of Information: Patient Exam Limitations: No Limitations History of Present Illness Date Seen by Provider: Jan 13, 2022 Time Seen by Provider: 20:45 Initial Comments To ER by private vehicle with reports of nausea vomiting diarrhea and abdominal pain for 2 days. She is 14 weeks . Continues to smoke marijuana faye quently. Denies any other substance use. Timing/Duration: 1-2 Days Severity/Quality: Moderate Location: Generalized Abdomen Radiation: No Radiation Activities at Onset: None Allergies and Home Medications Allergies Coded Allergies: Penicillins (Verified Allergy, Unknown, Hives/Rash, 08/21/21) Patient Home Medication List Home Medication List Reviewed: Yes Cephalexin (Cephalexin) 500 Mg Tablet, 500 MG PO BID Prescribed by: FRANK PORTER on 11/15/21136 Citalopram Hydrobromide (Citalopram HBr) 20 Mg Tablet, (Reported) Entered as Reported by: JAMESON BARRON on 11/14/212232 Ondansetron (Ondansetron Odt) 4 Mg Tab.rapdis, 4 MG PO Q6H PRN for NAUSEA/VOMITING Prescribed by: FRANK PORTER on 11/15/21136 Ondansetron (Ondansetron Odt) 8 Mg Tab.rapdis, 8 MG PO Q6H PRN for NAUSEA/VOMITING Prescribed by: SYDNEE GUZMÁN on 01/13/222130 Review of Systems Review of Systems Constitutional: see HPI EENTM: No Symptoms Reported Respiratory: No Symptoms Reported Cardiovascular: No Symptoms Reported Gastrointestinal: See HPI, Abdominal Pain, Nausea, Vomiting Genitourinary: No Symptoms Reported Musculoskeletal: no symptoms reported Skin: no symptoms reported Psychiatric/Neurological: No Symptoms Reported, Emotional Problems Past Hyanzof-Tqupcs-Kvlezf Hx Patient Social History Tobacco Use?: No Use of E-Cig and/or Vaping dev: Yes E-Cig or Vaping type used: Nicotine Substance use?: No Alcohol Use?: No Immunizations Up To Date Tetanus Booster (TDap): More than 5yrs Influenza Vaccine Up-to-Date: Yes; Up-to-Date First/Initial COVID19 Vaccinat: 2020 Second COVID19 Vaccination James: 2020 Third COVID19 Vaccination Date: NONE COVID19 Vaccine Divider Operator: ESTHER Past Medical History Surgery/Hospitalization HX: ANXIETY, GERD, UTI, T/A Surgeries: Yes (WISDOM TEETH REMOVED) Adenoidectomy, Tonsillectomy Respiratory: Yes (PNEUMONIA 08/19/21) Cardiac: No Neurological: No Expected Date of Delivery: Jul 19, 2022 Sexually Transmitted Disease: No Genitourinary: Yes Kidney Infection, Kidney Stones Gastrointestinal: Yes (CANNABIS HYPEREMESIS SYNDROME) Musculoskeletal: No Endocrine: No HEENT: Yes (WISDOM TEETH REMOVED; S/P TONSILLECTOMY) Tonsilitis Cancer: No Psychosocial: Yes Anxiety Integumentary: No Blood Disorders: No Family Medical History Diabetes, Hypertension Physical Exam Vital Signs Vital Signs - First Documented 01/13/22 20:25 Temp 36.4 Pulse 104 Resp 22 B/P (MAP) 130/107 (115) Pulse Ox 98 O2 Delivery Room Air Capillary Refill : Less Than 3 Seconds Height/Weight/BMI Height: 5'8.00" Weight: 132lbs. oz. 59.479299qe; 22.00 BMI Method:Stated General Appearance: WD/WN, no apparent distress, thin, other (Laying in the position screaming into an emesis basin with no output with her fingers down her throat trying to gag herself.) Neck: non-tender, full range of motion Respiratory: no respiratory distress, no accessory muscle use Cardiovascular: regular rate, rhythm, no murmur Gastrointestinal: normal bowel sounds, soft Extremities: normal range of motion, non-tender Neurologic/Psychiatric: alert, normal mood/affect, oriented x 3 Skin: normal color, warm/dry Progress/Results/Core Measures Results/Orders Lab Results Laboratory Tests Test 01/13/22 20:30 01/13/22 21:40 Range/Units White Blood Count 16.2 H 4.3-11.0 10^3/uL Red Blood Count 4.39 3.80-5.11 10^6/uL Hemoglobin 12.5 11.5-16.0 g/dL Hematocrit 36 35-52 % Mean Corpuscular Volume 83 80-99 fL Mean Corpuscular Hemoglobin 29 25-34 pg Mean Corpuscular Hemoglobin Concent 34 32-36 g/dL Red Cell Distribution Width 14.7 H 10.0-14.5 % Platelet Count 345 130-400 10^3/uL Mean Platelet Volume 10.4 9.0-12.2 fL Immature Granulocyte % (Auto) 0 % Neutrophils (%) (Auto) 80 H 42-75 % Lymphocytes (%) (Auto) 13 12-44 % Monocytes (%) (Auto) 7 0-12 % Eosinophils (%) (Auto) 0 0-10 % Basophils (%) (Auto) 0 0-10 % Neutrophils # (Auto) 12.9 H 1.8-7.8 10^3/uL Lymphocytes # (Auto) 2.0 1.0-4.0 10^3/uL Monocytes # (Auto) 1.2 H 0.0-1.0 10^3/uL Eosinophils # (Auto) 0.0 0.0-0.3 10^3/uL Basophils # (Auto) 0.0 0.0-0.1 10^3/uL Immature Granulocyte # (Auto) 0.1 0.0-0.1 10^3/uL Neutrophils % (Manual) 78 % Lymphocytes % (Manual) 15 % Monocytes % (Manual) 5 % Reactive Lymphocytes 2 % Smudge Cells MOD Clumped Platelets SLIGHT Polychromasia SLIGHT Microcytosis SLIGHT Elliptocytes SLIGHT Sodium Level 137 135-145 MMOL/L Potassium Level 3.4 L 3.6-5.0 MMOL/L Chloride Level 105 98-107 MMOL/L Carbon Dioxide Level 17 L 21-32 MMOL/L Anion Gap 15 H 5-14 MMOL/L Blood Urea Nitrogen 13 7-18 MG/DL Creatinine 0.75 0.60-1.30 MG/DL Estimat Glomerular Filtration Rate 117 BUN/Creatinine Ratio 17 Glucose Level 109 H 70-105 MG/DL Calcium Level 9.5 8.5-10.1 MG/DL Corrected Calcium 9.3 8.5-10.1 MG/DL Total Bilirubin 1.0 0.1-1.0 MG/DL Aspartate Amino Transf (AST/SGOT) 14 5-34 U/L Alanine Aminotransferase (ALT/SGPT) 13 0-55 U/L Alkaline Phosphatase 60 40-136 U/L Total Protein 7.1 6.4-8.2 GM/DL Albumin 4.3 3.2-4.5 GM/DL Human Chorionic Gonadotropin, Quant 667293 H <5 MIU/ML Serum Test, Qualitative POSITIVE NEGATIVE Urine Color YELLOW Urine Clarity CLEAR Urine pH 6.0 5-9 Urine Specific [place] >=1.030 1.016-1.022 Urine Protein 1+ H NEGATIVE Urine Glucose (UA) NEGATIVE NEGATIVE Urine Ketones 2+ H NEGATIVE Urine Nitrite NEGATIVE NEGATIVE Urine Bilirubin NEGATIVE NEGATIVE Urine Urobilinogen 0.2 < = 1.0 MG/DL Urine Leukocyte Esterase 1+ H NEGATIVE Urine RBC (Auto) 3+ H NEGATIVE Urine RBC 10-25 H /HPF Urine WBC 5-10 H /HPF Urine Squamous Epithelial Cells 2-5 /HPF Urine Crystals NONE /LPF Urine Bacteria MODERATE H /HPF Urine Casts PRESENT /LPF Urine Hyaline Casts 2-5 H /LPF Urine Mucus MODERATE H /LPF Urine Culture Indicated YES Urine Opiates Screen NEGATIVE NEGATIVE Urine Oxycodone Screen NEGATIVE NEGATIVE Urine Methadone Screen NEGATIVE NEGATIVE Urine Propoxyphene Screen NEGATIVE NEGATIVE Urine Barbiturates Screen NEGATIVE NEGATIVE Ur Tricyclic Antidepressants Screen NEGATIVE NEGATIVE Urine Phencyclidine Screen NEGATIVE NEGATIVE Urine Amphetamines Screen NEGATIVE NEGATIVE Urine Methamphetamines Screen NEGATIVE NEGATIVE Urine Benzodiazepines Screen NEGATIVE NEGATIVE Urine Cocaine Screen NEGATIVE NEGATIVE Urine Cannabinoids Screen POSITIVE H NEGATIVE My Orders Orders - SYDNEE GUZMÁN [employer] Cbc With Automated Diff (01/13/22 20:34) Comprehensive Metabolic Panel (01/13/22 20:34) Ua Culture If Indicated (01/13/22 20:34) Drug Screen Stat (Urine) (01/13/22 20:34) Lactated Ringers (Lr 1000 Ml Iv Solution (01/13/22 20:45) Promethazine Injection (Phenergan Injec (01/13/22 20:45) Ondansetron Injection (Zofran Injectio (01/13/22 20:45) Hcg,Qualitative Serum (01/13/22 20:35) Manual Differential (01/13/22 20:30) Hcg,Quantitative (01/13/22 21:10) Lactated Ringers (Lr 1000 Ml Iv Solution (01/13/22 21:15) Urine Culture (01/13/22 21:40) Ceftriaxone 1 Gm Pre-Mix (Rocephin 1 Gm (01/13/22 22:00) Medications Given in ED Current Medications Medications Dose Ordered Sig/Lane Route Start Time Stop Time Status Last Admin Dose Admin Ceftriaxone Sodium/Dextrose 50 ml @ 100 mls/hr ONCE ONCE IV 01/13/22 22:00 01/13/22 22:29 01/13/22 22:08 100 MLS/HR Ondansetron HCl 8 mg ONCE ONCE IVP 01/13/22 20:45 01/13/22 20:46 DC 01/13/22 20:43 8 MG Promethazine HCl 25 mg ONCE ONCE IVP 01/13/22 20:45 01/13/22 20:46 DC 01/13/22 20:43 25 MG Vital Signs/I&O 01/13/22 20:25 Temp 36.4 Pulse 104 Resp 22 B/P (MAP) 130/107 (115) Pulse Ox 98 O2 Delivery Room Air Blood Pressure Mean: 115 Departure Impression Primary Impression: Nausea and vomiting in Additional Impressions: Cyclic vomiting syndrome Cannabinoid hyperemesis syndrome Disposition: 01 HOME, SELF-CARE Condition: Stable Departure-Patient Inst. Decision time for Depature: 21:30 Referrals: KRISTIN ANN MD (PCP/Family) Primary Care Physician Patient Instructions: Nausea and Vomiting, Adult (DC) Add. Discharge Instructions: 1. Return to ER for any concerns 2. take medications as directed 3 All discharge instructions reviewed with patient and/or family. Voiced understanding. Scripts Ondansetron (Ondansetron Odt) 8 Mg Tab.rapdis 8 MG PO Q6H PRN for NAUSEA/VOMITING, #10 TAB Prov: SYDNEE GUZMÁN APRN 01/13/22 SYDNEE GUZMÁN APRN Jan 13, 2022 20:46
[2022-01-13 20:58] LABS: ALBUMIN 4.3 GM/DL (3.2-4.5); CALCIUM 9.5 MG/DL (8.5-10.1); CREATININE SERUM 0.75 MG/DL (0.60-1.30); POTASSIUM 3.4 MMOL/L (3.6-5.0); TOTAL PROTEIN 7.1 GM/DL (6.4-8.2)
[2022-01-13 21:28] LABS: LYMPHOCYTES % (MANUAL) 15 %; MONOCYTES % (MANUAL) 5 %; NEUTROPHILS % (MANUAL) 78 %
[2022-01-13 21:29] LABS: ELLIPT/OVALOCYTES SLIGHT; MICROCYTOSIS SLIGHT; PLATELET CLUMPS SLIGHT; POLYCHROMASIA SLIGHT; REACTIVE LYMPHOCYTES 2 %
[2022-01-13] MEDS ORDERED: ONDA8TAB13 PO (21:31)
[2022-01-13 21:48] LABS: BILIRUBIN,URINE NEGATIVE (NEGATIVE); CLARITY,URINE CLEAR; COLOR,URINE YELLOW; GLUCOSE, URINE (UA) NEGATIVE (NEGATIVE); KETONES,URINE 2+ (NEGATIVE); LEUKOCYTE ESTERASE ,URINE 1+ (NEGATIVE); NITRITE,URINE NEGATIVE (NEGATIVE); PROTEIN,URINE 1+ (NEGATIVE)
[2022-01-13 21:57] LABS: BACTERIA,URINE MODERATE /HPF
[2022-01-13] MEDS ORDERED: cefTRIAXone 1 GM PRE-MIX 50 ML IV ONE (22:00)
[2022-01-13 22:05] LABS: AMPHETAMINE SCREEN, URINE NEGATIVE (NEGATIVE); BARBITURATE SCREEN URINE NEGATIVE (NEGATIVE); BENZODIAZEPINES SCREEN URINE NEGATIVE (NEGATIVE); CANNABINOID SCREEN, URINE POSITIVE (NEGATIVE); COCAINE SCREEN URINE NEGATIVE (NEGATIVE); METHADONE STAT NEGATIVE (NEGATIVE); METHAMPHETAMINE SCREEN URINE S NEGATIVE (NEGATIVE); OPIATE SCREEN URINE NEGATIVE (NEGATIVE); OXYCODONE STAT NEGATIVE (NEGATIVE); PROPOXYPHENE STAT NEGATIVE (NEGATIVE); TRICYCLIC ANTIDEPRESSANTS SCRE NEGATIVE (NEGATIVE)
[2022-01-13 22:30] VITALS: BP 116/74
[2022-01-14] MEDS ORDERED: PROM25TA14 PO (09:54)
== END 2022-01-13 22:30 | disposition home or self-care (01) ==
LOC: EDUNIT# 20:15 → ER 20:17
DX: O99.322 Drug use complicating pregnancy, second trimester (principal); F12.10 Cannabis abuse, uncomplicated; R11.15 Cyclical vomiting syndrome unrelated to migraine; Z3A.14 14 weeks gestation of pregnancy
CPT/HCPCS: 36415; 80053; 80306; 81000; 84702; 84703; 85007; 85027; 87088

== ENCOUNTER 2022-01-14 09:21 | Emergency (ER) | payer MEDICAID ==
[~2022-01-14] VITALS: Ht 175 cm; Wt 65.0 kg
[2022-01-14] MEDS ORDERED: D5 LR IV SOLUTION 1,000 ML IV STA ×2 (09:44)
[2022-01-14] MEDS ORDERED: PROMETHAZINE INJ 25 MG/ML (PHENERGAN) AMP IVP STA (09:44)
--- NOTE | 2022-01-14 09:53 | ED GI ---
General Chief Complaint: Abdominal/GI Problems Stated Complaint: WEAKNESS - VOMITING - ABD PAIN - 14 WK PREG Nursing Triage Note: ARRIVED VIA AMB TO ROOM 07 WITH COMPLAINTS OF UPPER MID ABD PAIN AND VOMITING. WAS SEEN HERE LAST NIGHT FOR THE SAME. WAS PRESCRIBED ZOFRAN BUT HAS NOT PICKED IT UP. PT STATES SHE DOES SMOKE POT BUT HAS NOT SMOKED IT FOR A COUPLE OF DAYS. ADIVSED PT THAT SHE NEEDS TO BUTTONHOLE MARKER HER MED AND NOT TO SMOKE POT. Source of Information: Patient Exam Limitations: No Limitations History of Present Illness Date Seen by Provider: Jan 14, 2022 Time Seen by Provider: 09:23 Initial Comments 21-year-old female roughly 14 weeks coming in due to consistent nonbloody nonbilious vomiting. This particular episode has been going on for roughly 3 days. She was seen in the emergency department here last night. She had labs done which were mostly unremarkable other than potentially a mild UTI for which she received IV ceftriaxone. She had Zofran sent to her pharmacy, but she says since it was later in the night, and its been early in the morning now, she has not filled the prescription yet. She says regarding this , she is having no vaginal bleeding, no cramps or contractions, baby is too little to be feeling movements at this time. She has had normal care thus far and a normal ultrasound confirming intrauterine . She says she has had intermittent abdominal pain, but no abdominal pain current ly. She has been seen in our emergency department numerous times for nausea and vomiting with cyclical vomiting. She does have a presumed diagnosis of cannabis hyperemesis with her last use around 2 days ago. She had a positive UDS with cannabis yesterday. Allergies and Home Medications Allergies Coded Allergies: Penicillins (Verified Allergy, Unknown, Hives/Rash, 08/21/21) morphine (Verified Allergy, Unknown, 01/14/22) Patient Home Medication List Home Medication List Reviewed: Yes Cephalexin (Cephalexin) 500 Mg Tablet, 500 MG PO BID Prescribed by: FRANK PORTER on 11/15/21 0137 Citalopram Hydrobromide (Citalopram HBr) 20 Mg Tablet, (Reported) Entered as Reported by: JAMESON BARRON on 11/14/21 871 Ondansetron (Ondansetron Odt) 4 Mg Tab.rapdis, 4 MG PO Q6H PRN for NAUSEA/VOMITING Prescribed by: FRANK PORTER on 11/15/21 0137 Ondansetron (Ondansetron Odt) 8 Mg Tab.rapdis, 8 MG PO Q6H PRN for NAUSEA/VOMITING Prescribed by: SYDNEE GUZMÁN on 01/13/22 213 Promethazine HCl (Promethazine Tablet) 25 Mg Tablet, 25 MG PO Q6H PRN for NAUSEA/VOMITING-2ND LINE Prescribed by: TOREY MUNOZ on 01/14/22 0954 Review of Systems Review of Systems Constitutional: No chills, No fever EENTM: No Blurred Vision Respiratory: Denies Cough Cardiovascular: Denies Chest Pain Gastrointestinal: Denies Abdominal Pain, Denies Diarrhea; Nausea, Vomiting Genitourinary: Denies Burning Musculoskeletal: no symptoms reported Skin: no symptoms reported Psychiatric/Neurological: No Symptoms Reported Endocrine: No Symptoms Reported Hematologic/Lymphatic: No Symptoms Reported All Other Systems Reviewed Negative Unless Noted: Yes Past Zlaxwfz-Qeuybh-Jlgpsq Hx Patient Social History Smoking Status: Current Everyday Smoker Substance use?: Yes Substance type: Marijuana Alcohol Use?: No Immunizations Up To Date Tetanus Booster (TDap): More than 5yrs First/Initial COVID19 Vaccinat: 2020 Second COVID19 Vaccination James: UNKNOWN DATE Third COVID19 Vaccination Date: NONE 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: [employer] Past Medical History Surgery/Hospitalization HX: ANXIETY, GERD, UTI, T/A Surgeries: Yes (WISDOM TEETH REMOVED) Adenoidectomy, Tonsillectomy Respiratory: Yes (PNEUMONIA 08/19/21) Cardiac: No Neurological: No Sexually Transmitted Disease: No Genitourinary: Yes Kidney Infection, Kidney Stones Gastrointestinal: Yes (CANNABIS HYPEREMESIS SYNDROME) Musculoskeletal: No Endocrine: No HEENT: Yes (WISDOM TEETH REMOVED; S/P TONSILLECTOMY) Tonsilitis Cancer: No Psychosocial: Yes Anxiety Integumentary: No Blood Disorders: No Family Medical History Diabetes, Hypertension Physical Exam Vital Signs Vital Signs - First Documented 01/14/22 09:29 Temp 36.3 Pulse 74 Resp 16 B/P (MAP) 112/80 (91) Pulse Ox 97 O2 Delivery Room Air Capillary Refill : Less Than 3 Seconds Height/Weight/BMI Height: 5'8.00" Weight: 132lbs. oz. [id number]; 21.00 BMI Method:Stated General Appearance: WD/WN, no apparent distress HEENT: PERRL/EOMI, normal ENT inspection, pharynx normal Neck: non-tender, full range of motion, supple, normal inspection Respiratory: chest non-tender, lungs clear, normal breath sounds, no respiratory distress, no accessory muscle use Cardiovascular: regular rate, rhythm, no edema, no murmur Gastrointestinal: normal bowel sounds, non tender, soft; No distended, No guarding, No rebound Extremities: normal range of motion, non-tender, normal inspection, no pedal edema, no calf tenderness, normal capillary refill Back: normal inspection, no CVA tenderness, no vertebral tenderness Neurologic/Psychiatric: no motor/sensory deficits, alert, normal mood/affect Skin: normal color, warm/dry Lymphatic: no adenopathy Progress/Results/Core Measures Results/Orders Lab Results Laboratory Tests Test 01/14/22 09:50 Range/Units Sodium Level 137 135-145 MMOL/L Potassium Level 3.3 L 3.6-5.0 MMOL/L Chloride Level 105 98-107 MMOL/L Carbon Dioxide Level 19 L 21-32 MMOL/L Anion Gap 13 5-14 MMOL/L Blood Urea Nitrogen 11 7-18 MG/DL Creatinine 0.72 0.60-1.30 MG/DL Estimat Glomerular Filtration Rate 123 BUN/Creatinine Ratio 15 Glucose Level 92 70-105 MG/DL Calcium Level 8.9 8.5-10.1 MG/DL Corrected Calcium 9.1 8.5-10.1 MG/DL Total Bilirubin 0.8 0.1-1.0 MG/DL Aspartate Amino Transf (AST/SGOT) 13 5-34 U/L Alanine Aminotransferase (ALT/SGPT) 12 0-55 U/L Alkaline Phosphatase 48 40-136 U/L Total Protein 6.0 L 6.4-8.2 GM/DL Albumin 3.7 3.2-4.5 GM/DL My Orders Orders - TOREY MUNOZ MD Comprehensive Metabolic Panel (01/14/22 09:44) D5 Lr Iv Solution (Dextrose 5%/Lactated (01/14/22 09:44) D5 Lr Iv Solution (Dextrose 5%/Lactated (01/14/22 09:44) Promethazine Injection (Phenergan Injec (01/14/22 09:44) Potassium Chloride (Tablet) (K Dur Table (01/14/22 10:00) Promethazine Injection (Phenergan Injec (01/14/22 11:15) Medications Given in ED Current Medications Medications Dose Ordered Sig/Lane Route Start Time Stop Time Status Last Admin Dose Admin Potassium Chloride 20 meq ONCE ONCE PO 01/14/22 10:00 01/14/22 10:01 DC 01/14/22 11:00 20 MEQ Promethazine HCl 12.5 mg ONCE ONCE IVP 01/14/22 11:15 01/14/22 11:16 01/14/22 11:13 12.5 MG Vital Signs/I&O 01/14/22 09:29 Temp 36.3 Pulse 74 Resp 16 B/P (MAP) 112/80 (91) Pulse Ox 97 O2 Delivery Room Air Blood Pressure Mean: 91 Progress Progress Note : Progress Note 21-year-old female with above history coming in due to consistent nausea and vomiting while being 14 weeks . ABCs were intact and vitals were stable on presentation. Physical exam reassuring, and specifically she has a nontender abdomen. I did a [id number] ultrasound and heart rate was around 150. She has no signs of miscarriage such as vaginal bleeding. She has no signs of UTI such as urinary frequency or dysuria. On review of labs yesterday, she did have ketones in her urine, so we will give her D5 LR 2 L via IV fluids to help her with her consistent vomiting. Her potassium was low normal yesterday so we will also replace her with oral potassium. She was given IV Phenergan for nausea. She was feeling better after the Phenergan and IV fluids. I believe she is stable for discharge with outpatient follow-up. She has not had any episodes of vomiting while in the emergency department. Departure Impression Primary Impression: Hyperemesis gravidarum Disposition: 01 HOME, SELF-CARE Condition: Stable Departure-Patient Inst. Decision time for Depature: 11:09 Referrals: KRISTIN ANN MD (PCP/Family) Primary Care Physician Patient Instructions: Hyperemesis Gravidarum (DC) Add. Discharge Instructions: You were seen in the emergency department for vomiting while . What I recommend doing is taking frequent small sips of fluids. Even if you are consistently vomiting a lot of these fluids will continue to pass and get absorbed. I recommend things with electrolytes and sugar such as Gatorade or body armor drinks. Please call your OB if things are not improving as there are other medicines that can add you on. Take the Zofran first-line if you are having nausea, and you can take the Phenergan second line if it is not improving. Scripts Promethazine HCl (Promethazine Tablet) 25 Mg Tablet 25 MG PO Q6H PRN for NAUSEA/VOMITING-2ND LINE for 5 Days, #20 TAB Prov: TOREY MUNOZ MD 01/14/22 TOREY MUNOZ MD Jan 14, 2022 09:53
[2022-01-14] MEDS ORDERED: PROM25TA14 PO (09:54)
[2022-01-14] MEDS ORDERED: KCL 20 MEQ TAB (K-DUR) PO ONE (10:00)
[2022-01-14 10:34] LABS: POTASSIUM 3.3 MMOL/L (3.6-5.0)
[2022-01-14 10:35] LABS: CALCIUM 8.9 MG/DL (8.5-10.1)
[2022-01-14 10:43] LABS: BILIRUBIN,TOTAL 0.8 MG/DL (0.1-1.0)
[2022-01-14 10:53] LABS: ALBUMIN 3.7 GM/DL (3.2-4.5); CREATININE SERUM 0.72 MG/DL (0.60-1.30)
[2022-01-14] MEDS ORDERED: PROMETHAZINE INJ 25 MG/ML (PHENERGAN) AMP IVP ONE (11:15)
[2022-01-14 11:16] VITALS: BP 135/77
== END 2022-01-14 11:16 | disposition home or self-care (01) ==
LOC: EDUNIT# 09:21 → ER 09:22
DX: O21.0 Mild hyperemesis gravidarum (principal); F17.290 Nicotine dependence, other tobacco product, uncomplicated; Z3A.00 Weeks of gestation of pregnancy not specified
CPT/HCPCS: 36415; 80053

== ENCOUNTER 2022-01-30 12:30 | Emergency (ER) | payer MEDICAID ==
[~2022-01-30] VITALS: Ht 175 cm; Wt 64.0 kg
[2022-01-30 12:40] VITALS: BP 117/82
[2022-01-30 12:59] LABS: BASOPHILS % (AUTO) 0 % (0-10); EOSINOPHILS % (AUTO) 0 % (0-10); HEMATOCRIT 35 % (35-52); HEMOGLOBIN 11.8 g/dL (11.5-16.0); LYMPHOCYTES # (AUTO) 0.6 10^3/uL (1.0-4.0); LYMPHOCYTES % (AUTO) 5 % (12-44); MEAN CORPUSCULAR HEMOGLOBIN 29 pg (25-34); MEAN CORPUSCULAR HGB CONC 34 g/dL (32-36); MEAN CORPUSCULAR VOLUME 86 fL (80-99); MEAN PLATELET VOLUME 10.1 fL (9.0-12.2); MONOCYTES # (AUTO) 0.3 10^3/uL (0.0-1.0); MONOCYTES % (AUTO) 2 % (0-12); NEUTROPHILS # (AUTO) 10.3 10^3/uL (1.8-7.8); NEUTROPHILS % (AUTO) 92 % (42-75); PLATELET COUNT 273 10^3/uL (130-400); WHITE BLOOD COUNT 11.2 10^3/uL (4.3-11.0)
[2022-01-30] MEDS ORDERED: LACTATED RINGERS 1,000 ML IV ONE (13:00)
[2022-01-30] MEDS ORDERED: ONDANSETRON 4 MG/2 ML (SDV) Z0FRAN IVP ONE (13:00)
--- NOTE | 2022-01-30 13:03 | ED GI ---
General Stated Complaint: 15WKS PREG /DIZZY /LIGHT HEAD /ABD PAIN - VOMITING Source of Information: Patient Exam Limitations: No Limitations History of Present Illness Date Seen by Provider: Jan 30, 2022 Time Seen by Provider: 12:34 Initial Comments Patient presents the ER by private conveyance with chief complaint of a day and a half progressively worsening nausea vomiting and intolerance to Phenergan and Zofran this morning. She says she puked both pills back up. She has a history of cyclical vomiting syndrome with concomitant use of cannabis up until a few weeks ago. She is also [address] Ann has had an ultrasound revealing a few cysts on the placenta but no other significant issues with her . She does not feel like she is dehydrated yet and is only having some mild to moderate epigastric pain but wants to get control of her symptoms before she gets as bad as she was last time. She does still vaporize nicotine products. Allergies and Home Medications Allergies Coded Allergies: Penicillins (Verified Allergy, Unknown, Hives/Rash, 08/21/21) latex (Verified Allergy, Unknown, 01/30/22) morphine (Verified Allergy, Unknown, 01/14/22) Patient Home Medication List Home Medication List Reviewed: Yes Cephalexin (Cephalexin) 500 Mg Tablet, 500 MG PO BID Prescribed by: FRANK PORTER on 11/15/21136 Citalopram Hydrobromide (Citalopram HBr) 20 Mg Tablet, (Reported) Entered as Reported by: JAMESON BARRON on 11/14/212232 Ondansetron (Ondansetron Odt) 4 Mg Tab.rapdis, 4 MG PO Q6H PRN for NAUSEA/VOMITING Prescribed by: FRANK PORTER on 11/15/21136 Ondansetron (Ondansetron Odt) 8 Mg Tab.rapdis, 8 MG PO Q6H PRN for NAUS EA/VOMITING Prescribed by: SYDNEE GUZMÁN on 01/13/222130 Promethazine HCl (Promethazine Tablet) 25 Mg Tablet, 25 MG PO Q6H PRN for NAUSEA/VOMITING-2ND LINE Prescribed by: TOREY MUNOZ on 01/14/22 0954 Review of Systems Review of Systems Constitutional: No chills, No diaphoresis EENTM: No Blurred Vision, No Double Vision Respiratory: Denies Cough, Denies Shortness of Air Cardiovascular: Denies Lightheadedness Gastrointestinal: See HPI, Abdominal Pain, Constipated; Denies Diarrhea; Nausea, Poor Fluid Intake, Vomiting Genitourinary: Denies Burning, Denies Discharge Musculoskeletal: No back pain, No joint pain All Other Systems Reviewed Negative Unless Noted: Yes Past Iungvcq-Urjzsp-Dzmwxq Hx Patient Social History Tobacco Use?: No Use of E-Cig and/or Vaping dev: No Substance use?: No Immunizations Up To Date Tetanus Booster (TDap): More than 5yrs First/Initial COVID19 Vaccinat: 2020 Second COVID19 Vaccination James: UNKNOWN DATE Third COVID19 Vaccination Date: NONE Past Medical History Surgery/Hospitalization HX: ANXIETY, GERD, UTI, T/A Surgeries: Yes (WISDOM TEETH REMOVED) Adenoidectomy, Tonsillectomy Respiratory: Yes (PNEUMONIA 08/19/21) Cardiac: No Neurological: No Sexually Transmitted Disease: No Genitourinary: Yes Kidney Infection, Kidney Stones Gastrointestinal: Yes (CANNABIS HYPEREMESIS SYNDROME) Musculoskeletal: No Endocrine: No HEENT: Yes (WISDOM TEETH REMOVED; S/P TONSILLECTOMY) Tonsilitis Cancer: No Psychosocial: Yes Anxiety Integumentary: No Blood Disorders: No Family Medical History Diabetes, Hypertension Physical Exam Vital Signs Vital Signs - First Documented 01/30/22 12:40 Temp 36.3 Pulse 94 Resp 16 B/P (MAP) 117/82 (94) Pulse Ox 95 O2 Delivery Room Air Capillary Refill : Height/Weight/BMI Height: 5'8.00" Weight: 132lbs. oz. 59.316504mj; 21.00 BMI Method:Stated General Appearance: WD/WN, no apparent distress HEENT: PERRL/EOMI, pharynx normal Neck: full range of motion, supple, normal inspection Respiratory: lungs clear, normal breath sounds, no respiratory distress, no accessory muscle use Cardiovascular: normal peripheral pulses, regular rate, rhythm Peripheral Pulses: 2+ Radial Pulses (R), 2+ Radial Pulses (L) Gastrointestinal: normal bowel sounds, soft, tenderness (Mild epigastric) Extremities: normal range of motion, non-tender, normal capillary refill Neurologic/Psychiatric: alert, normal mood/affect, oriented x 3 Skin: normal color, warm/dry Progress/Results/Core Measures Results/Orders Lab Results Laboratory Tests Test 01/30/22 12:53 Range/Units White Blood Count 11.2 H 4.3-11.0 10^3/uL Red Blood Count 4.09 3.80-5.11 10^6/uL Hemoglobin 11.8 11.5-16.0 g/dL Hematocrit 35 35-52 % Mean Corpuscular Volume 86 80-99 fL Mean Corpuscular Hemoglobin 29 25-34 pg Mean Corpuscular Hemoglobin Concent 34 32-36 g/dL Red Cell Distribution Width 14.7 H 10.0-14.5 % Platelet Count 273 130-400 10^3/uL Mean Platelet Volume 10.1 9.0-12.2 fL Immature Granulocyte % (Auto) 0 % Neutrophils (%) (Auto) 92 H 42-75 % Lymphocytes (%) (Auto) 5 L 12-44 % Monocytes (%) (Auto) 2 0-12 % Eosinophils (%) (Auto) 0 0-10 % Basophils (%) (Auto) 0 0-10 % Neutrophils # (Auto) 10.3 H 1.8-7.8 10^3/uL Lymphocytes # (Auto) 0.6 L 1.0-4.0 10^3/uL Monocytes # (Auto) 0.3 0.0-1.0 10^3/uL Eosinophils # (Auto) 0.0 0.0-0.3 10^3/uL Basophils # (Auto) 0.0 0.0-0.1 10^3/uL Immature Granulocyte # (Auto) 0.0 0.0-0.1 10^3/uL Neutrophils % (Manual) 86 % Lymphocytes % (Manual) 10 % Monocytes % (Manual) 3 % Band Neutrophils 1 % Anisocytosis SLIGHT Sodium Level 138 135-145 MMOL/L Potassium Level 3.5 L 3.6-5.0 MMOL/L Chloride Level 107 98-107 MMOL/L Carbon Dioxide Level 20 L 21-32 MMOL/L Anion Gap 11 5-14 MMOL/L Blood Urea Nitrogen 5 L 7-18 MG/DL Creatinine 0.64 0.60-1.30 MG/DL Estimat Glomerular Filtration Rate 130 BUN/Creatinine Ratio 8 Glucose Level 100 70-105 MG/DL Calcium Level 8.8 8.5-10.1 MG/DL Corrected Calcium 9.0 8.5-10.1 MG/DL Total Bilirubin 0.5 0.1-1.0 MG/DL Aspartate Amino Transf (AST/SGOT) 11 5-34 U/L Alanine Aminotransferase (ALT/SGPT) 10 0-55 U/L Alkaline Phosphatase 48 40-136 U/L C-Reactive Protein High Sensitivity 0.24 0.00-0.50 MG/DL Total Protein 6.2 L 6.4-8.2 GM/DL Albumin 3.8 3.2-4.5 GM/DL Serum Test, Qualitative POSITIVE NEGATIVE My Orders Orders - FRANK PORTER Ed Iv/Invasive Line Start (01/30/22 12:50) Lactated Ringers (Lr 1000 Ml Iv Solution (01/30/22 13:00) Hcg,Qualitative Serum (01/30/22 12:50) Cbc With Automated Diff (01/30/22 12:50) Comprehensive Metabolic Panel (01/30/22 12:50) Hs C Reactive Protein (01/30/22 12:50) Ondansetron Injection (Zofran Injectio (01/30/22 13:00) Manual Differential (01/30/22 12:53) Promethazine Injection (Phenergan Injec (01/30/22 13:45) Diphenhydramine Injection (Benadryl Inje (01/30/22 13:45) Medications Given in ED Current Medications Medications Dose Ordered Sig/Lane Route Start Time Stop Time Status Last Admin Dose Admin Diphenhydramine HCl 25 mg ONCE ONCE IVP 01/30/22 13:45 01/30/22 13:46 DC 01/30/22 13:50 25 MG Lactated Ringer's 1,000 ml @ 0 mls/hr Q0M ONCE IV 01/30/22 13:00 01/30/22 13:01 DC 01/30/22 13:06 1,000 MLS/HR Ondansetron HCl 8 mg ONCE ONCE IVP 01/30/22 13:00 01/30/22 13:01 DC 01/30/22 13:06 8 MG Promethazine HCl 25 mg ONCE ONCE IVP 01/30/22 13:45 01/30/22 13:46 DC 01/30/22 13:51 25 MG Vital Signs/I&O 01/30/22 12:40 Temp 36.3 Pulse 94 Resp 16 B/P (MAP) 117/82 (94) Pulse Ox 95 O2 Delivery Room Air Progress Progress Note #1: Time: 12:59 Progress Note Give her 8 of Zofran check some basic labs electrolytes and give her a liter of fluids. We will probably use Phenergan for second line if we need to. If this does not work we can try Benadryl and consider droperidol. Progress Note #2: Time: 13:51 Progress Note Patient is not retching, is still on her phone but still says she feels nauseated and would like something else so 25 mg of Phenergan and 25 mg of Benadryl IV have been ordered. She is finishing her IV fluid bolus. Progress Note #3: Time: 14:52 Progress Note Patient is feeling better and ready to go home. She has plenty of medicine at home. 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 Departure Impression Primary Impression: Hyperemesis gravidarum Disposition: 01 HOME, SELF-CARE Condition: Stable Departure-Patient Inst. Decision time for Depature: 14:53 Referrals: KRISTIN ANN MD (PCP/Family) Primary Care Physician Patient Instructions: Hyperemesis Gravidarum (DC) Add. Discharge Instructions: Follow-up with your rotoformer backtender. Return to the ER for significantly worsening symptoms. FRANK PORTER Jan 30, 2022 13:03
[2022-01-30 13:13] LABS: ALBUMIN 3.8 GM/DL (3.2-4.5); POTASSIUM 3.5 MMOL/L (3.6-5.0)
[2022-01-30 13:14] LABS: CALCIUM 8.8 MG/DL (8.5-10.1)
[2022-01-30 13:16] LABS: TOTAL PROTEIN 6.2 GM/DL (6.4-8.2)
[2022-01-30 13:17] LABS: BILIRUBIN,TOTAL 0.5 MG/DL (0.1-1.0)
[2022-01-30 13:19] LABS: CREATININE SERUM 0.64 MG/DL (0.60-1.30)
[2022-01-30 13:24] LABS: ANISOCYTOSIS SLIGHT; BAND NEUTROPHILS 1 %; LYMPHOCYTES % (MANUAL) 10 %; MONOCYTES % (MANUAL) 3 %; NEUTROPHILS % (MANUAL) 86 %
[2022-01-30] MEDS ORDERED: diphenhydrAMINE 50 MG/ML INJ (BENADRYL) IVP ONE (13:45)
[2022-01-30] MEDS ORDERED: PROMETHAZINE INJ 25 MG/ML (PHENERGAN) AMP IVP ONE (13:45)
== END 2022-01-30 14:56 | disposition home or self-care (01) ==
LOC: EDUNIT# 12:30 → ER 12:31
DX: O21.0 Mild hyperemesis gravidarum (principal); Z91.040 Latex allergy status; Z3A.15 15 weeks gestation of pregnancy
CPT/HCPCS: 36415; 80053; 84703; 85007; 85027; 86141

== ENCOUNTER 2022-02-01 06:43 | Observation (INO) | payer MEDICAID ==
[~2022-02-01] VITALS: Ht 175 cm; Wt 64.3 kg
[2022-02-01] MEDS ORDERED: PROMETHAZINE INJ 25 MG/ML (PHENERGAN) AMP IVP ONE (07:30)
[2022-02-01] MEDS ORDERED: LACTATED RINGERS 1,000 ML IV ONE (07:30)
[2022-02-01] MEDS ORDERED: FAMOTIDINE 20MG/2ML IV (PEPCID) IVP ONE (07:30)
--- NOTE | 2022-02-01 07:35 | ED General ---
General Chief Complaint: Psych/Social Disorder Stated Complaint: ANXIETY ATTACK,15 WKS PREG Nursing Triage Note: pt is 15 weeks , has hx of anxiety and feels like she is having an anxiety attack. has been vomiting, 4 x's since 0500. states she quit taking her medication for a few days but is back on it now Source of Information: Patient (SNEHA NIETO MED STUDENT) History of Present Illness Date Seen by Provider: Feb 01, 2022 Time Seen by Provider: 07:15 Initial Comments Mrs. Rider is a 21yo female with PMH anxiety and marijuana use who is also 15 weeks presents to ER today due to Anxiety, nausea/vomiting, and abdominal pain. States that this episode is similar to other recent episodes of her anxiety attacks. She has some epigastric pain. She has nausea medicine at home and has not tried any. States that what changed for her to come in is that she didn't feel well and was concerned that she has a "static feeling" wants to take the anxiety away. She does not take antacids. She has had U/S with this . She states she is reliant on marijuana for both pain and anxiety, she will be seeing [facility] at [facility] to try to get help with cessation. She recently restarted taking celexa. Last marijuana use was 4 days ago. (SNEHA NIETO MED STUDENT) Initial Comments Patient reports of being on Celexa which she stopped for several days recently. She had some cystic abnormalities on her ultrasound and was concerned that they were secondary to Celexa use. She has now been back on Celexa for the past 3 days. She reports Phenergan has worked well for her nausea in the past, yet she did not take any Phenergan at home this morning when the symptoms started. She continues to smoke marijuana despite acknowledging that this is a major problem for her and a likely trigger for her hyperemesis. She does have an appointment scheduled with Karen Veras for therapy on March 08. I have suggested trying hydroxyzine for anxiety which patient declines stating "it makes me anxious to try all these medications". heart tones were in the 150s by Doppler. Patient reports living in a safe stable environment with a supportive significant other. She denies any abuse. (APOLONIA BERG MD) Allergies and Home Medications Allergies Coded Allergies: Penicillins (Verified Allergy, Unknown, Hives/Rash, 08/21/21) latex (Verified Allergy, Unknown, 01/30/22) morphine (Verified Allergy, Unknown, 01/14/22) Patient Home Medication List Home Medication List Reviewed: Yes (APOLONIA BERG MD) Cephalexin (Cephalexin) 500 Mg Tablet, 500 MG PO BID Prescribed by: FRANK PORTER on 11/15/21 013 Citalopram Hydrobromide (Citalopram HBr) 20 Mg Tablet, (Reported) Entered as Reported by: JAMESON BARRON on 11/14/212232 Ondansetron (Ondansetron Odt) 4 Mg Tab.rapdis, 4 MG PO Q6H PRN for NAUSEA/VOMITING Prescribed by: FRANK PORTER on 11/15/21136 Ondansetron (Ondansetron Odt) 8 Mg Tab.rapdis, 8 MG PO Q6H PRN for NAUSEA/VOMITING Prescribed by: SYDNEE GUZMÁN on 01/13/22 213 Promethazine HCl (Promethazine Tablet) 25 Mg Tablet, 25 MG PO Q6H PRN for NAUSEA/VOMITING-2ND LINE Prescribed by: TOREY MUNOZ on 01/14/22 0954 Review of Systems Review of Systems Constitutional: No chills, No fever EENTM: No hearing loss, No vision loss Respiratory: No cough, No short of breath Cardiovascular: No chest pain, No palpitations Gastrointestinal: abdominal pain (epigastric); No constipation, No diarrhea; nausea, vomiting Genitourinary: No dysuria, No hematuria : Yes Musculoskeletal: No back pain, No joint pain Skin: No lesions, No rash Psychiatric/Neurological: Anxiety, Headache, Other (Panic) (SNEHA NIETO MED STUDENT) Past Nlqcycv-Odjnnb-Nuexnu Hx Patient Social History Substance use?: Yes Substance type: Marijuana Substance frequency: Couple times a week (APOLONIA BERG MD) Immunizations Up To Date Tetanus Booster (TDap): More than 5yrs First/Initial COVID19 Vaccinat: 2020 Second COVID19 Vaccination James: UNKNOWN DATE Third COVID19 Vaccination Date: NONE (SNEHA NIETO MED STUDENT) Past Medical History Surgery/Hospitalization HX: ANXIETY, GERD, UTI, T/A Surgeries: Yes (WISDOM TEETH REMOVED) Adenoidectomy, Tonsillectomy Respiratory: Yes (PNEUMONIA 08/19/21) Cardiac: No Neurological: No Sexually Transmitted Disease: No Genitourinary: Yes Kidney Infection, Kidney Stones Gastrointestinal: Yes (CANNABIS HYPEREMESIS SYNDROME) Musculoskeletal: No Endocrine: No HEENT: Yes (WISDOM TEETH REMOVED; S/P TONSILLECTOMY) Tonsilitis Cancer: No Psychosocial: Yes Anxiety Integumentary: No Blood Disorders: No (SNEHA NIETO) Family Medical History Reviewed and Corrections made (APOLONIA EBRG MD) Diabetes, Hypertension (SNEHA NIETO) Psychiatric Problems (Parents have mental health and addiction issues) (APOLONIA BERG MD) Physical Exam Vital Signs Vital Signs - First Documented 02/01/22 07:11 Temp 36.7 Pulse 90 Resp 18 B/P (MAP) 126/75 (92) Pulse Ox 100 O2 Delivery Room Air (APOLONIA BERG MD) Vital Signs Capillary Refill : Less Than 3 Seconds (SNEHA NIETO) Height, Weight, BMI Height: 5'8.00" Weight: 132lbs. oz. [id number]; 21.00 BMI Method:Stated (SNEHA NIETO) General Appearance: WD/WN, Anxious, Thin HEENT: PERRL/EOMI, Normal ENT Inspection Neck: Normal Inspection Respiratory: Lungs Clear, Normal Breath Sounds, No Accessory Muscle Use Cardiovascular: Regular Rate, Rhythm, No Edema, No Murmur Gastrointestinal: Soft; No Distended; Tenderness (Epigastrium), Other ( heart tones 150s by Doppler) Extremity: Normal Inspection, No Pedal Edema Neurologic/Psychiatric: Alert, Oriented x3, No Motor/Sensory Deficits, card sorter II- XII Norm as Tested, Other (Anxious) Skin: Normal Color, Warm/Dry (APOLONIA BERG MD) Progress/Results/Core Measures Suspected Sepsis SIRS Temperature: Pulse: 90 Respiratory Rate: 18 Blood Pressure 126 /75 Mean: 92 (SNEHA NIETO) SIRS Laboratory Tests 02/01/22 07:50: White Blood Count 12.4H Laboratory Tests 02/01/22 07:50: Creatinine 0.65, Platelet Count 269, Total Bilirubin 0.4 (APOLONIA BERG MD) Results/Orders Lab Results Laboratory Tests Test 02/01/22 07:50 02/01/22 08:05 Range/Units White Blood Count 12.4 H 4.3-11.0 10^3/uL Red Blood Count 4.01 3.80-5.11 10^6/uL Hemoglobin 11.7 11.5-16.0 g/dL Hematocrit 35 35-52 % Mean Corpuscular Volume 87 80-99 fL Mean Corpuscular Hemoglobin 29 25-34 pg Mean Corpuscular Hemoglobin Concent 34 32-36 g/dL Red Cell Distribution Width 14.7 H 10.0-14.5 % Platelet Count 269 130-400 10^3/uL Mean Platelet Volume 9.9 9.0-12.2 fL Immature Granulocyte % (Auto) 0 % Neutrophils (%) (Auto) 81 H 42-75 % Lymphocytes (%) (Auto) 13 12-44 % Monocytes (%) (Auto) 5 0-12 % Eosinophils (%) (Auto) 0 0-10 % Basophils (%) (Auto) 0 0-10 % Neutrophils # (Auto) 10.1 H 1.8-7.8 10^3/uL Lymphocytes # (Auto) 1.6 1.0-4.0 10^3/uL Monocytes # (Auto) 0.6 0.0-1.0 10^3/uL Eosinophils # (Auto) 0.0 0.0-0.3 10^3/uL Basophils # (Auto) 0.0 0.0-0.1 10^3/uL Immature Granulocyte # (Auto) 0.0 0.0-0.1 10^3/uL Sodium Level 137 135-145 MMOL/L Potassium Level 3.4 L 3.6-5.0 MMOL/L Chloride Level 105 98-107 MMOL/L Carbon Dioxide Level 19 L 21-32 MMOL/L Anion Gap 13 5-14 MMOL/L Blood Urea Nitrogen 8 7-18 MG/DL Creatinine 0.65 0.60-1.30 MG/DL Estimat Glomerular Filtration Rate 129 BUN/Creatinine Ratio 12 Glucose Level 101 70-105 MG/DL Calcium Level 8.7 8.5-10.1 MG/DL Corrected Calcium 8.8 8.5-10.1 MG/DL Magnesium Level 1.7 1.6-2.4 MG/DL Total Bilirubin 0.4 0.1-1.0 MG/DL Aspartate Amino Transf (AST/SGOT) 10 5-34 U/L Alanine Aminotransferase (ALT/SGPT) 10 0-55 U/L Alkaline Phosphatase 53 40-136 U/L Total Protein 6.3 L 6.4-8.2 GM/DL Albumin 3.9 3.2-4.5 GM/DL Lipase 9 8-78 U/L Urine Color YELLOW Urine Clarity CLEAR Urine pH 6.0 5-9 Urine Specific [place] 1.020 1.016-1.022 Urine Protein NEGATIVE NEGATIVE Urine Glucose (UA) NEGATIVE NEGATIVE Urine Ketones NEGATIVE NEGATIVE Urine Nitrite NEGATIVE NEGATIVE Urine Bilirubin NEGATIVE NEGATIVE Urine Urobilinogen 0.2 < = 1.0 MG/DL Urine Leukocyte Esterase 2+ H NEGATIVE Urine RBC (Auto) TRACE-I H NEGATIVE Urine RBC RARE /HPF Urine WBC 10-25 H /HPF Urine Squamous Epithelial Cells 2-5 /HPF Urine Crystals NONE /LPF Urine Bacteria TRACE /HPF Urine Casts NONE /LPF Urine Mucus NEGATIVE /LPF Urine Culture Indicated YES Urine Opiates Screen NEGATIVE NEGATIVE Urine Oxycodone Screen NEGATIVE NEGATIVE Urine Methadone Screen NEGATIVE NEGATIVE Urine Propoxyphene Screen NEGATIVE NEGATIVE Urine Barbiturates Screen NEGATIVE NEGATIVE Ur Tricyclic Antidepressants Screen NEGATIVE NEGATIVE Urine Phencyclidine Screen NEGATIVE NEGATIVE Urine Amphetamines Screen NEGATIVE NEGATIVE Urine Methamphetamines Screen NEGATIVE NEGATIVE Urine Benzodiazepines Screen NEGATIVE NEGATIVE Urine Cocaine Screen NEGATIVE NEGATIVE Urine Cannabinoids Screen POSITIVE H NEGATIVE (APOLONIA BERG MD) My Orders Orders - APOLONIA BERG MD Drug Screen Stat (Urine) (02/01/22 06:54) Cbc With Automated Diff (02/01/22 07:25) Comprehensive Metabolic Panel (02/01/22 07:25) Lipase (02/01/22 07:25) Ua Culture If Indicated (02/01/22 07:25) Ed Iv/Invasive Line Start (02/01/22 07:25) Lactated Ringers (Lr 1000 Ml Iv Solution (02/01/22 07:30) Promethazine Injection (Phenergan Injec (02/01/22 07:30) Famotidine Injection (Pepcid Injection) (02/01/22 07:30) Magnesium (02/01/22 07:45) Urine Culture (02/01/22 08:05) Diphenhydramine Injection (Benadryl Inje (02/01/22 08:45) Scopolamine Patch (Transderm-Scop Patch) (02/01/22 08:45) Droperidol Inj (Ed Only) (Inapsine Inj ( (02/01/22 09:15) Ekg Tracing (02/01/22 09:14) Monitor-Rhythm Ecg Trace Only (02/01/22 09:14) (APOLONIA BERG MD) Medications Given in ED Current Medications Medications Dose Ordered Sig/Lane Route Start Time Stop Time Status Last Admin Dose Admin Diphenhydramine HCl 25 mg ONCE ONCE IVP 02/01/22 08:45 02/01/22 08:46 DC 02/01/22 08:41 25 MG Droperidol 1.25 mg ONCE ONCE IV 02/01/22 09:15 02/01/22 09:16 DC 02/01/22 09:38 1.25 MG Famotidine 20 mg ONCE ONCE IVP 02/01/22 07:30 02/01/22 07:31 DC 02/01/22 07:54 20 MG Lactated Ringer's 1,000 ml @ 0 mls/hr Q0M ONCE IV 02/01/22 07:30 02/01/22 07:31 DC 02/01/22 07:54 1,000 MLS/HR Promethazine HCl 25 mg ONCE ONCE IVP 02/01/22 07:30 02/01/22 07:31 DC 02/01/22 07:54 25 MG Scopolamine 1.5 mg ONCE ONCE TD 02/01/22 08:45 02/01/22 08:46 DC 02/01/22 08:40 1.5 MG (APOLONIA BERG MD) Vital Signs/I&O 02/01/22 07:11 Temp 36.7 Pulse 90 Resp 18 B/P (MAP) 126/75 (92) Pulse Ox 100 O2 Delivery Room Air (APOLONIA BERG MD) Vital Signs/I&O Capillary Refill : Less Than 3 Seconds (SNEHA NIETO MED STUDENT) Blood Pressure Mean: 92 Progress Note #1: Time: 07:40 Progress Note Patient was interviewed and examined along with MS 4. Labs are being assessed and she is being treated with a liter of LR, Pepcid, and Phenergan. She declines hydroxyzine. We again discussed the risks of marijuana use both to her and in regard to hyperemesis. She acknowledges the dependency and has a therapy appointment scheduled. Progress Note #2: Time: 08:34 Progress Note Patient has received about half of her Phenergan dose mixed with the liter of LR. She is now violently dry heaving. She claims Zofran does not provide any benefit to her. We will try scopolamine patch and some Benadryl added to the Phenergan and continue to monitor. Progress Note #3: Time: 11:51 Progress Note Patient is now quiet and resting. She has not had dry heaves for a while. She reports some residual nausea. She has not yet been given Zofran and had previously stated Zofran does not work for her nausea. She states she would like admission as she does not believe she can manage her symptoms at home based on her experience today. Case has been discussed with Dr. Ann. Patient will be admitted with multiple antiemetic options. (APOLONIA BERG MD) ECG Initial ECG Impression Date: Feb 01, 2022 Initial ECG Impression Time: 09:26 Initial ECG Rate: 91 Initial ECG Rhythm: Normal Sinus Initial ECG Intervals: Normal Initial ECG Impression: Normal Comment Normal sinus rhythm with no ST elevation or depression. No abnormal intervals or axis deviation. QT interval was normal. (APOLONIA BERG MD) Departure Communication (Admissions) Time/Spoke to Admitting Phy: 11:44 Dr. Ann (APOLONIA BERG MD) Impression Primary Impression: Cannabinoid hyperemesis syndrome Additional Impressions: Anxiety Qualified Codes: Z3A.14 - 14 weeks gestation of Disposition: 01 HOME, SELF-CARE Condition: Improved Admissions Decision to Admit Reason: Admit from ER (General) Decision to Admit/Date: Feb 01, 2022 Time/Decision to Admit Time: 11:44 (APOLONIA BERG MD) Departure-Patient Inst. Referrals: KRISTIN ANN MD (PCP/Family) Primary Care Physician SNEHA NIETO MED STUDENT Feb 01, 2022 07:35 APOLONIA BERG MD Feb 01, 2022 07:43
[2022-02-01 08:06] LABS: BASOPHILS % (AUTO) 0 % (0-10); EOSINOPHILS % (AUTO) 0 % (0-10); HEMATOCRIT 35 % (35-52); HEMOGLOBIN 11.7 g/dL (11.5-16.0); LYMPHOCYTES # (AUTO) 1.6 10^3/uL (1.0-4.0); LYMPHOCYTES % (AUTO) 13 % (12-44); MEAN CORPUSCULAR HEMOGLOBIN 29 pg (25-34); MEAN CORPUSCULAR HGB CONC 34 g/dL (32-36); MEAN CORPUSCULAR VOLUME 87 fL (80-99); MEAN PLATELET VOLUME 9.9 fL (9.0-12.2); MONOCYTES # (AUTO) 0.6 10^3/uL (0.0-1.0); MONOCYTES % (AUTO) 5 % (0-12); NEUTROPHILS # (AUTO) 10.1 10^3/uL (1.8-7.8); NEUTROPHILS % (AUTO) 81 % (42-75); PLATELET COUNT 269 10^3/uL (130-400); WHITE BLOOD COUNT 12.4 10^3/uL (4.3-11.0)
[2022-02-01 08:15] LABS: ALBUMIN 3.9 GM/DL (3.2-4.5); POTASSIUM 3.4 MMOL/L (3.6-5.0)
[2022-02-01 08:17] LABS: CALCIUM 8.7 MG/DL (8.5-10.1)
[2022-02-01 08:18] LABS: TOTAL PROTEIN 6.3 GM/DL (6.4-8.2)
[2022-02-01 08:19] LABS: BILIRUBIN,URINE NEGATIVE (NEGATIVE); CLARITY,URINE CLEAR; COLOR,URINE YELLOW; GLUCOSE, URINE (UA) NEGATIVE (NEGATIVE); KETONES,URINE NEGATIVE (NEGATIVE); LEUKOCYTE ESTERASE ,URINE 2+ (NEGATIVE); NITRITE,URINE NEGATIVE (NEGATIVE); PROTEIN,URINE NEGATIVE (NEGATIVE)
[2022-02-01 08:20] LABS: BILIRUBIN,TOTAL 0.4 MG/DL (0.1-1.0)
[2022-02-01 08:22] LABS: CREATININE SERUM 0.65 MG/DL (0.60-1.30)
[2022-02-01 08:24] LABS: MAGNESIUM 1.7 MG/DL (1.6-2.4)
[2022-02-01 08:28] LABS: BACTERIA,URINE TRACE /HPF; RBC,URINE RARE /HPF
[2022-02-01 08:34] LABS: AMPHETAMINE SCREEN, URINE NEGATIVE (NEGATIVE); BARBITURATE SCREEN URINE NEGATIVE (NEGATIVE); BENZODIAZEPINES SCREEN URINE NEGATIVE (NEGATIVE); CANNABINOID SCREEN, URINE POSITIVE (NEGATIVE); COCAINE SCREEN URINE NEGATIVE (NEGATIVE); METHADONE STAT NEGATIVE (NEGATIVE); METHAMPHETAMINE SCREEN URINE S NEGATIVE (NEGATIVE); OPIATE SCREEN URINE NEGATIVE (NEGATIVE); OXYCODONE STAT NEGATIVE (NEGATIVE); PROPOXYPHENE STAT NEGATIVE (NEGATIVE); TRICYCLIC ANTIDEPRESSANTS SCRE NEGATIVE (NEGATIVE)
[2022-02-01] MEDS ORDERED: diphenhydrAMINE 50 MG/ML INJ (BENADRYL) IVP ONE (08:45)
[2022-02-01] MEDS ORDERED: SCOPOLAMINE 1.5 MG (TRANSDERM-SCOP) PATCH TD ONE (08:45)
[2022-02-01] MEDS ORDERED: DROPERIDOL 5 MG/2 ML (INAPSINE) ED ONLY! IV ONE (09:15)
[2022-02-01 13:21] VITALS: BP 128/74
[2022-02-01] MEDS: LACTATED RINGERS 1,000 ML IV SCH ×2 (13:25→23:47)
[2022-02-01] MEDS ORDERED: ACETAMINOPHEN 500 MG TAB (TYLENOL) PO PRN (13:45)
[2022-02-01] MEDS: ONDANSETRON 4 MG/2 ML (SDV) Z0FRAN IVP PRN ×3 (14:02→22:17)
[2022-02-01 16:39] VITALS: BP 104/55
[2022-02-01] MEDS ORDERED: CALCIUM CARBONATE 500 MG (TUMS) TAB.CHEW PO PRN (17:00)
[2022-02-01] MEDS: PROMETHAZINE INJ 25 MG/ML (PHENERGAN) AMP IVP PRN (17:01)
[2022-02-01 21:00] VITALS: BP 92/53
[2022-02-01] MEDS ORDERED: ZOLPIDEM 5 MG (AMBIEN) TAB ONE (22:12)
[2022-02-01] MEDS ORDERED: ZOLPIDEM 5 MG (AMBIEN) TAB PO PRN (22:15)
[2022-02-01] MEDS: FAMOTIDINE 20MG/2ML IV (PEPCID) IVP SCH (22:18)
[2022-02-02] VITALS (7 sets, daily range): BP systolic 100–108; BP diastolic 55–66
[2022-02-02] MEDS: ONDANSETRON 4 MG/2 ML (SDV) Z0FRAN IVP PRN ×3 (02:18→11:16)
[2022-02-02] MEDS: PROMETHAZINE INJ 25 MG/ML (PHENERGAN) AMP IVP PRN ×2 (02:59→11:16)
[2022-02-02 06:21] LABS: POTASSIUM 3.5 MMOL/L (3.6-5.0)
[2022-02-02 06:22] LABS: CALCIUM 8.5 MG/DL (8.5-10.1)
[2022-02-02 06:26] LABS: CREATININE SERUM 0.61 MG/DL (0.60-1.30)
[2022-02-02] MEDS: LACTATED RINGERS 1,000 ML IV SCH ×3 (06:37→21:06)
[2022-02-02] MEDS ORDERED: diphenhydrAMINE 50 MG/ML INJ (BENADRYL) IVP NR (08:30)
[2022-02-02] MEDS: FAMOTIDINE 20MG/2ML IV (PEPCID) IVP SCH ×2 (09:40→21:06)
[2022-02-02] MEDS: POTASSIUM CL 10MEQ/50ML IVPB 50 ML IV SCH ×2 (09:40→11:15)
[2022-02-02] MEDS ORDERED: diphenhydrAMINE 25 MG TAB (BENADRYL) PO PRN (13:00)
--- NOTE | 2022-02-02 14:10 | History & Physical ---
HPI History of Present Illness: at 15w3d today presented to ER with intractable nausea and vomiting. She has actually had this problem even before she was , and admits it may be related to marijuana use, and knows she needs to quit. She normally smokes 2-3 times per day (but previously as much as every few hours), and she last smoked 3 days ago. She also has severe anxiety, one time in the past was started on medicine, but was suicidal so did not continue it. She did start citalopram which was possibly helpful, but she had a complication with her and worried it might be contributing so she stopped it around the beginning of January, restarted about 3 days ago. She does not recall trying hydroxyzine in the past. Her is complicated by a cystic appearing placenta with concern for partial molar or genetic defect, but per last report her evaluation at [facility] was reassuring for normal . She denies vaginal bleeding. She feels a little better today but still has been dry heaving and hasn't tried liquids yet. Source: patient Date seen by provider: Feb 02, 2022 Time Seen by Provider: 11:45 Attending Physician Kristin Elise MD PCP Kristin Elise MD Consult Date of Admission Feb 01, 2022 at 11:44 Home Medications Home Medications Reviewed patient Home Medication Reconciliation performed by pharmacy medication reconciliations service technician copier and/or nursing. Patients Allergies have been reviewed. Allergies Coded Allergies: Penicillins (Verified Allergy, Unknown, Hives/Rash, 08/21/21) latex (Verified Allergy, Unknown, 01/30/22) morphine (Verified Allergy, Unknown, 01/14/22) YTU-Zarvot-Nijlnc Hx Patient Social History Drug of Choice: DENIES BUT UDS + FOR THC Smoking Status: Current Everyday Smoker 2nd Hand Smoke Exposure: Yes Recent Hopitalizations: No Alcohol Use?: No Substance type: Marijuana Tobacco type used: Cigarettes Have you traveled recently?: No Immunizations Up To Date Tetanus Booster (TDap): More than 5yrs First/Initial COVID19 Vaccinat: 06/19/2021 Second COVID19 Vaccination James: 07/17/2021 Past Medical History PMHx: Anxiety SurgHx: Tonsillectomy Family Medical History Significant Family History: No Pertinent Family Hx, Psychiatric Problems (Parents have mental health and addiction issues) Review of Systems ([facility]) Constitutional: No fever; malaise Respiratory: No cough Cardiovascular: No chest pain Gastrointestinal: constipation (last BM day before yesterday); No diarrhea Genitourinary: No dysuria Reviewed Test Results Reviewed Test Results Lab Laboratory Tests Test 02/01/22 07:50 02/01/22 08:05 02/01/22 17:10 02/02/22 05:47 Range/Units White Blood Count 12.4 H 4.3-11.0 10^3/uL Red Blood Count 4.01 3.80-5.11 10^6/uL Hemoglobin 11.7 11.5-16.0 g/dL Hematocrit 35 35-52 % Mean Corpuscular Volume 87 80-99 fL Mean Corpuscular Hemoglobin 29 25-34 pg Mean Corpuscular Hemoglobin Concent 34 32-36 g/dL Red Cell Distribution Width 14.7 H 10.0-14.5 % Platelet Count 269 130-400 10^3/uL Mean Platelet Volume 9.9 9.0-12.2 fL Immature Granulocyte % (Auto) 0 % Neutrophils (%) (Auto) 81 H 42-75 % Lymphocytes (%) (Auto) 13 12-44 % Monocytes (%) (Auto) 5 0-12 % Eosinophils (%) (Auto) 0 0-10 % Basophils (%) (Auto) 0 0-10 % Neutrophils # (Auto) 10.1 H 1.8-7.8 10^3/uL Lymphocytes # (Auto) 1.6 1.0-4.0 10^3/uL Monocytes # (Auto) 0.6 0.0-1.0 10^3/uL Eosinophils # (Auto) 0.0 0.0-0.3 10^3/uL Basophils # (Auto) 0.0 0.0-0.1 10^3/uL Immature Granulocyte # (Auto) 0.0 0.0-0.1 10^3/uL Sodium Level 137 137 135-145 MMOL/L Potassium Level 3.4 L 3.5 L 3.6-5.0 MMOL/L Chloride Level 105 106 98-107 MMOL/L Carbon Dioxide Level 19 L 18 L 21-32 MMOL/L Anion Gap 13 13 5-14 MMOL/L Blood Urea Nitrogen 8 6 L 7-18 MG/DL Creatinine 0.65 0.61 0.60-1.30 MG/DL Estimat Glomerular Filtration Rate 129 131 BUN/Creatinine Ratio 12 10 Glucose Level 101 93 70-105 MG/DL Calcium Level 8.7 8.5 8.5-10.1 MG/DL Corrected Calcium 8.8 8.5-10.1 MG/DL Magnesium Level 1.7 1.6-2.4 MG/DL Total Bilirubin 0.4 0.1-1.0 MG/DL Aspartate Amino Transf (AST/SGOT) 10 5-34 U/L Alanine Aminotransferase (ALT/SGPT) 10 0-55 U/L Alkaline Phosphatase 53 40-136 U/L Total Protein 6.3 L 6.4-8.2 GM/DL Albumin 3.9 3.2-4.5 GM/DL Lipase 9 8-78 U/L Urine Color YELLOW Urine Clarity CLEAR Urine pH 6.0 5-9 Urine Specific [place] 1.020 1.016-1.022 Urine Protein NEGATIVE NEGATIVE Urine Glucose (UA) NEGATIVE NEGATIVE Urine Ketones NEGATIVE NEGATIVE Urine Nitrite NEGATIVE NEGATIVE Urine Bilirubin NEGATIVE NEGATIVE Urine Urobilinogen 0.2 < = 1.0 MG/DL Urine Leukocyte Esterase 2+ H NEGATIVE Urine RBC (Auto) TRACE-I H NEGATIVE Urine RBC RARE /HPF Urine WBC 10-25 H /HPF Urine Squamous Epithelial Cells 2-5 /HPF Urine Crystals NONE /LPF Urine Bacteria TRACE /HPF Urine Casts NONE /LPF Urine Mucus NEGATIVE /LPF Urine Culture Indicated YES Urine Opiates Screen NEGATIVE NEGATIVE Urine Oxycodone Screen NEGATIVE NEGATIVE Urine Methadone Screen NEGATIVE NEGATIVE Urine Propoxyphene Screen NEGATIVE NEGATIVE Urine Barbiturates Screen NEGATIVE NEGATIVE Ur Tricyclic Antidepressants Screen NEGATIVE NEGATIVE Urine Phencyclidine Screen NEGATIVE NEGATIVE Urine Amphetamines Screen NEGATIVE NEGATIVE Urine Methamphetamines Screen NEGATIVE NEGATIVE Urine Benzodiazepines Screen NEGATIVE NEGATIVE Urine Cocaine Screen NEGATIVE NEGATIVE Urine Cannabinoids Screen POSITIVE H NEGATIVE Troponin I < 0.028 <0.028 NG/ML Physical Exam-([facility]) Physical Exam Vital Signs VS - Last 72 Hours, by Label 02/01/22 02/01/22 02/01/22 02/01/22 07:11 12:30 13:21 13:21 Temp 36.7 36.7 36.2 36.2 Pulse 90 94 82 82 Resp 18 18 18 18 B/P (MAP) 126/75 (92) 101/64 128/74 (92) Pulse Ox 100 98 99 99 O2 Delivery Room Air Room Air Room Air Room Air 02/01/22 02/01/22 02/02/22 02/02/22 16:39 21:00 00:30 03:00 Temp 37.2 37.1 37.3 37.2 Pulse 85 76 75 78 Resp 18 18 18 18 B/P (MAP) 104/55 (71) 92/53 (66) 102/57 (72) 100/59 (73) Pulse Ox 99 98 98 98 O2 Delivery Room Air Room Air Room Air Room Air 02/02/22 09:30 Temp 37.6 Pulse 70 Resp 18 B/P (MAP) 106/55 (72) Pulse Ox 97 O2 Delivery Room Air Capillary Refill : Less Than 3 Seconds General Appearance: thin Respiratory: lungs clear, normal breath sounds Cardiovascular: regular rate, rhythm, no murmur Gastrointestinal: normal bowel sounds, non tender, soft Extremities: no pedal edema Neurologic/Psychiatric: alert, normal mood/affect Skin: warm/dry Assessment/Plan Assessment/Plan Admission Status: Observation (1) Cannabinoid hyperemesis syndrome Status: Chronic Assessment & Plan: Received droperidol in ER with minimal benefit. She is already stating she is trying to quit and knows this is the first step. (2) Hypokalemia Status: Acute Assessment & Plan: Replace and monitor (3) Anxiety Status: Chronic Assessment & Plan: Continue citalopram, try hydroxyzine (4) Status: Acute Assessment & Plan: Second trimester. heart tones daily. Qualifiers: Qualified Codes: Z3A.15 - 15 weeks gestation of (5) Hyperemesis gravidarum Status: Acute Assessment & Plan: B6, (doxylamine and dimenhydrinate not available inpatient), diphenhydramine, promethazine, last line ondansetron. Will try orals today. KRISTIN ELISE MD Feb 02, 2022 14:10
[2022-02-02] MEDS ORDERED: hydrOXYzine (VISTARIL/ATARAX) 25 MG capsule/tablet PO PRN (14:30)
[2022-02-02] MEDS: PYRIDOXINE (VITAMIN B-6) 50 MG TABLET PO SCH ×2 (14:40→21:06)
[2022-02-02 15:31] LABS: HEMATOCRIT 31 % (35-52); MEAN CORPUSCULAR HEMOGLOBIN 29 pg (25-34); MEAN CORPUSCULAR HGB CONC 33 g/dL (32-36); MEAN CORPUSCULAR VOLUME 89 fL (80-99); MEAN PLATELET VOLUME 10.9 fL (9.0-12.2); PLATELET COUNT 233 10^3/uL (130-400); WHITE BLOOD COUNT 15.1 10^3/uL (4.3-11.0)
[2022-02-02] MEDS: ONDANSETRON 4 MG (ZOFRAN) ORAL DISSOLVE TAB PO PRN (17:57)
[2022-02-02] MEDS: PROMETHAZINE 25 MG (PHENERGAN) TAB PO PRN (21:25)
[2022-02-03] MEDS: PYRIDOXINE (VITAMIN B-6) 50 MG TABLET PO SCH (03:46)
[2022-02-03] MEDS: LACTATED RINGERS 1,000 ML IV SCH ×2 (03:46→03:51)
[2022-02-03 03:50] VITALS: BP 109/56
[2022-02-03] MEDS: ONDANSETRON 4 MG (ZOFRAN) ORAL DISSOLVE TAB PO PRN (05:33)
[2022-02-03 05:56] LABS: POTASSIUM 3.4 MMOL/L (3.6-5.0)
[2022-02-03 05:57] LABS: CALCIUM 7.9 MG/DL (8.5-10.1)
[2022-02-03 06:01] LABS: CREATININE SERUM 0.66 MG/DL (0.60-1.30)
[2022-02-03 08:21] VITALS: BP 108/55
--- NOTE | 2022-02-03 08:36 | Discharge Summary ---
Diagnosis/Chief Complaint Date of Admission Feb 01, 2022 at 11:44 Date of Discharge February 03, 2022 Discharge Date: Feb 03, 2022 Admission Diagnosis Admission Diagnosis 1 Hyperemesispossibly brought on by cannabinoid 2. Anxiety disorder 3. at 15 weeks gestation Discharge Diagnosis 1 Hyperemesispossibly brought on by cannabinoid 2. Anxiety disorder 3. at 15 weeks gestation Reason Hospital Visit Patient is a 21yo female with PMH anxiety and marijuana use who is also 15 weeks presents to ER n February 01, 2022 due to Anxiety, nausea/vomiting, and abdominal pain. She states that this episode is similar to other recent episodes of her anxiety attacks. She has some epigastric pain. She has nausea medicine at home and has not tried any. She states that what changed for her to come in is that she didn't feel well and was concerned that she has a "static feeling" wants to take the anxiety away. She does not take antacids. She has had U/S with this . She states she is reliant on marijuana for both pain and anxiety, she will be seeing [facility] at [facility] to try to get help with cessation. Her appointment is arranged for appointment with Karen Veras on March 08, 2022. She recently restarted taking celexa. Last marijuana use was 4 days prior to admission. Discharge Summary Hospital Course Was the Problem List Reviewed?: Yes Hospital Course Patient was admitted on February 01 with diagnosis of hyperemesis due to cannabinoid use. She has also available at home Phenergan as well as Zofran. She does suffer from anxiety disorder and this was also addressed during the course of her hospital stay. She is currently on Celexa 20 mg daily. She received IV fluids at 150 cc per hour during the course of her 2 day hospital stay. Additionally her potassium was noted to be low on admission at 3.4 She received potassium supplementation through the IV and on February 02 the potassium was 3.5. She received a combination of Phenergan as well as Zofran to help control her nausea. The day prior to dismissal she was noted to have no emesis and was tolerating oral fluids as well as light solids. She was noted to have heart tones during the course of the hospital stay. All of her questions were answered and she appeared to be stable and ready for dismissal in the morning of February 03, 2022. She will have appointment with Dr. Elise for follow- up this week. Labs Laboratory Tests 02/01/22 07:50: White Blood Count 12.4H, Red Cell Distribution Width 14.7H, Neutrophils (%) (Auto) 81H, Neutrophils # (Auto) 10.1H, Potassium Level 3.4L, Carbon Dioxide Level 19L, Total Protein 6.3L 02/01/22 08:05: Urine Leukocyte Esterase 2+H, Urine RBC (Auto) TRACE-IH, Urine WBC 10-25H, Urine Cannabinoids Screen POSITIVEH 02/01/22 17:10: 02/02/22 05:47: White Blood Count 15.1H, Red Cell Distribution Width 15.4H, Potassium Level 3.5L , Carbon Dioxide Level 18L, Red Blood Count 3.45L, Hemoglobin 10.0L, Hematocrit 31L, Blood Urea Nitrogen 6L 02/03/22 05:23: Potassium Level 3.4L, Carbon Dioxide Level 19L, Blood Urea Nitrogen 6L, Calcium Level 7.9L Procedures None. Discharge Physical Examination Allergies: Coded Allergies: Penicillins (Verified Allergy, Unknown, Hives/Rash, 08/21/21) latex (Verified Allergy, Unknown, 01/30/22) morphine (Verified Allergy, Unknown, 01/14/22) Vitals & I&Os Vital Signs Date Time Temp Pulse Resp B/P (MAP) Pulse Ox O2 Delivery O2 Flow Rate FiO2 02/03/22 08:21 37.4 71 18 108/55 (72) 98 Room Air General Appearance: Alert, Oriented X3, No Acute Distress Respiratory: Clear to Auscultation Cardiovascular: Regular Rate Abdominal: Soft (bowel sounds normal) Neuro: Normal Speech Discharge Home Medications Reviewed and agree with Discharge Medication list on patient's Discharge Instruction sheet Instructions to Patient/Family Please see electronic discharge instructions given to patient. ALEXANDR APONTE MD Feb 03, 2022 08:36
[2022-02-03] MEDS ORDERED: ONDA4TAB11 PO (08:46)
[2022-02-03] MEDS ORDERED: PYRI50TA PO (08:46)
--- NOTE | 2022-02-03 08:48 | Discharge Inst-Women's Service ---
Discharge Inst-Women's Serv Depart Medication/Instructions New, Converted or Re-Newed RX: Transmitted to Pharmacy ([facility]) Instructions May take generic Zofran 4 mg tablet every 4-6 hours to help control nausea. Prescription was called into [facility]. Also take vitamin B6 daily this was also called into [facility]. Consults/Follow Up Additional Follow Up: Yes (Dr Elise within the week) Activity Activity: Activity as Tolerated Driving Instructions: You May Drive Diet Discharge Diet: Regular Diet (as tolerated) Return to The Hospital For: as below Symptoms to Report to : Nausea/Vomiting (extreme) For Any Problems or Questions: Contact Your Physician ALEXANDR APONTE MD Feb 03, 2022 08:48
[2022-02-03] MEDS: PROMETHAZINE 25 MG (PHENERGAN) TAB PO PRN (08:49)
[2022-02-03] MEDS: FAMOTIDINE 20MG/2ML IV (PEPCID) IVP SCH (08:49)
[2022-02-03] MEDS ORDERED: CEPH500T PO (10:16)
[2022-02-03 11:35] VITALS: BP 108/55
[2022-02-04] MEDS ORDERED: SCOPOLAMINE PATCH REMOVAL TP SCH (09:00)
== END 2022-02-03 11:35 | disposition home or self-care (01) ==
LOC: EDUNIT# 06:43 → ER 06:46 → UNDOADMOB 11:44 → WS 11:44 → UNDODISOB 02-03 11:35
PROVIDERS: ADMIT Family Medicine; ATTEND Family Medicine
DX: O21.0 Mild hyperemesis gravidarum (principal); Z3A.15 15 weeks gestation of pregnancy; O99.342 Other mental disorders complicating pregnancy, second trimester; F41.9 Anxiety disorder, unspecified; F12.90 Cannabis use, unspecified, uncomplicated; O99.332 Smoking (tobacco) complicating pregnancy, second trimester; F17.210 Nicotine dependence, cigarettes, uncomplicated; E87.6 Hypokalemia
CPT/HCPCS: 80048 ×2; 80053; 80306; 81000; 83690; 83735; 84484; 85025; 85027; 87077; 87088; 93005; 93041; 96361 ×3; 96375 ×2; 96376 ×3; 99284; G0378; 36415

== ENCOUNTER 2022-03-01 07:13 | Emergency (ER) | payer MEDICAID ==
[~2022-03-01] VITALS: Ht 175.3 cm; Wt 68.0 kg
[~2022-03-01 07:13] MED LIST changes: +PYRI50TA PO
[2022-03-01] MEDS ORDERED: D5 NS 1000 ML IV SOLUTION 1,000 ML IV STA ×2 (07:25→08:26)
[2022-03-01] MEDS ORDERED: diphenhydrAMINE 50 MG/ML INJ (BENADRYL) IVP ONE (07:30)
[2022-03-01] MEDS ORDERED: ONDANSETRON 4 MG/2 ML (SDV) Z0FRAN IVP ONE (07:30)
[2022-03-01] MEDS ORDERED: PROMETHAZINE INJ 25 MG/ML (PHENERGAN) AMP IVP ONE (07:30)
--- NOTE | 2022-03-01 07:31 | ED GI ---
General Stated Complaint: VOMITING - NAUSEA - 19 WKS PREG Source of Information: Patient Exam Limitations: No Limitations History of Present Illness Date Seen by Provider: March 01, 2022 Time Seen by Provider: 07:16 Initial Comments 21-year-old female roughly 19 weeks with PMH of anxiety, chronic nausea, chronic marijuana use coming in due to vomiting and some diarrhea. Started 8 PM last night. She has had hyperemesis gravidarum during this and has been admitted to the hospital for it. Has been doing well for roughly the past month. Last night is when things got worse again. She says t his feels consistent with prior episodes. The only thing different is she has a little bit of loose stool. No blood in her stools or blood in her vomit. Also denies any vaginal bleeding, dysuria, flank pain, fever, chest pain, shortness of breath, weakness, numbness, contractions, loss of fluid like her water broke, rash, or any other concerns. The nausea is constant, severe, and nothing seems to make it better or worse. She has tried Zofran and promethazine at home. Allergies and Home Medications Allergies Coded Allergies: Penicillins (Verified Allergy, Unknown, Hives/Rash, 08/21/21) latex (Verified Allergy, Unknown, 01/30/22) morphine (Verified Allergy, Unknown, 01/14/22) Patient Home Medication List Home Medication List Reviewed: Yes Cephalexin (Cephalexin) 500 Mg Tablet, 500 MG PO TID Prescribed by: CHRISTIANO ROBLERO on 02/03/22 1016 Citalopram Hydrobromide (Citalopram HBr) 20 Mg Tablet, (Reported) Entered as Reported by: JAMESON BARRON on 11/14/21 2233 Nitrofurantoin Monohyd/M-Cryst (Macrobid 100 mg Capsule) 100 Mg Capsule, 1 TAB PO BID Prescribed by: TOREY MUNOZ on 03/01/22 0850 Ondansetron (Ondansetron Odt) 4 Mg Tab.rapdis, 4 MG PO Q6H PRN for NAUSEA/VO MITING Prescribed by: ALEXANDR APOTNE on 02/03/22 0846 Promethazine HCl (Promethazine Tablet) 25 Mg Tablet, 25 MG PO Q6H PRN for NAUSEA/VOMITING-2ND LINE Prescribed by: TOREY MUNOZ on 01/14/22 0954 Pyridoxine HCl (Vitamin B-6) 50 Mg Tablet, 25 MG PO DAILY Prescribed by: ALEXANDR APONTE on 02/03/22 0846 Review of Systems Review of Systems Constitutional: No chills, No fever EENTM: No Blurred Vision Respiratory: Denies Cough Cardiovascular: Denies Chest Pain Gastrointestinal: Denies Abdominal Pain; Diarrhea, Nausea, Vomiting Genitourinary: No Symptoms Reported Musculoskeletal: no symptoms reported Skin: no symptoms reported Psychiatric/Neurological: No Symptoms Reported Endocrine: No Symptoms Reported Hematologic/Lymphatic: No Symptoms Reported All Other Systems Reviewed Negative Unless Noted: Yes Past Vgfwfjw-Vnuscl-Smdsxg Hx Patient Social History Substance use?: Yes Substance type: Marijuana Immunizations Up To Date Tetanus Booster (TDap): More than 5yrs First/Initial COVID19 Vaccinat: 06/19/2021 Second COVID19 Vaccination James: 07/17/2021 Past Medical History Surgery/Hospitalization HX: ANXIETY, GERD, UTI, T/A Surgeries: Yes (WISDOM TEETH REMOVED) Adenoidectomy, Tonsillectomy Respiratory: Yes (PNEUMONIA 08/19/21) Cardiac: No Neurological: No Sexually Transmitted Disease: No Genitourinary: Yes Kidney Infection, Kidney Stones Gastrointestinal: Yes (CANNABIS HYPEREMESIS SYNDROME) Musculoskeletal: No Endocrine: No HEENT: Yes (WISDOM TEETH REMOVED; S/P TONSILLECTOMY) Tonsilitis Cancer: No Psychosocial: Yes Anxiety Integumentary: No Blood Disorders: No Family Medical History No Pertinent Family Hx, Psychiatric Problems Physical Exam Vital Signs Capillary Refill : Height/Weight/BMI Height: 5'8.00" Weight: 132lbs. oz. 59.650903iy; 20.99 BMI Method:Stated General Appearance: WD/WN, mild distress, other (Actively retching into a bag) HEENT: PERRL/EOMI, normal ENT inspection, pharynx normal Neck: non-tender, full range of motion, supple, normal inspection Respiratory: chest non-tender, lungs clear, normal breath sounds, no respiratory distress, no accessory muscle use Cardiovascular: regular rate, rhythm, no edema, no murmur Gastrointestinal: normal bowel sounds, non tender, soft; No distended, No guarding, No rebound Extremities: normal range of motion, non-tender, normal inspection, no pedal edema, no calf tenderness, normal capillary refill Back: normal inspection, no CVA tenderness, no vertebral tenderness Neurologic/Psychiatric: no motor/sensory deficits, alert, normal mood/affect Skin: normal color, warm/dry Lymphatic: no adenopathy Progress/Results/Core Measures Results/Orders Lab Results Laboratory Tests Test 03/01/22 07:27 03/01/22 08:23 Range/Units White Blood Count 14.7 H 4.3-11.0 10^3/uL Red Blood Count 3.87 3.80-5.11 10^6/uL Hemoglobin 11.2 L 11.5-16.0 g/dL Hematocrit 34 L 35-52 % Mean Corpuscular Volume 88 80-99 fL Mean Corpuscular Hemoglobin 29 25-34 pg Mean Corpuscular Hemoglobin Concent 33 32-36 g/dL Red Cell Distribution Width 15.3 H 10.0-14.5 % Platelet Count 298 130-400 10^3/uL Mean Platelet Volume 9.9 9.0-12.2 fL Immature Granulocyte % (Auto) 1 % Neutrophils (%) (Auto) 78 H 42-75 % Lymphocytes (%) (Auto) 15 12-44 % Monocytes (%) (Auto) 6 0-12 % Eosinophils (%) (Auto) 0 0-10 % Basophils (%) (Auto) 0 0-10 % Neutrophils # (Auto) 11.4 H 1.8-7.8 10^3/uL Lymphocytes # (Auto) 2.2 1.0-4.0 10^3/uL Monocytes # (Auto) 0.9 0.0-1.0 10^3/uL Eosinophils # (Auto) 0.1 0.0-0.3 10^3/uL Basophils # (Auto) 0.0 0.0-0.1 10^3/uL Immature Granulocyte # (Auto) 0.1 0.0-0.1 10^3/uL Neutrophils % (Manual) 78 % Lymphocytes % (Manual) 15 % Monocytes % (Manual) 7 % Blood Morphology Comment NORMAL Sodium Level 136 135-145 MMOL/L Potassium Level 3.8 3.6-5.0 MMOL/L Chloride Level 105 98-107 MMOL/L Carbon Dioxide Level 19 L 21-32 MMOL/L Anion Gap 12 5-14 MMOL/L Blood Urea Nitrogen 6 L 7-18 MG/DL Creatinine 0.67 0.60-1.30 MG/DL Estimat Glomerular Filtration Rate 128 BUN/Creatinine Ratio 9 Glucose Level 127 H 70-105 MG/DL Calcium Level 9.1 8.5-10.1 MG/DL Corrected Calcium 9.1 8.5-10.1 MG/DL Total Bilirubin 0.4 0.1-1.0 MG/DL Aspartate Amino Transf (AST/SGOT) 11 5-34 U/L Alanine Aminotransferase (ALT/SGPT) 11 0-55 U/L Alkaline Phosphatase 66 40-136 U/L Total Protein 6.8 6.4-8.2 GM/DL Albumin 4.0 3.2-4.5 GM/DL Lipase 9 8-78 U/L Urine Color YELLOW Urine Clarity CLEAR Urine pH 7.0 5-9 Urine Specific [place] 1.020 1.016-1.022 Urine Protein NEGATIVE NEGATIVE Urine Glucose (UA) 3+ H NEGATIVE Urine Ketones NEGATIVE NEGATIVE Urine Nitrite NEGATIVE NEGATIVE Urine Bilirubin NEGATIVE NEGATIVE Urine Urobilinogen 0.2 < = 1.0 MG/DL Urine Leukocyte Esterase 2+ H NEGATIVE Urine RBC (Auto) 2+ H NEGATIVE Urine RBC 5-10 H /HPF Urine WBC 5-10 H /HPF Urine Squamous Epithelial Cells 2-5 /HPF Urine Crystals NONE /LPF Urine Bacteria FEW H /HPF Urine Casts NONE /LPF Urine Mucus NEGATIVE /LPF Urine Culture Indicated YES Urine Opiates Screen NEGATIVE NEGATIVE Urine Oxycodone Screen NEGATIVE NEGATIVE Urine Methadone Screen NEGATIVE NEGATIVE Urine Propoxyphene Screen NEGATIVE NEGATIVE Urine Barbiturates Screen NEGATIVE NEGATIVE Ur Tricyclic Antidepressants Screen NEGATIVE NEGATIVE Urine Phencyclidine Screen NEGATIVE NEGATIVE Urine Amphetamines Screen NEGATIVE NEGATIVE Urine Methamphetamines Screen NEGATIVE NEGATIVE Urine Benzodiazepines Screen NEGATIVE NEGATIVE Urine Cocaine Screen NEGATIVE NEGATIVE Urine Cannabinoids Screen POSITIVE H NEGATIVE My Orders Orders - TOREY MUNOZ MD Cbc With Automated Diff (03/01/22 07:25) Comprehensive Metabolic Panel (03/01/22 07:25) Lipase (03/01/22 07:25) Ua Culture If Indicated (03/01/22 07:25) Covid 19 Inhouse Test (03/01/22 07:25) Influenza A And B By Pcr (03/01/22 07:25) D5 Ns 1000 Ml Iv Solution (Dextrose 5%/0 (03/01/22 07:25) Promethazine Injection (Phenergan Injec (03/01/22 07:30) Ondansetron Injection (Zofran Injectio (03/01/22 07:30) Diphenhydramine Injection (Benadryl Inje (03/01/22 07:30) Manual Differential (03/01/22 07:27) Drug Screen Stat (Urine) (03/01/22 07:40) D5 Ns 1000 Ml Iv Solution (Dextrose 5%/0 (03/01/22 08:26) Lorazepam Injection (Ativan Injection) (03/01/22 08:30) Urine Culture (03/01/22 08:23) Medications Given in ED Current Medications Medications Dose Ordered Sig/Lane Route Start Time Stop Time Status Last Admin Dose Admin Diphenhydramine HCl 25 mg ONCE ONCE IVP 03/01/22 07:30 03/01/22 07:31 DC 03/01/22 07:36 25 MG Ondansetron HCl 4 mg ONCE ONCE IVP 03/01/22 07:30 03/01/22 07:31 DC 03/01/22 07:36 4 MG Promethazine HCl 25 mg ONCE ONCE IVP 03/01/22 07:30 03/01/22 07:31 DC 03/01/22 07:36 25 MG Progress Progress Note : Progress Note 21yoF with above history coming in due to n/v while being . Give her 2 L of D5 NS through her IV, Zofran, Phenergan, and on reassessment she was still having nausea. I then gave her half a milligram of IV Ativan which did help. Labs with white blood count around 14 which is where she is been running during this , normal creatinine, electrolytes not concerning, urinalysis with bacteria so we will treat her. She is tolerating p.o., appears better, and I believe stable for discharge with outpatient follow-up. She was sent home with strict return precautions. Departure Impression Primary Impression: Hyperemesis gravidarum Additional Impression: UTI (urinary tract infection) Qualified Codes: N30.00 - Acute cystitis without hematuria Disposition: HOME, SELF-CARE Condition: Stable Departure-Patient Inst. Referrals: KRISTIN ANN MD (PCP/Family) Primary Care Physician Patient Instructions: Hyperemesis Gravidarum Add. Discharge Instructions: Please continue take your nausea medicines as needed. Follow-up with your OB if things are not improving. You do appear to have some bacteria in your urine today, you will take antibiotics for the next 5 days. Scripts Doxylamine Succinate (Nighttime Sleep-Aid) 25 Mg Tablet 25 MG PO BID for 14 Days, #28 TAB Prov: TOREY MUNOZ MD 03/01/22 Promethazine HCl (Promethazine Tablet) 25 Mg Tablet 25 MG PO Q6H PRN for NAUSEA/VOMITING for 7 Days, #28 TAB Prov: TOREY MUNOZ MD 03/01/22 Nitrofurantoin Monohyd/M-Cryst (Macrobid 100 mg Capsule) 100 Mg Capsule 1 TAB PO BID for 5 Days, #10 CAP Prov: TOREY MUNOZ MD 03/01/22 Work/School Note: Work Release Form Date Seen in the Emergency Department: March 01, 2022 Return to Work: March 02, 2022 Restrictions: No Restrictions TOREY MUNOZ MD March 01, 2022 07:31
[2022-03-01 07:33] LABS: BASOPHILS % (AUTO) 0 % (0-10); EOSINOPHILS # (AUTO) 0.1 10^3/uL (0.0-0.3); EOSINOPHILS % (AUTO) 0 % (0-10); HEMATOCRIT 34 % (35-52); HEMOGLOBIN 11.2 g/dL (11.5-16.0); LYMPHOCYTES # (AUTO) 2.2 10^3/uL (1.0-4.0); LYMPHOCYTES % (AUTO) 15 % (12-44); MEAN CORPUSCULAR HEMOGLOBIN 29 pg (25-34); MEAN CORPUSCULAR HGB CONC 33 g/dL (32-36); MEAN CORPUSCULAR VOLUME 88 fL (80-99); MEAN PLATELET VOLUME 9.9 fL (9.0-12.2); MONOCYTES # (AUTO) 0.9 10^3/uL (0.0-1.0); MONOCYTES % (AUTO) 6 % (0-12); NEUTROPHILS # (AUTO) 11.4 10^3/uL (1.8-7.8); NEUTROPHILS % (AUTO) 78 % (42-75); PLATELET COUNT 298 10^3/uL (130-400); WHITE BLOOD COUNT 14.7 10^3/uL (4.3-11.0)
[2022-03-01 07:50] LABS: POTASSIUM 3.8 MMOL/L (3.6-5.0)
[2022-03-01 07:51] LABS: CALCIUM 9.1 MG/DL (8.5-10.1)
[2022-03-01 07:52] LABS: TOTAL PROTEIN 6.8 GM/DL (6.4-8.2)
[2022-03-01 07:54] LABS: BILIRUBIN,TOTAL 0.4 MG/DL (0.1-1.0)
[2022-03-01 07:56] LABS: CREATININE SERUM 0.67 MG/DL (0.60-1.30)
[2022-03-01 08:18] LABS: LYMPHOCYTES % (MANUAL) 15 %; MONOCYTES % (MANUAL) 7 %; NEUTROPHILS % (MANUAL) 78 %; RBC MORPH NORMAL
[2022-03-01] MEDS ORDERED: LORazepam ORAL CONCENTRATE 2 MG/ML 30 ML (ATIVAN) PO STA (08:26)
[2022-03-01 08:30] LABS: BILIRUBIN,URINE NEGATIVE (NEGATIVE); CLARITY,URINE CLEAR; COLOR,URINE YELLOW; GLUCOSE, URINE (UA) 3+ (NEGATIVE); KETONES,URINE NEGATIVE (NEGATIVE); LEUKOCYTE ESTERASE ,URINE 2+ (NEGATIVE); NITRITE,URINE NEGATIVE (NEGATIVE); PROTEIN,URINE NEGATIVE (NEGATIVE)
[2022-03-01] MEDS ORDERED: LORazepam INJ 2 MG/ML (ATIVAN) VIAL IVP STA (08:30)
[2022-03-01 08:46] LABS: BACTERIA,URINE FEW /HPF
[2022-03-01 08:47] LABS: AMPHETAMINE SCREEN, URINE NEGATIVE (NEGATIVE); BARBITURATE SCREEN URINE NEGATIVE (NEGATIVE); BENZODIAZEPINES SCREEN URINE NEGATIVE (NEGATIVE); CANNABINOID SCREEN, URINE POSITIVE (NEGATIVE); COCAINE SCREEN URINE NEGATIVE (NEGATIVE); METHADONE STAT NEGATIVE (NEGATIVE); OPIATE SCREEN URINE NEGATIVE (NEGATIVE); OXYCODONE STAT NEGATIVE (NEGATIVE); PROPOXYPHENE STAT NEGATIVE (NEGATIVE); TRICYCLIC ANTIDEPRESSANTS SCRE NEGATIVE (NEGATIVE)
[2022-03-01] MEDS ORDERED: NITR-65 PO (08:50)
[2022-03-01] MEDS ORDERED: PROM25TA14 PO (09:42)
[2022-03-01] MEDS ORDERED: DOXY25TA45 PO (09:42)
[2022-03-01 11:28] VITALS: BP 129/90
== END 2022-03-01 11:28 | disposition home or self-care (01) ==
LOC: EDUNIT# 07:13 → ER 07:15
DX: O21.0 Mild hyperemesis gravidarum (principal); O23.12 Infections of bladder in pregnancy, second trimester; N30.00 Acute cystitis without hematuria; B96.89 Other specified bacterial agents as the cause of diseases classified elsewhere; Z3A.19 19 weeks gestation of pregnancy
CPT/HCPCS: 36415; 80053; 80306; 81000; 83690; 85007; 85027; 87077; 87088; 87636

== ENCOUNTER 2022-03-03 23:35 | Emergency (ER) | payer MEDICAID ==
[~2022-03-03] VITALS: Ht 175.3 cm; Wt 68.0 kg
[~2022-03-03 23:35] MED LIST changes: +DOXY25TA45 PO
[2022-03-04] MEDS ORDERED: METOCLOPRAMIDE INJ 10 MG/2 ML (REGLAN) IVP ONE
--- NOTE | 2022-03-04 00:08 | ED GI ---
General Stated Complaint: ABD PAIN/NAUSEA Source of Information: Patient History of Present Illness Date Seen by Provider: March 03, 2022 Time Seen by Provider: 23:55 Initial Comments PT ARRIVES VIA POV FROM HOME PT IS 20 WEEKS WITH EDC 07/24/22 PT WITH LONGSTANDING, HEAVY DAILY MARIJUANA USE SINCE THE BEGINNING OF 2019 AND HAS BEEN DX WITH CANNABIS HYPEREMESIS SYNDROME, WITH A MULTITUDE OF VISITS HERE FOR THIS PROBLEM PT IS NOW AND CONTINUES TO SMOKE AND SYMPTOMS HAVE GOTTEN WORSE SINCE BEING SHE STATES OTHER PEOPLE SMOKE MARIJUANA ON DAILY BASIS IN THE HOME, INCLUDING HER FATHER. PT HAS ALSO REPEATEDLY TESTED + FOR OPIATES AND BENZODIAZEPINES WELL THC ON MULTIPLE PRIOR VISITS HERE. PT STATES SHE IS GOING INTO ADDICTION TREATMENT PROGRAM ON 03/08/22--[facility]PATIENT [facility]RE[facility]. PT HAS HAD 7 VISITS HERE SINCE 11/14/21 FOR THIS SAME COMPLAINT. LAST VISIT WAS 03/01/22 PT HAS ZOFRAN AT HOME--RAN OUT THIS MORNING. ALSO HAS PHENERGAN PILLS, WHICH SHE TOOK 1 TODAY AROUND 1900 THIS EVENING--STATES IT DID NOT HELP STATES SHE HAS VOMITED ABOUT 15 TIMES TODAY DOES HAVE SOME UPPER ABDOMINAL PAIN BEFORE SHE VOMITS, THEN IT "LINGERS ON" FOR AWHILE AFTERWARD. NO DIARRHEA NO URINARY SYMPTOMS, AND VOIDING A NORMAL AMOUNT LAST VISIT WITH DR. ANN WAS THIS PAST SATURDAY HAS BEEN HAVING ACTIVE MOVEMENT, NO VAGINAL BLEEDING OR DISCHARGE NO PELVIC PAIN NO FEVER PT IS AB 0--GAVE FIRST CHILD UP FOR ADOPTION, WHEN SHE WAS 19 YEARS OLD. PT HAS HAD COVID-19 VACCINES X 2, LAST ONE 07/17/21. NO BOOSTER PT HAS HAD FLU VACCINE FOR THIS SEASON PCP: DR. ANN Allergies and Home Medications Allergies Coded Allergies: Penicillins (Verified Allergy, Unknown, Hives/Rash, 08/21/21) latex (Verified Allergy, Unknown, 01/30/22) morphine (Verified Allergy, Unknown, 01/14/22) Patient Home Medication List Home Medication List Reviewed: Yes Cephalexin (Cephalexin) 500 Mg Tablet, 500 MG PO TID Prescribed by: CHRISTIANO ROBLERO on 02/03/22 1016 Citalopram Hydrobromide (Citalopram HBr) 20 Mg Tablet, (Reported) Entered as Reported by: JAMESON BARRON on 11/14/21 4783 Doxylamine Succinate (Nighttime Sleep-Aid) 25 Mg Tablet, 25 MG PO BID Prescribed by: TOREY MUNOZ on 03/01/22 0942 Nitrofurantoin Monohyd/M-Cryst (Macrobid 100 mg Capsule) 100 Mg Capsule, 1 TAB PO BID Prescribed by: TOREY MUNOZ on 03/01/22 0850 Ondansetron (Ondansetron Odt) 4 Mg Tab.rapdis, 4 MG PO Q6H PRN for NAUSEA/VOMITING Prescribed by: ALEXANDR APONTE on 02/03/22 0846 Ondansetron (Ondansetron Odt) 8 Mg Tab.rapdis, 8 MG PO Q6H Prescribed by: EFRAÍN PINEDA on 03/04/22 0136 Promethazine HCl (Promethazine Tablet) 25 Mg Tablet, 25 MG PO Q6H PRN for NAUSEA/VOMITING-2ND LINE Prescribed by: TOREY MUNOZ on 01/14/22 0954 Promethazine HCl (Promethazine Tablet) 25 Mg Tablet, 25 MG PO Q6H PRN for NA USEA/VOMITING Prescribed by: TOREY MUNOZ on 03/01/22 0942 Promethazine HCl (Promethazine Suppository) 25 Mg Supp.rect, 25 MG RC Q6 Prescribed by: EFRAÍN PINEDA on 03/04/22 013 Pyridoxine HCl (Vitamin B-6) 50 Mg Tablet, 25 MG PO DAILY Prescribed by: ALEXANDR APONTE on 02/03/22 0846 Review of Systems Review of Systems Constitutional: no symptoms reported Respiratory: No Symptoms Reported Cardiovascular: No Symptoms Reported Gastrointestinal: See HPI, Abdominal Pain, Nausea, Vomiting Genitourinary: No Symptoms Reported Musculoskeletal: no symptoms reported Skin: no symptoms reported Psychiatric/Neurological: No Symptoms Reported Endocrine: No Symptoms Reported Hematologic/Lymphatic: No Symptoms Reported Past Jbffmnj-Ihoqbu-Cnsdsv Hx Patient Social History Tobacco Use?: No Use of E-Cig and/or Vaping dev: No Substance use?: Yes Substance type: Marijuana Additional substance use comme: ALSO REPEATEDLY TESTS + FOR BENZO'S AND OPIATES, WELL THC. Substance frequency: Daily Alcohol Use?: No Immunizations Up To Date Tetanus Booster (TDap): More than 5yrs First/Initial COVID19 Vaccinat: 06/19/2021 Second COVID19 Vaccination James: 07/17/2021 Third COVID19 Vaccination Date: 06/19/2021 Past Medical History Surgery/Hospitalization HX: ANXIETY, GERD, UTI, T/A Surgeries: Yes (WISDOM TEETH REMOVED) Adenoidectomy, Tonsillectomy Respiratory: Yes (PNEUMONIA 08/19/21) Cardiac: No Neurological: No : Yes Expected Date of Delivery: Jul 24, 2022 Hx : 2 Hx Para: 1 Hx Total # of Abortions (Sp): 0 (FIRST CHILD GIVEN UP FOR ADOPTION WHEN PT WAS AGE 19.) Sexually Transmitted Disease: No Genitourinary: Yes Kidney Infection, Kidney Stones Gastrointestinal: Yes (CANNABIS HYPEREMESIS SYNDROME) Musculoskeletal: No Endocrine: No HEENT: Yes (WISDOM TEETH REMOVED; S/P TONSILLECTOMY) Tonsilitis Cancer: No Psychosocial: Yes Anxiety Integumentary: No Blood Disorders: No Family Medical History No Pertinent Family Hx, Psychiatric Problems Physical Exam Vital Signs Vital Signs - First Documented 03/03/22 23:53 Temp 36.6 Pulse 100 Resp 20 B/P (MAP) 125/76 (92) Pulse Ox 98 O2 Delivery Room Air Capillary Refill : Height/Weight/BMI Height: 5'8.00" Weight: 132lbs. oz. 59.148047mj; 22.00 BMI Method:Stated General Appearance: WD/WN, no apparent distress Respiratory: normal breath sounds, no respiratory distress, no accessory muscle use Cardiovascular: regular rate, rhythm, no murmur Gastrointestinal: non tender, soft, other (GRAVID UTERUS AT UMBILICUS. NO UTERINE TENDERNESS. NO EPIGASTRIC TENDERNESS. ) Extremities: normal inspection, no pedal edema, normal capillary refill Back: no CVA tenderness Neurologic/Psychiatric: mower sharpener II-XII nml as tested, no motor/sensory deficits, alert, normal mood/affect, oriented x 3 Skin: normal color, warm/dry, tattoos/piercings (MULITPLE TATTOOS) Progress/Results/Core Measures Results/Orders Lab Results Laboratory Tests Test 03/04/22 00:05 Range/Units White Blood Count 11.6 H 4.3-11.0 10^3/uL Red Blood Count 3.55 L 3.80-5.11 10^6/uL Hemoglobin 10.5 L 11.5-16.0 g/dL Hematocrit 31 L 35-52 % Mean Corpuscular Volume 87 80-99 fL Mean Corpuscular Hemoglobin 30 25-34 pg Mean Corpuscular Hemoglobin Concent 34 32-36 g/dL Red Cell Distribution Width 15.2 H 10.0-14.5 % Platelet Count 256 130-400 10^3/uL Mean Platelet Volume 9.6 9.0-12.2 fL Immature Granulocyte % (Auto) 1 % Neutrophils (%) (Auto) 78 H 42-75 % Lymphocytes (%) (Auto) 14 12-44 % Monocytes (%) (Auto) 7 0-12 % Eosinophils (%) (Auto) 0 0-10 % Basophils (%) (Auto) 0 0-10 % Neutrophils # (Auto) 9.1 H 1.8-7.8 10^3/uL Lymphocytes # (Auto) 1.6 1.0-4.0 10^3/uL Monocytes # (Auto) 0.8 0.0-1.0 10^3/uL Eosinophils # (Auto) 0.0 0.0-0.3 10^3/uL Basophils # (Auto) 0.0 0.0-0.1 10^3/uL Immature Granulocyte # (Auto) 0.1 0.0-0.1 10^3/uL Sodium Level 136 135-145 MMOL/L Potassium Level 3.3 L 3.6-5.0 MMOL/L Chloride Level 104 98-107 MMOL/L Carbon Dioxide Level 19 L 21-32 MMOL/L Anion Gap 13 5-14 MMOL/L Blood Urea Nitrogen 6 L 7-18 MG/DL Creatinine 0.62 0.60-1.30 MG/DL Estimat Glomerular Filtration Rate 131 BUN/Creatinine Ratio 10 Glucose Level 93 70-105 MG/DL Calcium Level 8.7 8.5-10.1 MG/DL Corrected Calcium 9.0 8.5-10.1 MG/DL Magnesium Level 1.6 1.6-2.4 MG/DL Total Bilirubin 0.6 0.1-1.0 MG/DL Aspartate Amino Transf (AST/SGOT) 9 5-34 U/L Alanine Aminotransferase (ALT/SGPT) 9 0-55 U/L Alkaline Phosphatase 62 40-136 U/L Total Protein 6.1 L 6.4-8.2 GM/DL Albumin 3.6 3.2-4.5 GM/DL Amylase Level 17 L 25-125 U/L Lipase 6 L 8-78 U/L Serum Alcohol < 10 <10 MG/DL My Orders Orders - EFRAÍN PINEDA DO Ed Iv/Invasive Line Start (03/03/22 23:55) Alcohol (03/03/22 23:55) Amylase (03/03/22 23:55) Cbc With Automated Diff (03/03/22:55) Comprehensive Metabolic Panel (03/03/22 23:55) Drug Screen Stat (Urine) (03/03/22 23:55) Lipase (03/03/22 23:55) Ua Culture If Indicated (03/03/22:55) Ed Iv/Invasive Line Start (03/03/22 23:55) Lactated Ringers (Lr 1000 Ml Iv Solution (03/04/22 00:00) Metoclopramide Injection (Reglan Injecti (03/04/22 00:00) Heart Tones (03/04/22 00:14) Ondansetron Injection (Zofran Injectio (03/04/22 00:45) Promethazine Injection (Phenergan Injec (03/04/22 00:45) Magnesium (03/04/22 00:46) Ed Iv/Invasive Line Start (03/04/22 01:29) Lactated Ringers (Lr 1000 Ml Iv Solution (03/04/22 01:30) Medications Given in ED Current Medications Medications Dose Ordered Sig/Lane Route Start Time Stop Time Status Last Admin Dose Admin Lactated Ringer's 1,000 ml @ 0 mls/hr Q0M ONCE IV 03/04/22 00:00 03/04/22 00:01 DC 03/04/22 00:19 0 MLS/HR Metoclopramide HCl 10 mg ONCE ONCE IVP 03/04/22 00:00 03/04/22 00:01 DC 03/04/22 00:19 10 MG Ondansetron HCl 4 mg ONCE ONCE IVP 03/04/22 00:45 03/04/22 00:46 DC 03/04/22 00:46 4 MG Promethazine HCl 25 mg ONCE ONCE IVP 03/04/22 00:45 03/04/22 00:46 DC 03/04/22 00:45 25 MG Vital Signs/I&O 03/03/22 03/04/22 23:53 01:37 Temp 36.6 36.6 Pulse 100 95 Resp 20 16 B/P (MAP) 125/76 (92) 124/73 Pulse Ox 98 98 O2 Delivery Room Air Room Air Progress Progress Note : Progress Note FHR 152 GIVEN IV FLUIDS AND REGLAN, WITHOUT SIGNIFICANT IMPROVEMENT GIVEN ZOFRAN AND PHENERGAN WITH IMPROVEMENT. NO VOMITING DURING ER STAY PT REFUSES TO ATTEMPT TO GIVE URINE SPECIMEN ORDERED ADDITIONAL FLUIDS, AND PT DECLINES, AND STATES THAT SHE JUST WANTS TO GO HOME. Departure Impression Primary Impression: Cannabinoid hyperemesis syndrome Additional Impression: 20 weeks gestation of Disposition: HOME, SELF-CARE Condition: Stable Departure-Patient Inst. Decision time for Depature: 01:34 Referrals: KRISTIN ANN MD (PCP/Family) Primary Care Physician Patient Instructions: Cannabis Hyperemesis Syndrome, Stomach Pain Later in Pr egnancy Add. Discharge Instructions: CLEAR LIQUIDS--WATER, BROTH, JELLO, GATORADE BRATS DIET--BANANAS, RICE, APPLESAUCE, TOAST, SALTINES NO MARIJUANA OR ANY OTHER DRUGS FOLLOW UP THIS WEEK FOR OUTPATIENT ADDICTION TREATMENT SCHEDULED. FOLLOW UP WITH DR. ANN FOR ROUTINE OB CARE SCHEDULED. Scripts Promethazine HCl (Promethazine Suppository) 25 Mg Supp.rect 25 MG RC Q6 for Nausea/Vomiting, #10 SUPP.RECT Prov: EFRAÍN PINEDA DO 03/04/22 Ondansetron (Ondansetron Odt) 8 Mg Tab.rapdis 8 MG PO Q6H, #10 TAB Prov: EFRAÍN PINEDA DO 03/04/22 EFRAÍN PINEDA DO March 04, 2022 00:07
[2022-03-04 00:18] LABS: BASOPHILS % (AUTO) 0 % (0-10); EOSINOPHILS % (AUTO) 0 % (0-10); HEMATOCRIT 31 % (35-52); HEMOGLOBIN 10.5 g/dL (11.5-16.0); LYMPHOCYTES # (AUTO) 1.6 10^3/uL (1.0-4.0); LYMPHOCYTES % (AUTO) 14 % (12-44); MEAN CORPUSCULAR HEMOGLOBIN 30 pg (25-34); MEAN CORPUSCULAR HGB CONC 34 g/dL (32-36); MEAN CORPUSCULAR VOLUME 87 fL (80-99); MEAN PLATELET VOLUME 9.6 fL (9.0-12.2); MONOCYTES # (AUTO) 0.8 10^3/uL (0.0-1.0); MONOCYTES % (AUTO) 7 % (0-12); NEUTROPHILS # (AUTO) 9.1 10^3/uL (1.8-7.8); NEUTROPHILS % (AUTO) 78 % (42-75); PLATELET COUNT 256 10^3/uL (130-400); WHITE BLOOD COUNT 11.6 10^3/uL (4.3-11.0)
[2022-03-04 00:29] LABS: ALBUMIN 3.6 GM/DL (3.2-4.5); CHLORIDE 104 MMOL/L (98-107); POTASSIUM 3.3 MMOL/L (3.6-5.0); SODIUM 136 MMOL/L (135-145)
[2022-03-04 00:30] LABS: AMYLASE 17 U/L (25-125)
[2022-03-04 00:31] LABS: CALCIUM 8.7 MG/DL (8.5-10.1)
[2022-03-04 00:32] LABS: GLUCOSE 93 MG/DL (70-105); TOTAL PROTEIN 6.1 GM/DL (6.4-8.2)
[2022-03-04 00:33] LABS: CARBON DIOXIDE 19 MMOL/L (21-32)
[2022-03-04 00:34] LABS: BILIRUBIN,TOTAL 0.6 MG/DL (0.1-1.0)
[2022-03-04 00:35] LABS: ALKALINE PHOSPHATASE 62 U/L (40-136)
[2022-03-04 00:36] LABS: CREATININE SERUM 0.62 MG/DL (0.60-1.30); GFR ESTIMATED 131
[2022-03-04 00:37] LABS: BUN/CREATININE RATIO 10
[2022-03-04 00:38] LABS: ALANINE AMINOTRANSFERASE 9 U/L (0-55)
[2022-03-04 00:39] LABS: LIPASE 6 U/L (8-78)
[2022-03-04] MEDS ORDERED: PROMETHAZINE INJ 25 MG/ML (PHENERGAN) AMP IVP ONE (00:45)
[2022-03-04] MEDS ORDERED: ONDANSETRON 4 MG/2 ML (SDV) Z0FRAN IVP ONE (00:45)
[2022-03-04] MEDS ORDERED: LACTATED RINGERS 1,000 ML IV ONE ×2 (01:30)
[2022-03-04] MEDS ORDERED: ONDA8TAB13 PO (01:36)
[2022-03-04] MEDS ORDERED: PROM25SU44 RC (01:36)
[2022-03-04 01:37] VITALS: BP 124/73
== END 2022-03-04 01:41 | disposition home or self-care (01) ==
LOC: EDUNIT# 23:35 → ER 23:37
DX: O99.322 Drug use complicating pregnancy, second trimester (principal); F12.288 Cannabis dependence with other cannabis-induced disorder; R11.2 Nausea with vomiting, unspecified; Z3A.20 20 weeks gestation of pregnancy
CPT/HCPCS: 80053; 82150; 83690; 83735; 85025; 99284; G0480; 36415; 80320

== ENCOUNTER 2022-06-04 05:38 | Emergency (ER) | payer MEDICAID ==
[~2022-06-04] VITALS: Ht 175.3 cm; Wt 78.0 kg
[~2022-06-04 05:38] MED LIST changes: -ASPI-789 PO; +ASPI1TAB23 PO; +PROM25SU44 RC
--- NOTE | 2022-06-04 06:10 | ED Psychosocial ---
General Chief Complaint: Psych/Social Disorder Stated Complaint: SHAKING,VOMITING,PANIC ATTACHS,33 WKS PREG Nursing Triage Note: C/O INCREASED ANXIETY/PANIC ATTACK X5HRS. REPORTS SIMILAR TO PREVIOUS PANIC ATTACKS WITH N/V. Source: patient Exam Limitations: no limitations History of Present Illness Date Seen by Provider: Jun 04, 2022 Time Seen by Provider: 06:05 Initial Comments Patient is a 21-year-old female G2, P1 who presents to the emergency department at approximately 33 weeks estimated due date July 24, 2022 chief complaint anxiety and "panic". Patient states that her symptoms started last night. She takes Celexa. She does not have a mental health care provider. No therapist. She cannot identify any particular triggers. She complains of nausea and vomiting and rapid heart rate. She has not taken anything to treat the symptoms. She is actively retching and vomiting up bile in the department. She denies pain. No chest pain or shortness of breath. No abdominal pain. No abnormal vaginal discharge or leakage of fluids. No dysuria, urgency or frequency. No COVID concerns. Her OB provider is Dr. Ann. All other review of systems reviewed and negative except as stated. Timing/Duration: yesterday Severity: moderate Associated Symptoms: anxiety Allergies and Home Medications Allergies Coded Allergies: Penicillins (Verified Allergy, Unknown, Hives/Rash, 08/21/21) latex (Verified Allergy, Unknown, 01/30/22) morphine (Verified Allergy, Unknown, 01/14/22) Patient Home Medication List Home Medication List Reviewed: Yes Citalopram Hydrobromide (Citalopram HBr) 20 Mg Tablet, (Reported) Entered as Reported by: JAMESON BARRON on 11/14/212232 Ondansetron (Ondansetron Odt) 8 Mg Tab.rapdis, 8 MG PO Q6H Prescribed by: EFRAÍN PINEDA on 03/04/22 0136 Promethazine HCl (Promethazine Tablet) 25 Mg Tablet, 25 MG PO Q6H PRN for NAUSEA/VOMITING-2ND LINE Prescribed by: TOREY MUNOZ on 01/14/22 0954 Promethazine HCl (Promethazine Tablet) 25 Mg Tablet, 25 MG PO Q6H PRN for NAUSEA/VOMITING Prescribed by: SHANTEL INFANTE on 06/04/22 0842 Promethazine HCl (Promethazine Suppository) 25 Mg Supp.rect, 25 MG RC Q8H PRN for nausea Prescribed by: SHANTEL INFANTE on 06/04/22841 Discontinued Medications Cephalexin (Cephalexin) 500 Mg Tablet, 500 MG PO TID Discontinued Reason: No Longer Taking Prescribed by: CHRISTIANO ROBLERO on 02/03/22 1016 Last Action: Discontinued Doxylamine Succinate (Nighttime Sleep-Aid) 25 Mg Tablet, 25 MG PO BID Discontinued Reason: No Longer Taking Prescribed by: TOREY MUNOZ on 03/01/22941 Last Action: Discontinued Nitrofurantoin Monohyd/M-Cryst (Macrobid 100 mg Capsule) 100 Mg Capsule, 1 TAB PO BID Discontinued Reason: No Longer Taking Prescribed by: TOREY MUNOZ on 03/01/2250 Last Action: Discontinued Ondansetron (Ondansetron Odt) 4 Mg Tab.rapdis, 4 MG PO Q6H PRN for NAUSEA/VOMITING Discontinued Reason: No Longer Taking Prescribed by: ALEXANDR APONTE on 02/03/22845 Last Action: Discontinued Promethazine HCl (Promethazine Tablet) 25 Mg Tablet, 25 MG PO Q6H PRN for NAUSEA/VOMITING Discontinued Reason: No Longer Taking Prescribed by: TOREY MUNOZ on 03/01/22941 Last Action: Discontinued Promethazine HCl (Promethazine Suppository) 25 Mg Supp.rect, 25 MG RC Q6 Discontinued Reason: No Longer Taking Prescribed by: EFRAÍN PINEDA on 03/04/22 0136 Last Action: Discontinued Pyridoxine HCl (Vitamin B-6) 50 Mg Tablet, 25 MG PO DAILY Discontinued Reason: No Longer Taking Prescribed by: ALEXANDR APONTE on 02/03/22845 Last Action: Discontinued Review of Systems Constitutional: see HPI EENTM: no symptoms reported Respiratory: no symptoms reported Cardiovascular: palpitations Gastrointestinal: nausea, vomiting Genitourinary: no symptoms reported : Yes Expected Date of Delivery: Jul 24, 2022 Musculoskeletal: no symptoms reported Skin: no symptoms reported Psychiatric/Neurological: No Symptoms Reported All Other Systems Reviewed Negative Unless Noted: Yes Past Nhbdgld-Cxwnhi-Dedppe Hx Patient Social History Tobacco Use?: Yes E-Cig or Vaping type used: Nicotine Substance use?: Yes Substance type: Marijuana Alcohol Use?: No Pt feels they are or have been: No Immunizations Up To Date Tetanus Booster (TDap): More than 5yrs First/Initial COVID19 Vaccinat: 06/19/2021 Second COVID19 Vaccination James: 07/17/2021 Third COVID19 Vaccination Date: N/A COVID19 Vaccine 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[employer]: [employer] Past Medical History Surgery/Hospitalization HX: ANXIETY, GERD, UTI, T/A Surgeries: Yes (WISDOM TEETH REMOVED) Adenoidectomy, Tonsillectomy Respiratory: Yes (PNEUMONIA 08/19/21) Cardiac: No Neurological: No Expected Date of Delivery: Jul 24, 2022 Sexually Transmitted Disease: No Genitourinary: Yes Kidney Infection, Kidney Stones Gastrointestinal: Yes (CANNABIS HYPEREMESIS SYNDROME) Musculoskeletal: No Endocrine: No HEENT: Yes (WISDOM TEETH REMOVED; S/P TONSILLECTOMY) Tonsilitis Cancer: No Psychosocial: Yes Anxiety Integumentary: No Blood Disorders: No Family Medical History No Pertinent Family Hx, Psychiatric Problems Physical Exam Vital Signs - First Documented 06/04/22 05:45 Temp 36.3 Pulse 86 Resp 18 B/P (MAP) 121/82 (95) Pulse Ox 98 O2 Delivery Room Air Capillary Refill : Less Than 3 Seconds Height, Weight, BMI Height: 5'8.00" Weight: 132lbs. oz. 59.132247ih; 25.00 BMI Method:Stated General Appearance: WD/WN, no apparent distress HEENT: PERRL/EOMI Neck: normal inspection Respiratory: lungs clear, normal breath sounds, no respiratory distress, no accessory muscle use Cardiovascular: regular rate, rhythm, tachycardia (100) Peripheral Pulses: 2+ Radial Pulses (R) Gastrointestinal: soft, other (gravid, non tender) Extremities: normal range of motion, non-tender, normal inspection, no pedal edema Neurologic/Psychiatric: no motor/sensory deficits, alert, oriented x 3, depressed affect Appearance/Memory: appropriate appearance, no memory impairment Behavior/Eye Contact: cooperative, normal speech, avoids eye contact Thoughts/Hallucinations: normal thought pattern, no apparent hallucination, other (denies SI/HI or feeling unsafe at home) Skin: normal color, damp Suicide Risk Suicide Risk Suicide Risk Level / RN Screen: Low Low Suicide Risk Level []Suicidal Ideation WITHOUT method, intent, plan or behavior more than a month ago []]Modifiable risk factors and strong protective factors []No reported history of suicidal ideation or behavior []Patient reports/exhibits symptoms consistent with psychosis []Patient reports a plan that would be unrealistic/impossible to complete and intent []Suicide attempt prior to arrival (Indicates at LEAST Low Suicide Risk, consider other risk factors) Moderate Suicide Risk Level: []Suicidal ideation with method, WITHOUT plan, intent or behavior in the past month []Multiple risk factors and few protective factors []Patient reports intent to follow through on plan to end life if allowed to leave hospital, and has attempted to elope from the hospital High Suicide Risk Level: [] Suicidal ideation with intent or intent with a plan in the past month [] Patient has harmed self or attempted suicide while in the hospital [] Patient has hx of or current Command Auditory hallucinations to harm self or others that they follow without hesitation [] Patient refuses to disclose plan, and indicates intent to complete [] Patient reports plan that is possible to accomplish and/or has means to complete Risk factors supporting recommendation: [] Non-compliance with treatment (acute or chronic) [] Patient has access to or owns firearms and/or stockpiled medications [] Hx Impulsive behavior [] Pending incarceration or homelessness [] Sexual abuse [] Family history and/or exposure to suicide [] Adverse childhood experiences [] Exposure to violence or negative socio-political cultural, and economic forces [] Current or hx of substance use/abuse [] Chronic physical pain or other acute medical problem (AIDS, COPD, Cancer, etc) [] Perceived burden on family or others [] Patient has attempted to elope [] Unable to answer and/or unable to identify [] Refuses to agree to a safety plan Protective Factors supporting recommendation: [] Identifies reasons for living [] Future plans/goals [] Engaged in work or School [] Good family support network [] Good social support network [] Responsibility to family [] Belief that suicide is immoral, against their scientologist beliefs [] High spirituality and involvement in latter day community [] Fear of or dying due to pain and suffering [] Established outpt psychiatric services [] Unable to answer and/or unable to identify Risk Assessment Tool Score: Low Progress/Results/Core Measures Results/Orders Lab Results Laboratory Tests Test 06/04/22 06:18 Range/Units Sodium Level 136 135-145 MMOL/L Potassium Level 3.7 3.6-5.0 MMOL/L Chloride Level 105 98-107 MMOL/L Carbon Dioxide Level 18 L 21-32 MMOL/L Anion Gap 13 5-14 MMOL/L Blood Urea Nitrogen 6 L 7-18 MG/DL Creatinine 0.71 0.60-1.30 MG/DL Estimat Glomerular Filtration Rate 125 BUN/Creatinine Ratio 8 Glucose Level 111 H 70-105 MG/DL Calcium Level 8.9 8.5-10.1 MG/DL My Orders Orders - SHANTEL INFANTE MD Ed Iv/Invasive Line Start (06/04/22 06:11) Basic Metabolic Panel (06/04/22 06:11) Metoclopramide Injection (Reglan Injecti (06/04/22 06:15) Diphenhydramine Injection (Benadryl Inje (06/04/22 06:15) Heart Tones (06/04/22 06:11) Ns Iv 1000 Ml (Sodium Chloride 0.9%) (06/04/22 06:15) Diphenhydramine Injection (Benadryl Inje (06/04/22 07:45) Medications Given in ED Vital Signs/I&O Blood Pressure Mean: 95 Progress Progress Note : Time: 07:45 Progress Note Patient still nauseated. requesting more meds. CO2 slightly low. She is up and walking in the room. Not dry heaving at them moment. FHT per nursing - good. Departure Impression Primary Impression: Anxiety Additional Impressions: Nausea and vomiting in 33 weeks gestation of Disposition: 01 HOME, SELF-CARE Condition: Improved Departure-Patient Inst. Decision time for Depature: 08:40 Referrals: KRISTIN ANN MD (PCP/Family) Primary Care Physician Patient Instructions: Generalized Anxiety Disorder (DC), Nausea and Vomiting of Add. Discharge Instructions: Keep your follow-up appointment with Dr. Ann as scheduled. Phenergan 1 every 6 hours as needed for nausea and vomiting. I have prescribed you both tablets and suppositories for your nausea. If you have any fevers, abdominal pain, leakage of fluid or other emergent concerning symptoms please come back to the emergency department/hospital for reevaluation Follow-up with your primary care provider at [facility] hospital. Scripts Promethazine HCl (Promethazine Suppository) 25 Mg Supp.rect 25 MG RC Q8H PRN for nausea, #6 SUPP.RECT Prov: SHANTEL INFANTE MD 06/04/22 Promethazine HCl (Promethazine Tablet) 25 Mg Tablet 25 MG PO Q6H PRN for NAUSEA/VOMITING, #10 TAB Prov: SHANTEL INFANTE MD 06/04/22 SHANTEL INFANTE MD Jun 04, 2022 06:10
[2022-06-04] MEDS ORDERED: diphenhydrAMINE 50 MG/ML INJ (BENADRYL) IVP ONE ×2 (06:15→07:45)
[2022-06-04] MEDS ORDERED: NS IV 1000 ML 1,000 ML IV SCH (06:15)
[2022-06-04] MEDS ORDERED: METOCLOPRAMIDE INJ 10 MG/2 ML (REGLAN) IVP ONE (06:15)
[2022-06-04 06:55] LABS: POTASSIUM 3.7 MMOL/L (3.6-5.0)
[2022-06-04 06:56] LABS: CALCIUM 8.9 MG/DL (8.5-10.1)
[2022-06-04 07:01] LABS: CREATININE SERUM 0.71 MG/DL (0.60-1.30)
[2022-06-04] MEDS ORDERED: PROM25TA14 PO (08:42)
[2022-06-04] MEDS ORDERED: PROM25SU44 RC (08:42)
[2022-06-04 09:02] VITALS: BP 128/79
[2022-06-05] MEDS ORDERED: MTC10T PO ×2 (13:33)
[2022-06-05] MEDS ORDERED: HYDR-3781 PO ×2 (13:33)
[2022-06-05] MEDS ORDERED: FAMO20TA5 PO ×2 (13:33)
== END 2022-06-04 09:02 | disposition home or self-care (01) ==
LOC: EDUNIT# 05:38 → ER 05:42
DX: O99.353 Diseases of the nervous system complicating pregnancy, third trimester (principal); F41.9 Anxiety disorder, unspecified; O21.2 Late vomiting of pregnancy; Z91.040 Latex allergy status; Z3A.33 33 weeks gestation of pregnancy
CPT/HCPCS: 36415; 80048

== ENCOUNTER 2022-06-05 01:06 | Outpatient (CLI) | payer MEDICAID ==
[2022-06-05] VITALS (7 sets, daily range): BP systolic 109–139; BP diastolic 61–89
[~2022-06-05] VITALS: Ht 175.3 cm; Wt 78.0 kg
[2022-06-05] MEDS ORDERED: LACTATED RINGERS 1,000 ML IV ONE (01:30)
[2022-06-05] MEDS: ONDANSETRON 4 MG/2 ML (SDV) Z0FRAN IVP PRN ×3 (01:57→09:16)
[2022-06-05 02:05] LABS: BILIRUBIN,URINE NEGATIVE (NEGATIVE); CLARITY,URINE CLEAR; COLOR,URINE YELLOW; GLUCOSE, URINE (UA) NEGATIVE (NEGATIVE); KETONES,URINE 3+ (NEGATIVE); LEUKOCYTE ESTERASE ,URINE 2+ (NEGATIVE); NITRITE,URINE NEGATIVE (NEGATIVE); PROTEIN,URINE TRACE (NEGATIVE)
[2022-06-05 02:06] LABS: BASOPHILS % (AUTO) 0 % (0-10); EOSINOPHILS % (AUTO) 0 % (0-10); HEMATOCRIT 33 % (35-52); HEMOGLOBIN 10.8 g/dL (11.5-16.0); LYMPHOCYTES # (AUTO) 1.4 10^3/uL (1.0-4.0); LYMPHOCYTES % (AUTO) 6 % (12-44); MEAN CORPUSCULAR HEMOGLOBIN 28 pg (25-34); MEAN CORPUSCULAR HGB CONC 33 g/dL (32-36); MEAN CORPUSCULAR VOLUME 86 fL (80-99); MEAN PLATELET VOLUME 9.4 fL (9.0-12.2); MONOCYTES # (AUTO) 1.1 10^3/uL (0.0-1.0); MONOCYTES % (AUTO) 5 % (0-12); NEUTROPHILS # (AUTO) 21.8 10^3/uL (1.8-7.8); NEUTROPHILS % (AUTO) 89 % (42-75); PLATELET COUNT 292 10^3/uL (130-400); WHITE BLOOD COUNT 24.5 10^3/uL (4.3-11.0)
[2022-06-05 02:13] LABS: BACTERIA,URINE MODERATE /HPF
[2022-06-05 02:14] LABS: ALBUMIN 3.9 GM/DL (3.2-4.5); POTASSIUM 3.5 MMOL/L (3.6-5.0)
[2022-06-05 02:16] LABS: CALCIUM 9.2 MG/DL (8.5-10.1)
[2022-06-05 02:20] LABS: CREATININE SERUM 0.73 MG/DL (0.60-1.30)
[2022-06-05 02:25] LABS: AMPHETAMINE SCREEN, URINE NEGATIVE (NEGATIVE); BARBITURATE SCREEN URINE NEGATIVE (NEGATIVE); BENZODIAZEPINES SCREEN URINE NEGATIVE (NEGATIVE); CANNABINOID SCREEN, URINE POSITIVE (NEGATIVE); COCAINE SCREEN URINE NEGATIVE (NEGATIVE); METHADONE STAT NEGATIVE (NEGATIVE); OPIATE SCREEN URINE NEGATIVE (NEGATIVE); OXYCODONE STAT NEGATIVE (NEGATIVE); PROPOXYPHENE STAT NEGATIVE (NEGATIVE); TRICYCLIC ANTIDEPRESSANTS SCRE NEGATIVE (NEGATIVE)
[2022-06-05 02:51] LABS: BAND NEUTROPHILS 4 %; LYMPHOCYTES % (MANUAL) 14 %; MONOCYTES % (MANUAL) 1 %; NEUTROPHILS % (MANUAL) 81 %; RBC MORPH NORMAL
[2022-06-05] MEDS ORDERED: diphenhydrAMINE 50 MG/ML INJ (BENADRYL) ONE (03:07)
[2022-06-05] MEDS: LACTATED RINGERS 1,000 ML IV SCH ×3 (03:14→17:15)
[2022-06-05] MEDS: diphenhydrAMINE 50 MG/ML INJ (BENADRYL) IVP PRN ×2 (03:14→09:21)
[2022-06-05 05:50] LABS: BASOPHILS % (AUTO) 0 % (0-10); EOSINOPHILS % (AUTO) 0 % (0-10); HEMATOCRIT 28 % (35-52); LYMPHOCYTES # (AUTO) 1.5 10^3/uL (1.0-4.0); LYMPHOCYTES % (AUTO) 7 % (12-44); MEAN CORPUSCULAR HEMOGLOBIN 28 pg (25-34); MEAN CORPUSCULAR HGB CONC 33 g/dL (32-36); MEAN CORPUSCULAR VOLUME 86 fL (80-99); MEAN PLATELET VOLUME 9.5 fL (9.0-12.2); MONOCYTES # (AUTO) 1.2 10^3/uL (0.0-1.0); MONOCYTES % (AUTO) 6 % (0-12); NEUTROPHILS # (AUTO) 17.6 10^3/uL (1.8-7.8); NEUTROPHILS % (AUTO) 86 % (42-75); PLATELET COUNT 258 10^3/uL (130-400); WHITE BLOOD COUNT 20.5 10^3/uL (4.3-11.0)
[2022-06-05] MEDS: METOCLOPRAMIDE INJ 10 MG/2 ML (REGLAN) IVP PRN ×2 (05:58→12:10)
[2022-06-05] MEDS ORDERED: hydrOXYzine (VISTARIL/ATARAX) 25 MG capsule/tablet PO PRN (10:15)
[2022-06-05] MEDS ORDERED: ONDANSETRON 4 MG (ZOFRAN) ORAL DISSOLVE TAB PO PRN (10:15)
[2022-06-05] MEDS ORDERED: METOCLOPRAMIDE 10 MG (REGLAN) TAB PO PRN (10:15)
[2022-06-05] MEDS ORDERED: FAMOTIDINE 20 MG (PEPCID) TABLET PO SCH (10:30)
--- NOTE | 2022-06-05 11:33 | Diagnostic Imaging Report ---
US LIMITED [id number] INDICATION: Nausea and vomiting, contractions. COMPARISON: None available. TECHNIQUE: Transabdominal sonographic imaging of the gravid uterus was performed. FINDINGS: Single live intrauterine is in cephalic presentation. Cervix is not seen with certainty. Placenta is posteriorly positioned. No previa. The amount of amniotic fluid appears visually appropriate. heart rate is 122 BPM. MAURA is 14.69 cm. IMPRESSION: 1. Single live intrauterine is in cephalic presentation. 2. Due to positioning, the cervix cannot be adequately visualized. Dictated by: Dictated on workstation # [id number]
[2022-06-05] MEDS ORDERED: HYDR-3781 PO ×2 (13:33)
[2022-06-05] MEDS ORDERED: MTC10T PO ×2 (13:33)
[2022-06-05] MEDS ORDERED: FAMO20TA5 PO ×2 (13:33)
[2022-06-05] MEDS ORDERED: ONDANSETRON 4 MG/2 ML (SDV) Z0FRAN IVP PRN (14:45)
[2022-06-05] MEDS ORDERED: BETAMETHASONE ACE/NA PHOS 6 MG/ML (CELESTONE SOLUSPAN) ONE (16:14)
[2022-06-05] MEDS ORDERED: TERBUTALINE INJ 1 MG/ML (BRETHINE) AMP SC NR (16:30)
[2022-06-05] MEDS ORDERED: BETAMETHASONE ACE/NA PHOS 6 MG/ML (CELESTONE SOLUSPAN) IM SCH (16:30)
[2022-06-05] MEDS ORDERED: PROMETHAZINE INJ 25 MG/ML (PHENERGAN) AMP IVP NR (16:45)
--- NOTE | 2022-06-05 16:47 | History & Physical-OB ---
OB - Chief Complaint & HPI Date/Time Date of Admission: Date of Admission: Date seen by a Provider: Jun 05, 2022 Time Seen by a Provider: 16:30 Chief Complaint/History OB-Reason for Admission/Chief: Labor Hx : 2 Hx Para: 0 Expected Date of Delivery: Jul 24, 2022 Gestational Age in Weeks: 33 Gestational Age in Days: 0 Other 21 yo at 33w0d with history of chronic intermittent abdominal pain, nausea and vomiting that predated , presented to ED 06/04 evening with nausea and vomiting. She had been doing well prior to that for some time, had some diarrhea last couple of days and then epigastric pain, tried Nexium which didn't help and she vomited it up. She got a new script for ondansetron from ER because she had not been using it, but then she continued to have intractable vomiting and came back to Labor and Delivery overnight. This morning she was feeling a little better after IV bolus and LR@150 mls/hr, IV ondansetron, Reglan and Benadryl and PO famotidine, felt like trying some bland food. On her morning NST she was noted to be roverto, but denied any sensation other than epigastric pain. US was ordered and bedside report to nurse was that her cervix was 5 cm, however after I planned to d/c her, I reviewed the report and Radiologist reported unable to clearly visualize cervix, so nursing checked her cervix which was 2.5/0/-3 at that time. She continued to contract and then started to have severe vomiting again in the mid-afternoon with contractions increasing in frequency to every 1.5-2 minutes, repeat cervical check 3/0/-3. Allergies and Home Medications Allergies Coded Allergies: Penicillins (Verified Allergy, Unknown, Hives/Rash, 08/21/21) latex (Verified Allergy, Unknown, 01/30/22) morphine (Verified Allergy, Unknown, 01/14/22) Patient Home Medication List Home Medication List Reviewed: No Citalopram Hydrobromide (Citalopram HBr) 20 Mg Tablet, (Reported) Entered as Reported by: JAMESON BARRON on 11/14/21 4491 Last Action: Reviewed Famotidine (Famotidine) 20 Mg Tablet, 20 MG PO BID Prescribed by: KRISTIN ANN on 06/05/22 1333 Hydroxyzine Pamoate (Hydroxyzine Pamoate) 25 Mg Capsule, 25 MG PO Q8H PRN for anxiety Prescribed by: KRISTIN ANN on 06/05/22 1333 Metoclopramide HCl (Metoclopramide HCl) 10 Mg Tablet, 10 MG PO Q8H PRN for NAUSEA/VOMITING-1ST LINE Prescribed by: KRISTIN ANN on 06/05/22 1333 Discontinued Medications Cephalexin (Cephalexin) 500 Mg Tablet, 500 MG PO TID Discontinued Reason: No Longer Taking Prescribed by: CHRISTIANO ROBLERO on 02/03/22 1016 Doxylamine Succinate (Nighttime Sleep-Aid) 25 Mg Tablet, 25 MG PO BID Discontinued Reason: No Longer Taking Prescribed by: TOREY MUNOZ on 03/01/22 0942 Nitrofurantoin Monohyd/M-Cryst (Macrobid 100 mg Capsule) 100 Mg Capsule, 1 TAB PO BID Discontinued Reason: No Longer Taking Prescribed by: TOREY MUNOZ on 03/01/22 0850 Ondansetron (Ondansetron Odt) 4 Mg Tab.rapdis, 4 MG PO Q6H PRN for NAUSEA/VOMITING Discontinued Reason: No Longer Taking Prescribed by: ALEXANDR APONTE on 02/03/22 0846 Ondansetron (Ondansetron Odt) 8 Mg Tab.rapdis, 8 MG PO Q6H Prescribed by: EFRAÍN PINEDA on 03/04/22 013 Last Action: Discontinued Promethazine HCl (Promethazine Tablet) 25 Mg Tablet, 25 MG PO Q6H PRN for NAUSEA/VOMITING-2ND LINE Prescribed by: TOREY MUNOZ on 01/14/22 0954 Last Action: Discontinued Promethazine HCl (Promethazine Tablet) 25 Mg Tablet, 25 MG PO Q6H PRN for NAUSEA/VOMITING Discontinued Reason: No Longer Taking Prescribed by: TOREY MUNOZ on 03/01/22 0942 Promethazine HCl (Promethazine Suppository) 25 Mg Supp.rect, 25 MG RC Q6 Discontinued Reason: No Longer Taking Prescribed by: EFRAÍN PINEDA on 03/04/22 013 Promethazine HCl (Promethazine Tablet) 25 Mg Tablet, 25 MG PO Q6H PRN for NAUSEA/VOMITING Prescribed by: SHANTEL INFANTE on 06/04/22841 Last Action: Discontinued Promethazine HCl (Promethazine Suppository) 25 Mg Supp.rect, 25 MG RC Q8H PRN for nausea Prescribed by: SHANTEL INFANTE on 06/04/22841 Last Action: Discontinued Pyridoxine HCl (Vitamin B-6) 50 Mg Tablet, 25 MG PO DAILY Discontinued Reason: No Longer Taking Prescribed by: ALEAXNDR APONTE on 02/03/22 0846 OB - History Hx of Present Care: Yes Ultrasounds: Abnormal US findings (following with MFM for mild pyelectasis, initially had abnormal appearing placenta, that has circumvallate appearance on follow up) Obstetrical Complications: Hyperemesis Information Induced Hypertension: No Maternal Gestational Diabetes: No Hemorrhage: No Obstetrical History Hx : 2 Hx Para: 1 Hx # Term Pregnancies: 1 Hx # Pregnancies: 0 Number of Living Children: 1 Hx Termination: No Hx Multiple Gestation: No Hx Ectopic : No Hx Stillbirth: No Hx Complication: No Hx Induced Hypertens: No Hx Maternal Gestational Diabet: No Hx Hemorrhage: No Delivery History Hx Dystocia: No Hx Forceps Assisted Delivery: No Hx Vacuum Extraction Assisted: No Hx Placenta Abnormality: Yes Hx Distress: No Hx Large For Gestational Age I: No Hx Small for Gestational Age I: No Hx Section: No Hx Vaginal Delivery Post C-Sec: No Hx Blood Disorders: No Adverse Rxn to Tranfusion: No Patient Past Medical History PMHx: Anxiety Cannabinoid hyperemesis syndrome Cyclic vomiting SurgHx: Tonsillectomy/adenoidectomy Social History/Family History Alcohol Use: Denies Use Recreational Drug Use: Yes (THC, last use around 05/21/2022 per report) Smoking Cessation: Current every day smoker (vapes with nicotine) 2nd Hand Smoke Exposure: Yes Immunizations First/Initial COVID19 Vaccine: 06/19/2021 Second COVID19 Vaccination: 07/17/2021 Third COVID19 Vaccination Date: N/A Hepatitis A: No Hepatitis B: No Tetanus Booster (TDap): More than 5yrs OB - Admission Exam Physical Exam Vitals: Vital Signs 06/05/22 06/05/22 07:57 14:15 Temp 37.1 Pulse 87 Resp 18 B/P (MAP) 126/64 (84) O2 Delivery Room Air HEENT: NCAT Abdomen: Gravid Extremities: Normal Cervical Dilatation: 3cm Effacement: 0% Station: -3 Membranes: Intact Labs Laboratory Tests Test 06/05/22 01:45 06/05/22 01:50 06/05/22 05:25 Range/Units White Blood Count 24.5 H 20.5 H 4.3-11.0 10^3/uL Red Blood Count 3.88 3.22 L 3.80-5.11 10^6/uL Hemoglobin 10.8 L 9.0 L 11.5-16.0 g/dL Hematocrit 33 L 28 L 35-52 % Mean Corpuscular Volume 86 86 80-99 fL Mean Corpuscular Hemoglobin 28 28 25-34 pg Mean Corpuscular Hemoglobin Concent 33 33 32-36 g/dL Red Cell Distribution Width 14.2 14.2 10.0-14.5 % Platelet Count 292 258 130-400 10^3/uL Mean Platelet Volume 9.4 9.5 9.0-12.2 fL Immature Granulocyte % (Auto) 1 1 % Neutrophils (%) (Auto) 89 H 86 H 42-75 % Lymphocytes (%) (Auto) 6 L 7 L 12-44 % Monocytes (%) (Auto) 5 6 0-12 % Eosinophils (%) (Auto) 0 0 0-10 % Basophils (%) (Auto) 0 0 0-10 % Neutrophils # (Auto) 21.8 H 17.6 H 1.8-7.8 10^3/uL Lymphocytes # (Auto) 1.4 1.5 1.0-4.0 10^3/uL Monocytes # (Auto) 1.1 H 1.2 H 0.0-1.0 10^3/uL Eosinophils # (Auto) 0.0 0.0 0.0-0.3 10^3/uL Basophils # (Auto) 0.0 0.0 0.0-0.1 10^3/uL Immature Granulocyte # (Auto) 0.2 H 0.2 H 0.0-0.1 10^3/uL Neutrophils % (Manual) 81 % Lymphocytes % (Manual) 14 % Monocytes % (Manual) 1 % Band Neutrophils 4 % Blood Morphology Comment NORMAL Sodium Level 137 135-145 MMOL/L Potassium Level 3.5 L 3.6-5.0 MMOL/L Chloride Level 103 98-107 MMOL/L Carbon Dioxide Level 18 L 21-32 MMOL/L Anion Gap 16 H 5-14 MMOL/L Blood Urea Nitrogen 5 L 7-18 MG/DL Creatinine 0.73 0.60-1.30 MG/DL Estimat Glomerular Filtration Rate 121 BUN/Creatinine Ratio 7 Glucose Level 111 H 70-105 MG/DL Calcium Level 9.2 8.5-10.1 MG/DL Corrected Calcium 9.3 8.5-10.1 MG/DL Total Bilirubin 1.0 0.1-1.0 MG/DL Aspartate Amino Transf (AST/SGOT) 11 5-34 U/L Alanine Aminotransferase (ALT/SGPT) 10 0-55 U/L Alkaline Phosphatase 108 40-136 U/L Total Protein 7.0 6.4-8.2 GM/DL Albumin 3.9 3.2-4.5 GM/DL Thyroid Stimulating Hormone (TSH) 0.89 0.35-4.94 UIU/ML Urine Color YELLOW Urine Clarity CLEAR Urine pH 6.0 5-9 Urine Specific Forsan >=1.030 1.016-1.022 Urine Protein TRACE H NEGATIVE Urine Glucose (UA) NEGATIVE NEGATIVE Urine Ketones 3+ H NEGATIVE Urine Nitrite NEGATIVE NEGATIVE Urine Bilirubin NEGATIVE NEGATIVE Urine Urobilinogen 0.2 < = 1.0 MG/DL Urine Leukocyte Esterase 2+ H NEGATIVE Urine RBC (Auto) 1+ H NEGATIVE Urine RBC 2-5 H /HPF Urine WBC 10-25 H /HPF Urine Squamous Epithelial Cells 5-10 /HPF Urine Crystals NONE /LPF Urine Bacteria MODERATE H /HPF Urine Casts NONE /LPF Urine Mucus MODERATE H /LPF Urine Culture Indicated YES Urine Opiates Screen NEGATIVE NEGATIVE Urine Oxycodone Screen NEGATIVE NEGATIVE Urine Methadone Screen NEGATIVE NEGATIVE Urine Propoxyphene Screen NEGATIVE NEGATIVE Urine Barbiturates Screen NEGATIVE NEGATIVE Ur Tricyclic Antidepressants Screen NEGATIVE NEGATIVE Urine Phencyclidine Screen NEGATIVE NEGATIVE Urine Amphetamines Screen NEGATIVE NEGATIVE Urine Methamphetamines Screen NEGATIVE NEGATIVE Urine Benzodiazepines Screen NEGATIVE NEGATIVE Urine Cocaine Screen NEGATIVE NEGATIVE Urine Cannabinoids Screen POSITIVE H NEGATIVE OB - Assessment/Plan/Diagnosis Assessment Admission Dx contractions Intractable nausea and vomiting Epigastric pain 33 weeks gestation Admission Status: Observation Plan Other Plan Given persistent contractions and cervical dilation, discussed with Dr. Perez at [facility] and accepted in transfer for possible labor. Betamethasone 12 mg IM given and terbutaline 0.25 mcg given along with multiple anti-emetics and IVF as noted in HPI. KRISTIN ANN MD Jun 05, 2022 16:47
--- NOTE | 2022-06-05 19:40 | Discharge Summary ---
Discharge Summary Hospital Course Hospital Course Date of Admission: Admission Diagnosis : Family Physician/Provider: Kristin Elise MD Date of Discharge: 06/05/22 Discharge Diagnosis: [ ] Hospital Course: [ ] Labs and Pending Lab Test: Laboratory Tests 06/05/22 01:45: White Blood Count 24.5H, Red Blood Count 3.88, Hemoglobin 10.8L, Hematocrit 33L, Mean Corpuscular Volume 86, Mean Corpuscular Hemoglobin 28, Mean Corpuscular Hemoglobin Concent 33, Red Cell Distribution Width 14.2, Platelet Count 292, Mean Platelet Volume 9.4, Immature Granulocyte % (Auto) 1, Neutrophils (%) (Auto) 89H, Lymphocytes (%) (Auto) 6L, Monocytes (%) (Auto) 5, Eosinophils (%) (Auto) 0, Basophils (%) (Auto) 0, Neutrophils # (Auto) 21.8H, Lymphocytes # (Auto) 1.4, Monocytes # (Auto) 1.1H, Eosinophils # (Auto) 0.0, Basophils # (Auto) 0.0, Immature Granulocyte # (Auto) 0.2H, Neutrophils % (Manual) 81, Lymphocytes % (Manual) 14, Monocytes % (Manual) 1, Band Neutrophils 4, Blood Morphology Comment NORMAL, Sodium Level 137, Potassium Level 3.5L, Chloride Level 103, Carbon Dioxide Level 18L, Anion Gap 16H, Blood Urea Nitrogen 5L, Creatinine 0.73, Estimat Glomerular Filtration Rate 121, BUN/Creatinine Ratio 7, Glucose Level 111H, Calcium Level 9.2, Corrected Calcium 9.3, Total Bilirubin 1.0, Aspartate Amino Transf (AST/SGOT) 11, Alanine Aminotransferase (ALT/SGPT) 10, Alkaline Phosphatase 108, Total Protein 7.0, Albumin 3.9, Thyroid Stimulating Hormone (TSH) 0.89 06/05/22 01:50: Urine Color YELLOW, Urine Clarity CLEAR, Urine pH 6.0, Urine Specific [place] >=1.030, Urine Protein TRACEH, Urine Glucose (UA) NEGATIVE, Urine Ketones 3+H, Urine Nitrite NEGATIVE, Urine Bilirubin NEGATIVE, Urine Urobilinogen 0.2, Urine Leukocyte Esterase 2+H, Urine RBC (Auto) 1+H, Urine RBC 2-5H, Urine WBC 10-25H, Urine Squamous Epithelial Cells 5-10, Urine Crystals NONE, Urine Bacteria MODE RATEH, Urine Casts NONE, Urine Mucus MODERATEH, Urine Culture Indicated YES, Urine Opiates Screen NEGATIVE, Urine Oxycodone Screen NEGATIVE, Urine Methadone Screen NEGATIVE, Urine Propoxyphene Screen NEGATIVE, Urine Barbiturates Screen NEGATIVE, Ur Tricyclic Antidepressants Screen NEGATIVE, Urine Phencyclidine Screen NEGATIVE, Urine Amphetamines Screen NEGATIVE, Urine Methamphetamines Screen NEGATIVE, Urine Benzodiazepines Screen NEGATIVE, Urine Cocaine Screen NEGATIVE, Urine Cannabinoids Screen POSITIVEH 06/05/22 05:25: White Blood Count 20.5H, Red Blood Count 3.22L, Hemoglobin 9.0L, Hematocrit 28L, Mean Corpuscular Volume 86, Mean Corpuscular Hemoglobin 28, Mean Corpuscular Hemoglobin Concent 33, Red Cell Distribution Width 14.2, Platelet Count 258, Mean Platelet Volume 9.5, Immature Granulocyte % (Auto) 1, Neutrophils (%) (Auto) 86H, Lymphocytes (%) (Auto) 7L, Monocytes (%) (Auto) 6, Eosinophils (%) (Auto) 0, Basophils (%) (Auto) 0, Neutrophils # (Auto) 17.6H, Lymphocytes # (Auto) 1.5, Monocytes # (Auto) 1.2H, Eosinophils # (Auto) 0.0, Basophils # (Auto) 0.0, Immature Granulocyte # (Auto) 0.2H, Lipase 4L Home Meds Active Metoclopramide HCl 10 Mg Tablet 10 Mg PO Q8H PRN Famotidine 20 Mg Tablet 20 Mg PO BID Hydroxyzine Pamoate 25 Mg Capsule 25 Mg PO Q8H PRN Reported Citalopram HBr (Citalopram Hydrobromide) 20 Mg Tablet Discharge Physical Examination Allergies: Coded Allergies: Penicillins (Verified Allergy, Unknown, Hives/Rash, 08/21/21) latex (Verified Allergy, Unknown, 01/30/22) morphine (Verified Allergy, Unknown, 01/14/22) KRISTIN ELISE MD Jun 05, 2022 19:40
== END 2022-06-05 18:04 | disposition critical access hospital (66) ==
LOC: WSo 01:06 → LDRP 01:07 → WSo 18:04
PROVIDERS: ATTEND Family Medicine
DX: O26.899 Other specified pregnancy related conditions, unspecified trimester (principal); R11.2 Nausea with vomiting, unspecified; Z3A.00 Weeks of gestation of pregnancy not specified
CPT/HCPCS: 36415; 76815; 80053; 80306; 81000; 83690; 84443; 85007; 85025; 85027; 87088

== ENCOUNTER 2022-06-20 14:25 | Outpatient (CLI) | payer MEDICAID ==
[~2022-06-20] VITALS: Ht 175.3 cm; Wt 74.4 kg
[~2022-06-20 14:25] MED LIST changes: +HYDR-3781 PO; +MTC10T PO
[2022-06-20 14:30] VITALS: BP 116/78
[2022-06-20 14:50] VITALS: BP 116/78
[2022-06-20 15:00] VITALS: BP 116/78
[2022-06-20] MEDS ORDERED: HYDROcodone/APAP 5 MG/325 MG (LORTAB) TAB PO ONE (15:30)
[2022-06-20] MEDS ORDERED: CLINDAMYCIN 150 MG (CLEOCIN) CAP PO NR (15:30)
[2022-06-20] MEDS ORDERED: ACHD5005 PO (18:39)
[2022-06-20] MEDS ORDERED: ONDA8TAB13 PO (18:39)
[2022-06-20 22:06] VITALS: BP 116/78
[2022-06-20 22:21] VITALS: BP 116/78
--- NOTE | 2022-06-21 08:56 | Physician Query-Final Dx ---
VINEET06/21/22 0856: Clinic Account Progress/Dx Physician Query: Please give diagnosis Please include # weeks gestation Date of Service Jun 20, 2022 at 14:25 TROY VINCENT MD 06/22/22 1053: Clinic Account Progress/Dx DIAGNOSIS: Diagnosis Third trimester 35 week gestation Decreased movement Tooth abscess in VINEET,OctJun 21, 2022 08:56 TROY VINCENT MD Jun 22, 2022 10:53
== END 2022-06-20 19:05 | disposition home or self-care (01) ==
LOC: WSo 14:25 → LDRP 14:26 → WSo 19:05
PROVIDERS: ATTEND Family Medicine
DX: O36.8130 Decreased fetal movements, third trimester, not applicable or unspecified (principal); O99.891 Other specified diseases and conditions complicating pregnancy; K04.7 Periapical abscess without sinus; Z3A.35 35 weeks gestation of pregnancy
CPT/HCPCS: 99213

== ENCOUNTER 2022-07-05 18:28 | Inpatient (IN) | payer MEDICAID ==
[2022-07-05] VITALS (30 sets, daily range): BP systolic 108–154; BP diastolic 62–89
[~2022-07-05] VITALS: Ht 175.3 cm; Wt 170.0 kg
[~2022-07-05 18:28] MED LIST changes: +ceFAZolin INJECTION 2,000 MG in NS (IVPB) 50 ML IV NR
[2022-07-05] MEDS ORDERED: MINERAL OIL 30 ML UDC TOP PRN (18:45)
[2022-07-05] MEDS ORDERED: D5 LR IV SOLUTION 1,000 ML IV SCH (18:45)
[2022-07-05] MEDS ORDERED: LACTATED RINGERS 1,000 ML IV ONE ×2 (19:10→20:32)
[2022-07-05 19:28] LABS: BASOPHILS % (AUTO) 0 % (0-10); EOSINOPHILS % (AUTO) 0 % (0-10); HEMATOCRIT 28 % (35-52); LYMPHOCYTES # (AUTO) 1.6 10^3/uL (1.0-4.0); LYMPHOCYTES % (AUTO) 11 % (12-44); MEAN CORPUSCULAR HEMOGLOBIN 28 pg (25-34); MEAN CORPUSCULAR HGB CONC 32 g/dL (32-36); MEAN CORPUSCULAR VOLUME 86 fL (80-99); MEAN PLATELET VOLUME 9.7 fL (9.0-12.2); MONOCYTES # (AUTO) 1.1 10^3/uL (0.0-1.0); MONOCYTES % (AUTO) 7 % (0-12); NEUTROPHILS # (AUTO) 12.4 10^3/uL (1.8-7.8); NEUTROPHILS % (AUTO) 82 % (42-75); PLATELET COUNT 258 10^3/uL (130-400); WHITE BLOOD COUNT 15.2 10^3/uL (4.3-11.0)
[2022-07-05 20:04] LABS: LYMPHOCYTES % (MANUAL) 16 %; MONOCYTES % (MANUAL) 4 %; NEUTROPHILS % (MANUAL) 80 %; RBC MORPH NORMAL
[2022-07-05] MEDS ORDERED: fentaNYL 2 mcg/ml BUPIVA 0.125 100 ML ONE (20:32)
--- NOTE | 2022-07-05 21:12 | History & Physical-OB ---
OB - Chief Complaint & HPI Date/Time Date of Admission: Date of Admission: Jul 05, 2022 at 18:28 Date seen by a Provider: Jul 05, 2022 Time Seen by a Provider: 15:30 Chief Complaint/History OB-Reason for Admission/Chief: Onset of Labor Hx : 2 Hx Para: 1 Expected Date of Delivery: Jul 05, 2022 Gestational Age in Weeks: 37 Gestational Age in Days: 2 History of Labs A+, antibody neg, RI. HIV/HepB/RPR NR. GC/chlamydia neg. GBS pos. Other at 37w2d presented for routine Ob visit, reported regular contractions for several hours, found to be 5 cm dilated initially and 6 cm on repeat. Allergies and Home Medications Allergies Coded Allergies: Penicillins (Verified Allergy, Unknown, Hives/Rash, 08/21/21) latex (Verified Allergy, Unknown, 01/30/22) morphine (Verified Allergy, Unknown, 01/14/22) Patient Home Medication List Home Medication List Reviewed: Yes Citalopram Hydrobromide (Citalopram HBr) 20 Mg Tablet, (Reported) Entered as Reported by: JAMESON BARRON on 11/14/212232 Last Action: Reviewed Ondansetron (Ondansetron Odt) 8 Mg Tab.rapdis, 8 MG PO Q6H Prescribed by: TROY VINCENT on 06/20/22 1839 Last Action: Reviewed Discontinued Medications Famotidine (Famotidine) 20 Mg Tablet, 20 MG PO BID Prescribed by: KRISTIN ANN on 06/05/22 133 Last Action: Discontinued Hydrocodone/Acetaminophen (Hydrocodone-Acetamin 5-325 mg) 5 Mg-325 Mg Tablet, 1 TAB PO Q6H PRN for PAIN-MODERATE (5-7) Prescribed by: TROY VINCENT on 06/20/22 1840 Last Action: Discontinued Hydroxyzine Pamoate (Hydroxyzine Pamoate) 25 Mg Capsule, 25 MG PO Q8H PRN for anxiety Prescribed by: KRISTIN ANN on 06/05/22 133 Last Action: Discontinued Metoclopramide HCl (Metoclopramide HCl) 10 Mg Tablet, 10 MG PO Q8H PRN for NAUSEA/VOMITING-1ST LINE Prescribed by: KRISTIN ANN on 06/05/22 133 Last Action: Discontinued OB - History Hx of Present Care: Yes Ultrasounds: Abnormal US findings (first trimester had cystic placenta, initial concern for partial molar, followed by MFM, NIPT normal, repeat US improved and diagnosed circumvallate placenta, mild 4 mm bilateral pyelectasis at 23 weeks, repeat reportedly done inpatient at [place] near 32 weeks, records not yet received) Obstetrical Complications: Hyperemesis Information Induced Hypertension: No Maternal Gestational Diabetes: No Hemorrhage: No Obstetrical History Hx : 2 Hx Para: 1 Hx # Term Pregnancies: 1 Hx # Pregnancies: 0 Number of Living Children: 0 Hx Termination: No Hx Multiple Gestation: No Hx Ectopic : No Hx Stillbirth: No Hx Complication: No Hx Induced Hypertens: No Hx Maternal Gestational Diabet: No Hx Hemorrhage: No Delivery History Hx Dystocia: No Hx Forceps Assisted Delivery: No Hx Vacuum Extraction Assisted: No Hx Placenta Abnormality: No Hx Distress: No Hx Large For Gestational Age I: No Hx Small for Gestational Age I: No Hx Section: No Hx Vaginal Delivery Post C-Sec: No Hx Blood Disorders: No Adverse Rxn to Tranfusion: No Patient Past Medical History PMHx: Anxiety Cannabinoid hyperemesis syndrome Cyclic vomiting SurgHx: Tonsillectomy/adenoidectomy Social History/Family History Alcohol Use: Denies Use Recreational Drug Use: Yes (history of THC use) 2nd Hand Smoke Exposure: Yes Immunizations Influenza Vaccine Up-to-Date: No; Not Current First/Initial COVID19 Vaccine: 06/19/2021 Second COVID19 Vaccination: 07/17/2021 Third COVID19 Vaccination Date: N/A Hepatitis A: No Hepatitis B: No Tetanus Booster (TDap): Less than 5yrs (07/05/22) Rubella: immune RPR/VDRL: Negative GBS Status: Negative HBsAG: Negative OB - Admission Exam Physical Exam Vitals: Vital Signs 07/05/22 19:00 Temp 37.2 Pulse 97 Resp 18 B/P (MAP) 116/73 (87) Pulse Ox 96 O2 Delivery Room Air HEENT: NCAT Abdomen: Non tender Extremities: Normal Cervical Dilatation: 6cm Effacement: Other (70%) Station: -3 Membranes: Intact Contractions on Admission: < 5 Minutes Apart Labs Laboratory Tests Test 07/05/22 19:10 Range/Units White Blood Count 15.2 H 4.3-11.0 10^3/uL Red Blood Count 3.27 L 3.80-5.11 10^6/uL Hemoglobin 9.0 L 11.5-16.0 g/dL Hematocrit 28 L 35-52 % Mean Corpuscular Volume 86 80-99 fL Mean Corpuscular Hemoglobin 28 25-34 pg Mean Corpuscular Hemoglobin Concent 32 32-36 g/dL Red Cell Distribution Width 14.7 H 10.0-14.5 % Platelet Count 258 130-400 10^3/uL Mean Platelet Volume 9.7 9.0-12.2 fL Immature Granulocyte % (Auto) 0 % Neutrophils (%) (Auto) 82 H 42-75 % Lymphocytes (%) (Auto) 11 L 12-44 % Monocytes (%) (Auto) 7 0-12 % Eosinophils (%) (Auto) 0 0-10 % Basophils (%) (Auto) 0 0-10 % Neutrophils # (Auto) 12.4 H 1.8-7.8 10^3/uL Lymphocytes # (Auto) 1.6 1.0-4.0 10^3/uL Monocytes # (Auto) 1.1 H 0.0-1.0 10^3/uL Eosinophils # (Auto) 0.0 0.0-0.3 10^3/uL Basophils # (Auto) 0.0 0.0-0.1 10^3/uL Immature Granulocyte # (Auto) 0.1 0.0-0.1 10^3/uL Neutrophils % (Manual) 80 % Lymphocytes % (Manual) 16 % Monocytes % (Manual) 4 % Blood Morphology Comment NORMAL OB - Assessment/Plan/Diagnosis Assessment Admission Dx Term intrauterine at 37w2d Active labor GBS positive Admission Status: Inpatient Order (span 2 midnights) Reason for Inpatient Admission: labor, delivery and course Plan Plan: Expectant Management, Other (cefazolin for GBS (allergy to pcn)) KRISTIN ANN MD Jul 05, 2022 21:12
[2022-07-05] MEDS ORDERED: CATHETER FLUSH 10 ML SYR IV SCH (22:00)
[2022-07-05] MEDS ORDERED: diphenhydrAMINE 50 MG/ML INJ (BENADRYL) IV PRN (22:15)
[2022-07-05] MEDS ORDERED: NALOXONE 0.4 MG/ML 1 ML (NARCAN) VIAL IV PRN ×2 (22:15)
[2022-07-05] MEDS ORDERED: ONDANSETRON 4 MG/2 ML (SDV) Z0FRAN IV PRN (22:15)
[2022-07-05] MEDS ORDERED: fentaNYL 2 mcg/ml BUPIVA 0.125 100 ML EPI SCH (22:15)
[2022-07-05] MEDS ORDERED: METOCLOPRAMIDE INJ 10 MG/2 ML (REGLAN) IV PRN (22:15)
[2022-07-05] MEDS ORDERED: LACTATED RINGERS 1,000 ML IV SCH (22:15)
[2022-07-06] VITALS (21 sets, daily range): BP systolic 111–138; BP diastolic 61–102
[2022-07-06] MEDS ORDERED: ceFAZolin INJECTION 1,000 MG in NS (IVPB) 50 ML IV SCH (01:00)
[2022-07-06] MEDS ORDERED: OXYTOCIN PRE-MIX DRIP 500 ML IV ONE ×2 (03:26→04:05)
[2022-07-06] MEDS ORDERED: LIDOCAINE/EPI 2% 1:200,00 (XYLOCAINE) 10 ML VIAL ONE (03:33)
--- NOTE | 2022-07-06 04:06 | OB Labor & Delivery Record ---
Vag Delivery Note Vag Delivery Note Date of Delivery: 07/06/22 Preoperative Diagnosis: Gauri Rider is a (22 /Para 2 / 1,Gestational Age (wks)37with 3 days Postoperative Diagnosis: Same Surgeon: KRISTIN ANN Jack Machine Operator: Alhaji Boyle, OMS4 Anesthesia: Epidural Delivery Type: Findings: Viable male infant, apgars 7/9, weight 3470 Lacerations: periurethral Intact placenta with 3 vessel cord. No nuchal cord, body cord or shoulder dystocia Estimated Blood Loss: 350 ml Complications: None Condition: Stable Description of Procedure: The patient is a 22 year old female who presented in active labor. She was admitted and informed consent was obtained. Her labor course was unremarkable. She progressed to complete dilatation and began to push. She was then set up for delivery. The 's head was delivered atraumatically in the JORGE position. The shoulders and remainder of the infant's body were then delivered without difficulty. Upon delivery, the head was held below the level of the perineum and the mouth and nares were bulb suctioned. The cord was doubly clamped and cut and the was handed off to the pediatric staff. An intact placenta with 3-vessel cord delivered via Mary Alice and there was found to be minimal bleeding.~ Vigorous fundal massage was performed and the fundus was found to be firm. IV oxytocin was given. Examination of the vagina and perineum revealed a periurethral laceration repaired in simple running fashion with 3-0 vicryl suture. Following the repair, sponge, instrument and needle counts were correct. Mom and baby were both in stable condition in the labor suite. Vitals - Labs Vital Signs - I&O Vital Signs Date Time Temp Pulse Resp B/P (MAP) Pulse Ox O2 Delivery O2 Flow Rate FiO2 07/05/22 19:00 37.2 97 18 116/73 (87) 96 Room Air 07/05/22 18:49 37.1 97 18 99 Room Air Labs Laboratory Tests 07/05/22 19:10: White Blood Count 15.2H, Red Blood Count 3.27L, Hemoglobin 9.0L, Hematocrit 28L, Mean Corpuscular Volume 86, Mean Corpuscular Hemoglobin 28, Mean Corpuscular Hemoglobin Concent 32, Red Cell Distribution Width 14.7H, Platelet Count 258, Mean Platelet Volume 9.7, Immature Granulocyte % (Auto) 0, Neutrophils (%) (Auto) 82H, Lymphocytes (%) (Auto) 11L, Monocytes (%) (Auto) 7, Eosinophils (%) (Auto) 0, Basophils (%) (Auto) 0, Neutrophils # (Auto) 12.4H, Lymphocytes # (Auto) 1.6, Monocytes # (Auto) 1.1H, Eosinophils # (Auto) 0.0, Basophils # (Auto) 0.0, Immature Granulocyte # (Auto) 0.1, Neutrophils % (Manual) 80, Ly mphocytes % (Manual) 16, Monocytes % (Manual) 4, Blood Morphology Comment NORMAL KRISTIN ANN MD Jul 06, 2022 04:06
[2022-07-06] MEDS ORDERED: OXYTOCIN PRE-MIX DRIP 500 ML IV SCH (04:15)
[2022-07-06] MEDS: IBUPROFEN 600 MG (MOTRIN) TAB PO SCH ×4 (04:29→21:36)
[2022-07-06] MEDS ORDERED: CATHETER FLUSH 10 ML SYR IV SCH (06:00)
[2022-07-06] MEDS: WITCH HAZEL(TUCKS) 40 EA JAR TOP PRN (06:29)
[2022-07-06] MEDS: BENZOCAINE/MENTHOL (DERMOPLAST) 56 ML CAN TP PRN (06:29)
--- NOTE | 2022-07-06 08:19 | Anesthesia-Regional Post-Op ---
Regional Patient Condition Mental Status: Alert, Oriented x3 Circulation: Same as Pre-Op Headache: Absent Sensation: Full Recovery Motor Block: Absent Post Op Complications Complications None Follow Up Care/Instructions Patient Instructions None needed. Anesthesia/Patient Condition Patient is doing well, no complaints, stable vital signs, no apparent adverse anesthesia problems. No complications reported per nursing. ZULLY CUNNINGHAM CRNA Jul 06, 2022 08:19
[2022-07-06] MEDS: ONDANSETRON 4 MG (ZOFRAN) ORAL DISSOLVE TAB SL PRN (09:43)
[2022-07-06] MEDS: DOCUSATE SODIUM 100 MG (COLACE) CAP PO SCH ×2 (12:50→21:36)
[2022-07-07] MEDS: ONDANSETRON 4 MG (ZOFRAN) ORAL DISSOLVE TAB SL PRN ×2 (00:06→08:47)
[2022-07-07] MEDS ORDERED: ACETAMINOPHEN 500 MG TAB (TYLENOL) PO ONE (00:15)
[2022-07-07 00:17] VITALS: BP 123/80
[2022-07-07] MEDS: IBUPROFEN 600 MG (MOTRIN) TAB PO SCH ×4 (03:10→20:41)
[2022-07-07 06:08] LABS: BASOPHILS # (AUTO) 0.1 10^3/uL (0.0-0.1); BASOPHILS % (AUTO) 0 % (0-10); EOSINOPHILS # (AUTO) 0.1 10^3/uL (0.0-0.3); EOSINOPHILS % (AUTO) 0 % (0-10); HEMATOCRIT 28 % (35-52); HEMOGLOBIN 8.8 g/dL (11.5-16.0); LYMPHOCYTES # (AUTO) 1.9 10^3/uL (1.0-4.0); LYMPHOCYTES % (AUTO) 16 % (12-44); MEAN CORPUSCULAR HEMOGLOBIN 27 pg (25-34); MEAN CORPUSCULAR HGB CONC 32 g/dL (32-36); MEAN CORPUSCULAR VOLUME 84 fL (80-99); MEAN PLATELET VOLUME 9.8 fL (9.0-12.2); MONOCYTES # (AUTO) 0.9 10^3/uL (0.0-1.0); MONOCYTES % (AUTO) 7 % (0-12); NEUTROPHILS % (AUTO) 76 % (42-75); PLATELET COUNT 221 10^3/uL (130-400)
[2022-07-07 07:02] VITALS: BP 130/82
[2022-07-07 08:30] VITALS: BP 136/65
[2022-07-07] MEDS: DOCUSATE SODIUM 100 MG (COLACE) CAP PO SCH ×2 (08:32→20:41)
[2022-07-07] MEDS: WITCH HAZEL(TUCKS) 40 EA JAR TOP PRN (08:39)
[2022-07-07] MEDS ORDERED: IBUP-844 PO (10:27)
[2022-07-07] MEDS ORDERED: FERR325T24 PO (10:27)
--- NOTE | 2022-07-07 11:34 | Progress Note ---
KHALIDA GRIFFIN 07/07/22 1134: Subjective Subjective/Events-last exam Gauri is a 22 y F s/p at 37w2d with a pmh of Anxiety. She denies pain this morning. Ambulating well. Tolerates diet and voiding appropriately. Reports light lochia. Baby is in room and she is breast and bottle feeding. Will restart her anxiety medication today. Objective Exam Last Set of Vital Signs Vital Signs Date Time Temp Pulse Resp B/P (MAP) Pulse Ox O2 Delivery O2 Flow Rate FiO2 07/07/22 08:30 37.2 84 20 136/65 (88) Room Air 07/07/22 07:02 99 Capillary Refill : Greater Than 3 Seconds General: Alert, Oriented X3, Cooperative HEENT: Atraumatic, EOMI Neck: Supple Lungs: Clear to Auscultation Heart: Regular Rate, Normal S1, Normal S2, No Murmurs Abdomen: Normal Bowel Sounds, Soft, No Tenderness, Other (Fundus at -1cm) Extremities: No Cyanosis, No Edema Skin: No Rashes, No Significant Lesion Neuro: Normal Gait, Normal Speech Psych/Mental Status: Mental Status NL, Mood NL Results/Procedures Lab Laboratory Tests 07/07/22 05:59: White Blood Count 12.0H, Red Blood Count 3.26L, Hemoglobin 8.8L, Hematocrit 28L, Mean Corpuscular Volume 84, Mean Corpuscular Hemoglobin 27, Mean Corpuscular Hemoglobin Concent 32, Red Cell Distribution Width 14.6H, Platelet Count 221, Mean Platelet Volume 9.8, Immature Granulocyte % (Auto) 0, Neutrophils (%) (Auto) 76H, Lymphocytes (%) (Auto) 16, Monocytes (%) (Auto) 7, Eosinophils (%) (Auto) 0, Basophils (%) (Auto) 0, Neutrophils # (Auto) 9.0H, Lymphocytes # (Auto) 1.9, Monocytes # (Auto) 0.9, Eosinophils # (Auto) 0.1, Basophils # (Auto) 0.1, Immature Granulocyte # (Auto) 0.1 Assessment/Plan Assessment/Plan Admission Dx Assessment & Plan 1. Term Vaginal Delivery - Routine post care 2. Anemia due to blood loss during labor - Hb 8.8 today - Fe supplementation - Follow up with repeat CBC with primary care on discharge 3. Anxiety - Start Celexa KRISTIN ANN MD 07/07/222038: Supervisory-Addendum Brief Verification & Attestation Participated in pt care: history, MDM, physical Personally performed: exam, history, MDM, supervision of care Care discussed with: Medical Student Procedures: n/a I personally obtained my own history and examined patient and directed the plan of care. I agree with the documentation by the medical student. KHALIDA GRIFFIN Jul 07, 2022 11:34 KRISTIN ANN MD Jul 07, 2022 20:39
[2022-07-07 12:03] VITALS: BP 123/82
[2022-07-07] MEDS: FERROUS SULF 325 MG (IRON) TAB PO SCH (12:29)
[2022-07-07 20:32] VITALS: BP 137/86
[2022-07-08 02:46] VITALS: BP 127/83
[2022-07-08] MEDS: IBUPROFEN 600 MG (MOTRIN) TAB PO SCH ×3 (02:46→14:33)
[2022-07-08] MEDS: ONDANSETRON 4 MG (ZOFRAN) ORAL DISSOLVE TAB SL PRN (05:13)
[2022-07-08 09:35] VITALS: BP 129/78
[2022-07-08] MEDS: DOCUSATE SODIUM 100 MG (COLACE) CAP PO SCH (09:40)
[2022-07-08] MEDS: FERROUS SULF 325 MG (IRON) TAB PO SCH (09:41)
--- NOTE | 2022-07-08 09:47 | Discharge Summary ---
Discharge Summary Hospital Course Problems Reviewed?: Yes Hospital Course Date of Admission: Jul 05, 2022 at 18:28 Admission Diagnosis : Family Physician/Provider: Holly Elise MD Date of Discharge: 07/08/22 Discharge Diagnosis: [ Term Vaginal Delivery Anemia due to blood loss during labor Anxiety ] Hospital Course: [ Gauri Rider is 22 y who delivered via at 37w2d. She has a pmh of Anxiety. She was admitted for observation following delivery and had no issues. She is being monitored for Anemia due to blood loss during labor for which she is taking Ferrous Sulfate. She will need to continue iron supplementation on discharge and follow up outpatient for anemia with PCP. She is restarting her anxiety medications and will be sent home with prescription for Celexa. ] Labs and Pending Lab Test: Home Meds Active Ibu (Ibuprofen) 600 Mg Tablet 600 Mg PO Q6HR Ferosul (Ferrous Sulfate) 325 Mg (65 Mg Iron) Tablet 325 Mg PO DAILY@0700 Ondansetron Odt (Ondansetron) 8 Mg Tab.rapdis 8 Mg PO Q6H Reported Citalopram HBr (Citalopram Hydrobromide) 20 Mg Tablet Assessment/Pt DC Instructions 1. Term Vaginal Delivery - Routine post care 2. Anemia due to blood loss during labor - Fe supplementation - Follow up with PCP for CBC, monitor for symptoms. 3. Anxiety - Continue Celexa Discharge Diet: No Restrictions Activity as Tolerated: Yes Discharge Physical Examination Allergies: Coded Allergies: Penicillins (Verified Allergy, Unknown, Hives/Rash, 08/21/21) latex (Verified Allergy, Unknown, 01/30/22) morphine (Verified Allergy, Unknown, 01/14/22) General Appearance: No Apparent Distress HEENT: PERRL/EOMI Respiratory: Chest Non Tender, Lungs Clear, Normal Breath Sounds Cardiovascular: Regular Rate, Rhythm, No Edema, No Murmur Gastrointestinal: Normal Bowel Sounds, Non Tender, Soft, Other (Fundus at -1cm) Extremity: Normal Inspection, Non Tender, No Calf Tenderness, No Pedal Edema Skin: Normal Color, Warm/Dry Neurologic/Psychiatric: Alert, Oriented x3, Normal Mood/Affect Discharge Summary Date of Admission Jul 05, 2022 at 18:28 Date of Discharge Discharge Date: Jul 08, 2022 KHALIDA GRIFFIN Jul 08, 2022 09:44
[2022-07-08 14:30] VITALS: BP 122/90
[2022-07-08] MEDS: BENZOCAINE/MENTHOL (DERMOPLAST) 56 ML CAN TP PRN (15:44)
== END 2022-07-08 15:40 | disposition home or self-care (01) | DRG 806 ==
LOC: LDRP 18:28 → WS 07-06 09:17
PROVIDERS: ADMIT Family Medicine; ATTEND Family Medicine
PROC: 10E0XZZ Delivery of Products of Conception, External Approach (ICD-10-PCS; principal; 2022-07-05)
PROC: 0UQMXZZ Repair Vulva, External Approach (ICD-10-PCS; 2022-07-05)
DX: O99.824 Streptococcus B carrier state complicating childbirth (principal); D62 Acute posthemorrhagic anemia; Z37.0 Single live birth; Z3A.37 37 weeks gestation of pregnancy; Z91.040 Latex allergy status; O71.82 Other specified trauma to perineum and vulva; O90.81 Anemia of the puerperium; O99.344 Other mental disorders complicating childbirth; F41.9 Anxiety disorder, unspecified
CPT/HCPCS: 36415; 85007; 85025; 85027; 86850; 86900; 86901

== ENCOUNTER 2022-08-23 04:28 | Emergency (ER) | payer MEDICAID ==
[~2022-08-23] VITALS: Ht 172.7 cm; Wt 66.2 kg
[~2022-08-23 04:28] MED LIST changes: +FERR325T24 PO; +IBUP-844 PO; -ceFAZolin INJECTION 2,000 MG in NS (IVPB) 50 ML IV NR
--- NOTE | 2022-08-23 04:43 | ED General ---
General Stated Complaint: TOOTH PAIN Source of Information: Patient Exam Limitations: No Limitations History of Present Illness Date Seen by Provider: Aug 23, 2022 Time Seen by Provider: 04:35 Initial Comments 22-year-old female presents emergency room today for left upper dental pain. She had a molar removed 2 months ago and got dry socket. She has had some pain since that time that was gradually getting better. Over the last 2 days it has gotten worse once again. Dull throbbing sensation causing irritation to her gum and cheek area. No fevers chills nausea. No difficulty swallowing. She has tried Orajel without any relief. Allergies and Home Medications Allergies Coded Allergies: Penicillins (Verified Allergy, Unknown, Hives/Rash, 08/21/21) latex (Verified Allergy, Unknown, 01/30/22) morphine (Verified Allergy, Unknown, 01/14/22) Patient Home Medication List Home Medication List Reviewed: Yes Citalopram Hydrobromide (Citalopram HBr) 20 Mg Tablet, (Reported) Entered as Reported by: JAMESON BARRON on 11/14/212232 Ferrous Sulfate (Ferosul) 325 Mg (65 Mg Iron) Tablet, 325 MG PO DAILY@0700 Prescribed by: KRISTIN ANN on 07/07/22 1027 Ibuprofen (Ibu) 600 Mg Tablet, 600 MG PO Q6HR Prescribed by: KRISTIN ANN on 07/07/22 1027 Ondansetron (Ondansetron Odt) 8 Mg Tab.rapdis, 8 MG PO Q6H Prescribed by: TROY VINCENT on 06/20/22 1839 Review of Systems Review of Systems Constitutional: no symptoms reported EENTM: other (Left upper dental pain) Respiratory: no symptoms reported Cardiovascular: no symptoms reported Gastrointestinal: no symptoms reported Genitourinary: no symptoms reported Musculoskeletal: no symptoms reported Skin: no symptoms reported Psychiatric/Neurological: No Symptoms Reported Hematologic/Lymphatic: No Symptoms Reported Immunological/Allergic: no symptoms reported Past Zxsnsps-Bwpxvz-Mkmnzq Hx Patient Social History Tobacco Use?: Yes Use of E-Cig and/or Vaping dev: Yes E-Cig or Vaping type used: Marijuana Substance use?: No Alcohol Use?: No Immunizations Up To Date Tetanus Booster (TDap): Less than 5yrs First/Initial COVID19 Vaccinat: 06/19/2021 Second COVID19 Vaccination James: 07/17/2021 Third COVID19 Vaccination Date: N/A Past Medical History Surgery/Hospitalization HX: ANXIETY, GERD, UTI, T/A Surgeries: Yes (WISDOM TEETH REMOVED) Adenoidectomy, Tonsillectomy Respiratory: Yes (PNEUMONIA 08/19/21) Cardiac: No Neurological: No Sexually Transmitted Disease: No Genitourinary: Yes Kidney Infection, Kidney Stones Gastrointestinal: Yes (CANNABIS HYPEREMESIS SYNDROME) Musculoskeletal: No Endocrine: No HEENT: Yes (WISDOM TEETH REMOVED; S/P TONSILLECTOMY) Tonsilitis Cancer: No Psychosocial: Yes Anxiety Integumentary: No Blood Disorders: No Adverse Reaction/Blood Tranf: No Family Medical History Reviewed Nursing Family Hx No Pertinent Family Hx, Psychiatric Problems Physical Exam Vital Signs Capillary Refill : Height, Weight, BMI Height: 5'8.00" Weight: 132lbs. oz. 59.178853mc; 55.32 BMI Method:Stated General Appearance: No Apparent Distress, WD/WN HEENT: PERRL/EOMI, TMs Normal, Normal ENT Inspection, Pharynx Normal, Other (There is a palpable nodule anterior surface of the left upper gingival region at the area of previous tooth extraction. This is the source of her pain. Maybe a small piece she remains. There is no evidence for infection or abscess.) Neck: Full Range of Motion, Normal Inspection, Non Tender, Supple Respiratory: Chest Non Tender, Lungs Clear, Normal Breath Sounds, No Accessory Muscle Use Cardiovascular: Regular Rate, Rhythm, No Edema, No Gallop, No JVD, No Murmur, Normal Peripheral Pulses Gastrointestinal: Normal Bowel Sounds, No Organomegaly, No Pulsatile Mass, Non Tender, Soft Extremity: Normal Capillary Refill, Normal Inspection, Normal Range of Motion, Non Tender, No Calf Tenderness Skin: Normal Color, Warm/Dry Lymphatic: No Adenopathy Progress/Results/Core Measures Suspected Sepsis SIRS Temperature: Pulse: Respiratory Rate: Blood Pressure / Mean: Results/Orders Vital Signs/I&O Capillary Refill : Departure Communication (Admissions) Patient is hemodynamically stable. There is a palpable nodule but feels like maybe a piece of she remains in the genital region. Tenderness. There is no infection or abscess. This is rubbing of her cheek and gums and causing tenderness. Advised to use dental wax to decrease the areas of contact. Also advised to follow-up with a dentist by calling to schedule. Impression Primary Impression: Pain, dental Disposition: HOME, SELF-CARE Condition: Stable Departure-Patient Inst. Referrals: [facility] [place] ([place]/Family) Primary Care Physician Patient Instructions: Dental Pain Add. Discharge Instructions: Use dental wax, Advil Liqui-Gels as discussed. Call Dr. Leigh to schedule follow-up appointment. Return to the emergency department for any severe concerns DONTE VEGA DO Aug 23, 2022 04:43
[2022-08-23 04:46] VITALS: BP 119/85
== END 2022-08-23 04:46 | disposition home or self-care (01) ==
LOC: EDUNIT# 04:28 → ER 04:31
DX: K08.89 Other specified disorders of teeth and supporting structures (principal); F17.290 Nicotine dependence, other tobacco product, uncomplicated; Z91.040 Latex allergy status; Z98.818 Other dental procedure status
CPT/HCPCS: 99282

== ENCOUNTER 2022-12-15 08:49 | Emergency (ER) | payer MEDICAID ==
[~2022-12-15] VITALS: Ht 172 cm; Wt 64.0 kg
[2022-12-15] MEDS ORDERED: NS IV 1000 ML 1,000 ML IV STA ×2 (09:13→10:34)
[2022-12-15] MEDS ORDERED: ONDANSETRON 4 MG/2 ML (SDV) Z0FRAN IVP ONE (09:15)
[2022-12-15 09:19] LABS: BASOPHILS % (AUTO) 0 % (0-10); EOSINOPHILS % (AUTO) 0 % (0-10); HEMATOCRIT 39 % (35-52); HEMOGLOBIN 12.6 g/dL (11.5-16.0); LYMPHOCYTES # (AUTO) 1.2 10^3/uL (1.0-4.0); LYMPHOCYTES % (AUTO) 12 % (12-44); MEAN CORPUSCULAR HEMOGLOBIN 28 pg (25-34); MEAN CORPUSCULAR HGB CONC 33 g/dL (32-36); MEAN CORPUSCULAR VOLUME 85 fL (80-99); MEAN PLATELET VOLUME 10.9 fL (9.0-12.2); MONOCYTES # (AUTO) 0.4 10^3/uL (0.0-1.0); MONOCYTES % (AUTO) 4 % (0-12); NEUTROPHILS % (AUTO) 84 % (42-75); PLATELET COUNT 304 10^3/uL (130-400); WHITE BLOOD COUNT 9.6 10^3/uL (4.3-11.0)
[2022-12-15 09:29] LABS: ALBUMIN 4.7 GM/DL (3.2-4.5); CHLORIDE 110 MMOL/L (98-107); POTASSIUM 3.8 MMOL/L (3.6-5.0); SODIUM 141 MMOL/L (135-145)
[2022-12-15 09:30] LABS: CALCIUM 9.2 MG/DL (8.5-10.1)
[2022-12-15 09:31] LABS: GLUCOSE 125 MG/DL (70-105); TOTAL PROTEIN 7.3 GM/DL (6.4-8.2)
[2022-12-15 09:33] LABS: BILIRUBIN,TOTAL 0.6 MG/DL (0.1-1.0); CARBON DIOXIDE 16 MMOL/L (21-32)
[2022-12-15 09:35] LABS: ALKALINE PHOSPHATASE 61 U/L (40-136); CREATININE SERUM 0.86 MG/DL (0.60-1.30); GFR ESTIMATED 99
[2022-12-15 09:36] LABS: BUN/CREATININE RATIO 14
[2022-12-15 09:38] LABS: ALANINE AMINOTRANSFERASE 11 U/L (0-55); MAGNESIUM 1.7 MG/DL (1.6-2.4)
[2022-12-15] MEDS ORDERED: fentaNYL INJ 100 MCG/2 ML AMP IVP STA ×2 (09:42→10:34)
[2022-12-15] MEDS ORDERED: KETOROLAC 30 MG/ML VIAL IVP STA (09:42)
[2022-12-15] MEDS ORDERED: DROPERIDOL 5 MG/2 ML (INAPSINE) ED ONLY! IV ONE ×2 (10:00→12:15)
--- NOTE | 2022-12-15 10:31 | ED GI ---
General Chief Complaint: Abdominal/GI Problems Stated Complaint: ABDOMINAL PAIN, VOMITING Nursing Triage Note: PT STATES NVD THAT STARTED LAST NIGHT, VOMITING AT TRIAGE, PT ON CONTROL UNKNOWN LAST PERIOD Source of Information: Patient Exam Limitations: No Limitations History of Present Illness Date Seen by Provider: Dec 15, 2022 Time Seen by Provider: 09:14 Initial Comments Here with report of nausea and vomiting that started last night. She has had several episodes of this over the last few years. 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 She also had hyperemesis during . Does have history of marijuana use but states that she is only used once or twice a month over the last several months and the last use was about 3 days ago. She states that this cannot be due to marijuana as she has not been using very much. Denies fever or chills. She is unsure about but states that she is on control and she is 5 months since she delivered baby recently. Denies blood in her vomit or stool. She denies dysuria. Pain is mostly in the upper abdomen around the epigastrium. Timing/Duration: 12 Hours Severity/Quality: Moderate, Severe Location: Epigastric Radiation: RUQ, LUQ Activities at Onset: None Modifying Factors: Worsens With Eating Associated Symptoms: No Back Pain, No Chest Pain, No Fever/Chills; N ausea/Vomiting; No Shortness of Air; Weakness Allergies and Home Medications Allergies Coded Allergies: Penicillins (Verified Allergy, Unknown, Hives/Rash, 08/21/21) latex (Verified Allergy, Unknown, 01/30/22) morphine (Verified Allergy, Unknown, 01/14/22) Patient Home Medication List Home Medication List Reviewed: Yes Citalopram Hydrobromide (Citalopram HBr) 20 Mg Tablet, (Reported) Entered as Reported by: JAMESON BARRON on 11/14/212232 Ferrous Sulfate (Ferosul) 325 Mg (65 Mg Iron) Tablet, 325 MG PO DAILY@0700 Prescribed by: KRISTIN ANN on 07/07/22 1027 Ibuprofen (Ibu) 600 Mg Tablet, 600 MG PO Q6HR Prescribed by: KRISTIN ANN on 07/07/22 1027 Ondansetron (Ondansetron Odt) 8 Mg Tab.rapdis, 8 MG PO Q6H Prescribed by: TROY VINCENT on 06/20/22 1839 Ondansetron (Ondansetron Odt) 4 Mg Tab.rapdis, 4 MG PO Q6H PRN for NAUSEA/VOMITING Prescribed by: KOURTNEY MCDONALD on 12/15/22 1319 Review of Systems Review of Systems Constitutional: see HPI; No chills, No fever Respiratory: No Symptoms Reported Cardiovascular: No Symptoms Reported Gastrointestinal: Abdominal Pain; Denies Diarrhea; Nausea, Vomiting Genitourinary: Denies Frequency, Denies Pain Musculoskeletal: no symptoms reported Psychiatric/Neurological: Anxiety, Weakness Past Tjgdprx-Iaoljk-Rrkeeb Hx Patient Social History Use of E-Cig and/or Vaping dev: Yes E-Cig or Vaping type used: Nicotine, Marijuana Substance use?: Yes Substance type: Marijuana Alcohol Use?: No Immunizations Up To Date Tetanus Booster (TDap): Less than 5yrs First/Initial COVID19 Vaccinat: 06/19/2021 Second COVID19 Vaccination James: 07/17/2021 Third COVID19 Vaccination Date: N/A COVID19 Vaccine Cto: ESTHER Past Medical History Surgery/Hospitalization HX: ANXIETY, GERD, UTI, T/A, 2 NATURAL BIRTHS Surgeries: Yes (WISDOM TEETH REMOVED) Adenoidectomy, Tonsillectomy Respiratory: Yes (PNEUMONIA 08/19/21) Cardiac: No Neurological: No Sexually Transmitted Disease: No Genitourinary: Yes Kidney Infection, Kidney Stones Gastrointestinal: Yes (CANNABIS HYPEREMESIS SYNDROME) Musculoskeletal: No Endocrine: No HEENT: Yes (WISDOM TEETH REMOVED; S/P TONSILLECTOMY) Tonsilitis Cancer: No Psychosocial: Yes Anxiety Integumentary: No Blood Disorders: No Adverse Reaction/Blood Tranf: No Family Medical History Reviewed Nursing Family Hx No Pertinent Family Hx, Psychiatric Problems Physical Exam Vital Signs Vital Signs - First Documented 12/15/22 08:55 Temp 36.2 Pulse 121 Resp 20 B/P (MAP) 119/85 (96) Pulse Ox 100 O2 Delivery Room Air Capillary Refill : Less Than 3 Seconds Height/Weight/BMI Height: 5'8.00" Weight: 132lbs. oz. 59.111515gk; 21.00 BMI Method:Stated General Appearance: moderate distress, thin HEENT: PERRL/EOMI, pharynx normal Neck: full range of motion, supple Respiratory: lungs clear, normal breath sounds Cardiovascular: no murmur, tachycardia Gastrointestinal: soft, tenderness (Greatest at the epigastric but also right and left upper quadrant along the rib margin) Extremities: non-tender, normal inspection Back: normal inspection, no CVA tenderness, no vertebral tenderness Neurologic/Psychiatric: alert, oriented x 3 Progress/Results/Core Measures Results/Orders Lab Results Laboratory Tests Test 12/15/22 09:05 Range/Units White Blood Count 9.6 4.3-11.0 10^3/uL Red Blood Count 4.59 3.80-5.11 10^6/uL Hemoglobin 12.6 11.5-16.0 g/dL Hematocrit 39 35-52 % Mean Corpuscular Volume 85 80-99 fL Mean Corpuscular Hemoglobin 28 25-34 pg Mean Corpuscular Hemoglobin Concent 33 32-36 g/dL Red Cell Distribution Width 15.2 H 10.0-14.5 % Platelet Count 304 130-400 10^3/uL Mean Platelet Volume 10.9 9.0-12.2 fL Immature Granulocyte % (Auto) 0 % Neutrophils (%) (Auto) 84 H 42-75 % Lymphocytes (%) (Auto) 12 12-44 % Monocytes (%) (Auto) 4 0-12 % Eosinophils (%) (Auto) 0 0-10 % Basophils (%) (Auto) 0 0-10 % Neutrophils # (Auto) 8.0 H 1.8-7.8 10^3/uL Lymphocytes # (Auto) 1.2 1.0-4.0 10^3/uL Monocytes # (Auto) 0.4 0.0-1.0 10^3/uL Eosinophils # (Auto) 0.0 0.0-0.3 10^3/uL Basophils # (Auto) 0.0 0.0-0.1 10^3/uL Immature Granulocyte # (Auto) 0.0 0.0-0.1 10^3/uL Sodium Level 141 135-145 MMOL/L Potassium Level 3.8 3.6-5.0 MMOL/L Chloride Level 110 H 98-107 MMOL/L Carbon Dioxide Level 16 L 21-32 MMOL/L Anion Gap 15 H 5-14 MMOL/L Blood Urea Nitrogen 12 7-18 MG/DL Creatinine 0.86 0.60-1.30 MG/DL Estimat Glomerular Filtration Rate 99 BUN/Creatinine Ratio 14 Glucose Level 125 H 70-105 MG/DL Calcium Level 9.2 8.5-10.1 MG/DL Corrected Calcium 8.5-10.1 MG/DL Magnesium Level 1.7 1.6-2.4 MG/DL Total Bilirubin 0.6 0.1-1.0 MG/DL Aspartate Amino Transf (AST/SGOT) 14 5-34 U/L Alanine Aminotransferase (ALT/SGPT) 11 0-55 U/L Alkaline Phosphatase 61 40-136 U/L Total Protein 7.3 6.4-8.2 GM/DL Albumin 4.7 H 3.2-4.5 GM/DL Lipase 11 8-78 U/L Serum Test, Qualitative NEGATIVE NEGATIVE My Orders Orders - KOURTNEY MCDONALD MD Ondansetron Injection (Zofran Injectio (12/15/22 09:15) Ns Iv 1000 Ml (Sodium Chloride 0.9%) (12/15/22 09:13) Ed Iv/Invasive Line Start (12/15/22 09:13) Cbc With Automated Diff (12/15/22 09:13) Comprehensive Metabolic Panel (12/15/22 09:13) Hcg,Qualitative Serum (12/15/22 09:13) Magnesium (12/15/22 09:13) Ua Culture If Indicated (12/15/22 09:13) Fentanyl Inj (Sublimaze Injection) (12/15/22 09:42) Ketorolac Injection (Toradol Injection) (12/15/22 09:42) Droperidol Inj (Ed Only) (Inapsine Inj ( (12/15/22 10:00) Lipase (12/15/22 09:57) Fentanyl Inj (Sublimaze Injection) (12/15/22 10:34) Ns Iv 1000 Ml (Sodium Chloride 0.9%) (12/15/22 10:34) Droperidol Inj (Ed Only) (Inapsine Inj ( (12/15/22 12:15) Medications Given in ED Current Medications Medications Dose Ordered Sig/Lane Route Start Time Stop Time Status Last Admin Dose Admin Droperidol 1.25 mg ONCE ONCE IV 12/15/22 10:00 12/15/22 10:01 DC 12/15/22 10:01 1.25 MG Droperidol 1.25 mg ONCE ONCE IV 12/15/22 12:15 12/15/22 12:16 DC 12/15/22 12:17 1.25 MG Ondansetron HCl 4 mg ONCE ONCE IVP 12/15/22 09:15 12/15/22 09:16 DC 12/15/22 09:21 4 MG Vital Signs/I&O 12/15/22 12/15/22 12/15/22 12/15/22 08:55 09:48 09:48 10:40 Temp 36.2 36.2 36.2 36.2 Pulse 121 Resp 20 B/P (MAP) 119/85 (96) Pulse Ox 100 O2 Delivery Room Air Blood Pressure Mean: 96 Progress Progress Note : Progress Note Seen and evaluated. IV, labs including CBC, CMP and serum hCG qualitative test ordered. UA ordered. Normal saline 1 L bolus and Zofran 4 mg IV. Differential includes cyclic vomiting syndrome, cannabis associated vomiting syndrome, electrolyte abnormality, dehydration 1030: I did give fentanyl 50 mcg IV and Toradol 30 mg IV for pain. Droperidol 1.25 mg IV ordered for persistent nausea and vomiting despite Zofran. I have reviewed chemistries and labs. CBC shows normal white count and normal hemoglobin. Chemistry shows grossly normal electrolytes but slightly low CO2 with normal serum creatinine normal LFTs, normal total bili, normal lipase, normal magnesium and hCG serum qualitative was negative. She has had markedly decreased nausea and vomiting. We are still pending UA. Monitor patient. 1035: Patient is complaining of pain again. We will repeat normal saline 1 L bolus and give repeat dose of fentanyl 50 mcg IV. Monitor patient. 1316: I did repeat droperidol 1.25 mg IV for persistent nausea. She is overall doing much better and has not had an vomiting for last 45 minutes to an hour. She feels comfortable going home. She will have her take her home. She was instructed that she cannot drive after the medicines which she verbalized understanding. Discharged home with return precautions. Patient verbalized understanding instructions and agreement with plan. Departure Impression Primary Impression: Cyclic vomiting syndrome Disposition: HOME, SELF-CARE Condition: Improved Departure-Patient Inst. Decision time for Depature: 13:17 Referrals: [facility] [place] Primary Care Physician Patient Instructions: Abdominal Pain, Adult ED, Nausea and Vomiting, Adult (DC) Add. Discharge Instructions: All discharge instructions reviewed with patient and/or family. Voiced understanding. Clear a light diet for the next 24 hours and then advance as tolerated. Take medications as directed. Follow-up with your doctor early next week for recheck and further evaluation and to discuss your vomiting syndrome. 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 Return for worse pain, fever, vomiting, weakness, breathing problems or other concerns as needed. Drink plenty of fluids by taking small sips frequently. Scripts Ondansetron (Ondansetron Odt) 4 Mg Tab.rapdis 4 MG PO Q6H PRN for NAUSEA/VOMITING, #12 TAB 0 Refills Prov: KOURTNYE MCDONALD MD 12/15/22 KOURTNEY MCDONALD MD Dec 15, 2022 10:31
[2022-12-15] MEDS ORDERED: ONDA4TAB11 PO (13:19)
[2022-12-15 13:36] VITALS: BP 119/85
== END 2022-12-15 13:36 | disposition home or self-care (01) ==
LOC: EDUNIT# 08:49 → ER 08:50
DX: R11.15 Cyclical vomiting syndrome unrelated to migraine (principal); F17.290 Nicotine dependence, other tobacco product, uncomplicated; Z32.02 Encounter for pregnancy test, result negative; Z91.040 Latex allergy status; Z88.5 Allergy status to narcotic agent
CPT/HCPCS: 36415; 80053; 83690; 83735; 84703; 85025; 99281

== ENCOUNTER 2022-12-17 04:48 | Emergency (ER) | payer MEDICAID ==
[~2022-12-17] VITALS: Ht 172 cm; Wt 74.8 kg
[2022-12-17 04:51] VITALS: BP 133/84
[2022-12-17] MEDS ORDERED: fentaNYL INJ 100 MCG/2 ML AMP IVP ONE (05:00)
[2022-12-17] MEDS ORDERED: DROPERIDOL 5 MG/2 ML (INAPSINE) ED ONLY! IV ONE (05:00)
[2022-12-17] MEDS ORDERED: LACTATED RINGERS 1,000 ML IV ONE (05:00)
[2022-12-17] MEDS ORDERED: ONDANSETRON 4 MG/2 ML (SDV) Z0FRAN IVP ONE (05:00)
[2022-12-17] MEDS ORDERED: PANTOPRAZOLE 40 MG (PROTONIX) VIAL IV ONE (05:00)
[2022-12-17 05:06] LABS: BASOPHILS # (AUTO) 0.1 10^3/uL (0.0-0.1); BASOPHILS % (AUTO) 1 % (0-10); EOSINOPHILS % (AUTO) 0 % (0-10); HEMATOCRIT 34 % (35-52); HEMOGLOBIN 11.3 g/dL (11.5-16.0); LYMPHOCYTES # (AUTO) 3.2 10^3/uL (1.0-4.0); LYMPHOCYTES % (AUTO) 38 % (12-44); MEAN CORPUSCULAR HEMOGLOBIN 28 pg (25-34); MEAN CORPUSCULAR HGB CONC 33 g/dL (32-36); MEAN CORPUSCULAR VOLUME 83 fL (80-99); MEAN PLATELET VOLUME 10.8 fL (9.0-12.2); MONOCYTES # (AUTO) 0.7 10^3/uL (0.0-1.0); MONOCYTES % (AUTO) 8 % (0-12); NEUTROPHILS # (AUTO) 4.5 10^3/uL (1.8-7.8); NEUTROPHILS % (AUTO) 53 % (42-75); PLATELET COUNT 312 10^3/uL (130-400); WHITE BLOOD COUNT 8.4 10^3/uL (4.3-11.0)
[2022-12-17 05:18] LABS: ALBUMIN 4.4 GM/DL (3.2-4.5); POTASSIUM 3.2 MMOL/L (3.6-5.0)
[2022-12-17 05:21] LABS: TOTAL PROTEIN 6.7 GM/DL (6.4-8.2)
[2022-12-17 05:23] LABS: BILIRUBIN,TOTAL 0.8 MG/DL (0.1-1.0)
[2022-12-17 05:24] LABS: CREATININE SERUM 0.94 MG/DL (0.60-1.30)
[2022-12-17 05:27] LABS: MAGNESIUM 1.7 MG/DL (1.6-2.4)
[2022-12-17] MEDS ORDERED: KETOROLAC 30 MG/ML VIAL IVP ONE (06:00)
[2022-12-17] MEDS ORDERED: POTASSIUM CL 10MEQ/50ML IVPB 50 ML IV ONE (06:00)
[2022-12-17] MEDS ORDERED: PROMETHAZINE INJ 25 MG/ML (PHENERGAN) AMP IVP ONE (06:00)
[2022-12-17] MEDS ORDERED: NS IV 1000 ML 1,000 ML IV SCH (06:00)
--- NOTE | 2022-12-17 06:02 | ED GI ---
General Chief Complaint: Abdominal/GI Problems Stated Complaint: NAUSEA,VOMITING Source of Information: Patient, Old Records Exam Limitations: No Limitations (APOLONIA BERG MD) History of Present Illness Date Seen by Provider: Dec 17, 2022 Time Seen by Provider: 04:50 Initial Comments This 22-year-old young lady presents to the emergency room with complaints of nausea, vomiting, and upper abdominal pain. She is known to this provider and the ER service for recurrent visits related to cannabis hyperemesis. She last used marijuana about 5 days ago and has been vomiting for about 48 hours. Patient denies having a primary care provider at this time. She was seen in this ER 2 days ago and treated. She was discharged home with a prescription for Zofran. She reported taking a Phenergan tablet around midnight but vomited immediately after. (APOLONIA BERG MD) Allergies and Home Medications Allergies Coded Allergies: Penicillins (Verified Allergy, Unknown, Hives/Rash, 08/21/21) latex (Verified Allergy, Unknown, 01/30/22) morphine (Verified Allergy, Unknown, 01/14/22) Patient Home Medication List Home Medication List Reviewed: Yes (APOLONIA BERG MD) Citalopram Hydrobromide (Citalopram HBr) 20 Mg Tablet, (Reported) Entered as Reported by: JAMESON BARRON on 11/14/212232 Famotidine (Pepcid) 20 Mg Tablet, 20 MG PO BID Prescribed by: APOLONIA HAGEN on 12/17/22 0618 Ferrous Sulfate (Ferosul) 325 Mg (65 Mg Iron) Tablet, 325 MG PO DAILY@0700 Prescribed by: KRISTIN ANN on 07/07/22 1027 Ibuprofen (Ibu) 600 Mg Tablet, 600 MG PO Q6HR Prescribed by: KRISTIN ANN on 07/07/22 1027 Ondansetron (Ondansetron Odt) 8 Mg Tab.rapdis, 8 MG PO Q6H Prescribed by: TROY VINCENT on 06/20/22 1839 Ondansetron (Ondansetron Odt) 4 Mg Tab.rapdis, 4 MG PO Q6H PRN for NAUSEA/VOMI TING Prescribed by: KOURTNEY MCDONALD on 12/15/22 1319 Ondansetron (Ondansetron Odt) 4 Mg Tab.rapdis, 4 MG SL Q4H PRN for NAUSEA/VOMITING Prescribed by: APOLONIA HAGEN on 12/17/22 0618 Promethazine HCl (Promethazine Suppository) 25 Mg Supp.rect, 25 MG RC Q8H PRN for NAUSEA-2ND LINE Prescribed by: APOLONIA HAGEN on 12/17/22 0618 Review of Systems Review of Systems Constitutional: no symptoms reported EENTM: No Symptoms Reported Respiratory: No Symptoms Reported Cardiovascular: No Symptoms Reported Gastrointestinal: See HPI Genitourinary: No Symptoms Reported Musculoskeletal: no symptoms reported Skin: no symptoms reported Psychiatric/Neurological: See HPI Endocrine: No Symptoms Reported Hematologic/Lymphatic: No Symptoms Reported (APOLONIA BERG MD) Past Bgygkzb-Omcwnx-Mdxybn Hx Patient Social History Tobacco Use?: No Use of E-Cig and/or Vaping dev: Yes E-Cig or Vaping type used: Nicotine Substance use?: Yes Substance type: Marijuana Substance frequency: Daily Alcohol Use?: No (APOLONIA BERG MD) Immunizations Up To Date Tetanus Booster (TDap): Less than 5yrs First/Initial COVID19 Vaccinat: 06/19/2021 Second COVID19 Vaccination James: 07/17/2021 Third COVID19 Vaccination Date: N/A (APOLONIA BERG MD) Past Medical History Surgery/Hospitalization HX: ANXIETY, GERD, UTI, T/A, 2 NATURAL BIRTHS Surgeries: Yes (WISDOM TEETH REMOVED) Adenoidectomy, Tonsillectomy Respiratory: Yes (PNEUMONIA 08/19/21) Cardiac: No Neurological: No : No Sexually Transmitted Disease: No Genitourinary: Yes Kidney Infection, Kidney Stones Gastrointestinal: Yes (CANNABIS HYPEREMESIS SYNDROME) Gastroesophageal Reflux Musculoskeletal: No Endocrine: No HEENT: Yes (WISDOM TEETH REMOVED; S/P TONSILLECTOMY) Tonsilitis Cancer: No Psychosocial: Yes Anxiety Integumentary: No Blood Disorders: No Adverse Reaction/Blood Tranf: No (APOLONIA BERG MD) Family Medical History No Pertinent Family Hx, Psychiatric Problems (APOLONIA BERG MD) Physical Exam Vital Signs Vital Signs - First Documented 12/17/22 04:51 Pulse 107 Resp 18 B/P (MAP) 133/84 (100) Pulse Ox 92 O2 Delivery Room Air (SHANTEL INFANTE MD) Vital Signs Capillary Refill : (APOLONIA BERG MD) Height/Weight/BMI Height: 5'8.00" Weight: 132lbs. oz. 59.593216gz; 21.00 BMI Method:Stated General Appearance: WD/WN, moderate distress, thin HEENT: PERRL/EOMI, normal ENT inspection Neck: normal inspection Respiratory: lungs clear, normal breath sounds, no respiratory distress Cardiovascular: regular rate, rhythm, no edema, no murmur Gastrointestinal: soft, abnormal bowel sounds (Decrease); No distended; tenderness (upper abdomen) Extremities: normal inspection, no pedal edema Neurologic/Psychiatric: no motor/sensory deficits, alert, oriented x 3 Skin: normal color, warm/dry (APOLONIA BERG MD) Progress/Results/Core Measures Results/Orders Lab Results Laboratory Tests Test 12/17/22 04:55 Range/Units White Blood Count 8.4 4.3-11.0 10^3/uL Red Blood Count 4.09 3.80-5.11 10^6/uL Hemoglobin 11.3 L 11.5-16.0 g/dL Hematocrit 34 L 35-52 % Mean Corpuscular Volume 83 80-99 fL Mean Corpuscular Hemoglobin 28 25-34 pg Mean Corpuscular Hemoglobin Concent 33 32-36 g/dL Red Cell Distribution Width 15.7 H 10.0-14.5 % Platelet Count 312 130-400 10^3/uL Mean Platelet Volume 10.8 9.0-12.2 fL Immature Granulocyte % (Auto) 0 % Neutrophils (%) (Auto) 53 42-75 % Lymphocytes (%) (Auto) 38 12-44 % Monocytes (%) (Auto) 8 0-12 % Eosinophils (%) (Auto) 0 0-10 % Basophils (%) (Auto) 1 0-10 % Neutrophils # (Auto) 4.5 1.8-7.8 10^3/uL Lymphocytes # (Auto) 3.2 1.0-4.0 10^3/uL Monocytes # (Auto) 0.7 0.0-1.0 10^3/uL Eosinophils # (Auto) 0.0 0.0-0.3 10^3/uL Basophils # (Auto) 0.1 0.0-0.1 10^3/uL Immature Granulocyte # (Auto) 0.0 0.0-0.1 10^3/uL Sodium Level 141 135-145 MMOL/L Potassium Level 3.2 L 3.6-5.0 MMOL/L Chloride Level 111 H 98-107 MMOL/L Carbon Dioxide Level 14 L 21-32 MMOL/L Anion Gap 16 H 5-14 MMOL/L Blood Urea Nitrogen 14 7-18 MG/DL Creatinine 0.94 0.60-1.30 MG/DL Estimat Glomerular Filtration Rate 89 BUN/Creatinine Ratio 15 Glucose Level 112 H 70-105 MG/DL Calcium Level 9.0 8.5-10.1 MG/DL Corrected Calcium 8.7 8.5-10.1 MG/DL Magnesium Level 1.7 1.6-2.4 MG/DL Total Bilirubin 0.8 0.1-1.0 MG/DL Aspartate Amino Transf (AST/SGOT) 16 5-34 U/L Alanine Aminotransferase (ALT/SGPT) 13 0-55 U/L Alkaline Phosphatase 49 40-136 U/L Total Protein 6.7 6.4-8.2 GM/DL Albumin 4.4 3.2-4.5 GM/DL Lipase 14 8-78 U/L Serum Test, Qualitative NEGATIVE NEGATIVE (SHANTEL INFANTE MD) Medications Given in ED Current Medications Medications Dose Ordered Sig/Lane Route Start Time Stop Time Status Last Admin Dose Admin Droperidol 2.5 mg ONCE ONCE IV 12/17/22 05:00 12/17/22 05:01 DC 12/17/22 05:08 2.5 MG Fentanyl Citrate 50 mcg ONCE ONCE IVP 12/17/22 05:00 12/17/22 05:01 DC 12/17/22 05:10 50 MCG Ketorolac Tromethamine 30 mg ONCE ONCE IVP 12/17/22 06:00 12/17/22 06:01 DC 12/17/22 06:01 30 MG Lactated Ringer's 1,000 ml @ 0 mls/hr Q0M ONCE IV 12/17/22 05:00 12/17/22 05:01 DC 12/17/22 05:08 0 MLS/HR Ondansetron HCl 8 mg ONCE ONCE IVP 12/17/22 05:00 12/17/22 05:01 DC 12/17/22 05:06 8 MG Pantoprazole 40 mg ONCE ONCE IV 12/17/22 05:00 12/17/22 05:01 DC 12/17/22 05:05 40 MG Promethazine HCl 12.5 mg ONCE ONCE IVP 12/17/22 06:00 12/17/22 06:01 DC 12/17/22 06:01 12.5 MG (SHANTEL INFANTE MD) Vital Signs/I&O 12/17/22 04:51 Pulse 107 Resp 18 B/P (MAP) 133/84 (100) Pulse Ox 92 O2 Delivery Room Air (SHANTEL INFANTE MD) Progress Progress Note : Time: 06:03 Progress Note Patient was interviewed and examined upon arrival. Labs were obtained including CBC, CMP, magnesium, and serum test. All were reviewed by me. Hypokalemia of 3.2 was noted. Potassium by IV replacement will be given as 10 mEq over 1 hour with a 1 L bag of normal saline. Presently a 1 L LR bolus is being infused. The IV is positional and patient does not hold her hand in a favorable position for rapid infusion. She was treated with Zofran 8 mg IV, Protonix 40 mg IV, droperidol 2.5 mg IV and fentanyl 50 mcg IV. At this time she still complains of some pain and nausea. Promethazine 12.5 mg IV is being added to the remainder of her LR bolus. Toradol 30 mg IV is being added for pain control. This regimen is similar to prior treatment regimen which she stated was successful in treating her symptoms. Lipase was added to the lab work-up and is pending. Care is being transitioned to Dr. Infante at this time. If patient is stable after these additional therapies, discharge may be pursued. I did reiterate to the patient that she must not ever use any THC products as any THC product has potential to trigger her cannabis hyperemesis syndrome. She admits that she has not engaged in any substance abuse program and does not follow with a primary care provider despite receiving these instructions during prior ER visits. (APOLONIA BERG MD) Progress Note : Time: 07:24 Progress Note Patient up and ambulatory to the Bathroom to provide urine sample. Her initial IVF - LR still infusing. Will have nursing address this. Will cancel IV potassium and order second liter of LR. Patient is not vomiting/retching now; states she feels "same" but is in no acute distress. Anticipate discharge to home after second liter of LR and UA resulted. (SHANTEL INFANTE MD) Departure Impression Primary Impression: Cannabis hyperemesis syndrome concurrent with and due to cannabis abuse Additional Impressions: Hypokalemia Upper abdominal pain Disposition: HOME, SELF-CARE Condition: Improved Departure-Patient Inst. Decision time for Depature: 06:07 (APOLONIA BERG MD) Referrals: [facility] (PCP/Family) Primary Care Physician Patient Instructions: Cannabis Hyperemesis Syndrome, Hypokalemia Add. Discharge Instructions: You must not ever use any cannabis or THC product in the future as any of these substances may induce cannabis hyperemesis with severe vomiting and abdominal pain. Start with a clear liquid diet and gradually advance your diet with small q uantities of bland food as tolerated. Use Zofran (ondansetron) as as prescribed for initial treatment of nausea or vomiting. Add the Phenergan (promethazine) suppositories as needed for vomiting not controlled by Zofran. You may use Tylenol (acetaminophen) up to 1000 mg every 6 hours as needed for pain. If you are unable to completely stop cannabis and THC products on your own, seek assistance from a support group or medical treatment program. Establish with a primary care provider soon as possible. Return to the emergency room if you have persistent or worsening symptoms despite following these instructions. All discharge instructions reviewed with patient and/or family. Voiced understanding. Scripts Famotidine (Pepcid) 20 Mg Tablet 20 MG PO BID, #60 TAB Prov: APOLONIA BERG MD 12/17/22 Promethazine HCl (Promethazine Suppository) 25 Mg Supp.rect 25 MG RC Q8H PRN for NAUSEA-2ND LINE, #10 SUPP.RECT Prov: APOLONIA BERG MD 12/17/22 Ondansetron (Ondansetron Odt) 4 Mg Tab.rapdis 4 MG SL Q4H PRN for NAUSEA/VOMITING, #10 TAB Prov: APOLONIA BERG MD 12/17/22 APOLONIA BERG MD Dec 17, 2022 06:02 SHANTEL INFANTE MD Dec 17, 2022 07:25
[2022-12-17] MEDS ORDERED: ONDA4TAB11 SL (06:18)
[2022-12-17] MEDS ORDERED: PROM25SU44 RC (06:18)
[2022-12-17] MEDS ORDERED: FAMO-119 PO (06:18)
[2022-12-17] MEDS ORDERED: LACTATED RINGERS 1,000 ML IV STA (07:25)
[2022-12-17 07:27] LABS: CLARITY,URINE CLEAR; COLOR,URINE YELLOW; GLUCOSE, URINE (UA) NEGATIVE (NEGATIVE); KETONES,URINE 1+ (NEGATIVE); LEUKOCYTE ESTERASE ,URINE 2+ (NEGATIVE); NITRITE,URINE NEGATIVE (NEGATIVE); PROTEIN,URINE TRACE (NEGATIVE)
[2022-12-17 07:41] LABS: BACTERIA,URINE MODERATE /HPF
[2022-12-17 09:15] LABS: BILIRUBIN,URINE NEGATIVE (NEGATIVE)
[2022-12-20] MEDS ORDERED: PANT40TA2 PO (12:29)
[2022-12-20] MEDS ORDERED: ACHD5005 PO (12:29)
[2022-12-20] MEDS ORDERED: ONDA8TAB13 SL (12:29)
== END 2022-12-17 09:20 | disposition home or self-care (01) ==
LOC: EDUNIT# 04:48 → ER 04:49
DX: R11.2 Nausea with vomiting, unspecified (principal); F12.10 Cannabis abuse, uncomplicated; E87.6 Hypokalemia; R10.10 Upper abdominal pain, unspecified; F17.290 Nicotine dependence, other tobacco product, uncomplicated; Z28.310 Unvaccinated for COVID-19
CPT/HCPCS: 36415; 80053; 81000; 83690; 83735; 84703; 85025; 87077; 87088; 99283

== ENCOUNTER 2022-12-17 18:30 | Emergency (ER) | payer MEDICAID ==
[~2022-12-17] VITALS: Ht 173 cm; Wt 59.0 kg
[~2022-12-17 18:30] MED LIST changes: +ONDA4TAB11 SL
[2022-12-17] MEDS ORDERED: NS IV 1000 ML 1,000 ML IV STA (18:49)
[2022-12-17] MEDS ORDERED: fentaNYL INJ 100 MCG/2 ML AMP IVP STA ×2 (18:49→20:22)
--- NOTE | 2022-12-17 18:54 | ED Abdominal Pain ---
General Chief Complaint: Abdominal/GI Problems Stated Complaint: VOMITING/ABD PAIN Nursing Triage Note: Patient ambulatory to ER w c/o abdominal pain 07/30. Patient was seen in ER this am for same symptoms. Patient went home and rested after discharge. pain is back. Source of Information: Patient Exam Limitations: No Limitations History of Present Illness Date Seen by Provider: Dec 17, 2022 Time Seen by Provider: 18:50 Initial Comments Patient is a 22-year-old female with a history of hyperemesis cannabinoid syndrome, marijuana use, hyperemesis gravidarum who presents ED with intractable vomiting and abdominal pain. Patient states that this afternoon she woke up from a nap and has vomited 10+ episodes since. Denies any bloody mucousy vomit. She also reports diarrhea. Sharp upper abdominal pain. She was discharged early this morning and was prescribed Zofran. Instead of getting the prescription she went home to sleep. She states she smoked marijuana 6 days ago. She reports vaping. No history of previous abdominal surgery. She is able to urinate without any pain or discomfort. No chest pain, cough or shortness of breath, fever, chills. Patient is tearful on arrival Allergies and Home Medications Allergies Coded Allergies: Penicillins (Verified Allergy, Unknown, Hives/Rash, 08/21/21) latex (Verified Allergy, Unknown, 01/30/22) morphine (Verified Allergy, Unknown, 01/14/22) Patient Home Medication List Home Medication List Reviewed: Yes Citalopram Hydrobromide (Citalopram HBr) 20 Mg Tablet, (Reported) Entered as Reported by: JAMESON BARRON on 11/14/212232 Famotidine (Pepcid) 20 Mg Tablet, 20 MG PO BID Prescribed by: APOLONIA HAGEN on 12/17/22 0618 Ferrous Sulfate (Ferosul) 325 Mg (65 Mg Iron) Tablet, 325 MG PO DAILY@0700 Prescribed by: KRISTIN ANN on 07/07/22 1027 Ibuprofen (Ibu) 600 Mg Tablet, 600 MG PO Q6HR Prescribed by: KRISTIN ANN on 07/07/22 1027 Ondansetron (Ondansetron Odt) 8 Mg Tab.rapdis, 8 MG PO Q6H Prescribed by: TROY VINCENT on 06/20/22 1839 Ondansetron (Ondansetron Odt) 4 Mg Tab.rapdis, 4 MG PO Q6H PRN for NAUSEA/VOMITING Prescribed by: KOURTNEY MCDONALD on 12/15/22 1319 Ondansetron (Ondansetron Odt) 4 Mg Tab.rapdis, 4 MG SL Q4H PRN for NAUSEA/VOMITING Prescribed by: APOLONIA HAGEN on 12/17/22 0618 Promethazine HCl (Promethazine Suppository) 25 Mg Supp.rect, 25 MG RC Q8H PRN for NAUSEA-2ND LINE Prescribed by: APOLONIA HAGEN on 12/17/22 0618 Review of Systems Review of Systems Constitutional: No chills, No diaphoresis, No malaise, No weakness EENTM: No Double Vision, No Eye Pain Respiratory: Denies Cough, Denies Shortness of Air, Denies SOA at Rest Cardiovascular: Denies No Symptoms Reported, Denies Chest Pain Gastrointestinal: Abdominal Pain, Nausea, Vomiting Genitourinary: Denies Burning, Denies Discharge, Denies Frequency, Denies Flank Pain Musculoskeletal: No back pain, No joint pain Skin: No change in color, No change in hair/nails All Other Systems Reviewed Negative Unless Noted: Yes Past Njlzaqw-Kcemay-Zqhvtt Hx Patient Social History Tobacco Use?: No Use of E-Cig and/or Vaping dev: Yes E-Cig or Vaping type used: Nicotine Substance use?: Yes Substance type: Marijuana Additional substance use comme: NOT RECENTLY. LAST TIME WAS 6 DAYS AGO. Alcohol Use?: No Immunizations Up To Date Tetanus Booster (TDap): Less than 5yrs First/Initial COVID19 Vaccinat: 06/19/2021 Second COVID19 Vaccination James: 07/17/2021 Third COVID19 Vaccination Date: N/A COVID19 Vaccine Medical Coordinator Pesticide Use: ESTHER Past Medical History Surgery/Hospitalization HX: ANXIETY, GERD, UTI, T/A, 2 NATURAL BIRTHS Surgeries: Yes (WISDOM TEETH REMOVED) Adenoidectomy, Tonsillectomy Respiratory: Yes (PNEUMONIA 08/19/21) Cardiac: No Neurological: No Sexually Transmitted Disease: No Genitourinary: Yes Kidney Infection, Kidney Stones Gastrointestinal: Yes (CANNABIS HYPEREMESIS SYNDROME) Gastroesophageal Reflux Musculoskeletal: No Endocrine: No HEENT: Yes (WISDOM TEETH REMOVED; S/P TONSILLECTOMY) Tonsilitis Cancer: No Psychosocial: Yes Anxiety Integumentary: No Blood Disorders: No Adverse Reaction/Blood Tranf: No Family Medical History No Pertinent Family Hx, Psychiatric Problems Physical Exam Vital Signs Vital Signs - First Documented 12/17/22 18:39 Temp 36.7 Pulse 112 Resp 24 B/P (MAP) 133/86 (102) Pulse Ox 98 O2 Delivery Room Air Capillary Refill : Less Than 3 Seconds Height/Weight/BMI Height: 5'8.00" Weight: 132lbs. oz. 59.119346aq; 19.00 BMI Method:Stated General Appearance: WD/WN, no apparent distress HEENT: PERRL/EOMI, normal ENT inspection, TMs normal, pharynx normal Neck: non-tender, full range of motion, supple Respiratory: chest non-tender, lungs clear, normal breath sounds, no respiratory distress Cardiovascular: regular rate, rhythm, no edema, no gallop, no JVD Gastrointestinal: normal bowel sounds, soft, no organomegaly, tenderness (Epigastric tenderness.) Extremities: normal range of motion, non-tender, normal inspection, no pedal edema Back: normal inspection, no CVA tenderness, no vertebral tenderness Neurologic/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: 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 scrap 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 II-XII nml as tested, no motor/sensory deficits, alert, normal mood/affect, oriented x 3 Skin: normal color, warm/dry Progress/Results/Core Measures Results/Orders Lab Results Laboratory Tests Test 12/17/22 18:46 Range/Units White Blood Count 10.5 4.3-11.0 10^3/uL Red Blood Count 4.10 3.80-5.11 10^6/uL Hemoglobin 11.2 L 11.5-16.0 g/dL Hematocrit 33 L 35-52 % Mean Corpuscular Volume 82 80-99 fL Mean Corpuscular Hemoglobin 27 25-34 pg Mean Corpuscular Hemoglobin Concent 34 32-36 g/dL Red Cell Distribution Width 15.6 H 10.0-14.5 % Platelet Count 299 130-400 10^3/uL Mean Platelet Volume 10.5 9.0-12.2 fL Immature Granulocyte % (Auto) 0 % Neutrophils (%) (Auto) 66 42-75 % Lymphocytes (%) (Auto) 26 12-44 % Monocytes (%) (Auto) 7 0-12 % Eosinophils (%) (Auto) 0 0-10 % Basophils (%) (Auto) 0 0-10 % Neutrophils # (Auto) 7.0 1.8-7.8 10^3/uL Lymphocytes # (Auto) 2.8 1.0-4.0 10^3/uL Monocytes # (Auto) 0.7 0.0-1.0 10^3/uL Eosinophils # (Auto) 0.0 0.0-0.3 10^3/uL Basophils # (Auto) 0.0 0.0-0.1 10^3/uL Immature Granulocyte # (Auto) 0.0 0.0-0.1 10^3/uL Sodium Level 140 135-145 MMOL/L Potassium Level 3.2 L 3.6-5.0 MMOL/L Chloride Level 108 H 98-107 MMOL/L Carbon Dioxide Level 16 L 21-32 MMOL/L Anion Gap 16 H 5-14 MMOL/L Blood Urea Nitrogen 10 7-18 MG/DL Creatinine 0.83 0.60-1.30 MG/DL Estimat Glomerular Filtration Rate 103 BUN/Creatinine Ratio 12 Glucose Level 99 70-105 MG/DL Calcium Level 8.9 8.5-10.1 MG/DL Corrected Calcium 8.6 8.5-10.1 MG/DL Magnesium Level 1.7 1.6-2.4 MG/DL Total Bilirubin 0.8 0.1-1.0 MG/DL Aspartate Amino Transf (AST/SGOT) 15 5-34 U/L Alanine Aminotransferase (ALT/SGPT) 14 0-55 U/L Alkaline Phosphatase 49 40-136 U/L Total Protein 6.5 6.4-8.2 GM/DL Albumin 4.4 3.2-4.5 GM/DL Lipase 9 8-78 U/L My Orders Orders - TOREY GARCÍA Cbc With Automated Diff (12/17/22 18:35) Comprehensive Metabolic Panel (12/17/22 18:35) Lipase (12/17/22 18:35) Magnesium (12/17/22 18:35) Iv/Invasive Line Insertion .IV INSERT (12/17/22 18:35) Ns Iv 1000 Ml (Sodium Chloride 0.9%) (12/17/22 18:49) Promethazine Injection (Phenergan Injec (12/17/22 19:00) Fentanyl Inj (Sublimaze Injection) (12/17/22 18:49) Droperidol Inj (Ed Only) (Inapsine Inj ( (12/17/22 19:00) Ketorolac Injection (Toradol Injection) (12/17/22 19:30) Dicyclomine Capsule (Bentyl Capsule) (12/17/22 19:20) Fentanyl Inj (Sublimaze Injection) (12/17/22 20:22) Lactated Ringers (Lr 1000 Ml Iv Solution (12/17/22 20:23) Potassium Chloride (Tablet) (Klor Con Ta (12/17/22 20:30) Rx-Ondansetron Po (Rx-Zofran Po) (12/17/22 21:30) Medications Given in ED Current Medications Medications Dose Ordered Sig/Lane Route Start Time Stop Time Status Last Admin Dose Admin Droperidol 1.25 mg ONCE ONCE IV 12/17/22 19:00 12/17/22 19:01 DC 12/17/22 19:14 1.25 MG Ketorolac Tromethamine 30 mg ONCE ONCE IVP 12/17/22 19:30 12/17/22 19:31 DC 12/17/22 19:28 30 MG Ondansetron HCl 4 mg ONCE ONCE PO 12/17/22 21:30 12/17/22 21:31 DC 12/17/22 21:30 4 MG Potassium Chloride 10 meq ONCE ONCE PO 12/17/22 20:30 12/17/22 20:31 DC 12/17/22 20:30 10 MEQ Promethazine HCl 25 mg ONCE ONCE IVP 12/17/22 19:00 12/17/22 19:01 DC 12/17/22 18:58 25 MG Vital Signs/I&O 12/17/22 12/17/22 18:39 21:36 Temp 36.7 Pulse 112 83 Resp 24 24 B/P (MAP) 133/86 (102) 121/77 Pulse Ox 98 100 O2 Delivery Room Air Room Air Blood Pressure Mean: 102 Departure Communication (PCP) Patient with epigastric abdominal pain with intractable vomiting. This is her third visit in the past 3 days. Reviewed past ER visits, H&P's, testing. Patient was discharge today was prescribed Zofran but she went home and went to sleep. Pain feels similar. Continue vomiting without any hematemesis. Associated diarrhea. Patient in moderate distress secondary to pain. CBC, CMP and magnesium was ordered secondary to the vomiting. White blood count unremarkable. Potassium 3.2. Patient was given oral potassium 10 mil equivalent here in the ED. She was given 2 L of fluid. Several rounds of IV pain medication, droperidol, Phenergan with continue improvement. Patient was tolerating p.o. fluids after 3 hours of observation. No further imaging needed at this time. Discussed my concerns for hyperemesis cannabinoid syndrome and marijuana use. Last use was 6 days ago. Patient was given a take-home pack of Zofran. Discussed electrolytes. reassessed the abdomen without evidence of surgical abdomen. Impression Primary Impression: Cannabinoid hyperemesis syndrome Disposition: HOME, SELF-CARE Condition: Stable Departure-Patient Inst. Decision time for Depature: 21:30 Referrals: [facility] [place] Primary Care Physician Patient Instructions: Cannabis Hyperemesis Syndrome Work/School Note: Work Release Form Date Seen in the Emergency Department: Dec 17, 2022 Return to Work: Dec 20, 2022 TOREY GARCÍA Dec 17, 2022 18:54
[2022-12-17 18:55] LABS: BASOPHILS % (AUTO) 0 % (0-10); EOSINOPHILS % (AUTO) 0 % (0-10); HEMATOCRIT 33 % (35-52); HEMOGLOBIN 11.2 g/dL (11.5-16.0); LYMPHOCYTES # (AUTO) 2.8 10^3/uL (1.0-4.0); LYMPHOCYTES % (AUTO) 26 % (12-44); MEAN CORPUSCULAR HEMOGLOBIN 27 pg (25-34); MEAN CORPUSCULAR HGB CONC 34 g/dL (32-36); MEAN CORPUSCULAR VOLUME 82 fL (80-99); MEAN PLATELET VOLUME 10.5 fL (9.0-12.2); MONOCYTES # (AUTO) 0.7 10^3/uL (0.0-1.0); MONOCYTES % (AUTO) 7 % (0-12); NEUTROPHILS % (AUTO) 66 % (42-75); PLATELET COUNT 299 10^3/uL (130-400); WHITE BLOOD COUNT 10.5 10^3/uL (4.3-11.0)
[2022-12-17] MEDS ORDERED: PROMETHAZINE INJ 25 MG/ML (PHENERGAN) AMP IVP ONE (19:00)
[2022-12-17] MEDS ORDERED: DROPERIDOL 5 MG/2 ML (INAPSINE) ED ONLY! IV ONE (19:00)
[2022-12-17 19:01] LABS: ALBUMIN 4.4 GM/DL (3.2-4.5)
[2022-12-17 19:02] LABS: POTASSIUM 3.2 MMOL/L (3.6-5.0)
[2022-12-17 19:03] LABS: CALCIUM 8.9 MG/DL (8.5-10.1)
[2022-12-17 19:04] LABS: TOTAL PROTEIN 6.5 GM/DL (6.4-8.2)
[2022-12-17 19:06] LABS: BILIRUBIN,TOTAL 0.8 MG/DL (0.1-1.0)
[2022-12-17 19:07] LABS: CREATININE SERUM 0.83 MG/DL (0.60-1.30)
[2022-12-17 19:10] LABS: MAGNESIUM 1.7 MG/DL (1.6-2.4)
[2022-12-17] MEDS ORDERED: DICYCLOMINE 10 MG (BENTYL) CAP PO STA (19:20)
[2022-12-17] MEDS ORDERED: KETOROLAC 30 MG/ML VIAL IVP ONE (19:30)
[2022-12-17] MEDS ORDERED: LACTATED RINGERS 1,000 ML IV STA (20:23)
[2022-12-17] MEDS ORDERED: KCL 10 MEQ TAB (MICRO K) PO ONE (20:30)
[2022-12-17] MEDS ORDERED: KCL 20 MEQ TAB (K-DUR) PO ONE (20:30)
[2022-12-17] MEDS ORDERED: RX-ONDANSETRON 4 MG ODT (ZOFRAN) PPK #4 PO ONE (21:30)
[2022-12-17 21:36] VITALS: BP 121/77
[2022-12-20] MEDS ORDERED: ACHD5005 PO (12:29)
[2022-12-20] MEDS ORDERED: PANT40TA2 PO (12:29)
[2022-12-20] MEDS ORDERED: ONDA8TAB13 SL (12:29)
== END 2022-12-17 21:38 | disposition home or self-care (01) ==
LOC: EDUNIT# 18:30 → ER 18:32
DX: R11.10 Vomiting, unspecified (principal); R10.13 Epigastric pain; R19.7 Diarrhea, unspecified; F17.290 Nicotine dependence, other tobacco product, uncomplicated; Z91.040 Latex allergy status
CPT/HCPCS: 36415; 80053; 83690; 83735; 85025

== ENCOUNTER 2022-12-17 23:25 | Observation (INO) | payer MEDICAID ==
[~2022-12-17] VITALS: Ht 172.7 cm; Wt 60.5 kg
[2022-12-18 02:15] LABS: BASOPHILS % (AUTO) 0 % (0-10); EOSINOPHILS # (AUTO) 0.1 10^3/uL (0.0-0.3); EOSINOPHILS % (AUTO) 1 % (0-10); HEMATOCRIT 34 % (35-52); LYMPHOCYTES # (AUTO) 1.8 10^3/uL (1.0-4.0); LYMPHOCYTES % (AUTO) 23 % (12-44); MEAN CORPUSCULAR HEMOGLOBIN 27 pg (25-34); MEAN CORPUSCULAR HGB CONC 33 g/dL (32-36); MEAN CORPUSCULAR VOLUME 84 fL (80-99); MEAN PLATELET VOLUME 11.3 fL (9.0-12.2); MONOCYTES # (AUTO) 0.6 10^3/uL (0.0-1.0); MONOCYTES % (AUTO) 7 % (0-12); NEUTROPHILS # (AUTO) 5.3 10^3/uL (1.8-7.8); NEUTROPHILS % (AUTO) 68 % (42-75); PLATELET COUNT 200 10^3/uL (130-400); WHITE BLOOD COUNT 7.7 10^3/uL (4.3-11.0)
[2022-12-18 02:25] LABS: ALBUMIN 4.1 GM/DL (3.2-4.5)
[2022-12-18 02:26] LABS: POTASSIUM 3.9 MMOL/L (3.6-5.0)
[2022-12-18 02:27] LABS: CALCIUM 8.4 MG/DL (8.5-10.1)
[2022-12-18 02:28] LABS: TOTAL PROTEIN 6.5 GM/DL (6.4-8.2)
[2022-12-18 02:30] LABS: BILIRUBIN,TOTAL 0.7 MG/DL (0.1-1.0)
[2022-12-18 02:32] LABS: CREATININE SERUM 0.8 MG/DL (0.60-1.30)
[2022-12-18] MEDS ORDERED: fentaNYL INJ 100 MCG/2 ML AMP IVP STA ×2 (02:46→03:56)
[2022-12-18] MEDS ORDERED: SUCRALFATE 1 GM (CARAFATE) TAB PO ONE (03:00)
--- NOTE | 2022-12-18 03:07 | ED Abdominal Pain ---
General Chief Complaint: Abdominal/GI Problems Stated Complaint: ABD PAIN Nursing Triage Note: PT AMB TO RM 4 WITH CC OF ABD PAIN. PT WAS SEEN EARLIER TODAY AND YESTERDAY FOR SAME ISSUE. PT STATES THAT HER N/V HAS RESOLVED BUT SHE IS STILL HAVING SEVERE ABD PAIN SINCE SATURDAY MORNING. Source of Information: Patient Exam Limitations: No Limitations History of Present Illness Date Seen by Provider: Dec 18, 2022 Time Seen by Provider: 01:52 Initial Comments Here with intractable central abdominal pain. She is also having nausea and vomiting although that is improved. She has been seen 4 times in the last 3 days for this including twice yesterday. This is the second time I have seen her as well. She has history of cyclic vomiting syndrome and had previously had cannabis associated hyperemesis. She states that she has not had marijuana for several days and is using it minimally. She states now though that she will never use it again. Denies blood in her vomit or stool. States that she has an area of pain that is central upper abdomen and it is always right there when she has the pain syndrome. Does have history of panic disorder and anxiety. She has not had upper endoscopy and thinks that she may have an ulcer. Labs for the previous 3 visits have all been normal. She has not had imaging as she has had normal labs and we have been able to obtain improvement. She returns tonight a few hours after discharge due to severe pain. Timing/Duration: 3-4 Days Severity/Quality: Moderate, Severe, Aching, Sharp Location: Epigastric Radiation: No Radiation Modifying Factors: Worsens With Eating Associated Symptoms: No Fever/Chills; Nausea/Vomiting Allergies and Home Medications Allergies Coded Allergies: Penicillins (Verified Allergy, Unknown, Hives/Rash, 08/21/21) latex (Verified Allergy, Unknown, 01/30/22) morphine (Verified Allergy, Unknown, 01/14/22) Patient Home Medication List Home Medication List Reviewed: Yes Citalopram Hydrobromide (Citalopram HBr) 20 Mg Tablet, (Reported) Entered as Reported by: JAMESON BARRON on 11/14/212232 Famotidine (Pepcid) 20 Mg Tablet, 20 MG PO BID Prescribed by: APOLONIA HAGEN on 12/17/22 0618 Ferrous Sulfate (Ferosul) 325 Mg (65 Mg Iron) Tablet, 325 MG PO DAILY@0700 Prescribed by: KRISTIN ANN on 07/07/22 1027 Ibuprofen (Ibu) 600 Mg Tablet, 600 MG PO Q6HR Prescribed by: KRISTIN ANN on 07/07/22 1027 Ondansetron (Ondansetron Odt) 8 Mg Tab.rapdis, 8 MG PO Q6H Prescribed by: TROY VINCENT on 06/20/22 1839 Ondansetron (Ondansetron Odt) 4 Mg Tab.rapdis, 4 MG PO Q6H PRN for NAUSEA/VOMITING Prescribed by: KOURTNEY MCDONALD on 12/15/22 1319 Ondansetron (Ondansetron Odt) 4 Mg Tab.rapdis, 4 MG SL Q4H PRN for NAUSEA/VOMITING Prescribed by: APOLONIA HAGEN on 12/17/22 0618 Promethazine HCl (Promethazine Suppository) 25 Mg Supp.rect, 25 MG RC Q8H PRN for NAUSEA-2ND LINE Prescribed by: APOLONIA HAGEN on 12/17/22 0618 Review of Systems Review of Systems Constitutional: see HPI; No chills, No fever EENTM: No Symptoms Reported Respiratory: No Symptoms Reported Cardiovascular: No Symptoms Reported Gastrointestinal: Abdominal Pain; Denies Diarrhea; Nausea; Denies Rectal Bleeding; Vomiting Genitourinary: No Symptoms Reported Musculoskeletal: No back pain, No neck pain Psychiatric/Neurological: Anxiety Past Svleqsy-Xotcej-Ypstyv Hx Patient Social History Tobacco Use?: Yes Use of E-Cig and/or Vaping dev: Yes E-Cig or Vaping type used: Nicotine Substance use?: Yes Substance type: Marijuana Substance frequency: Once in a while Alcohol Use?: No Immunizations Up To Date Tetanus Booster (TDap): Less than 5yrs First/Initial COVID19 Vaccinat: 06/19/2021 Second COVID19 Vaccination James: 07/17/2021 Third COVID19 Vaccination Date: N/A Past Medical History Surgery/Hospitalization HX: ANXIETY, GERD, UTI, T/A, 2 NATURAL BIRTHS Surgeries: Yes (WISDOM TEETH REMOVED) Adenoidectomy, Tonsillectomy Respiratory: Yes (PNEUMONIA 08/19/21) Cardiac: No Neurological: No Sexually Transmitted Disease: No Genitourinary: Yes Kidney Infection, Kidney Stones Gastrointestinal: Yes (CANNABIS HYPEREMESIS SYNDROME) Gastroesophageal Reflux Musculoskeletal: No Endocrine: No HEENT: Yes (WISDOM TEETH REMOVED; S/P TONSILLECTOMY) Tonsilitis Cancer: No Psychosocial: Yes Anxiety Integumentary: No Blood Disorders: No Adverse Reaction/Blood Tranf: No Family Medical History Reviewed Nursing Family Hx No Pertinent Family Hx, Psychiatric Problems Physical Exam Vital Signs Vital Signs - First Documented 12/17/22 23:43 Pulse 72 B/P (MAP) 125/74 (91) Pulse Ox 96 O2 Delivery Room Air Capillary Refill : Height/Weight/BMI Height: 5'8.00" Weight: 132lbs. oz. 59.913015xu; 19.00 BMI Method:Stated General Appearance: WD/WN, moderate distress HEENT: PERRL/EOMI, pharynx normal Neck: full range of motion, supple Respiratory: lungs clear, normal breath sounds Cardiovascular: regular rate, rhythm, no murmur Gastrointestinal: soft; No guarding, No rebound; tenderness (Epigastric/mid upper abdomen to the greatest extent and then mild pain diffusely on palpation); No mass, No hepatomegaly Extremities: non-tender, normal inspection Neurologic/Psychiatric: alert, oriented x 3 Skin: normal color, warm/dry Progress/Results/Core Measures Results/Orders Lab Results Laboratory Tests Test 12/18/22 02:05 Range/Units White Blood Count 7.7 4.3-11.0 10^3/uL Red Blood Count 4.01 3.80-5.11 10^6/uL Hemoglobin 11.0 L 11.5-16.0 g/dL Hematocrit 34 L 35-52 % Mean Corpuscular Volume 84 80-99 fL Mean Corpuscular Hemoglobin 27 25-34 pg Mean Corpuscular Hemoglobin Concent 33 32-36 g/dL Red Cell Distribution Width 15.6 H 10.0-14.5 % Platelet Count 200 130-400 10^3/uL Mean Platelet Volume 11.3 9.0-12.2 fL Immature Granulocyte % (Auto) 0 % Neutrophils (%) (Auto) 68 42-75 % Lymphocytes (%) (Auto) 23 12-44 % Monocytes (%) (Auto) 7 0-12 % Eosinophils (%) (Auto) 1 0-10 % Basophils (%) (Auto) 0 0-10 % Neutrophils # (Auto) 5.3 1.8-7.8 10^3/uL Lymphocytes # (Auto) 1.8 1.0-4.0 10^3/uL Monocytes # (Auto) 0.6 0.0-1.0 10^3/uL Eosinophils # (Auto) 0.1 0.0-0.3 10^3/uL Basophils # (Auto) 0.0 0.0-0.1 10^3/uL Immature Granulocyte # (Auto) 0.0 0.0-0.1 10^3/uL Sodium Level 140 135-145 MMOL/L Potassium Level 3.9 3.6-5.0 MMOL/L Chloride Level 110 H 98-107 MMOL/L Carbon Dioxide Level 15 L 21-32 MMOL/L Anion Gap 15 H 5-14 MMOL/L Blood Urea Nitrogen 9 7-18 MG/DL Creatinine 0.80 0.60-1.30 MG/DL Estimat Glomerular Filtration Rate 107 BUN/Creatinine Ratio 11 Glucose Level 80 70-105 MG/DL Calcium Level 8.4 L 8.5-10.1 MG/DL Corrected Calcium 8.3 L 8.5-10.1 MG/DL Total Bilirubin 0.7 0.1-1.0 MG/DL Aspartate Amino Transf (AST/SGOT) 25 5-34 U/L Alanine Aminotransferase (ALT/SGPT) 16 0-55 U/L Alkaline Phosphatase 45 40-136 U/L C-Reactive Protein High Sensitivity 0.06 0.00-0.50 MG/DL Total Protein 6.5 6.4-8.2 GM/DL Albumin 4.1 3.2-4.5 GM/DL My Orders Orders - KOURTNEY MCDONALD MD Cbc With Automated Diff (12/18/22 01:51) Comprehensive Metabolic Panel (12/18/22 01:51) Hs C Reactive Protein (12/18/22 01:51) Ed Iv/Invasive Line Start (12/18/22 01:51) Fentanyl Inj (Sublimaze Injection) (12/18/22 02:46) Sucralfate Tablet (Carafate Tablet) (12/18/22 03:00) Fentanyl Inj (Sublimaze Injection) (12/18/22 03:56) Lorazepam Tablet (Ativan Tablet) (12/18/22 04:19) Ondansetron Injection (Zofran Injectio (12/18/22 04:30) Medications Given in ED Current Medications Medications Dose Ordered Sig/Lane Route Start Time Stop Time Status Last Admin Dose Admin Sucralfate 2 gm ONCE ONCE PO 12/18/22 03:00 12/18/22 03:01 DC 12/18/22 02:55 2 GM Vital Signs/I&O 12/17/22 23:43 Pulse 72 B/P (MAP) 125/74 (91) Pulse Ox 96 O2 Delivery Room Air Blood Pressure Mean: 91 Progress Progress Note : Progress Note Seen and evaluated. IV, labs including CBC, CMP and CRP ordered. Monitor patient. CT scan considered but we will hold him if lab values are normal we will not do that. Patient is in agreement. Differential diagnosis includes cyclic vomiting syndrome, ulcer, gastric irritation 0247: CBC shows white count of 7.7 with hemoglobin of 11 and otherwise normal. CMP shows grossly normal electrolytes but CO2 is 15. Creatinine is 0.8. CRP is negative. We will hold CT scan due to normal white count and otherwise normal labs that are consistent with previous. Fentanyl 50 mcg IV and sucralfate 2 g p.o. ordered. 0357: Patient has markedly increasing pain. Fentanyl 75 mcg IV ordered. 0420: Pain is not improved despite meds. She is quite anxious. We will give Ativan 1 mg p.o. and Zofran 4 mg p.o. I did discuss the case with Dr. Ann at this time. She accepts patient for admission, observation status. We will consult Dr. Arshad as she has seen her previously. I did discuss the case with Dr. Magallanes, surgeon on-call earlier and he is recommending consult to Dr. Arshad as he has seen her previously. All of the findings and concerns were discussed with the patient who agree with plan. Initial ECG Impression Date: Dec 18, 2022 Departure Communication (Admissions) Time/Spoke to Admitting Phy: 04:20 Time/Spoke to Consulting Phy: 03:01 Impression Primary Impression: Abdominal pain Qualified Codes: R10.13 - Epigastric pain Additional Impression: Intractable nausea and vomiting Disposition: ADMITTED INPATIENT Condition: Stable Admissions Decision to Admit Reason: Admit from ER (General) Decision to Admit/Date: Dec 18, 2022 Time/Decision to Admit Time: 04:20 Departure-Patient Inst. Referrals: [facility] (PCP/Family) Primary Care Physician KOURTNEY MCDONALD MD Dec 18, 2022 03:07
[2022-12-18] MEDS ORDERED: LORazepam 0.5 MG (ATIVAN) TABLET PO STA (04:19)
[2022-12-18] MEDS ORDERED: ONDANSETRON 4 MG/2 ML (SDV) Z0FRAN IVP ONE (04:30)
[2022-12-18 05:30] VITALS: BP 128/81
[2022-12-18] MEDS ORDERED: fentaNYL INJ 100 MCG/2 ML AMP IV PRN (06:00)
[2022-12-18] MEDS: LACTATED RINGERS 1,000 ML IV SCH ×2 (06:09→14:37)
[2022-12-18] MEDS: PANTOPRAZOLE 40 MG (PROTONIX) VIAL IV SCH ×2 (07:54→20:06)
[2022-12-18 08:20] VITALS: BP 132/91
[2022-12-18] MEDS: ONDANSETRON 4 MG/2 ML (SDV) Z0FRAN IV PRN ×3 (09:07→20:11)
--- NOTE | 2022-12-18 09:59 | History & Physical ---
HPI History of Present Illness: Yesterday at 3:30 started feeling bad, then got rapidly worse. Vomiting, last at 11:30 before admission. Admits diarrhea during this time, no blood in stools. Severe pain in epigastric region. Not on any home meds. No hematemesis. Has had recurrent abdominal pain and nausea/vomiting episodes in past, reports has had CT, but never scope. Historically concern for cannabis hyperemesis, states last use was 6 days ago. Source: patient Date seen by provider: Dec 18, 2022 Time Seen by Provider: 09:58 Attending Physician [place]/[facility] PCP Admitting Physician: Kristin Elise MD Attending Physician: Kristin Elise MD Consult Date of Admission Dec 18, 2022 at 04:24 Home Medications Home Medications Reviewed patient Home Medication Reconciliation performed by pharmacy medication reconciliations solid waste technician and/or nursing. Patients Allergies have been reviewed. Allergies Coded Allergies: morphine (Verified Allergy, Mild, mild rash treated with benadryl (per patient), 12/18/22) mild rash treated with benadryl (per patient) Penicillins (Verified Allergy, Unknown, Hives/Rash, 08/21/21) latex (Verified Allergy, Unknown, 01/30/22) SKV-[id number]-[id number] Hx Patient Social History Drug of Choice: THC, last use 12/12/22 Smoking Status: Never a Smoker (vapes nicotine at times, once or twice per day) 2nd Hand Smoke Exposure: Yes Recent Hopitalizations: No Alcohol Use?: No Substance type: Marijuana Have you traveled recently?: No Immunizations Up To Date Tetanus Booster (TDap): Less than 5yrs Influenza Vaccine Up-to-Date: Yes; Up-to-Date First/Initial COVID19 Vaccinat: 06/19/2021 Second COVID19 Vaccination James: 07/17/2021 Third COVID19 Vaccination Date: N/A Past Medical History PMHx: Anxiety Cannabinoid hyperemesis syndrome Cyclic vomiting SurgHx: Tonsillectomy/adenoidectomy Family Medical History Significant Family History: No Pertinent Family Hx, Psychiatric Problems Review of Systems ([facility]) Constitutional: No fever EENTM: No nose pain, No throat pain Respiratory: No cough Cardiovascular: No chest pain Gastrointestinal: see HPI Genitourinary: No dysuria Musculoskeletal: No joint pain, No muscle pain Skin: No rash Psychiatric/Neurological: Anxiety Reviewed Test Results Reviewed Test Results Lab Laboratory Tests Test 12/18/22 02:05 Range/Units White Blood Count 7.7 4.3-11.0 10^3/uL Red Blood Count 4.01 3.80-5.11 10^6/uL Hemoglobin 11.0 L 11.5-16.0 g/dL Hematocrit 34 L 35-52 % Mean Corpuscular Volume 84 80-99 fL Mean Corpuscular Hemoglobin 27 25-34 pg Mean Corpuscular Hemoglobin Concent 33 32-36 g/dL Red Cell Distribution Width 15.6 H 10.0-14.5 % Platelet Count 200 130-400 10^3/uL Mean Platelet Volume 11.3 9.0-12.2 fL Immature Granulocyte % (Auto) 0 % Neutrophils (%) (Auto) 68 42-75 % Lymphocytes (%) (Auto) 23 12-44 % Monocytes (%) (Auto) 7 0-12 % Eosinophils (%) (Auto) 1 0-10 % Basophils (%) (Auto) 0 0-10 % Neutrophils # (Auto) 5.3 1.8-7.8 10^3/uL Lymphocytes # (Auto) 1.8 1.0-4.0 10^3/uL Monocytes # (Auto) 0.6 0.0-1.0 10^3/uL Eosinophils # (Auto) 0.1 0.0-0.3 10^3/uL Basophils # (Auto) 0.0 0.0-0.1 10^3/uL Immature Granulocyte # (Auto) 0.0 0.0-0.1 10^3/uL Sodium Level 140 135-145 MMOL/L Potassium Level 3.9 3.6-5.0 MMOL/L Chloride Level 110 H 98-107 MMOL/L Carbon Dioxide Level 15 L 21-32 MMOL/L Anion Gap 15 H 5-14 MMOL/L Blood Urea Nitrogen 9 7-18 MG/DL Creatinine 0.80 0.60-1.30 MG/DL Estimat Glomerular Filtration Rate 107 BUN/Creatinine Ratio 11 Glucose Level 80 70-105 MG/DL Calcium Level 8.4 L 8.5-10.1 MG/DL Corrected Calcium 8.3 L 8.5-10.1 MG/DL Total Bilirubin 0.7 0.1-1.0 MG/DL Aspartate Amino Transf (AST/SGOT) 25 5-34 U/L Alanine Aminotransferase (ALT/SGPT) 16 0-55 U/L Alkaline Phosphatase 45 40-136 U/L C-Reactive Protein High Sensitivity 0.06 0.00-0.50 MG/DL Total Protein 6.5 6.4-8.2 GM/DL Albumin 4.1 3.2-4.5 GM/DL Physical Exam-([facility]) Physical Exam Vital Signs VS - Last 72 Hours, by Label 12/17/22 12/18/22 12/18/22 12/18/22 23:43 05:16 05:30 05:30 Temp 37.2 Pulse 72 61 Resp 18 B/P (MAP) 125/74 (91) 128/88 128/81 (97) Pulse Ox 96 97 O2 Delivery Room Air Room Air Room Air 12/18/22 12/18/22 12/18/22 12/18/22 08:00 08:20 12:34 15:17 Temp 36.8 37.4 37.1 Pulse 74 88 74 Resp 18 18 20 B/P (MAP) 132/91 (105) 117/79 (92) 122/68 (86) Pulse Ox 98 98 97 96 O2 Delivery Room Air Room Air Room Air Room Air Capillary Refill : General Appearance: moderate distress, thin Respiratory: lungs clear, normal breath sounds Cardiovascular: regular rate, rhythm, no murmur Gastrointestinal: normal bowel sounds, soft, guarding, tenderness (diffuse, greatest at epigastric) Extremities: no pedal edema Neurologic/Psychiatric: alert, oriented x 3 Skin: warm/dry Assessment/Plan Assessment/Plan Admission Status: Observation (1) Epigastric pain Status: Acute Assessment & Plan: concern for ulcer disease. NPO, Surgery consulted. Pain not well relieved with fentanyl, change to dilaudid. (2) Anxiety Status: Chronic Assessment & Plan: IV benzo for now due to severe pain and nausea, discussed long-term benzo use concerns, when tolerating PO can discuss options for anxiety treatment long-term. (3) Intractable nausea and vomiting Status: Acute Assessment & Plan: Ondansetron, IVF, NPO KRISTIN ELISE MD Dec 18, 2022 09:59
--- NOTE | 2022-12-18 10:03 | Consultation - Surgery ---
ALINA SALDANA 12/18/22 1003: History of Present Illness History of Present Illness Patient Consulted On(adelita/time) 12/18/22 09:55 History of Present Illness 22 F admitted from the ED for intractable abdominal pain, nausea and vomiting of 4 days duration. Per the ED provider, she has a history of cyclic vomiting syndrome and had previously had cannabis associated hyperemesis. At this time, she describes intermittent, "sharp, stabbing" midline abdominal pain that is associated with a wave of nausea and sometimes vomiting. She says her pain is exacerbated by talking, stress and eating and is unaffected by bowel movements. She denies bloody stool or vomit. She reports a decreased appetite and a 5 lb weight loss over the course of the past two weeks. She notes that she gave to a healthy child 5 months ago. She admits to use of nicotine (with vaping) and was using marijuana until 1 week ago. She denies previous medical conditions, hospitalizations, surgeries as well as family medical history. She denies alcohol, tobacco or ilicit drug use and currently takes no medications. Her last BM was yesterday at 4:00 pm. Allergies and Home Medications Allergies Coded Allergies: morphine (Verified Allergy, Mild, mild rash treated with benadryl (per patient), 12/18/22) mild rash treated with benadryl (per patient) Penicillins (Verified Allergy, Unknown, Hives/Rash, 08/21/21) latex (Verified Allergy, Unknown, 01/30/22) Patient Home Medication List No Active Prescriptions or Reported Meds Past Lmlpakf-Arqfjs-Tfoebr Hx Patient Social History Drug of Choice: THC Smoking Status: Never a Smoker Type Used: Electronic/Vapor 2nd Hand Smoke Exposure: Yes Recent Hopitalizations: No Alcohol Use?: No Substance type: Marijuana Have you traveled recently?: No Immunizations Up To Date Tetanus Booster (TDap): Less than 5yrs Date of Influenza Vaccine: Sep 19, 2022 Surgeries History of Surgeries: Yes (WISDOM TEETH REMOVED) Surgeries: Adenoidectomy, Tonsillectomy Respiratory History of Respiratory Disorde: Yes (PNEUMONIA 08/19/21) Cardiovascular History of Cardiac Disorders: No Neurological History of Neurological Disord: No Reproductive System Sexually Transmitted Disease: No Genitourinary History of Genitourinary Disor: Yes Genitourinary Disorders: Kidney Infection, Kidney Stones Gastrointestinal History of Gastrointestinal Di: Yes (CANNABIS HYPEREMESIS SYNDROME) Gastrointestinal Disorders: Gastroesophageal Reflux Musculoskeletal History of Musculoskeletal Dis: No Endocrine History of Endocrine Disorders: No HEENT History of HEENT Disorders: Yes (WISDOM TEETH REMOVED; S/P TONSILLECTOMY) HEENT Disorders: Tonsilitis Cancer History of Cancer: No Psychosocial History of Psychiatric Problem: Yes Behavioral Health Disorders: Anxiety Integumentary History of Skin or Integumenta: No Blood Transfusions History of Blood Disorders: No Adverse Reaction to a Blood Tr: No Family Medical History Significant Family History: No Pertinent Family Hx, Psychiatric Problems Review of Systems-General Constitutional: malaise, weakness EENTM: No blurred vision, No double vision Respiratory: No hemoptysis, No short of breath Gastrointestinal: abdominal pain, nausea, vomiting Genitourinary: No dysuria, No hematuria : No Musculoskeletal: muscle pain (abdominal muscles), muscle cramps (abdominal muscles) Skin: no symptoms reported Psychiatric/Neurological: Anxiety, Depressed Physical Exam-General Problems Physical Exam Vital Signs Vital Signs - First Documented 12/17/22 12/18/22 23:43 05:30 Temp 37.2 Pulse 72 Resp 18 B/P (MAP) 125/74 (91) Pulse Ox 96 O2 Delivery Room Air Capillary Refill : General Appearance: moderate distress, other (tearful, anxious) HEENT: pharynx normal; No scleral icterus (R), No pale conjunctivae (R), No pale conjunctivae (L) Neck: No lymphadenopathy (R), No lymphadenopathy (L), No thyromegaly Respiratory: lungs clear, normal breath sounds Cardiovascular: regular rate, rhythm, no murmur Peripheral Pulses: 3+ Carotid (R), 3+ Carotid (L) Gastrointestinal: normal bowel sounds, soft; No guarding, No rebound; tenderness (on palpation of midline superior to umbilicus ) Back: no CVA tenderness, no vertebral tenderness Extremities: non-tender, no pedal edema Neurologic/Psychiatric: alert, oriented x 3 Skin: normal color, warm/dry Lymphatic: no adenopathy Data Review Labs Laboratory Tests 12/18/22 02:05: White Blood Count 7.7, Red Blood Count 4.01, Hemoglobin 11.0L, Hematocrit 34L, Mean Corpuscular Volume 84, Mean Corpuscular Hemoglobin 27, Mean Corpuscular Hemoglobin Concent 33, Red Cell Distribution Width 15.6H, Platelet Count 200, Mean Platelet Volume 11.3, Immature Granulocyte % (Auto) 0, Neutrophils (%) (A uto) 68, Lymphocytes (%) (Auto) 23, Monocytes (%) (Auto) 7, Eosinophils (%) (Auto) 1, Basophils (%) (Auto) 0, Neutrophils # (Auto) 5.3, Lymphocytes # (Auto) 1.8, Monocytes # (Auto) 0.6, Eosinophils # (Auto) 0.1, Basophils # (Auto) 0.0, Immature Granulocyte # (Auto) 0.0, Sodium Level 140, Potassium Level 3.9, Chloride Level 110H, Carbon Dioxide Level 15L, Anion Gap 15H, Blood Urea Nitrogen 9, Creatinine 0.80, Estimat Glomerular Filtration Rate 107, BUN/Creatinine Ratio 11, Glucose Level 80, Calcium Level 8.4L, Corrected Calcium 8.3L, Total Bilirubin 0.7, Aspartate Amino Transf (AST/SGOT) 25, Alanine Aminotransferase (ALT/SGPT) 16, Alkaline Phosphatase 45, C-Reactive Protein High Sensitivity 0.06, Total Protein 6.5, Albumin 4.1 Assessment/Plan Assessment/Plan Assessment/Plan Midline abdominal pain / Cyclic nausea and vomiting - chronic issue with flares over the last 2-3 years - consider EGD to r/o peptic ulcer and gastritis - continue PPI, odansetron and sulcrafate Anxiety Marijuana use - cessation 1 week ago BAUTISTA ARSHAD DO 12/18/22 1410: History of Present Illness History of Present Illness Time Seen by Provider: 11:39 History of Present Illness Surgery asked to consult regarding Abdominal pain, N/V HPI per ED: Here with intractable central abdominal pain. She is also having nausea and vomiting although that is improved. She has been seen 4 times in the last 3 days for this including twice yesterday. This is the second time I have seen her as well. She has history of cyclic vomiting syndrome and had previously had cannabis associated hyperemesis. She states that she has not had marijuana for several days and is using it minimally. She states now though that she will never use it again. Denies blood in her vomit or stool. States that she has an area of pain that is central upper abdomen and it is always right there when she has the pain syndrome. Does have history of panic disorder and anxiety. She has not had upper endoscopy and thinks that she may have an ulcer. Labs for the previous 3 visits have all been normal. She has not had imaging as she has had normal labs and we have been able to obtain improvement. She returns tonight a few hours after discharge due to severe pain. Timing/Duration: 3-4 Days Severity/Quality: Moderate, Severe, Aching, Sharp Location: Epigastric Radiation: No Radiation Modifying Factors: Worsens With Eating Associated Symptoms: No Fever/Chills; Nausea/Vomiting When I spoke to pt she had just gotten some pain meds and was sleepy; actually fell asleep as I was asking questions. I saw her for the same thing in July of 2021. She states she has not had EGD or HIDA, but that we discussed them. She is not sure of anything that makes these problems worse and nothing makes them better. She doesn't think anything has changed with environment or mecications. Allergies and Home Medications Allergies Coded Allergies: morphine (Verified Allergy, Mild, mild rash treated with benadryl (per patient), 12/18/22) mild rash treated with benadryl (per patient) Penicillins (Verified Allergy, Unknown, Hives/Rash, 08/21/21) latex (Verified Allergy, Unknown, 01/30/22) Patient Home Medication List Home Medication List Reviewed: Yes No Active Prescriptions or Reported Meds Past Pypehqx-Epxflx-Bwnenx Hx Patient Social History Smoking Status: Current Someday Smoker Type Used: Electronic/Vapor Substance type: Marijuana Surgeries History of Surgeries: Yes (wisdom teeth removal) Surgeries: Adenoidectomy, Tonsillectomy Respiratory History of Respiratory Disorde: Yes Respiratory Disorders: Pneumonia Cardiovascular History of Cardiac Disorders: No Neurological History of Neurological Disord: No Reproductive System : No Genitourinary History of Genitourinary Disor: Yes Genitourinary Disorders: Kidney Infection, Kidney Stones Gastrointestinal History of Gastrointestinal Di: Yes (chronic pain, chronic N/V) Musculoskeletal History of Musculoskeletal Dis: No Endocrine History of Endocrine Disorders: No HEENT History of HEENT Disorders: No Loss of Vision: Denies Hearing Impairment: Denies Cancer History of Cancer: No Psychosocial History of Psychiatric Problem: Yes Behavioral Health Disorders: Anxiety Integumentary History of Skin or Integumenta: No Family Medical History Significant Family History: Psychiatric Problems Review of Systems-General Constitutional: malaise, weakness EENTM: No blurred vision, No double vision, No mouth swelling, No epistaxis Respiratory: No cough, No hemoptysis, No short of breath Cardiovascular: No chest pain, No palpitations Gastrointestinal: abdominal pain, nausea, vomiting Genitourinary: No dysuria, No hematuria : No Musculoskeletal: muscle pain (abdominal muscles), muscle cramps (abdominal muscles) Skin: No change in color, No change in hair/nails Psychiatric/Neurological: Anxiety, Depressed Physical Exam-General Problems Physical Exam General Appearance: WD/WN, no apparent distress (When I saw her, she had just gotten pain meds), other (tearful, anxious) Eyes: Bilateral Eye PERRL, Bilateral Eye EOMI HEENT: pharynx normal; No scleral icterus (R), No scleral icterus (L) Neck: non-tender, supple Respiratory: lungs clear, normal breath sounds, no respiratory distress, no accessory muscle use Cardiovascular: regular rate, rhythm, no murmur Gastrointestinal: normal bowel sounds, soft; No guarding, No rebound; tenderness (on palpation of midline superior to umbilicus ) Rectal: deferred Back: no CVA tenderness, no vertebral tenderness Extremities: non-tender, no pedal edema Neurologic/Psychiatric: alert, oriented x 3 Skin: normal color, warm/dry Lymphatic: no adenopathy (neck, axilla or groin) Assessment/Plan Assessment/Plan Assessment/Plan Abdominal Pain Intractable N/V Pt must stop vaping along with stopping the Marijuana. PPI, pain meds and anti- emetics as needed. Pt would probably benefit from EGD and HIDA scan, could be done as outpt. Supervisory-Addendum Brief Verification & Attestation Participated in pt care: history, MDM, physical Personally performed: exam, history, MDM, supervision of care Care discussed with: Medical Student Procedures: n/a Verification and Attestation of Medical Student E/M Service A medical student performed and documented this service. I then reviewed and verified all information documented by the medical student and made modifications to such information, when appropriate. I personally performed a physical exam, medical decision making and then discussed any differences between the notes and made revisions as necessary to create one note. Bautista Arshad , 12/18/22 , 14:15 ALINA SALDANA Dec 18, 2022 10:03 BAUTISTA ARSHAD DO Dec 18, 2022 14:10
[2022-12-18] MEDS: LORazepam INJ 2 MG/ML (ATIVAN) VIAL IVP PRN ×2 (10:36→20:12)
[2022-12-18] MEDS: HYDROmorphone 2 MG/ML VIAL (DILAUDID) IVP PRN ×4 (11:04→20:07)
[2022-12-18 12:34] VITALS: BP 117/79
[2022-12-18 15:17] VITALS: BP 122/68
[2022-12-18 20:16] VITALS: BP 132/80
[2022-12-19 01:01] VITALS: BP 136/88
[2022-12-19] MEDS: LACTATED RINGERS 1,000 ML IV SCH ×2 (01:03→04:23)
[2022-12-19] MEDS: HYDROmorphone 2 MG/ML VIAL (DILAUDID) IVP PRN ×7 (01:07→21:47)
[2022-12-19] MEDS: ONDANSETRON 4 MG/2 ML (SDV) Z0FRAN IV PRN ×2 (03:33→08:11)
[2022-12-19 03:40] VITALS: BP 122/75
[2022-12-19] MEDS: CATHETER FLUSH 10 ML SYR IVP PRN ×2 (06:04→18:54)
[2022-12-19 06:06] LABS: HEMATOCRIT 34 % (35-52); HEMOGLOBIN 10.9 g/dL (11.5-16.0); MEAN CORPUSCULAR HEMOGLOBIN 28 pg (25-34); MEAN CORPUSCULAR HGB CONC 32 g/dL (32-36); MEAN CORPUSCULAR VOLUME 85 fL (80-99); MEAN PLATELET VOLUME 11.1 fL (9.0-12.2); PLATELET COUNT 227 10^3/uL (130-400); WHITE BLOOD COUNT 6.9 10^3/uL (4.3-11.0)
[2022-12-19 06:29] LABS: CALCIUM 8.3 MG/DL (8.5-10.1); CREATININE SERUM 0.77 MG/DL (0.60-1.30); POTASSIUM 3.2 MMOL/L (3.6-5.0)
--- NOTE | 2022-12-19 07:37 | Progress Note - Surgery ---
ALINA SALDANA 12/19/22 0737: Subjective Date Seen by a Provider: Dec 19, 2022 Time Seen by a Provider: 07:00 Subjective/Events-last exam Patient continues to report abdominal pain that is worst at the midline. She notes she has been slightly less nauseas today and has not yet vomited. She admits to soreness in her back, neck and lower abdomen as well as "slightly dark, orange" colored urine this morning. She continues to deny bloody stools/vomit or dark stools. She additionally denies headache, dizziness or chills. Review of Systems General: No Chills; Fatigue, Appetite (diminished) HEENT: No Head Aches, No Sore Throat Pulmonary: No Dyspnea, No Cough Cardiovascular: No: Chest Pain, Lt Headedness Gastrointestinal: Nausea, Vomiting, Abdominal Pain Genitourinary: No Dysuria (reports dark, "orange colored" urine) Musculoskeletal: neck pain, back pain Neurological: No: Numbness, Incoordination Objective Exam Vital Signs Date Time Temp Pulse Resp B/P (MAP) Pulse Ox O2 Delivery O2 Flow Rate FiO2 12/19/22 03:40 36.7 70 18 122/75 (91) 98 Room Air 12/19/22 01:01 37.1 88 18 136/88 (104) 98 Room Air 12/18/22 20:16 36.4 74 20 132/80 (97) 99 Room Air 12/18/22 20:15 99 Room Air 12/18/22 15:17 37.1 74 20 122/68 (86) 96 Room Air 12/18/22 12:34 37.4 88 18 117/79 (92) 97 Room Air 12/18/22 08:20 36.8 74 18 132/91 (105) 98 Room Air 12/18/22 08:00 98 Room Air I & O 12/19/22 07:00 Intake Total 1000 ml Output Total 1400 ml Balance -400 ml Capillary Refill : General Appearance: Mild Distress HEENT: Pharynx Normal, Moist Mucous Membranes Neck: Non Tender Respiratory: Chest Non Tender, Lungs Clear Cardiovascular: Regular Rate, Rhythm, No Murmur Peripheral Pulses: 3+ Carotid (R), 3+ Carotid (L) Gastrointestinal: normal bowel sounds, soft, guarding, tenderness (diffuse, greatest at epigastric) Neurologic/Psychiatric: Alert, Oriented x3 Skin: Warm/Dry Results Lab Laboratory Tests 12/19/22 05:30: White Blood Count 6.9, Red Blood Count 3.97, Hemoglobin 10.9L, Hematocrit 34L, Mean Corpuscular Volume 85, Mean Corpuscular Hemoglobin 28, Mean Corpuscular Hemoglobin Concent 32, Red Cell Distribution Width 15.1H, Platelet Count 227, Mean Platelet Volume 11.1, Sodium Level 138, Potassium Level 3.2L, Chloride Level 108H, Carbon Dioxide Level 19L, Anion Gap 11, Blood Urea Nitrogen 9, Creatinine 0.77, Estimat Glomerular Filtration Rate 112, BUN/Creatinine Ratio 12, Glucose Level 66L, Calcium Level 8.3L Assessment/Plan Assessment/Plan Assessment/Plan Abdominal Pain Intractable N/V Hypokalemia - Potassium 3.2 on 12/18 Pt must stop vaping along with stopping the Marijuana. PPI, pain meds and anti- emetics as needed. Pt would probably benefit from EGD and HIDA scan, could be done as outpt. BAUTISTA ARSHAD DO 12/19/22 1239: Subjective Time Seen by a Provider: 08:56 Subjective/Events-last exam Pt seen and examined, still having pain and the only thing that helps is pain meds. Pt reports nausea but no emesis, able to keep down some liquids. Review of Systems General: No Chills; Fatigue, Appetite (diminished) Pulmonary: No Dyspnea, No Cough Cardiovascular: No: Chest Pain Gastrointestinal: Nausea, Vomiting, Abdominal Pain Genitourinary: No Dysuria (reports dark, "orange colored" urine) Musculoskeletal: neck pain, back pain Objective Exam General Appearance: WD/WN, Mild Distress HEENT: Pharynx Normal, Moist Mucous Membranes Respiratory: Lungs Clear, Normal Breath Sounds, No Accessory Muscle Use, No Respiratory Distress Cardiovascular: Regular Rate, Rhythm, No Murmur Gastrointestinal: soft, no organomegaly, guarding (voluntary), tenderness (diffuse, greatest at epigastric) Neurologic/Psychiatric: Alert, Oriented x3 Assessment/Plan Assessment/Plan Assessment/Plan Abdominal Pain Intractable N/V Hypokalemia - Potassium 3.2, was 3.9 on 12/18 Pt must stop vaping along with stopping the Marijuana. PPI, pain meds and anti- emetics as needed. Will order HIDA scan today and then make pt NPO after midnight and plan EGD tomorrow; pt requesting work-up because, "every time I just start tolerating clears they send me home and then pain, N/V come back as soon as I get home". I discussed case with Dr. Elise, she does not think she will be able to get pt home sooner and therefore will do work-up while pt is in hospital. Supervisory-Addendum Brief Verification & Attestation Participated in pt care: history, MDM, physical Personally performed: exam, history, MDM, supervision of care Care discussed with: Medical Student Procedures: n/a Verification and Attestation of Medical Student E/M Service A medical student performed and documented this service. I then reviewed and verified all information documented by the medical student and made modifications to such information, when appropriate. I personally performed a physical exam, medical decision making and then discussed any differences between the notes and made revisions as necessary to create one note. Bautista Arshad , 12/19/22 , 12:39 ALINA SALDANA Dec 19, 2022 07:37 BAUTISTA ARSHAD DO Dec 19, 2022 12:39
[2022-12-19] MEDS: POTASSIUM CL 10MEQ/50ML IVPB 50 ML IV SCH ×4 (07:39→09:49)
[2022-12-19] MEDS: D5 LR IV SOLUTION 1,000 ML IV SCH ×3 (07:39→23:36)
[2022-12-19 07:59] VITALS: BP 123/84
[2022-12-19] MEDS: PANTOPRAZOLE 40 MG (PROTONIX) VIAL IV SCH ×2 (08:08→20:03)
[2022-12-19] MEDS: HYDROcodone/APAP 5 MG/325 MG (LORTAB) TAB PO PRN ×2 (11:00→20:03)
[2022-12-19] MEDS: LORazepam INJ 2 MG/ML (ATIVAN) VIAL IVP PRN ×2 (11:05→20:03)
[2022-12-19 11:34] VITALS: BP 140/85
--- NOTE | 2022-12-19 12:42 | Diagnostic Imaging Report ---
INDICATION: Abdominal pain. PROCEDURE: Ultrasound abdomen complete. TECHNIQUE: Multiple real-time grayscale images were obtained of the abdomen in various projections. FINDINGS: Liver is mildly enlarged at 18 cm. Portal vein is patent and shows normal direction of flow. No liver mass is identified. Gallbladder is without stones or sludge. There is no wall thickening or biliary ductal dilatation. Pancreas is unremarkable. Spleen is normal in size at 10.8 cm. Aorta is nonaneurysmal. IVC is patent. Kidneys are without evidence of calculi or hydronephrosis. There is no ascites. IMPRESSION: 1. Mild hepatomegaly. The study is otherwise unremarkable. Dictated by: Dictated on workstation # [id number]
[2022-12-19] MEDS: METOCLOPRAMIDE INJ 10 MG/2 ML (REGLAN) IVP SCH ×3 (13:39→23:59)
[2022-12-19] MEDS: KETOROLAC 30 MG/ML VIAL IVP PRN (15:37)
[2022-12-19 15:42] VITALS: BP 136/87
--- NOTE | 2022-12-19 19:03 | Progress Note ---
Subjective Subjective/Events-last exam Pt seen at 1025, still feeling poorly, has had return of nausea. Requesting pain and/or anxiety medication after asking nurse which is available. Objective Exam Last Set of Vital Signs Vital Signs Date Time Temp Pulse Resp B/P (MAP) Pulse Ox O2 Delivery O2 Flow Rate FiO2 12/19/22 15:42 37.2 65 18 136/87 (103) 98 Room Air Capillary Refill : I&O Intake and Output 12/19/22 00:00 Intake Total 900 ml Output Total 1200 ml Balance -300 ml Intake Oral 900 ml Output Urine Total 1200 ml Daily Weight Change No General: Alert, Mild Distress Lungs: Clear to Auscultation, Normal Air Movement Heart: Regular Rate Abdomen: Soft, Other (hypoactive bowel sounds, diffuse mild ttp) Extremities: No Edema Psych/Mental Status: Other (moaning with discomfort) Results/Procedures Lab Laboratory Tests 12/19/22 05:30: White Blood Count 6.9, Red Blood Count 3.97, Hemoglobin 10.9L, Hematocrit 34L, Mean Corpuscular Volume 85, Mean Corpuscular Hemoglobin 28, Mean Corpuscular Hemoglobin Concent 32, Red Cell Distribution Width 15.1H, Platelet Count 227, Mean Platelet Volume 11.1, Sodium Level 138, Potassium Level 3.2L, Chloride Level 108H, Carbon Dioxide Level 19L, Anion Gap 11, Blood Urea Nitrogen 9, Creatinine 0.77, Estimat Glomerular Filtration Rate 112, BUN/Creatinine Ratio 12, Glucose Level 66L, Calcium Level 8.3L Assessment/Plan Assessment/Plan (1) Epigastric pain Status: Acute Assessment & Plan: 12/18 concern for ulcer disease. NPO, Surgery consulted. Pain not well relieved with fentanyl, change to dilaudid. 12/19 was drinking fluids this am, Surgery discussed can do EGD outpatient, but pain still not managed and nausea worse again, will make NPO tonight for tomorrow. Check gall bladder studies. (2) Anxiety Status: Chronic Assessment & Plan: IV benzo for now due to severe pain and nausea, discussed long-term benzo use concerns, when tolerating PO can discuss options for anxiety treatment long term care pharmacist. (3) Intractable nausea and vomiting Status: Acute Assessment & Plan: Ondansetron 12/19 added Reglan (4) Hypokalemia Status: Acute Assessment & Plan: Replace and follow KRISTIN ANN MD 1, 2023 19:03
[2022-12-19 19:41] VITALS: BP 136/89
--- NOTE | 2022-12-19 19:41 | Diagnostic Imaging Report ---
HEPATOBILIARY SCAN DATE: December 19, 2022. INDICATION: 22-year-old female, severe upper abdominal pain, nausea, vomiting. PROCEDURE: 5.4 mCi of Tc-99m Choletec was administered intravenously and serial anterior planar images over the liver and upper abdomen were obtained. FINDINGS: There is excretion of radiotracer into the bile ducts and prompt filling of the gallbladder. There is extension of radiotracer into small bowel. There is no identified enterogastric reflux. Ensure was administered for calculation of gallbladder ejection fraction which is measured at 27%. IMPRESSION: 1. No evidence of acute cholecystitis or complete common bile duct obstruction. 2. Gallbladder ejection fraction of 27% which measures below lower limits of normal and can be seen in the setting of biliary dyskinesia and/or chronic cholecystitis. Dictated by: Dictated on workstation # [id number]
[2022-12-20 00:03] VITALS: BP 129/84
[2022-12-20] MEDS: HYDROmorphone 2 MG/ML VIAL (DILAUDID) IVP PRN ×3 (02:42→11:23)
[2022-12-20] MEDS: D5 LR IV SOLUTION 1,000 ML IV SCH ×2 (02:42→10:19)
[2022-12-20] MEDS: LORazepam INJ 2 MG/ML (ATIVAN) VIAL IVP PRN ×2 (04:03→10:14)
[2022-12-20 04:05] VITALS: BP 127/79
[2022-12-20 05:36] LABS: HEMATOCRIT 33 % (35-52); HEMOGLOBIN 11.1 g/dL (11.5-16.0); MEAN CORPUSCULAR HEMOGLOBIN 28 pg (25-34); MEAN CORPUSCULAR HGB CONC 34 g/dL (32-36); MEAN CORPUSCULAR VOLUME 82 fL (80-99); MEAN PLATELET VOLUME 10.4 fL (9.0-12.2); PLATELET COUNT 241 10^3/uL (130-400); WHITE BLOOD COUNT 5.9 10^3/uL (4.3-11.0)
[2022-12-20 05:54] LABS: ALBUMIN 3.8 GM/DL (3.2-4.5)
[2022-12-20 05:55] LABS: POTASSIUM 3.1 MMOL/L (3.6-5.0)
[2022-12-20 05:56] LABS: CALCIUM 8.3 MG/DL (8.5-10.1)
[2022-12-20 05:57] LABS: TOTAL PROTEIN 5.4 GM/DL (6.4-8.2)
[2022-12-20 05:59] LABS: BILIRUBIN,TOTAL 0.6 MG/DL (0.1-1.0)
[2022-12-20 06:01] LABS: CREATININE SERUM 0.68 MG/DL (0.60-1.30)
[2022-12-20] MEDS: METOCLOPRAMIDE INJ 10 MG/2 ML (REGLAN) IVP SCH ×2 (06:03→11:17)
[2022-12-20] MEDS ORDERED: MAGNESIUM 1 GM/100 ML IVPB 100 ML IV ONE (07:00)
--- NOTE | 2022-12-20 07:06 | Progress Note - Surgery ---
ALINA SALDANA 12/20/22 0706: Subjective Date Seen by a Provider: Dec 20, 2022 Time Seen by a Provider: 06:30 Subjective/Events-last exam Patient awoken from sleep for assessment and was drowsy while answering questions. She says abdominal pain has slightly improved throughout the past few days; she attributes this to pain medications and worries the pain will return after cessation of medications. No nausea or vomiting today thus far. She also endorses fatigues and some muscle aches in her neck and back. She has not had BM since her first day of admission. Review of Systems General: No Chills; Fatigue HEENT: No Head Aches, No Sore Throat Pulmonary: No Dyspnea, No Cough Cardiovascular: No: Chest Pain, Palpitations Gastrointestinal: Nausea, Abdominal Pain Genitourinary: No Dysuria, No Frequency Musculoskeletal: back pain Neurological: No: Weakness, Numbness Objective Exam Vital Signs Date Time Temp Pulse Resp B/P (MAP) Pulse Ox O2 Delivery O2 Flow Rate FiO2 12/20/22 04:05 37.0 74 18 127/79 (95) 98 Room Air 12/20/22 00:03 36.9 69 18 129/84 (99) 98 Room Air 12/19/22 20:33 98 Room Air 12/19/22 19:41 37.1 74 18 136/89 (105) 97 Room Air 12/19/22 15:42 37.2 65 18 136/87 (103) 98 Room Air 12/19/22 11:34 36.2 79 18 140/85 (103) 97 Room Air 12/19/22 07:59 36.3 74 18 123/84 (97) 98 Room Air 12/19/22 07:53 98 Room Air I & O 12/20/22 07:00 Intake Total 3050 ml Output Total 1750 ml Balance 1300 ml Capillary Refill : General Appearance: WD/WN HEENT: Pharynx Normal, Moist Mucous Membranes Neck: Non Tender Respiratory: Lungs Clear, Normal Breath Sounds, No Accessory Muscle Use, No Respiratory Distress Cardiovascular: Regular Rate, Rhythm, No Murmur Peripheral Pulses: 3+ Carotid (R), 3+ Carotid (L) Gastrointestinal: soft, no organomegaly, guarding (voluntary), tenderness (on light palpation periumbilical region and deep palpation of RLQ and LLQ) Neurologic/Psychiatric: Alert, Oriented x3 Skin: Warm/Dry Results Lab Laboratory Tests 12/20/22 05:28: White Blood Count 5.9, Red Blood Count 4.00, Hemoglobin 11.1L, Hematocrit 33L, Mean Corpuscular Volume 82, Mean Corpuscular Hemoglobin 28, Mean Corpuscular Hemoglobin Concent 34, Red Cell Distribution Width 14.7H, Platelet Count 241, Mean Platelet Volume 10.4, Sodium Level 138, Potassium Level 3.1L, Chloride Level 105, Carbon Dioxide Level 23, Anion Gap 10, Blood Urea Nitrogen 5L, Creatinine 0.68, Estimat Glomerular Filtration Rate 127, BUN/Creatinine Ratio 7, Glucose Level 109H, Calcium Level 8.3L, Corrected Calcium 8.5, Total Bilirubin 0.6, Aspartate Amino Transf (AST/SGOT) 11, Alanine Aminotransferase (ALT/SGPT) 15, Alkaline Phosphatase 43, Total Protein 5.4L, Albumin 3.8 Assessment/Plan Assessment/Plan Assessment/Plan Abdominal Pain Intractable N/V - Patient NPO since midnight last night for EGD today - HIDA scan ordered Hypokalemia - Potassium 3.1; was 3.2 on 12/19 and 3.9 on 12/18 - continue KCl replacement Pt must stop vaping along with stopping the Marijuana. PPI, pain meds and anti- emetics as needed. Will order HIDA scan today and then make pt NPO after midnight and plan EGD tomorrow; pt requesting work-up because, "every time I just start tolerating clears they send me home and then pain, N/V come back as soon as I get home". I discussed case with Dr. Elise, she does not think she will be able to get pt home sooner and therefore will do work-up while pt is in hospital. BAUTISTA OH DO 12/20/22 0914: Subjective Time Seen by a Provider: 08:42 Subjective/Events-last exam Pt seen and examined, still having abdominal pain but maybe better. Denies nausea and vomiting. Review of Systems General: Fatigue Pulmonary: No Dyspnea, No Cough Cardiovascular: No: Chest Pain, Palpitations Gastrointestinal: Nausea, Abdominal Pain Musculoskeletal: back pain Objective Exam General Appearance: No Apparent Distress, Thin HEENT: Moist Mucous Membranes Respiratory: Lungs Clear, Normal Breath Sounds, No Accessory Muscle Use, No Respiratory Distress Cardiovascular: Regular Rate, Rhythm, No Murmur Gastrointestinal: soft, no organomegaly, guarding (voluntary), tenderness (on light palpation periumbilical region and deep palpation of RLQ and LLQ) Neurologic/Psychiatric: Alert, Oriented x3 Assessment/Plan Assessment/Plan Assessment/Plan Abdominal Pain - slightly improved - HIDA scan shows EF of 27%, this indicates Biliary Dyskinesia Intractable N/V - imprved - Patient NPO since midnight last night for EGD today Hypokalemia - Potassium 3.1; was 3.2 on 12/19 and 3.9 on 12/18 - continue KCl replacement Pt NPO after midnight and plan EGD today. I did not get a chance to talk to her about possible Lap mara and what I think the chance that helps her symptoms; not 100% for sure. Supervisory-Addendum Brief Verification & Attestation Participated in pt care: history, MDM, physical Personally performed: exam, history, MDM, supervision of care Care discussed with: Medical Student Procedures: n/a Verification and Attestation of Medical Student E/M Service A medical student performed and documented this service. I then reviewed and verified all information documented by the medical student and made modifications to such information, when appropriate. I personally performed a physical exam, medical decision making and then discussed any differences betwee n the notes and made revisions as necessary to create one note. Bautista Oh , 12/20/22 , 09:17 ALINA SALDANA Dec 20, 2022 07:06 BAUTISTA OH DO Dec 20, 2022 09:14
[2022-12-20] MEDS: POTASSIUM CL 10MEQ/50ML IVPB 50 ML IV SCH ×4 (07:33→10:19)
[2022-12-20] MEDS: KETOROLAC 30 MG/ML VIAL IVP PRN ×2 (07:38→13:44)
[2022-12-20 07:47] VITALS: BP 118/69
[2022-12-20] MEDS: PANTOPRAZOLE 40 MG (PROTONIX) VIAL IV SCH (08:21)
[2022-12-20] MEDS ORDERED: MIDAZOLAM 2 MG/2 ML (VERSED) VIAL ONE (09:15)
[2022-12-20] MEDS ORDERED: proPOfol 200 MG/20 ML (DIPRIVAN) VIAL IV ONE (09:15)
[2022-12-20] MEDS ORDERED: LACTATED RINGERS 1,000 ML IV STA (09:25)
[2022-12-20 09:49] VITALS: BP 124/87
--- NOTE | 2022-12-20 09:53 | Progress Note-Post Operative ---
Post-Operative Progess Note Surgeon (s)/Gas Golf Cart Repairer (s) Surgeon THEODORE OH DO Gas Golf Cart Repairer: none Pre-Operative Diagnosis Epigastric pain Post-Operative Diagnosis Gastritis small hiatal hernia esophagitis Procedure & Operative Findings Date of Procedure 12/20/22 Procedure Performed/Findings EGD with bx PROCEDURE NOTE: After informed consent was obtained, the patient was brought to the endoscopy suite, placed in bed in left lateral decubitus position. She was administered IV sedation by the CHURCH ADMINISTRATOR who then monitored vitals the entire time, heart rate, blood pressure and pulse ox and the scope was inserted down the mouth through the esophagus into the stomach. On the way down, noted some mild esophagitis, took a picture and pushed into the stomach. Noted some moderate gastritis in the antrum and pushed into the duodenum; duodenum looked good. Pulled back and did a biopsy of the antrum, took a biopsy of the body of the stomach, then retroflexed the scope, saw very small hiatal hernia, took a picture of this and then pulled the scope into the GE junction, took another picture of the hiatal hernia and then did a biopsy of the GE junction. The GE junction bled a little and I tried to cauterize, but it wasn't working so I elected to stop. It should stop on its own. Pushed the scope back into the stomach, suctioned all the air out of the stomach. At this point pulled the scope up the esophagus and out the mouth. The patient tolerated the procedure, and she recovered in endoscopy suite. Anesthesia Type IV sedation by CHURCH ADMINISTRATOR Estimated Blood Loss Estimated blood loss (mL): scant Specimens/Packing Specimens Removed antral bx body of stomach bx GE jxn bx THEODORE OH DO Dec 20, 2022 09:53
--- NOTE | 2022-12-20 10:00 | Anesthesia-General Post-Op ---
MAC Patient Condition Mental Status/LOC: Same as Preop Cardiovascular: Satisfactory Nausea/Vomiting: Absent Respiratory: Satisfactory Pain: Controlled Complications: Absent Post Op Complications Complications None Follow Up Care/Instructions Patient Instructions None needed. Anesthesiology Discharge Order Discharge Order Patient is doing well, no complaints, stable vital signs, no apparent adverse anesthesia problems. No complications reported per nursing. DWIGHT MONTOYA CRNA Dec 20, 2022 10:00
[2022-12-20] MEDS: HYDROcodone/APAP 5 MG/325 MG (LORTAB) TAB PO PRN (10:15)
[2022-12-20] MEDS ORDERED: HURRICAINE EXT TUBE (BENZOCAINE) XX PRN (10:15)
[2022-12-20 11:42] VITALS: BP 150/91
[2022-12-20] MEDS ORDERED: ACHD5005 PO (12:29)
[2022-12-20] MEDS ORDERED: ONDA8TAB13 SL (12:29)
[2022-12-20] MEDS ORDERED: PANT40TA2 PO (12:29)
--- NOTE | 2022-12-20 12:31 | Discharge Summary ---
Discharge Summary Hospital Course Was the Problem List Reviewed?: Yes Problems/Dx: (1) Intractable nausea and vomiting Status: Acute (2) Epigastric pain Status: Acute (3) Cannabinoid hyperemesis syndrome Status: Chronic Hospital Course Date of Admission: Dec 18, 2022 at 04:24 Admission Diagnosis : [facility] Date of Discharge: 12/20/22 Discharge Diagnosis: [ ] Hospital Course: Hospital Course: Nannette is a 22 yo F w/ hx of anxiety, cannabis use, and multiple admissions for intractable nausea and vomiting who presented on 12/18/22 with epigastric pain and intractable N/V for 4 days. She was seen by surgery at presentation. On 12/19/22 had an abdominal ultrasound which revealed normal findings, and had a HIDA scan which revealed a mildly low EF. She underwent an EGD which revealed mild gastritis and 4 biopsies were taken. During the course of her stay she received hydromorphone, hydrocodone, and ketorolac for pain, and Ativan for anxiety. following the procedure she was transitioned to a clear fluids diet. Surgery plans to see her outpatient for gall bladder removal. Intractable Nausea, vomiting Cannabis Hyperemesis Syndrome Epigastric pain -Multiple hospitalizations for similar -epigastric pain well controlled this am -EGD revealed mild gastritis, pending biospy results -ultrasound 12/19 negative, HIDA scan 12/19 with mildly low EF -plan is for outpatient gall bladder removal -discussed cannabis cessation Anxiety -ativan prn Dispo: on clear fluids, can discharge today and plan for outpatient surgical f/u. Labs and Pending Lab Test: Laboratory Tests 12/20/22 05:28: White Blood Count 5.9, Red Blood Count 4.00, Hemoglobin 11.1L, Hematocrit 33L, Mean Corpuscular Volume 82, Mean Corpuscular Hemoglobin 28, Mean Corpuscular Hemoglobin Concent 34, Red Cell Distribution Width 14.7H, Platelet Count 241, Mean Platelet Volume 10.4, Sodium Level 138, Potassium Level 3.1L, Chloride Level 105, Carbon Dioxide Level 23, Anion Gap 10, Blood Urea Nitrogen 5L, Creatinine 0.68, Estimat Glomerular Filtration Rate 127, BUN/Creatinine Ratio 7, Glucose Level 109H, Calcium Level 8.3L, Corrected Calcium 8.5, Magnesium Level 1.6, Total Bilirubin 0.6, Aspartate Amino Transf (AST/SGOT) 11, Alanine Aminotransferase (ALT/SGPT) 15, Alkaline Phosphatase 43, Total Protein 5.4L, Albumin 3.8 Home Meds Active Ondansetron Odt (Ondansetron) 8 Mg Tab.rapdis 8 Mg SL Q4H PRN Protonix (Pantoprazole Sodium) 40 Mg Tablet.dr 40 Mg PO DAILY Hydrocodone-Acetamin 5-325 mg (Hydrocodone/Acetaminophen) 5 Mg-325 Mg Tablet 1 Ea PO Q6H PRN Assessment/Pt Instructions pcp 1 week Discharge Planning: <30 minutes discharge planning Discharge Instructions Discharge Diet: Liquid Diet Discharge Physical Examination Vital Signs Vital Signs Date Time Temp Pulse Resp B/P (MAP) Pulse Ox O2 Delivery O2 Flow Rate FiO2 12/20/22 11:42 37.2 64 18 150/91 (110) 97 Room Air General Appearance: No Apparent Distress, WD/WN, Chronically ill Neurologic/Psychiatric: Alert, Oriented x3, No Motor/Sensory Deficits, Normal Mood/Affect Allergies: Coded Allergies: morphine (Verified Allergy, Mild, mild rash treated with benadryl (per patient), 12/18/22) mild rash treated with benadryl (per patient) Penicillins (Verified Allergy, Unknown, Hives/Rash, 08/21/21) latex (Verified Allergy, Unknown, 01/30/22) Discharge Summary Date of Admission Dec 18, 2022 at 04:24 Date of Discharge Discharge Date: Dec 20, 2022 KRISTYN STARK DO Dec 20, 2022 12:31
--- NOTE | 2022-12-20 13:35 | Progress Note - Hospitalist ---
COLLINESMER 12/20/22 1335: Subjective HPI/CC On Admission Date Seen by Provider: Dec 20, 2022 Time Seen by Provider: 10:00 CC: epigastric pain, nausea, vomiting HPI: Today Gauri was feeling very anxious. Upon visit she had just finished with an EGD where 4 biopsies were taken and mild gastritis was seen. She says he r pain is well controlled this am but she is feeling anxious. HIDA scan revealed mildly low gall bladder EF. Hospital Course: Nannette is a 22 yo F w/ hx of anxiety, cannabis use, and multiple admissions for intractable nausea and vomiting who presented on 12/18/22 with epigastric pain and intractable N/V for 4 days. She was seen by surgery at presentation. On 12/19/22 had an abdominal ultrasound which revealed normal findings, and had a HIDA scan which revealed a mildly low EF. She underwent an EGD which revealed mild gastritis and 4 biopsies were taken. During the course of her stay she received hydromorphone, hydrocodone, and ketorolac for pain, and Ativan for anxiety. following the procedure she was transitioned to a clear fluids diet. Surgery plans to see her outpatient for gall bladder removal. Review of Systems Pulmonary: No Dyspnea Gastrointestinal: No: Abdominal Pain, Diarrhea Neurological: No: Numbness Objective Exam Vital Signs Vital Signs Date Time Temp Pulse Resp B/P (MAP) Pulse Ox O2 Delivery O2 Flow Rate FiO2 12/20/22 11:42 37.2 64 18 150/91 (110) 97 Room Air Capillary Refill : General Appearance: No Apparent Distress, Anxious HEENT: PERRL/EOMI, Moist Mucous Membranes Neck: Supple; No JVD, No Lymphadenopathy (L), No Lymphadenopathy (R) Respiratory: Lungs Clear, Normal Breath Sounds, No Accessory Muscle Use, No Respiratory Distress Cardiovascular: Regular Rate, Rhythm, No JVD, No Murmur, Normal Peripheral Pulses Gastrointestinal: Normal Bowel Sounds, Soft Extremity: Normal Inspection, No Pedal Edema Neurologic/Psychiatric: Alert, Oriented x3, Depressed Affect Skin: Normal Color, Warm/Dry; No Cyanosis Results/Procedures Lab Laboratory Tests 12/20/22 05:28 Patient resulted labs reviewed. Imaging: Reviewed Imaging Report Assessment/Plan Assessment and Plan Assess & Plan/Chief Complaint Intractable Nausea, vomiting Cannabis Hyperemesis Syndrome Epigastric pain -Multiple hospitalizations for similar -epigastric pain well controlled this am -EGD revealed mild gastritis, pending biospy results -ultrasound 12/19 negative, HIDA scan 12/19 with mildly low EF -plan is for outpatient gall bladder removal -discussed cannabis cessation Anxiety -ativan prn Dispo: on clear fluids, can discharge today and plan for outpatient surgical f/u. SYBIL STARK DO 12/21/22 0459: Supervisory-Addendum Brief Verification & Attestation Participated in pt care: history, MDM, physical Personally performed: exam, history, MDM, supervision of care Care discussed with: Medical Student Procedures: n/a Results interpretation: Verified all documentation Verification and Attestation of Medical Student E/M Service A medical student performed and documented this service in my presence. I reviewed and verified all information documented by the medical student and made modifications to such information, when appropriate. I personally performed the physical exam and medical decision making. Sybil Stark Dec 21, 2022,04:59 ESMER POLANCO Dec 20, 2022 13:35 SYBIL STARK DO Dec 21, 2022 04:59
[2022-12-20] MEDS: ONDANSETRON 4 MG/2 ML (SDV) Z0FRAN IV PRN (13:44)
[2022-12-20 15:00] VITALS: BP 150/91
== END 2022-12-20 15:00 | disposition home or self-care (01) ==
LOC: EDUNIT# 23:25 → ER 23:27 → 4TH 12-18 04:24
PROVIDERS: ADMIT Family Medicine; ATTEND Internal Medicine
DX: K29.50 Unspecified chronic gastritis without bleeding (principal); K44.9 Diaphragmatic hernia without obstruction or gangrene; F12.90 Cannabis use, unspecified, uncomplicated; E87.5 Hyperkalemia; F41.9 Anxiety disorder, unspecified; K21.00 Gastro-esophageal reflux disease with esophagitis, without bleeding
CPT/HCPCS: 43239; 76700; 78227; 80048; 80053 ×2; 83735; 84703; 85025; 85027 ×2; 86141; 87081; 96361; 96366 ×2; 96374; 96375 ×3; 96376 ×4; 99283; A9537; G0378; 36415

== ENCOUNTER 2023-03-18 05:54 | Emergency (ER) | payer MEDICAID ==
[~2023-03-18] VITALS: Ht 172 cm; Wt 63.0 kg
[~2023-03-18 05:54] MED LIST changes: +ONDA8TAB13 SL
--- NOTE | 2023-03-18 06:05 | ED Abdominal Pain ---
General Stated Complaint: VOMITING Source of Information: Patient History of Present Illness Date Seen by Provider: March 18, 2023 Time Seen by Provider: 06:05 Initial Comments Gauri is a 22-year-old female who presents to the emergency room with 5 to 6 hours of nausea vomiting and abdominal pain. She has had symptoms like this before. She states the last time she smoked marijuana was about 4 weeks ago. She did have an edible yesterday about 2 hours prior to symptoms onset, however. She states her last menstrual cycle was a week ago. She has Nexplanon. She has never had any abdominal surgeries. No fevers or chills. She has not taken anything for the symptoms. She had a normal bowel movement at 3 AM. No blood in her vomit, no blood in her stool. Nothing makes the pain or nausea any better. Nothing makes it any worse. She has tried a hot shower without any relief of symptoms Timing/Duration: 4-6 Hours Severity/Quality: Severe, Cramping Location: Generalized Abdomen Radiation: No Radiation Associated Symptoms: Nausea/Vomiting Allergies and Home Medications Allergies Coded Allergies: morphine (Verified Allergy, Mild, mild rash treated with benadryl (per patient), 12/18/22) mild rash treated with benadryl (per patient) Penicillins (Verified Allergy, Unknown, Hives/Rash, 08/21/21) latex (Verified Allergy, Unknown, 01/30/22) Patient Home Medication List Home Medication List Reviewed: Yes Hydrocodone/Acetaminophen (Hydrocodone-Acetamin 5-325 mg) 5 Mg-325 Mg Tablet, 1 EA PO Q6H PRN for PAIN-MODERATE (5-7) Prescribed by: KRISTYN STARK on 12/20/22 1230 Ondansetron (Ondansetron Odt) 8 Mg Tab.rapdis, 8 MG SL Q4H PRN for NAUSEA/ VOMITING Prescribed by: KRISTYN STARK on 12/20/22 1229 Pantoprazole Sodium (Protonix) 40 Mg Tablet.dr, 40 MG PO DAILY Prescribed by: KRISTYN STARK on 12/20/22 1229 Review of Systems Review of Systems Constitutional: see HPI EENTM: No Symptoms Reported Respiratory: No Symptoms Reported Cardiovascular: No Symptoms Reported Gastrointestinal: Abdominal Pain, Nausea, Vomiting Genitourinary: No Symptoms Reported Past Ztlguuz-Qpcjqy-Vpdeds Hx Immunizations Up To Date Tetanus Booster (TDap): Less than 5yrs First/Initial COVID19 Vaccinat: 06/19/2021 Second COVID19 Vaccination James: 07/17/2021 Third COVID19 Vaccination Date: N/A Past Medical History Surgery/Hospitalization HX: ANXIETY, GERD, UTI, T/A, 2 NATURAL BIRTHS Surgeries: Yes (wisdom teeth removal) Adenoidectomy, Tonsillectomy Respiratory: Yes Pneumonia Cardiac: No Neurological: No Sexually Transmitted Disease: No Genitourinary: Yes Kidney Infection, Kidney Stones Gastrointestinal: Yes (chronic pain, chronic N/V) Gastroesophageal Reflux Musculoskeletal: No Endocrine: No HEENT: No Tonsilitis Loss of Vision: Denies Hearing Impairment: Denies Cancer: No Psychosocial: Yes Anxiety Integumentary: No Blood Disorders: No Adverse Reaction/Blood Tranf: No Family Medical History Psychiatric Problems Physical Exam Vital Signs Vital Signs - First Documented 03/18/23 06:06 Temp 37.1 Pulse 96 Resp 16 B/P (MAP) 149/120 (130) Pulse Ox 99 O2 Delivery Room Air Capillary Refill : Height/Weight/BMI Height: 5'8.00" Weight: 132lbs. oz. [id number]; 20.28 BMI Method:Stated General Appearance: moderate distress, thin HEENT: PERRL/EOMI Respiratory: lungs clear, normal breath sounds, no respiratory distress, no accessory muscle use Cardiovascular: tachycardia Gastrointestinal: normal bowel sounds, soft, tenderness (epigastric) Extremities: normal range of motion, normal inspection Back: normal inspection Neurologic/Psychiatric: alert, normal mood/affect, oriented x 3 Skin: damp, tattoos/piercings Progress/Results/Core Measures Results/Orders Lab Results Laboratory Tests Test 03/18/23 06:20 03/18/23 06:50 Range/Units White Blood Count 9.7 4.3-11.0 10^3/uL Red Blood Count 4.26 3.80-5.11 10^6/uL Hemoglobin 11.8 11.5-16.0 g/dL Hematocrit 35 35-52 % Mean Corpuscular Volume 83 80-99 fL Mean Corpuscular Hemoglobin 28 25-34 pg Mean Corpuscular Hemoglobin Concent 33 32-36 g/dL Red Cell Distribution Width 15.0 H 10.0-14.5 % Platelet Count 355 130-400 10^3/uL Mean Platelet Volume 10.3 9.0-12.2 fL Immature Granulocyte % (Auto) 0 % Neutrophils (%) (Auto) 45 42-75 % Lymphocytes (%) (Auto) 45 H 12-44 % Monocytes (%) (Auto) 8 0-12 % Eosinophils (%) (Auto) 1 0-10 % Basophils (%) (Auto) 1 0-10 % Neutrophils # (Auto) 4.4 1.8-7.8 10^3/uL Lymphocytes # (Auto) 4.3 H 1.0-4.0 10^3/uL Monocytes # (Auto) 0.8 0.0-1.0 10^3/uL Eosinophils # (Auto) 0.1 0.0-0.3 10^3/uL Basophils # (Auto) 0.1 0.0-0.1 10^3/uL Immature Granulocyte # (Auto) 0.0 0.0-0.1 10^3/uL Sodium Level 143 135-145 MMOL/L Potassium Level 3.3 L 3.6-5.0 MMOL/L Chloride Level 113 H 98-107 MMOL/L Carbon Dioxide Level 18 L 21-32 MMOL/L Anion Gap 12 5-14 MMOL/L Blood Urea Nitrogen 13 7-18 MG/DL Creatinine 0.87 0.60-1.30 MG/DL Estimat Glomerular Filtration Rate 97 BUN/Creatinine Ratio 15 Glucose Level 140 H 70-105 MG/DL Calcium Level 10.2 H 8.5-10.1 MG/DL Corrected Calcium 8.5-10.1 MG/DL Total Bilirubin 0.2 0.1-1.0 MG/DL Aspartate Amino Transf (AST/SGOT) 18 5-34 U/L Alanine Aminotransferase (ALT/SGPT) 13 0-55 U/L Alkaline Phosphatase 71 40-136 U/L Total Protein 7.1 6.4-8.2 GM/DL Albumin 4.6 H 3.2-4.5 GM/DL Lipase 28 8-78 U/L Urine Test NEGATIVE NEGATIVE My Orders Orders - SHANTEL INFANTE MD Ed Iv/Invasive Line Start (03/18/23 06:05) Cbc With Automated Diff (03/18/23 06:05) Comprehensive Metabolic Panel (03/18/23 06:05) Lipase (03/18/23 06:05) Hcg,Qualitative Urine (03/18/23 06:05) Lactated Ringers (Lr 1000 Ml Iv Solution (03/18/23 06:15) Metoclopramide Injection (Reglan Injecti (03/18/23 06:15) Diphenhydramine Injection (Benadryl Inje (03/18/23 06:15) Diphenhydramine Injection (Benadryl Inje (03/18/23 06:30) Haloperidol Injection (Haldol Injectio (03/18/23 06:45) Ekg Tracing (03/18/23 06:56) Pantoprazole Injection (Protonix Injecti (03/18/23 07:15) Medications Given in ED Current Medications Medications Dose Ordered Sig/Lane Route Start Time Stop Time Status Last Admin Dose Admin Diphenhydramine HCl 25 mg ONCE ONCE IVP 03/18/23 06:15 03/18/23 06:16 DC 03/18/23 06:15 25 MG Diphenhydramine HCl 25 mg ONCE ONCE IVP 03/18/23 06:30 03/18/23 06:31 DC 03/18/23 06:24 25 MG Haloperidol Lactate 2.5 mg ONCE ONCE IM 03/18/23 06:45 03/18/23 06:46 DC 03/18/23 06:50 2.5 MG Metoclopramide HCl 10 mg ONCE ONCE IVP 03/18/23 06:15 03/18/23 06:16 DC 03/18/23 06:15 10 MG Pantoprazole 40 mg ONCE ONCE IV 03/18/23 07:15 03/18/23 07:16 DC 03/18/23 07:26 40 MG Vital Signs/I&O 03/18/23 06:06 Temp 37.1 Pulse 96 Resp 16 B/P (MAP) 149/120 (130) Pulse Ox 99 O2 Delivery Room Air Progress Progress Note : Time: 07:00 Progress Note re-examined after Haldol; starting to calm down. Haldol was inadvertently given IV by the nurse instead of IM. Patient was hooked up to telemetry and EKG ordered to assess Qt interval. Patient is asking for ativan for her abdominal pain. Initial ECG Impression Date: March 18, 2023 Initial ECG Impression Time: 07:10 Initial ECG Rate: 100 Initial ECG Rhythm: S.Tach Initial ECG Intervals MN 170 QRS 105 QTc 456 Comment significant artifact at baseline; slightly prolonged QRS; no obvious significant ST elevation or depression Departure Impression Primary Impression: Cannabinoid hyperemesis syndrome Additional Impressions: Abdominal pain Qualified Codes: R10.13 - Epigastric pain Gastritis Qualified Codes: K29.00 - Acute gastritis without bleeding Hypokalemia Disposition: HOME, SELF-CARE Condition: Improved Departure-Patient Inst. Decision time for Depature: 08:02 [address]: [facility] [place] Primary Care Physician THEODORE OH DO Patient Instructions: Cannabis hyperemesis syndrome Add. Discharge Instructions: You need to avoid all marijuana products. From your admission in November, you need to follow up with General Surgery to consider having your gallbladder removed. Start the Protonix (20mg daily) again to help reduce acid in your stomach from all of the vomiting from last night.\\ Zofran 4mg every 6 hours as needed for nausea and vomiting. Start with a clear liquid diet today and then advance to a more normal diet this evening if tolerable. Return to the Emergency Department for any new, concerning or emergent complaints. Scripts Ondansetron (Ondansetron Odt) 4 Mg Tab.rapdis 4 MG SL Q6H PRN for NAUSEA/VOMITING, #15 TAB Prov: SHANTEL INFANTE MD 03/18/23 Pantoprazole Sodium (Protonix) 20 Mg Tablet.dr 20 MG PO DAILY for 30 Days, #30 TAB Prov: SHANTEL INFANTE MD 03/18/23 Copy Copies To 1: EMBER JOHNSON DO Copies To 2: THEODORE OH DO SHANTEL INFANTE MD March 18, 2023 06:05
[2023-03-18] MEDS ORDERED: diphenhydrAMINE 50 MG/ML INJ (BENADRYL) IVP ONE ×2 (06:15→06:30)
[2023-03-18] MEDS ORDERED: METOCLOPRAMIDE INJ 10 MG/2 ML (REGLAN) IVP ONE (06:15)
[2023-03-18] MEDS: LACTATED RINGERS 1,000 ML IV SCH ×2 (06:20→07:27)
[2023-03-18 06:23] LABS: BASOPHILS # (AUTO) 0.1 10^3/uL (0.0-0.1); BASOPHILS % (AUTO) 1 % (0-10); EOSINOPHILS # (AUTO) 0.1 10^3/uL (0.0-0.3); EOSINOPHILS % (AUTO) 1 % (0-10); HEMATOCRIT 35 % (35-52); HEMOGLOBIN 11.8 g/dL (11.5-16.0); LYMPHOCYTES # (AUTO) 4.3 10^3/uL (1.0-4.0); LYMPHOCYTES % (AUTO) 45 % (12-44); MEAN CORPUSCULAR HEMOGLOBIN 28 pg (25-34); MEAN CORPUSCULAR HGB CONC 33 g/dL (32-36); MEAN CORPUSCULAR VOLUME 83 fL (80-99); MEAN PLATELET VOLUME 10.3 fL (9.0-12.2); MONOCYTES # (AUTO) 0.8 10^3/uL (0.0-1.0); MONOCYTES % (AUTO) 8 % (0-12); NEUTROPHILS # (AUTO) 4.4 10^3/uL (1.8-7.8); NEUTROPHILS % (AUTO) 45 % (42-75); PLATELET COUNT 355 10^3/uL (130-400); WHITE BLOOD COUNT 9.7 10^3/uL (4.3-11.0)
[2023-03-18 06:44] LABS: ALBUMIN 4.6 GM/DL (3.2-4.5); CHLORIDE 113 MMOL/L (98-107); POTASSIUM 3.3 MMOL/L (3.6-5.0); SODIUM 143 MMOL/L (135-145)
[2023-03-18 06:45] LABS: CALCIUM 10.2 MG/DL (8.5-10.1)
[2023-03-18] MEDS ORDERED: HALOPERIDOL 5 MG/ML (HALDOL) VIAL IM ONE (06:45)
[2023-03-18 06:46] LABS: GLUCOSE 140 MG/DL (70-105)
[2023-03-18 06:47] LABS: TOTAL PROTEIN 7.1 GM/DL (6.4-8.2)
[2023-03-18 06:48] LABS: CARBON DIOXIDE 18 MMOL/L (21-32)
[2023-03-18 06:49] LABS: BILIRUBIN,TOTAL 0.2 MG/DL (0.1-1.0)
[2023-03-18 06:50] LABS: ALKALINE PHOSPHATASE 71 U/L (40-136); CREATININE SERUM 0.87 MG/DL (0.60-1.30); GFR ESTIMATED 97
[2023-03-18 06:51] LABS: BUN/CREATININE RATIO 15
[2023-03-18 06:53] LABS: ALANINE AMINOTRANSFERASE 13 U/L (0-55)
[2023-03-18 06:54] LABS: LIPASE 28 U/L (8-78)
[2023-03-18] MEDS ORDERED: PANTOPRAZOLE 40 MG (PROTONIX) VIAL IV ONE (07:15)
[2023-03-18] MEDS ORDERED: ONDA4TAB11 SL (08:06)
[2023-03-18] MEDS ORDERED: PANT20TA2 PO (08:06)
[2023-03-18 08:29] VITALS: BP 127/73
== END 2023-03-18 08:29 | disposition home or self-care (01) ==
LOC: EDUNIT# 05:54 → ER 05:56
DX: R11.2 Nausea with vomiting, unspecified (principal); F12.90 Cannabis use, unspecified, uncomplicated; K29.70 Gastritis, unspecified, without bleeding; E87.6 Hypokalemia
CPT/HCPCS: 36415; 80053; 83690; 84703; 85025

== ENCOUNTER 2023-03-18 16:56 | Emergency (ER) | payer MEDICAID ==
[~2023-03-18] VITALS: Ht 172 cm; Wt 63.0 kg
[~2023-03-18 16:56] MED LIST changes: +PANT20TA2 PO
[2023-03-18] MEDS ORDERED: LACTATED RINGERS 1,000 ML IV STA (17:06)
--- NOTE | 2023-03-18 17:06 | ED Abdominal Pain ---
General Chief Complaint: Abdominal/GI Problems Stated Complaint: VOMITING Nursing Triage Note: WAS SEEN HERE THIS MORNING FOR VOMITING AND STATES SHE WENT HOME AND IT CONTINUED. Source of Information: Patient Exam Limitations: No Limitations History of Present Illness Date Seen by Provider: March 18, 2023 Time Seen by Provider: 17:04 Initial Comments Patient is a 22-year-old female presents ED with vomiting and nausea with abdominal pain since this morning. She states she was seen here earlier this morning received IV fluids, IV nausea medication with some improvement. She states she ate a edible yesterday prior to onset. Last menstrual cycle was 1 week ago. She does have a Nexplanon. She reports generalized abdominal discomfort. She states she has been urinating. Denies fever, chills, chest pain, shortness of breath. Denies of any hematemesis, hematochezia, dysuria, hematuria, headache or dizziness. Active vomiting on arrival. She states this morning she attempted to take a hot shower without much improvement. Allergies and Home Medications Allergies Coded Allergies: morphine (Verified Allergy, Mild, mild rash treated with benadryl (per patient), 12/18/22) mild rash treated with benadryl (per patient) Penicillins (Verified Allergy, Unknown, Hives/Rash, 08/21/21) latex (Verified Allergy, Unknown, 01/30/22) Patient Home Medication List Home Medication List Reviewed: Yes Hydrocodone/Acetaminophen (Hydrocodone-Acetamin 5-325 mg) 5 Mg-325 Mg Tablet, 1 EA PO Q6H PRN for PAIN-MODERATE (5-7) Prescribed by: KRISTYN STARK on 12/20/22 1230 Ondansetron (Ondansetron Odt) 8 Mg Tab.rapdis, 8 MG SL Q4H PRN for NAUSEA/VOMITING Prescribed by: KRISTYN STARK on 12/20/22 1229 Ondansetron (Ondansetron Odt) 4 Mg Tab.rapdis, 4 MG SL Q6H PRN for NAUSEA/VOMITING Prescribed by: SHANTEL INFANTE on 03/18/23 0806 Pantoprazole Sodium (Protonix) 40 Mg Tablet., 40 MG PO DAILY Prescribed by: KRISTYN STARK on 12/20/22 1229 Pantoprazole Sodium (Protonix) 20 Mg Tablet., 20 MG PO DAILY Prescribed by: SHANTEL INFANTE on 03/18/23 0806 Review of Systems Review of Systems Constitutional: No chills, No diaphoresis, No fever; malaise, weakness EENTM: No Blurred Vision, No Double Vision Respiratory: Denies Cough Cardiovascular: Denies Chest Pain Gastrointestinal: Abdominal Pain; Denies Diarrhea; Nausea, Vomiting Genitourinary: Denies Burning, Denies Discharge, Denies Frequency Musculoskeletal: No back pain, No joint pain Skin: No change in color All Other Systems Reviewed Negative Unless Noted: Yes Past Gdfrqen-Jqjcln-Vnybhc Hx Patient Social History Tobacco Use?: Yes Use of E-Cig and/or Vaping dev: Yes E-Cig or Vaping type used: Nicotine Substance use?: No Alcohol Use?: No Immunizations Up To Date Tetanus Booster (TDap): Less than 5yrs First/Initial COVID19 Vaccinat: 06/19/2021 Second COVID19 Vaccination James: 07/17/2021 Third COVID19 Vaccination Date: N/A Past Medical History Surgery/Hospitalization HX: ANXIETY, GERD, UTI, T/A, 2 NATURAL BIRTHS Surgeries: Yes (wisdom teeth removal) Adenoidectomy, Tonsillectomy Respiratory: Yes Pneumonia Cardiac: No Neurological: No Last Menstrual Period: March 11, 2023 Sexually Transmitted Disease: No Genitourinary: Yes Kidney Infection, Kidney Stones Gastrointestinal: Yes (chronic pain, chronic N/V) Gastroesophageal Reflux Musculoskeletal: No Endocrine: No HEENT: No Tonsilitis Loss of Vision: Denies Hearing Impairment: Denies Cancer: No Psychosocial: Yes Anxiety Integumentary: No Blood Disorders: No Adverse Reaction/Blood Tranf: No Family Medical History Psychiatric Problems Physical Exam Vital Signs Vital Signs - First Documented 03/18/23 03/18/23 17:01 19:21 Temp 37.0 Pulse 103 Resp 16 B/P (MAP) 140/102 (115) Pulse Ox 98 O2 Delivery Room Air Capillary Refill : Less Than 3 Seconds Height/Weight/BMI Height: 5'8.00" Weight: 132lbs. oz. 59.789836ll; 21.00 BMI Method:Stated General Appearance: WD/WN, no apparent distress HEENT: PERRL/EOMI, normal ENT inspection, TMs normal, pharynx normal Neck: non-tender, full range of motion, supple, normal inspection Respiratory: chest non-tender, lungs clear, normal breath sounds, no respiratory distress, no accessory muscle use Cardiovascular: regular rate, rhythm, no edema, no gallop, no JVD Gastrointestinal: normal bowel sounds, soft, no organomegaly, tenderness (Generalized abdominal tenderness.) Extremities: normal range of motion, non-tender, normal inspection Back: normal inspection, no CVA tenderness, no vertebral tenderness Neurologic/Psychiatric: vacation planner II-XII nml as tested, no motor/sensory deficits, alert, normal mood/affect, oriented x 3 Skin: normal color, warm/dry Progress/Results/Core Measures Results/Orders Lab Results Laboratory Tests Test 03/18/23 17:27 03/18/23 18:05 Range/Units Sodium Level 140 135-145 MMOL/L Potassium Level 3.8 3.6-5.0 MMOL/L Chloride Level 107 98-107 MMOL/L Carbon Dioxide Level 15 L 21-32 MMOL/L Anion Gap 18 H 5-14 MMOL/L Blood Urea Nitrogen 11 7-18 MG/DL Creatinine 0.82 0.60-1.30 MG/DL Estimat Glomerular Filtration Rate 104 BUN/Creatinine Ratio 13 Glucose Level 134 H 70-105 MG/DL Calcium Level 9.6 8.5-10.1 MG/DL Corrected Calcium 8.5-10.1 MG/DL Total Bilirubin 0.4 0.1-1.0 MG/DL Aspartate Amino Transf (AST/SGOT) 24 5-34 U/L Alanine Aminotransferase (ALT/SGPT) 17 0-55 U/L Alkaline Phosphatase 73 40-136 U/L Total Protein 7.8 6.4-8.2 GM/DL Albumin 5.0 H 3.2-4.5 GM/DL Lipase 5 L 8-78 U/L White Blood Count 13.9 H 4.3-11.0 10^3/uL Red Blood Count 4.11 3.80-5.11 10^6/uL Hemoglobin 11.3 L 11.5-16.0 g/dL Hematocrit 35 35-52 % Mean Corpuscular Volume 84 80-99 fL Mean Corpuscular Hemoglobin 28 25-34 pg Mean Corpuscular Hemoglobin Concent 33 32-36 g/dL Red Cell Distribution Width 15.1 H 10.0-14.5 % Platelet Count 280 130-400 10^3/uL Mean Platelet Volume 11.0 9.0-12.2 fL Immature Granulocyte % (Auto) 0 % Neutrophils (%) (Auto) 93 H 42-75 % Lymphocytes (%) (Auto) 4 L 12-44 % Monocytes (%) (Auto) 3 0-12 % Eosinophils (%) (Auto) 0 0-10 % Basophils (%) (Auto) 0 0-10 % Neutrophils # (Auto) 13.0 H 1.8-7.8 10^3/uL Lymphocytes # (Auto) 0.5 L 1.0-4.0 10^3/uL Monocytes # (Auto) 0.4 0.0-1.0 10^3/uL Eosinophils # (Auto) 0.0 0.0-0.3 10^3/uL Basophils # (Auto) 0.0 0.0-0.1 10^3/uL Immature Granulocyte # (Auto) 0.0 0.0-0.1 10^3/uL Neutrophils % (Manual) 89 % Lymphocytes % (Manual) 8 % Monocytes % (Manual) 2 % Band Neutrophils 1 % Platelet Estimate NORMAL Poikilocytosis SLIGHT My Orders Orders - TOREY GARCÍA Cbc With Automated Diff (03/18/23 17:06) Comprehensive Metabolic Panel (03/18/23 17:06) Lipase (03/18/23 17:06) Lactated Ringers (Lr 1000 Ml Iv Solution (03/18/23 17:06) Droperidol Inj (Ed Only) (Inapsine Inj ( (03/18/23 17:15) Ua Culture If Indicated (03/18/23 17:33) Promethazine Injection (Phenergan Injec (03/18/23 18:15) Manual Differential (03/18/23 18:05) Medications Given in ED Current Medications Medications Dose Ordered Sig/Lane Route Start Time Stop Time Status Last Admin Dose Admin Droperidol 2.5 mg ONCE ONCE IV 03/18/23 17:15 03/18/23 17:16 DC 03/18/23 18:14 2.5 MG Promethazine HCl 25 mg ONCE ONCE IVP 03/18/23 18:15 03/18/23 18:17 DC 03/18/23 18:14 25 MG Vital Signs/I&O 03/18/23 03/18/23 17:01 19:21 Temp 37.0 Pulse 103 76 Resp 16 15 B/P (MAP) 140/102 (115) 124/75 Pulse Ox 98 100 O2 Delivery Room Air Room Air Blood Pressure Mean: 115 Departure Communication (PCP) Reviewed previous ER visits, H&P, lab testing. Patient was discharged from our ER earlier this morning for similar type symptoms. She felt better but then when she went home started feeling nauseous with several episodes of vomiting. Nonbilious without hematemesis. No fever, chills. Generalized abdominal pain. Similar type pain in the past. History of cyclic vomiting syndrome. Ate a edible yesterday. Differential diagnosis, cyclic vomiting syndrome, gastritis. CBC, CMP, lipase, liter fluid was started. She received droperidol and Phenergan for the nausea. Patient received a liter of fluid. CBC shows slight change in white blood count of 13. Nonspecific. Chemistry grossly unremarkable. Normal lipase. Normal kidney function. Normal electrolytes. Patient urinated but did not collect a sample. She denies of any urinary sym ptoms. She was tolerating p.o. fluids. Reassessed abdomen without any specific tenderness. She received Protonix earlier this morning as well as pain medication. Pain appears to be improving wants the nausea and vomiting improved. She has nausea medication at home. Discharged with strict return precautions. Follow-up your PCP in 2 to 3 days or for evaluation. Impression Primary Impression: Cyclic vomiting syndrome Disposition: HOME, SELF-CARE Condition: Stable Departure-Patient Inst. Decision time for Depature: 18:26 [place]: [facility] [place] Primary Care Physician Patient Instructions: Nausea and Vomiting, Adult Work/School Note: Work Release Form Date Seen in the Emergency Department: March 18, 2023 Return to Work: March 20, 2023 TOREY GARCÍA March 18, 2023 17:06
[2023-03-18] MEDS ORDERED: DROPERIDOL 5 MG/2 ML (INAPSINE) ED ONLY! IV ONE (17:15)
[2023-03-18 17:43] LABS: CHLORIDE 107 MMOL/L (98-107); POTASSIUM 3.8 MMOL/L (3.6-5.0); SODIUM 140 MMOL/L (135-145)
[2023-03-18 17:44] LABS: CALCIUM 9.6 MG/DL (8.5-10.1)
[2023-03-18 17:45] LABS: GLUCOSE 134 MG/DL (70-105)
[2023-03-18 17:46] LABS: TOTAL PROTEIN 7.8 GM/DL (6.4-8.2)
[2023-03-18 17:47] LABS: BILIRUBIN,TOTAL 0.4 MG/DL (0.1-1.0); CARBON DIOXIDE 15 MMOL/L (21-32)
[2023-03-18 17:49] LABS: ALKALINE PHOSPHATASE 73 U/L (40-136); CREATININE SERUM 0.82 MG/DL (0.60-1.30); GFR ESTIMATED 104
[2023-03-18 17:50] LABS: BUN/CREATININE RATIO 13
[2023-03-18 17:52] LABS: ALANINE AMINOTRANSFERASE 17 U/L (0-55); LIPASE 5 U/L (8-78)
[2023-03-18] MEDS ORDERED: PROMETHAZINE INJ 25 MG/ML (PHENERGAN) AMP IVP ONE (18:15)
[2023-03-18 18:17] LABS: BASOPHILS % (AUTO) 0 % (0-10); EOSINOPHILS % (AUTO) 0 % (0-10); HEMATOCRIT 35 % (35-52); HEMOGLOBIN 11.3 g/dL (11.5-16.0); LYMPHOCYTES # (AUTO) 0.5 10^3/uL (1.0-4.0); LYMPHOCYTES % (AUTO) 4 % (12-44); MEAN CORPUSCULAR HEMOGLOBIN 28 pg (25-34); MEAN CORPUSCULAR HGB CONC 33 g/dL (32-36); MEAN CORPUSCULAR VOLUME 84 fL (80-99); MONOCYTES # (AUTO) 0.4 10^3/uL (0.0-1.0); MONOCYTES % (AUTO) 3 % (0-12); NEUTROPHILS % (AUTO) 93 % (42-75); PLATELET COUNT 280 10^3/uL (130-400); WHITE BLOOD COUNT 13.9 10^3/uL (4.3-11.0)
[2023-03-18 18:44] LABS: BAND NEUTROPHILS 1 %; LYMPHOCYTES % (MANUAL) 8 %; MONOCYTES % (MANUAL) 2 %; NEUTROPHILS % (MANUAL) 89 %; PLATELET ESTIMATE NORMAL; POIKILOCYTOSIS SLIGHT
[2023-03-18 19:21] VITALS: BP 124/75
== END 2023-03-18 19:21 | disposition home or self-care (01) ==
LOC: EDUNIT# 16:56 → ER 16:57
DX: R11.15 Cyclical vomiting syndrome unrelated to migraine (principal); R10.84 Generalized abdominal pain; F17.290 Nicotine dependence, other tobacco product, uncomplicated; Z91.040 Latex allergy status
CPT/HCPCS: 36415; 80053; 83690; 85007; 85027

== ENCOUNTER 2023-03-29 22:29 | Emergency (ER) | payer MEDICAID ==
[~2023-03-29] VITALS: Ht 172.7 cm; Wt 68.0 kg
[2023-03-29] MEDS ORDERED: METOCLOPRAMIDE INJ 10 MG/2 ML (REGLAN) IVP STA (23:34)
[2023-03-29] MEDS ORDERED: LACTATED RINGERS 1,000 ML IV ONE (23:45)
[2023-03-30] LABS: BASOPHILS % (AUTO) 0 % (0-10); EOSINOPHILS % (AUTO) 0 % (0-10); HEMATOCRIT 37 % (35-52); HEMOGLOBIN 12.2 g/dL (11.5-16.0); LYMPHOCYTES # (AUTO) 0.5 10^3/uL (1.0-4.0); LYMPHOCYTES % (AUTO) 7 % (12-44); MEAN CORPUSCULAR HEMOGLOBIN 27 pg (25-34); MEAN CORPUSCULAR HGB CONC 33 g/dL (32-36); MEAN CORPUSCULAR VOLUME 83 fL (80-99); MEAN PLATELET VOLUME 11.1 fL (9.0-12.2); MONOCYTES # (AUTO) 0.5 10^3/uL (0.0-1.0); MONOCYTES % (AUTO) 7 % (0-12); NEUTROPHILS # (AUTO) 6.9 10^3/uL (1.8-7.8); NEUTROPHILS % (AUTO) 86 % (42-75); PLATELET COUNT 266 10^3/uL (130-400)
[2023-03-30 00:04] LABS: BILIRUBIN,URINE NEGATIVE (NEGATIVE); CLARITY,URINE CLEAR; COLOR,URINE YELLOW; GLUCOSE, URINE (UA) NEGATIVE (NEGATIVE); KETONES,URINE TRACE (NEGATIVE); LEUKOCYTE ESTERASE ,URINE NEGATIVE (NEGATIVE); NITRITE,URINE NEGATIVE (NEGATIVE); PH,URINE 5.5 (5-9); PROTEIN,URINE NEGATIVE (NEGATIVE)
--- NOTE | 2023-03-30 00:15 | ED General ---
General Chief Complaint: Abdominal/GI Problems Stated Complaint: ABD PAIN/VOMITING/DIARRHEA Nursing Triage Note: PT PRESENTS WITH C/O GI AND PROBLEMS, SHE STATES SHE WOKE UP THIS MORNING WITH DIARRHEA, SHE STARTED HAVING KIDNEY PAINS AND NOTICED BLOOD CLOTS IN URINE AROUND NOON TODAY, REPORTS HX OF KIDNEY STONES. SHE STATES SHE ALSO KNOWS SHE HAS A BAD GALLBLADDER AND IS SUPPOSED TO GET IT OUT. SHE REPORTS NAUSEA/VOMITING THAT ALSO STARTED AROUND NOON TODAY. Source of Information: Patient, Old Records History of Present Illness Date Seen by Provider: Mar 29, 2023 Time Seen by Provider: 23:30 Allergies and Home Medications Allergies Coded Allergies: morphine (Verified Allergy, Mild, mild rash treated with benadryl (per patient), 12/18/22) mild rash treated with benadryl (per patient) Penicillins (Verified Allergy, Unknown, Hives/Rash, 08/21/21) latex (Verified Allergy, Unknown, 01/30/22) Patient Home Medication List Cefdinir (Cefdinir) 300 Mg Capsule, 300 MG PO BID Prescribed by: EFRAÍN PINEDA on 03/30/23 011 Hydrocodone/Acetaminophen (Hydrocodone-Acetamin 5-325 mg) 5 Mg-325 Mg Tablet, 1 EA PO Q6H PRN for PAIN-MODERATE (5-7) Prescribed by: KRISTYN STARK on 12/20/22 1230 Metoclopramide HCl (Reglan) 10 Mg Tablet, 10 MG PO Q6H Prescribed by: EFRAÍN PINEDA on 03/30/23 0116 Ondansetron (Ondansetron Odt) 8 Mg Tab.rapdis, 8 MG SL Q4H PRN for NAUSEA/VOMITING Prescribed by: KRISTYN STARK on 12/20/22 1229 Ondansetron (Ondansetron Odt) 4 Mg Tab.rapdis, 4 MG SL Q6H PRN for NAUSEA/VOMITING Prescribed by: SHANTEL INFANTE on 03/18/23 0806 Ondansetron (Ondansetron Odt) 8 Mg Tab.rapdis, 8 MG PO Q6H Prescribed by: EFRAÍN PINEDA on 03/30/23 0116 Pantoprazole Sodium (Protonix) 40 Mg Tablet.dr, 40 MG PO DAILY Prescribed by: KRISTYN STARK on 12/20/22 1229 Pantoprazole Sodium (Protonix) 20 Mg Tablet., 20 MG PO DAILY Prescribed by: SHANTEL INFANTE on 03/18/23 0806 Past Kzphwty-Jsyuwn-Fnvotz Hx Immunizations Up To Date Tetanus Booster (TDap): Less than 5yrs First/Initial COVID19 Vaccinat: 06/19/2021 Second COVID19 Vaccination James: 07/17/2021 Third COVID19 Vaccination Date: N/A Past Medical History Surgery/Hospitalization HX: ANXIETY, GERD, UTI, T/A, 2 NATURAL BIRTHS Surgeries: Yes (wisdom teeth removal) Adenoidectomy, Tonsillectomy Respiratory: Yes Pneumonia Cardiac: No Neurological: No Sexually Transmitted Disease: No Genitourinary: Yes Kidney Infection, Kidney Stones Gastrointestinal: Yes (chronic pain, chronic N/V) Gastroesophageal Reflux Musculoskeletal: No Endocrine: No HEENT: No Tonsilitis Loss of Vision: Denies Hearing Impairment: Denies Cancer: No Psychosocial: Yes Anxiety Integumentary: No Blood Disorders: No Adverse Reaction/Blood Tranf: No Family Medical History Psychiatric Problems Physical Exam Vital Signs Vital Signs - First Documented 03/29/23 23:14 Temp 36.8 Pulse 119 Resp 18 B/P (MAP) 113/70 (84) Capillary Refill : Height, Weight, BMI Height: 5'8.00" Weight: 132lbs. oz. 59.795010hj; 22.00 BMI Method:Stated Progress/Results/Core Measures Suspected Sepsis SIRS Temperature: Pulse: 119 Respiratory Rate: 18 Laboratory Tests 03/29/23 23:50: White Blood Count 8.0 Blood Pressure 113 /70 Mean: 84 Laboratory Tests 03/29/23 23:50: Creatinine 0.82, Platelet Count 266, Total Bilirubin 0.3 Results/Orders Lab Results Laboratory Tests Test 03/29/23 23:50 03/29/23 23:55 Range/Units White Blood Count 8.0 4.3-11.0 10^3/uL Red Blood Count 4.48 3.80-5.11 10^6/uL Hemoglobin 12.2 11.5-16.0 g/dL Hematocrit 37 35-52 % Mean Corpuscular Volume 83 80-99 fL Mean Corpuscular Hemoglobin 27 25-34 pg Mean Corpuscular Hemoglobin Concent 33 32-36 g/dL Red Cell Distribution Width 15.1 H 10.0-14.5 % Platelet Count 266 130-400 10^3/uL Mean Platelet Volume 11.1 9.0-12.2 fL Immature Granulocyte % (Auto) 0 % Neutrophils (%) (Auto) 86 H 42-75 % Lymphocytes (%) (Auto) 7 L 12-44 % Monocytes (%) (Auto) 7 0-12 % Eosinophils (%) (Auto) 0 0-10 % Basophils (%) (Auto) 0 0-10 % Neutrophils # (Auto) 6.9 1.8-7.8 10^3/uL Lymphocytes # (Auto) 0.5 L 1.0-4.0 10^3/uL Monocytes # (Auto) 0.5 0.0-1.0 10^3/uL Eosinophils # (Auto) 0.0 0.0-0.3 10^3/uL Basophils # (Auto) 0.0 0.0-0.1 10^3/uL Immature Granulocyte # (Auto) 0.0 0.0-0.1 10^3/uL Neutrophils % (Manual) 88 % Lymphocytes % (Manual) 4 % Monocytes % (Manual) 8 % Elliptocytes SLIGHT Sodium Level 139 135-145 MMOL/L Potassium Level 4.4 3.6-5.0 MMOL/L Chloride Level 109 H 98-107 MMOL/L Carbon Dioxide Level 18 L 21-32 MMOL/L Anion Gap 12 5-14 MMOL/L Blood Urea Nitrogen 12 7-18 MG/DL Creatinine 0.82 0.60-1.30 MG/DL Estimat Glomerular Filtration Rate 104 BUN/Creatinine Ratio 15 Glucose Level 117 H 70-105 MG/DL Calcium Level 9.3 8.5-10.1 MG/DL Corrected Calcium 8.5-10.1 MG/DL Magnesium Level 2.0 1.6-2.4 MG/DL Total Bilirubin 0.3 0.1-1.0 MG/DL Aspartate Amino Transf (AST/SGOT) 19 5-34 U/L Alanine Aminotransferase (ALT/SGPT) 13 0-55 U/L Alkaline Phosphatase 72 40-136 U/L Total Protein 7.2 6.4-8.2 GM/DL Albumin 4.6 H 3.2-4.5 GM/DL Amylase Level 24 L 25-125 U/L Lipase 19 8-78 U/L Serum Alcohol < 10 <10 MG/DL Influenza Type A (RT-PCR) Not Detected Not Detecte Influenza Type B (RT-PCR) Not Detected Not Detecte SARS-CoV-2 RNA (RT-PCR) Not Detected Not Detecte Urine Color YELLOW Urine Clarity CLEAR Urine pH 5.5 5-9 Urine Specific [place] >=1.030 1.016-1.022 Urine Protein NEGATIVE NEGATIVE Urine Glucose (UA) NEGATIVE NEGATIVE Urine Ketones TRACE H NEGATIVE Urine Nitrite NEGATIVE NEGATIVE Urine Bilirubin NEGATIVE NEGATIVE Urine Urobilinogen 0.2 < = 1.0 MG/DL Urine Leukocyte Esterase NEGATIVE NEGATIVE Urine RBC (Auto) TRACE-I H NEGATIVE Urine RBC NONE /HPF Urine WBC 0-2 /HPF Urine Squamous Epithelial Cells 0-2 /HPF Urine Crystals NONE /LPF Urine Bacteria MODERATE H /HPF Urine Casts NONE /LPF Urine Mucus MODERATE H /LPF Urine Culture Indicated YES Urine Opiates Screen NEGATIVE NEGATIVE Urine Oxycodone Screen NEGATIVE NEGATIVE Urine Methadone Screen NEGATIVE NEGATIVE Urine Propoxyphene Screen NEGATIVE NEGATIVE Urine Barbiturates Screen NEGATIVE NEGATIVE Ur Tricyclic Antidepressants Screen NEGATIVE NEGATIVE Urine Phencyclidine Screen NEGATIVE NEGATIVE Urine Amphetamines Screen NEGATIVE NEGATIVE Urine Methamphetamines Screen NEGATIVE NEGATIVE Urine Benzodiazepines Screen NEGATIVE NEGATIVE Urine Cocaine Screen NEGATIVE NEGATIVE Urine Cannabinoids Screen POSITIVE H NEGATIVE My Orders Orders - EFRAÍN PINEDA DO Ed Iv/Invasive Line Start (03/29/23 23:34) Urine Bedside (03/29/23 23:34) Monitor-Rhythm Ecg Trace Only (03/29/23 23:34) Alcohol (03/29/23 23:34) Amylase (03/29/23 23:34) Cbc With Automated Diff (03/29/23 23:34) Comprehensive Metabolic Panel (03/29/23 23:34) Drug Screen Stat (Urine) (03/29/23 23:34) Lipase (03/29/23 23:34) Magnesium (03/29/23 23:34) Ua Culture If Indicated (03/29/23 23:34) Ct Abd/Pelvis Wo(Kidney Stone) (03/29/23 23:34) Ed Iv/Invasive Line Start (03/29/23 23:34) Lactated Ringers (Lr 1000 Ml Iv Solution (03/29/23 23:45) Metoclopramide Injection (Reglan Injecti (03/29/23 23:34) Covid 19 Inhouse Test (03/29/23 23:34) Influenza A And B By Pcr (03/29/23 23:34) Manual Differential (03/29/23 23:50) Ketorolac Injection (Toradol Injection) (03/30/23 00:30) Urine Culture (03/29/23 23:55) Ceftriaxone Iv/Im (Rocephin Iv/Im) (03/30/23 00:45) Ondansetron Injection (Zofran Injectio (03/30/23 00:45) Metoclopramide Injection (Reglan Injecti (03/30/23 01:45) Diphenhydramine Injection (Benadryl Inje (03/30/23 01:45) Medications Given in ED Current Medications Medications Dose Ordered Sig/Lane Route Start Time Stop Time Status Last Admin Dose Admin Ceftriaxone Sodium 1000 mg/ Sodium Chloride 50 ml @ 100 mls/hr ONCE ONCE IV 03/30/23 00:45 03/30/23 01:14 DC 03/30/23 01:06 100 MLS/HR Diphenhydramine HCl 50 mg ONCE ONCE IVP 03/30/23 01:45 03/30/23 01:46 DC 03/30/23 01:47 50 MG Ketorolac Tromethamine 30 mg ONCE ONCE IVP 03/30/23 00:30 03/30/23 00:31 DC 03/30/23 01:05 30 MG Lactated Ringer's 1,000 ml @ 0 mls/hr Q0M ONCE IV 03/29/23 23:45 03/29/23 23:46 DC 03/29/23 23:53 0 MLS/HR Metoclopramide HCl 10 mg ONCE ONCE IVP 03/30/23 01:45 03/30/23 01:46 DC 03/30/23 01:47 10 MG Ondansetron HCl 8 mg ONCE ONCE IVP 03/30/23 00:45 03/30/23 00:46 DC 03/30/23 01:04 8 MG Vital Signs/I&O 03/29/23 23:14 Temp 36.8 Pulse 119 Resp 18 B/P (MAP) 113/70 (84) Capillary Refill : Blood Pressure Mean: 84 Departure Impression Primary Impression: Urinary tract infection Additional Impressions: Gastroenteritis Cannabinoid hyperemesis syndrome Disposition: 01 HOME, SELF-CARE Condition: Improved Departure-Patient Inst. Decision time for Depature: 01:14 Referrals: [facility] (PCP/Family) Primary Care Physician Patient Instructions: Cannabis hyperemesis syndrome, [id number], Urinary Tract Infection, Adult (DC) Add. Discharge Instructions: CLEAR LIQUIDS--WATER, BROTH, JELLO, GATORADE BRATS DIET--BANANAS, RICE, APPLESAUCE, TOAST, SALTINES FOLLOW UP WITH YOUR DR ON SATURDAY IF NO BETTER, RETURN TO ER IF WORSE All discharge instructions reviewed with patient and/or family. Voiced understanding. Scripts Cefdinir (Cefdinir) 300 Mg Capsule 300 MG PO BID, #20 CAP Prov: EFRAÍN PINEDA DO 03/30/23 Metoclopramide HCl (Reglan) 10 Mg Tablet 10 MG PO Q6H for Nausea/Vomiting, #15 TAB Prov: EFRAÍN PINEDA DO 03/30/23 Ondansetron (Ondansetron Odt) 8 Mg Tab.rapdis 8 MG PO Q6H, #15 TAB Prov: EFRAÍN PINEDA DO 03/30/23 EFRAÍN PINEDA DO Mar 30, 2023 00:15
[2023-03-30 00:21] LABS: ALBUMIN 4.6 GM/DL (3.2-4.5); CHLORIDE 109 MMOL/L (98-107); POTASSIUM 4.4 MMOL/L (3.6-5.0); SODIUM 139 MMOL/L (135-145)
[2023-03-30 00:22] LABS: AMYLASE 24 U/L (25-125); CALCIUM 9.3 MG/DL (8.5-10.1)
[2023-03-30 00:23] LABS: GLUCOSE 117 MG/DL (70-105); TOTAL PROTEIN 7.2 GM/DL (6.4-8.2)
[2023-03-30 00:24] LABS: CARBON DIOXIDE 18 MMOL/L (21-32)
[2023-03-30 00:25] LABS: BILIRUBIN,TOTAL 0.3 MG/DL (0.1-1.0)
[2023-03-30 00:27] LABS: ALKALINE PHOSPHATASE 72 U/L (40-136); CREATININE SERUM 0.82 MG/DL (0.60-1.30); GFR ESTIMATED 104
[2023-03-30 00:28] LABS: AMPHETAMINE SCREEN, URINE NEGATIVE (NEGATIVE); BARBITURATE SCREEN URINE NEGATIVE (NEGATIVE); BENZODIAZEPINES SCREEN URINE NEGATIVE (NEGATIVE); CANNABINOID SCREEN, URINE POSITIVE (NEGATIVE); COCAINE SCREEN URINE NEGATIVE (NEGATIVE); METHADONE STAT NEGATIVE (NEGATIVE); OPIATE SCREEN URINE NEGATIVE (NEGATIVE); OXYCODONE STAT NEGATIVE (NEGATIVE); PROPOXYPHENE STAT NEGATIVE (NEGATIVE); TRICYCLIC ANTIDEPRESSANTS SCRE NEGATIVE (NEGATIVE)
[2023-03-30 00:28] LABS: BUN/CREATININE RATIO 15; NEUTROPHILS % (MANUAL) 88 %
[2023-03-30 00:29] LABS: ELLIPT/OVALOCYTES SLIGHT; LYMPHOCYTES % (MANUAL) 4 %; MONOCYTES % (MANUAL) 8 %
[2023-03-30 00:29] LABS: WBC,URINE 0-2 /HPF
[2023-03-30 00:30] LABS: ALANINE AMINOTRANSFERASE 13 U/L (0-55)
[2023-03-30 00:30] LABS: BACTERIA,URINE MODERATE /HPF; SQUAMOUS EPITHELIAL CELL,UR 0-2 /HPF
[2023-03-30] MEDS ORDERED: KETOROLAC 30 MG/ML VIAL IVP ONE (00:30)
[2023-03-30 00:31] LABS: LIPASE 19 U/L (8-78)
[2023-03-30] MEDS ORDERED: cefTRIAXone IV/IM 1,000 MG in NS (IVPB) 50 ML IV ONE (00:45)
[2023-03-30] MEDS ORDERED: ONDANSETRON 4 MG/2 ML (SDV) Z0FRAN IVP ONE (00:45)
[2023-03-30] MEDS ORDERED: ONDA8TAB13 PO (01:16)
[2023-03-30] MEDS ORDERED: METO-310 PO (01:16)
[2023-03-30] MEDS ORDERED: CEFD300C3 PO (01:16)
[2023-03-30] MEDS ORDERED: diphenhydrAMINE 50 MG/ML INJ (BENADRYL) IVP ONE (01:45)
[2023-03-30] MEDS ORDERED: METOCLOPRAMIDE INJ 10 MG/2 ML (REGLAN) IVP ONE (01:45)
[2023-03-30 02:06] VITALS: BP 102/62
[2023-03-30] MEDS ORDERED: PROM25SU44 RC (03:54)
--- NOTE | 2023-03-30 06:40 | Diagnostic Imaging Report ---
PROCEDURE: CT urinary tract, rule out kidney stone. TECHNIQUE: Multiple contiguous axial images were obtained through the abdomen and pelvis without the use of intravenous contrast. Auto Exposure Controls were utilized during the CT exam to meet ALARA standards for radiation dose reduction. INDICATION: Diarrhea and hematuria. Patient does have a history of kidney stones. CORRELATION is made with prior CT from 08/23/2021. The lung bases are clear. The liver and gallbladder are unremarkable. The pancreas and spleen are unremarkable. No adrenal mass is identified. There are several tiny bilateral nonobstructing renal calculi. No definite ureteral calculi or hydronephrosis is detected. Aorta is nonaneurysmal. Bowel loops are nonobstructed. There is no definite ascites. The uterus is unremarkable. Bladder is decompressed. There are some shotty lymph nodes throughout the mesentery and in the right lower quadrant, perhaps on the basis of mesenteric adenitis. No free air is identified. IMPRESSION: 1. Bilateral nonobstructing nephrolithiasis. 2. Shotty lymph nodes throughout the mesentery and hazy increased density to the mesentery, perhaps on the basis of mesenteric adenitis. Dictated by: Dictated on workstation # [id number]
== END 2023-03-30 02:07 | disposition home or self-care (01) ==
LOC: EDUNIT# 22:29 → ER 22:31
DX: N39.0 Urinary tract infection, site not specified (principal); K52.9 Noninfective gastroenteritis and colitis, unspecified; Z87.442 Personal history of urinary calculi; Z91.040 Latex allergy status; Z88.0 Allergy status to penicillin; Z20.822 Contact with and (suspected) exposure to COVID-19; Z28.310 Unvaccinated for COVID-19
CPT/HCPCS: 74176; 80053; 80306; 81000; 82150; 83690; 83735; 84703; 85007; 85027; 87088; 87636; 93041; 99284; G0480; 36415; 80320

== ENCOUNTER 2023-03-30 03:30 | Emergency (ER) | payer MEDICAID ==
[~2023-03-30 03:30] MED LIST changes: +METO-310 PO
[2023-03-30 03:40] VITALS: BP 117/71
[2023-03-30] MEDS ORDERED: RX-ONDANSETRON 4 MG ODT (ZOFRAN) PPK #4 PO STA (03:42)
[2023-03-30] MEDS ORDERED: RX-PHENERGAN 25 MG SUPP PPK#3 PR STA (03:42)
--- NOTE | 2023-03-30 03:42 | ED GI ---
General Stated Complaint: ABD PAIN,VOMITING,DIARRHEA Source of Information: Patient, Old Records History of Present Illness Date Seen by Provider: Mar 30, 2023 Time Seen by Provider: 03:40 Initial Comments PT WAS JUST SEEN HERE IN ER AND DISMISSED A SHORT WHILE AGO FOR THIS SAME PROBLEM PT RETURNS C/O NAUSEA AND DRY HEAVING. PT HAD NO VOMITING DURING ENTIRE ER STAY AND STATED HER NAUSEA WAS GONE AT DISMISSAL. SHE STATES SHE WENT HOME AND SMOKED THE SAME WEED THAT SHE USED EARLIER TONIGHT THAT BROUGHT HER TO THE ER EARLIER SOON SHE SMOKED IT SHE STARTED RETCHING AGAIN. PT HAS BEEN HERE MULTIPLE TIMES FOR CANNABIS HYPEREMESIS, AND HAS BEEN REPEATEDLY ADVISED TO STOP USING MARIJUANA Allergies and Home Medications Allergies Coded Allergies: morphine (Verified Allergy, Mild, mild rash treated with benadryl (per patient), 12/18/22) mild rash treated with benadryl (per patient) Penicillins (Verified Allergy, Unknown, Hives/Rash, 08/21/21) latex (Verified Allergy, Unknown, 01/30/22) Patient Home Medication List Cefdinir (Cefdinir) 300 Mg Capsule, 300 MG PO BID Prescribed by: EFRAÍN PINEDA on 03/30/23 011 Hydrocodone/Acetaminophen (Hydrocodone-Acetamin 5-325 mg) 5 Mg-325 Mg Tablet, 1 EA PO Q6H PRN for PAIN-MODERATE (5-7) Prescribed by: KRISTYN STARK on 12/20/22 1230 Metoclopramide HCl (Reglan) 10 Mg Tablet, 10 MG PO Q6H Prescribed by: EFRAÍN PINEDA on 03/30/23 0116 Ondansetron (Ondansetron Odt) 8 Mg Tab.rapdis, 8 MG SL Q4H PRN for NAUSEA/V OMITING Prescribed by: KRISTYN STARK on 12/20/22 1229 Ondansetron (Ondansetron Odt) 4 Mg Tab.rapdis, 4 MG SL Q6H PRN for NAUSEA/VOMITING Prescribed by: SHANTEL INFANTE on 03/18/23 0806 Ondansetron (Ondansetron Odt) 8 Mg Tab.rapdis, 8 MG PO Q6H Prescribed by: EFRAÍN PINEDA on 03/30/23 011 Pantoprazole Sodium (Protonix) 40 Mg Tablet.dr, 40 MG PO DAILY Prescribed by: KRISTYN STARK on 12/20/22 1229 Pantoprazole Sodium (Protonix) 20 Mg Tablet.dr, 20 MG PO DAILY Prescribed by: SHANTEL INFANTE on 03/18/23 0806 Promethazine HCl (Promethazine Suppository) 25 Mg Supp.rect, 25 MG RC Q6 Prescribed by: EFRAÍN PINEDA on 03/30/23 0354 Past Rbyetig-Xzpgme-Ogmizk Hx Immunizations Up To Date Tetanus Booster (TDap): Less than 5yrs First/Initial COVID19 Vaccinat: 06/19/2021 Second COVID19 Vaccination James: 07/17/2021 Third COVID19 Vaccination Date: N/A Past Medical History Surgery/Hospitalization HX: ANXIETY, GERD, UTI, T/A, 2 NATURAL BIRTHS Surgeries: Yes (wisdom teeth removal) Adenoidectomy, Tonsillectomy Respiratory: Yes Pneumonia Cardiac: No Neurological: No Sexually Transmitted Disease: No Genitourinary: Yes Kidney Infection, Kidney Stones Gastrointestinal: Yes (chronic pain, chronic N/V) Gastroesophageal Reflux Musculoskeletal: No Endocrine: No HEENT: No Tonsilitis Loss of Vision: Denies Hearing Impairment: Denies Cancer: No Psychosocial: Yes Anxiety Integumentary: No Blood Disorders: No Adverse Reaction/Blood Tranf: No Family Medical History Psychiatric Problems Physical Exam Vital Signs Vital Signs - First Documented 03/30/23 03:40 Temp 36.7 Pulse 92 Resp 20 B/P (MAP) 117/71 (86) Pulse Ox 98 O2 Delivery Room Air Capillary Refill : Height/Weight/BMI Height: 5'8.00" Weight: 132lbs. oz. 59.938038bq; 22.00 BMI Method:Stated General Appearance: other (LOUD HARSH FORCED RETCHING. NO ACTUAL EMESIS) Progress/Results/Core Measures Results/Orders My Orders Orders - EFRAÍN PINEDA DO Promethazine Suppository (Phenergan Supp (03/30/23 03:45) Rx-Promethazine Hcl (Rx-Phenergan Supp) (03/30/23 03:42) Ondansetron Oral Dissolve Tab (Zofran (03/30/23 03:45) Rx-Ondansetron Po (Rx-Zofran Po) (03/30/23 03:42) Promethazine Suppository (Phenergan Supp (03/30/23 03:52) Medications Given in ED Current Medications Medications Dose Ordered Sig/Lane Route Start Time Stop Time Status Last Admin Dose Admin Ondansetron HCl 4 mg ONCE ONCE PO 03/30/23 03:45 03/30/23 03:46 DC 03/30/23 03:55 4 MG Promethazine HCl 25 mg ONCE ONCE ND 03/30/23 03:45 03/30/23 03:46 DC 03/30/23 03:55 25 MG Vital Signs/I&O 03/30/23 03:40 Temp 36.7 Pulse 92 Resp 20 B/P (MAP) 117/71 (86) Pulse Ox 98 O2 Delivery Room Air Progress Progress Note : Progress Note GIVEN PHENERGAN SUPPOSITORY AND ZOFRAN ODT HERE IN ER, AND SENT HOME WITH TAKE HOME PACKS OF BOTH DISCUSSED AGAIN THE IMPORTANCE OF NOT USING MARIJUANA THIS IS THE CAUSE FOR HER SYMPTOMS. Departure Impression Primary Impression: Cannabinoid hyperemesis syndrome Disposition: HOME, SELF-CARE Condition: Stable Departure-Patient Inst. Referrals: [facility] (PCP/Family) Primary Care Physician Patient Instructions: Cannabis hyperemesis syndrome Add. Discharge Instructions: CONTINUE ALL PREVIOUS INSTRUCTIONS, AND GET PRESCRIPTIONS FILLED AND TAKE PRESCRIBED DO NOT EAT ANY FOOD UNTIL YOUR NAUSEA IS BETTER, YOU DO NEED TO TAKE SIPS OF CLEAR LIQUIDS WHEN YOUR NAUSEA IS BETTER--WATER, BROTH, JELLO, GATORADE FOLLOW UP WITH YOUR DR ON SATURDAY FOR FURTHER CARE Scripts Promethazine HCl (Promethazine Suppository) 25 Mg Supp.rect 25 MG RC Q6 for Nausea/Vomiting, #15 SUPP.RECT Prov: EFRAÍN PINEDA DO 03/30/23 EFRAÍN PINEDA DO Mar 30, 2023 03:42
[2023-03-30] MEDS ORDERED: ONDANSETRON 4 MG (ZOFRAN) ORAL DISSOLVE TAB PO ONE (03:45)
[2023-03-30] MEDS ORDERED: PROMETHAZINE 25 MG (PHENERGAN) SUPP PR ONE (03:45)
[2023-03-30] MEDS ORDERED: PROMETHAZINE 25 MG (PHENERGAN) SUPP ONE (03:52)
[2023-03-30] MEDS ORDERED: PROM25SU44 RC (03:54)
== END 2023-03-30 04:00 | disposition home or self-care (01) ==
LOC: EDUNIT# 03:30 → ER 03:32
DX: R11.2 Nausea with vomiting, unspecified (principal); Z91.040 Latex allergy status
CPT/HCPCS: 99283

== ENCOUNTER 2023-03-30 05:56 | Emergency (ER) | payer MEDICAID ==
--- NOTE | 2023-03-30 06:18 | ED GI ---
General Chief Complaint: Abdominal/GI Problems Stated Complaint: ABD PAIN,NAUSEA,VOMITING Source of Information: Patient History of Present Illness Date Seen by Provider: Mar 30, 2023 Time Seen by Provider: 06:14 Initial Comments PT IS HERE AGAIN FOR SAME COMPLAINT--THIS IS PT'S 3RD VISIT THIS SHIFT--PT WAS JUST DISMISSED ABOUT AN HOUR AGO, AND ALSO SEEN A SHORT WHILE BEFORE THAT VISIT. SHE HAD A COMPLETE WORKUP INCLUDING LAB AND CT SCAN, AND HAS BEEN GIVEN MULTIPLE MEDICATIONS BOTH HERE IN ER, SENT HOME WITH TAKE HOME MEDICATIONS AND PRESCRIPTIONS SENT TO HER PHARMACY TO OUTCOMES ANALYST THIS MORNING STATES SHE IS HERE BECAUSE SHE IS SWEATY AND SHE IS NAUSEATED AND FEELS LIKE SHE IS GOING TO PASS OUT SHE HAS CONTINUED TO SMOKE MARIJUANA SOON SHE LEAVES THE ER. PT HAS A LONGSTANDING HISTORY OF THIS PROBLEM SEE PREVIOUS CHARTS FOR DETAILS PCP: [facility] Allergies and Home Medications Allergies Coded Allergies: morphine (Verified Allergy, Mild, mild rash treated with benadryl (per patient), 12/18/22) mild rash treated with benadryl (per patient) Penicillins (Verified Allergy, Unknown, Hives/Rash, 08/21/21) latex (Verified Allergy, Unknown, 01/30/22) Patient Home Medication List Cefdinir (Cefdinir) 300 Mg Capsule, 300 MG PO BID Prescribed by: EFRAÍN PINEDA on 03/30/23 011 Hydrocodone/Acetaminophen (Hydrocodone-Acetamin 5-325 mg) 5 Mg-325 Mg Tablet, 1 EA PO Q6H PRN for PAIN-MODERATE (5-7) Prescribed by: KRISTYN STARK on 12/20/22 1230 Metoclopramide HCl (Reglan) 10 Mg Tablet, 10 MG PO Q6H Prescribed by: EFRAÍN PINEDA on 03/30/23 0116 Ondansetron (Ondansetron Odt) 8 Mg Tab.rapdis, 8 MG SL Q4H PRN for NAUSEA/VOMITING Prescribed by: KRISTYN STARK on 12/20/22 1229 Ondansetron (Ondansetron Odt) 4 Mg Tab.rapdis, 4 MG SL Q6H PRN for NAUSEA/VOMITING Prescribed by: SHANTEL INFANTE on 03/18/23 0806 Ondansetron (Ondansetron Odt) 8 Mg Tab.rapdis, 8 MG PO Q6H Prescribed by: EFRAÍN PINEDA on 03/30/23 0116 Pantoprazole Sodium (Protonix) 40 Mg Tablet.dr, 40 MG PO DAILY Prescribed by: KRISTYN STARK on 12/20/22 1229 Pantoprazole Sodium (Protonix) 20 Mg Tablet.dr, 20 MG PO DAILY Prescribed by: SHANTEL INFANTE on 03/18/23 0806 Promethazine HCl (Promethazine Suppository) 25 Mg Supp.rect, 25 MG RC Q6 Prescribed by: EFRAÍN PINEDA on 03/30/23 0354 Review of Systems Review of Systems Constitutional: see HPI Gastrointestinal: See HPI Psychiatric/Neurological: See HPI Past Dhuecel-Syqifg-Bhddiu Hx Patient Social History Substance use?: Yes Substance type: Marijuana Substance frequency: Daily Immunizations Up To Date Tetanus Booster (TDap): Less than 5yrs First/Initial COVID19 Vaccinat: 06/19/2021 Second COVID19 Vaccination James: 07/17/2021 Third COVID19 Vaccination Date: N/A Past Medical History Surgery/Hospitalization HX: ANXIETY, GERD, UTI, T/A, 2 NATURAL BIRTHS Surgeries: Yes (wisdom teeth removal) Adenoidectomy, Tonsillectomy Respiratory: Yes Pneumonia Cardiac: No Neurological: No Sexually Transmitted Disease: No Genitourinary: Yes Kidney Infection, Kidney Stones Gastrointestinal: Yes (chronic pain, chronic N/V) Gastroesophageal Reflux Musculoskeletal: No Endocrine: No HEENT: No Tonsilitis Loss of Vision: Denies Hearing Impairment: Denies Cancer: No Psychosocial: Yes Anxiety Integumentary: No Blood Disorders: No Adverse Reaction/Blood Tranf: No Family Medical History Psychiatric Problems Physical Exam Vital Signs Vital Signs - First Documented 03/30/23 06:11 Temp 36.4 Pulse 100 Resp 20 Pulse Ox 97 O2 Delivery Room Air Capillary Refill : Height/Weight/BMI Height: 5'8.00" Weight: 132lbs. oz. 59.567021mi; 22.00 BMI Method:Stated General Appearance: WD/WN, no apparent distress, thin Respiratory: no respiratory distress Cardiovascular: regular rate, rhythm Extremities: normal capillary refill Progress/Results/Core Measures Results/Orders Vital Signs/I&O 03/30/23 06:11 Temp 36.4 Pulse 100 Resp 20 B/P (MAP) Pulse Ox 97 O2 Delivery Room Air Progress Progress Note : Progress Note BP 131/50, HR 100, RR 20, O2 SAT 98% ON ROOM AIR. ADVISED PT THAT SHE HAS HAD COMPLETE MEDICAL SCREENING EXAM AND HAS BEEN MEDICALLY CLEARED, AND HER SYMPTOMS HAVE BEEN TREATED, AND SHE HAS BEEN GIVEN BOTH TAKE HOME MEDICATIONS WELL PRESCRIPTIONS TO OUTCOMES ANALYST TODAY FOR HER SYMPTOMS I REVIEWED AND REPEATED ALL OF THE PREVIOUS INSTRUCTIONS THAT SHE HAS BEEN GIVEN ON HER 2 PREVIOUS ER VISITS TONIGHT AGAIN STRESSED THE IMPORTANCE OF STOPPING MARIJUANA USE. Departure Impression Primary Impression: Cannabis hyperemesis syndrome concurrent with and due to cannabis abuse Disposition: HOME, SELF-CARE Condition: Stable Departure-Patient Inst. Decision time for Depature: 06:20 [facility]errals: [facility] (PCP/Family) Primary Care Physician Patient Instructions: Cannabis hyperemesis syndrome Add. Discharge Instructions: FOLLOW ALL PREVIOUS INSTRUCTIONS All discharge instructions reviewed with patient and/or family. Voiced understanding. EFRAÍN PINEDA DO Mar 30, 2023 06:18
== END 2023-03-30 06:20 | disposition home or self-care (01) ==
LOC: EDUNIT# 05:56 → ER 05:58
DX: R11.2 Nausea with vomiting, unspecified (principal); F12.10 Cannabis abuse, uncomplicated; Z91.040 Latex allergy status
CPT/HCPCS: 99281

== ENCOUNTER 2023-05-26 08:26 | Emergency (ER) | payer MEDICAID ==
[~2023-05-26] VITALS: Ht 167 cm; Wt 52.0 kg
--- NOTE | 2023-05-26 08:39 | ED GI ---
General Chief Complaint: Abdominal/GI Problems Stated Complaint: VOMITING Source of Information: Patient Exam Limitations: No Limitations History of Present Illness Date Seen by Provider: May 26, 2023 Time Seen by Provider: 08:29 Initial Comments 22-year-old female presents to the emergency department today for nausea and vomiting. Symptoms started at 5 AM and have been persistent. She has tried Zofran and Reglan without much relief. She has suppositories at home but she has not used them yet. Symptoms in the past were thought to have been from cannabis hyperemesis. She denies as she uses control and had her last menstrual cycle 1 week ago. Does endorse some "uterine cramping." She also upon questioning endorses some vaginal discharge and odor. All other systems reviewed and negative except documented per HPI. Voice recognition software was used to help create this chart Allergies and Home Medications Allergies Coded Allergies: morphine (Verified Allergy, Mild, mild rash treated with benadryl (per patient), 12/18/22) mild rash treated with benadryl (per patient) Penicillins (Verified Allergy, Unknown, Hives/Rash, 08/21/21) latex (Verified Allergy, Unknown, 01/30/22) Patient Home Medication List Home Medication List Reviewed: Yes Cefdinir (Cefdinir) 300 Mg Capsule, 300 MG PO BID Prescribed by: EFRAÍN PINEDA on 03/30/23 0116 Hydrocodone/Acetaminophen (Hydrocodone-Acetamin 5-325 mg) 5 Mg-325 Mg Tablet, 1 EA PO Q6H PRN for PAIN-MODERATE (5-7) Prescribed by: KRISTYN STARK on 12/20/22 1230 Metoclopramide HCl (Reglan) 10 Mg Tablet, 10 MG PO Q6H Prescribed by: EFRAÍN PINEDA on 03/30/23 0116 Ondansetron (Ondansetron Odt) 8 Mg Tab.rapdis, 8 MG SL Q4H PRN for NAUSEA/VOMITING Prescribed by: KRISTYN STARK on 12/20/22 1229 Ondansetron (Ondansetron Odt) 4 Mg Tab.rapdis, 4 MG SL Q6H PRN for NAUSEA/VOMITING Prescribed by: SHANTEL INFANTE on 03/18/23 0806 Ondansetron (Ondansetron Odt) 8 Mg Tab.rapdis, 8 MG PO Q6H Prescribed by: EFRAÍN PINEDA on 03/30/23 0116 Pantoprazole Sodium (Protonix) 40 Mg Tablet.dr, 40 MG PO DAILY Prescribed by: KRISTYN STARK on 12/20/22 1229 Pantoprazole Sodium (Protonix) 20 Mg Tablet.dr, 20 MG PO DAILY Prescribed by: SHANTEL INFANTE on 03/18/23 0806 Promethazine HCl (Promethazine Suppository) 25 Mg Supp.rect, 25 MG RC Q6 Prescribed by: EFRAÍN PINEDA on 03/30/23 0354 Review of Systems Review of Systems Constitutional: see HPI Past Dzfqzvv-Ptuyda-Rowonn Hx Patient Social History Tobacco Use?: No Use of E-Cig and/or Vaping dev: Yes E-Cig or Vaping type used: Marijuana Substance use?: No Alcohol Use?: No Immunizations Up To Date Tetanus Booster (TDap): Less than 5yrs First/Initial COVID19 Vaccinat: 06/19/2021 Second COVID19 Vaccination James: 07/17/2021 Third COVID19 Vaccination Date: N/A Past Medical History Surgery/Hospitalization HX: ANXIETY, GERD, UTI, T/A, 2 NATURAL BIRTHS Surgeries: Yes (wisdom teeth removal) Adenoidectomy, Tonsillectomy Respiratory: Yes Pneumonia Cardiac: No Neurological: No Sexually Transmitted Disease: No Genitourinary: Yes Kidney Infection, Kidney Stones Gastrointestinal: Yes (chronic pain, chronic N/V) Gastroesophageal Reflux Musculoskeletal: No Endocrine: No HEENT: No Tonsilitis Loss of Vision: Denies Hearing Impairment: Denies Cancer: No Psychosocial: Yes Anxiety Integumentary: No Blood Disorders: No Adverse Reaction/Blood Tranf: No Family Medical History Psychiatric Problems Physical Exam Vital Signs Vital Signs - First Documented 05/26/23 08:33 Temp 36.5 Pulse 104 Resp 16 B/P (MAP) 129/82 (98) Pulse Ox 100 O2 Delivery Room Air Capillary Refill : Height/Weight/BMI Height: 5'8.00" Weight: 132lbs. oz. [id number]; 22.00 BMI Method:Stated General Appearance: WD/WN, no apparent distress HEENT: normal ENT inspection, pharynx normal Neck: non-tender, supple, normal inspection Respiratory: chest non-tender, lungs clear, normal breath sounds, no respiratory distress, no accessory muscle use Cardiovascular: regular rate, rhythm, no murmur Gastrointestinal: normal bowel sounds, non tender, soft Extremities: normal range of motion, non-tender, normal inspection Neurologic/Psychiatric: alert, oriented x 3 Skin: normal color, warm/dry Progress/Results/Core Measures Results/Orders My Orders Orders - DONTE VEGA DO Ondansetron Injection (Zofran Injectio (05/26/23 08:45) Urine Bedside (05/26/23 08:36) Neisseria Gonorrhea Swab (05/26/23 08:36) Medications Given in ED Current Medications Medications Dose Ordered Sig/Lane Route Start Time Stop Time Status Last Admin Dose Admin Ondansetron HCl 4 mg ONCE ONCE IM 05/26/23 08:45 05/26/23 08:46 DC 05/26/23 08:45 4 MG Vital Signs/I&O 05/26/23 08:33 Temp 36.5 Pulse 104 Resp 16 B/P (MAP) 129/82 (98) Pulse Ox 100 O2 Delivery Room Air Departure Communication (Admissions) Patient states she is anxious and specifically requesting Ativan. I advised that I did not think this was indicated at this time. She does not have a ride home so I am limited to what medications I can give her for nausea. We gave her some IM Zofran and she is tolerating small sips of fluids though she is intermittently having dry heaving in between. She has performed self swabs and GC chlamydia are pending. We will discharge her home with some p.o. hydroxyzine to take as needed. Impression Primary Impression: Cyclic vomiting syndrome Disposition: HOME, SELF-CARE Condition: Stable Departure-Patient Inst. [facility] Primary Care Physician Patient Instructions: Nausea and Vomiting, Adult ED Add. Discharge Instructions: Continue to use Zofran Reglan and the Phenergan suppositories at home as needed for nausea or vomiting. I have added hydroxyzine which should help with her anxiety as well as nausea. Increase your fluids at home, rest. Return to the emergency department for any severe concerns for All discharge instructions reviewed with patient and/or family. Voiced understanding. Scripts Hydroxyzine HCl (Hydroxyzine HCl) 25 Mg Tablet 50 MG PO TID for Nervousness for 5 Days, #30 TAB Prov: DONTE VEGA DO 05/26/23 DONTE VEGA DO May 26, 2023 08:39
[2023-05-26] MEDS ORDERED: ONDANSETRON 4 MG/2 ML (SDV) Z0FRAN IM ONE (08:45)
[2023-05-26] MEDS ORDERED: HYDR-700 PO (08:53)
[2023-05-26 09:00] VITALS: BP 126/71
== END 2023-05-26 09:00 | disposition home or self-care (01) ==
LOC: EDUNIT# 08:26 → ER 08:27
DX: R11.15 Cyclical vomiting syndrome unrelated to migraine (principal); F17.290 Nicotine dependence, other tobacco product, uncomplicated; Z91.040 Latex allergy status
CPT/HCPCS: 99284

== ENCOUNTER 2023-07-22 07:09 | Emergency (ER) | payer MEDICAID ==
[~2023-07-22] VITALS: Ht 172.7 cm; Wt 59.0 kg
[~2023-07-22 07:09] MED LIST changes: +MEDR150V13 IM; -MEDR150V4 IM
--- NOTE | 2023-07-22 08:05 | ED Psychosocial ---
General Chief Complaint: Psych/Social Disorder Stated Complaint: PANIC ATTACK Nursing Triage Note: PT AMBULATE TO ROOM 07 WITHOUT DIFFICULTY WITH C/O ANXIETY AND PANIC ATTACKS. PT REPORTS TAKING HDROXIZINE AND ZOFRAN THIS MORNING WITHOUT RELIEF. PT REPORTS BEING SEEN IN THIS ED YESTERDAY FOR SAME C/O. PT DENIES SUICIDAL/HOMICIDAL IDEATION. PT DENIES DESIRE TO HARM SELF. PT REPORTS SHE HAS NOT SMOKED POT IN X3.5 WEEKS. Source: patient Exam Limitations: no limitations History of Present Illness Date Seen by Provider: Jul 22, 2023 Time Seen by Provider: 07:53 Initial Comments Here with report of significant anxiety and difficulty with emotions as well is panic. States that she wakes up every morning and just lays in the bathroom crying until her meds kick in. She has had this problem for quite a while. She states that she cannot tell her parents about this because they have similar issues and she does not want to tell her partner because she believes she and he will then start arguing. She has a 1-year-old son that she is wanting to be able to take care of. Denies suicidal or homicidal ideations but states that she has had feelings that if she just did not wake up that would be okay. She notes that is been going on for the last couple of days. She was seen here yesterday for similar and was a little better but it was worse this morning. She would like to pursue consideration for inpatient admission. She has followed with [facility] and [facility] previously. Timing/Duration: getting worse, other (Weeks to months but much worse over the last few days) Severity: moderate, severe Associated Symptoms: anxiety, impaired concentration Allergies and Home Medications Allergies Coded Allergies: morphine (Verified Allergy, Mild, mild rash treated with benadryl (per patient), 12/18/22) mild rash treated with benadryl (per patient) Penicillins (Verified Allergy, Unknown, Hives/Rash, 08/21/21) latex (Verified Allergy, Unknown, 01/30/22) Patient Home Medication List Home Medication List Reviewed: Yes Cefdinir (Cefdinir) 300 Mg Capsule, 300 MG PO BID Prescribed by: EFRAÍN PINEDA on 03/30/23 0116 Cephalexin (Cephalexin) 500 Mg Tablet, 500 MG PO TID Prescribed by: APOLONIA HAGEN on 07/21/23 0907 Hydrocodone/Acetaminophen (Hydrocodone-Acetamin 5-325 mg) 5 Mg-325 Mg Tablet, 1 EA PO Q6H PRN for PAIN-MODERATE (5-7) Prescribed by: KRISTYN STARK on 12/20/22 1230 Hydroxyzine HCl (Hydroxyzine HCl) 25 Mg Tablet, 50 MG PO TID Prescribed by: DONTE VEGA MD on 05/26/23 0853 Metoclopramide HCl (Reglan) 10 Mg Tablet, 10 MG PO Q6H Prescribed by: EFRAÍN PINEDA on 03/30/23 0116 Ondansetron (Ondansetron Odt) 8 Mg Tab.rapdis, 8 MG SL Q4H PRN for NAUSEA/VOMITING Prescribed by: KRISTYN STARK on 12/20/22 1229 Ondansetron (Ondansetron Odt) 4 Mg Tab.rapdis, 4 MG SL Q6H PRN for NAUSEA/VOMITING Prescribed by: SHANTEL INFANTE on 03/18/23 0806 Ondansetron (Ondansetron Odt) 8 Mg Tab.rapdis, 8 MG PO Q6H Prescribed by: EFRAÍN PINEDA on 03/30/23 0116 Pantoprazole Sodium (Protonix) 40 Mg Tablet.dr, 40 MG PO DAILY Prescribed by: KRISTYN STARK on 12/20/22 1229 Pantoprazole Sodium (Protonix) 20 Mg Tablet.dr, 20 MG PO DAILY Prescribed by: SHANTEL INFANTE on 03/18/23 0806 Promethazine HCl (Promethazine Suppository) 25 Mg Supp.rect, 25 MG RC Q6 Prescribed by: EFRAÍN PINEDA on 03/30/23 0354 Review of Systems Constitutional: see HPI; No chills, No fever EENTM: No nose congestion, No throat pain Respiratory: No no symptoms reported, No cough, No short of breath Cardiovascular: no symptoms reported Gastrointestinal: nausea, vomiting Genitourinary: no symptoms reported : No Musculoskeletal: no symptoms reported Skin: no symptoms reported Psychiatric/Neurological: Anxiety, Emotional Problems Past Kezwkvg-Ctxlko-Bwgjlw Hx Patient Social History Tobacco Use?: No Smoking Status: Never a Smoker Smokeless Tobacco Frequency: Never a User Use of E-Cig and/or Vaping dev: No Substance use?: No Additional substance use comme: PT REPORTS NOT USING POT X3.5 WEEKS Alcohol Use?: No Pt feels they are or have been: No Immunizations Up To Date Tetanus Booster (TDap): Less than 5yrs First/Initial COVID19 Vaccinat: 06/19/2021 Second COVID19 Vaccination James: 07/17/2021 Third COVID19 Vaccination Date: N/A Past Medical History Surgery/Hospitalization HX: ANXIETY, GERD, UTI, T/A, 2 NATURAL BIRTHS Surgeries: Yes (wisdom teeth removal) Adenoidectomy, Tonsillectomy Respiratory: Yes Pneumonia Cardiac: No Neurological: No Sexually Transmitted Disease: No Genitourinary: Yes Kidney Infection, Kidney Stones Gastrointestinal: Yes (chronic pain, chronic N/V, recurrent cannabis hyperemesis syndrome) Gastroesophageal Reflux Musculoskeletal: No Endocrine: No HEENT: No Tonsilitis Loss of Vision: Denies Hearing Impairment: Denies Cancer: No Psychosocial: Yes (Recurrent cannabis hyperemesis syndrome) Anxiety Integumentary: No Blood Disorders: No Adverse Reaction/Blood Tranf: No Family Medical History Reviewed Nursing Family Hx Psychiatric Problems Physical Exam Vital Signs - First Documented 07/22/23 07:22 Temp 36.7 Pulse 100 Resp 21 B/P (MAP) 131/103 (112) O2 Delivery Room Air Capillary Refill : Less Than 3 Seconds Height, Weight, BMI Height: 5'8.00" Weight: 132lbs. oz. 59.170887ld; 19.00 BMI Method:Stated General Appearance: WD/WN, no apparent distress HEENT: PERRL/EOMI, pharynx normal Neck: full range of motion, supple Respiratory: lungs clear, normal breath sounds Cardiovascular: regular rate, rhythm, no murmur Gastrointestinal: non tender, soft Neurologic/Psychiatric: alert, oriented x 3 Appearance/Memory: appropriate appearance, appropriate insight Behavior/Eye Contact: cooperative, good eye contact, normal speech Thoughts/Hallucinations: normal thought pattern Skin: normal color, warm/dry Progress/Results/Core Measures Results/Orders Lab Results Laboratory Tests Test 07/22/23 08:36 07/22/23 08:39 Range/Units White Blood Count 6.0 4.3-11.0 10^3/uL Red Blood Count 4.54 3.80-5.11 10^6/uL Hemoglobin 13.1 11.5-16.0 g/dL Hematocrit 40 35-52 % Mean Corpuscular Volume 89 80-99 fL Mean Corpuscular Hemoglobin 29 25-34 pg Mean Corpuscular Hemoglobin Concent 33 32-36 g/dL Red Cell Distribution Width 15.8 H 10.0-14.5 % Platelet Count 369 130-400 10^3/uL Mean Platelet Volume 12.1 9.0-12.2 fL Immature Granulocyte % (Auto) 0 % Neutrophils (%) (Auto) 67 42-75 % Lymphocytes (%) (Auto) 25 12-44 % Monocytes (%) (Auto) 7 0-12 % Eosinophils (%) (Auto) 1 0-10 % Basophils (%) (Auto) 1 0-10 % Neutrophils # (Auto) 4.0 1.8-7.8 10^3/uL Lymphocytes # (Auto) 1.5 1.0-4.0 10^3/uL Monocytes # (Auto) 0.4 0.0-1.0 10^3/uL Eosinophils # (Auto) 0.0 0.0-0.3 10^3/uL Basophils # (Auto) 0.0 0.0-0.1 10^3/uL Immature Granulocyte # (Auto) 0.0 0.0-0.1 10^3/uL Urine Color YELLOW Urine Clarity CLOUDY Urine pH 5.5 5-9 Urine Specific [place] >=1.030 1.016-1.022 Urine Protein 1+ H NEGATIVE Urine Glucose (UA) NEGATIVE NEGATIVE Urine Ketones TRACE H NEGATIVE Urine Nitrite NEGATIVE NEGATIVE Urine Bilirubin 1+ H NEGATIVE Urine Urobilinogen 0.2 < = 1.0 MG/DL Urine Leukocyte Esterase 2+ H NEGATIVE Urine RBC (Auto) 3+ H NEGATIVE Urine RBC 10-25 H /HPF Urine WBC 10-25 H /HPF Urine Squamous Epithelial Cells 25-50 H /HPF Urine Crystals NONE /LPF Urine Bacteria LARGE H /HPF Urine Casts NONE /LPF Urine Mucus MODERATE H /LPF Urine Other CLUE CELLS PRESENT /HPF Urine Culture Indicated NO Urine Test NEGATIVE NEGATIVE Urine Opiates Screen NEGATIVE NEGATIVE Urine Oxycodone Screen NEGATIVE NEGATIVE Urine Methadone Screen NEGATIVE NEGATIVE Urine Propoxyphene Screen NEGATIVE NEGATIVE Urine Barbiturates Screen NEGATIVE NEGATIVE Ur Tricyclic Antidepressants Screen NEGATIVE NEGATIVE Urine Phencyclidine Screen NEGATIVE NEGATIVE Urine Amphetamines Screen NEGATIVE NEGATIVE Urine Methamphetamines Screen NEGATIVE NEGATIVE Urine Benzodiazepines Screen POSITIVE H NEGATIVE Urine Cocaine Screen NEGATIVE NEGATIVE Urine Cannabinoids Screen POSITIVE H NEGATIVE My Orders Orders - KOURTNEY MCDONALD MD Ua Culture If Indicated (07/22/23 08:01) Cbc And Automated Diff (07/22/23 08:01) Comprehensive Metabolic Panel (07/22/23 08:01) Alcohol (07/22/23 08:01) Drug Screen Stat (Urine) (07/22/23 08:01) Acetaminophen (07/22/23 08:01) Salicylate (07/22/23 08:01) Ekg Tracing (07/22/23 08:01) Hcg,Qualitative Urine (07/22/23 08:01) Thyroid Analyzer (07/22/23 08:01) Bh Status Checks/Observation O Q15M (07/22/23 08:01) Vital Signs/I&O 07/22/23 07:22 Temp 36.7 Pulse 100 Resp 21 B/P (MAP) 131/103 (112) O2 Delivery Room Air Blood Pressure Mean: 112 Progress Progress Note : Progress Note Seen and evaluated. IV, labs including CBC, CMP, Tylenol, alcohol, salicylate, UA and UDS ordered. We will get UCG as well. EKG ordered for work-up. Patient informed that this can take hours to days to find inpatient admission which she was okay with. Patient also informed that she would have to meet screening criteria for inpatient admission. Patient verbalized understanding. Monitor patient. Differential diagnosis includes acute exacerbation of anxiety and panic disorder, depression, uncontrolled mental health disorder 0955: Her blood labs were hemolyzed. I have canceled those as the mental health team was here and did an evaluation. They have set her up for outpatient appointments today and tomorrow and patient feels much more comfortable with that. No need for inpatient admission at this point. UA showed trace ketones a nd was contaminated. Patient not . UDS positive for cannabinoids and benzodiazepine. EKG nonconcerning. Discharged home with return precautions. Patient verbalized understanding of instructions and agreement with plan. Initial ECG Impression Date: Jul 22, 2023 Initial ECG Impression Time: 08:28 Initial ECG Rate: 76 Initial ECG Rhythm: Normal Sinus Initial ECG Impression: Normal Comment Sinus rhythm with normal axis. No evidence of ST elevation NH. Interpreted by me. Departure Impression Primary Impression: Anxiety Disposition: 01 HOME, SELF-CARE Condition: Improved Departure-Patient Inst. Decision time for Depature: 09:58 Referrals: [facility] (PCP/Family) Primary Care Physician Patient Instructions: Anxiety, Adult (DC), Panic Disorder (DC) Add. Discharge Instructions: All discharge instructions reviewed with patient and/or family. Voiced understanding. Appointment with the [facility] clinic at 12 PM today. You also have an appointment tomorrow at 12 PM. Follow-up as directed. Return for weakness, vomiting, worse anxiety or panic or other concerns as needed. Continue home medications as previously prescribed. KOURTNEY MCDONALD MD Jul 22, 2023 08:05
[2023-07-22 09:22] LABS: BASOPHILS % (AUTO) 1 % (0-10); EOSINOPHILS % (AUTO) 1 % (0-10); HEMATOCRIT 40 % (35-52); HEMOGLOBIN 13.1 g/dL (11.5-16.0); LYMPHOCYTES # (AUTO) 1.5 10^3/uL (1.0-4.0); LYMPHOCYTES % (AUTO) 25 % (12-44); MEAN CORPUSCULAR HEMOGLOBIN 29 pg (25-34); MEAN CORPUSCULAR HGB CONC 33 g/dL (32-36); MEAN CORPUSCULAR VOLUME 89 fL (80-99); MEAN PLATELET VOLUME 12.1 fL (9.0-12.2); MONOCYTES # (AUTO) 0.4 10^3/uL (0.0-1.0); MONOCYTES % (AUTO) 7 % (0-12); NEUTROPHILS % (AUTO) 67 % (42-75); PLATELET COUNT 369 10^3/uL (130-400)
[2023-07-22 09:28] LABS: HCG,QUALITATIVE URINE NEGATIVE (NEGATIVE)
[2023-07-22 09:29] LABS: CLARITY,URINE CLOUDY; COLOR,URINE YELLOW; GLUCOSE, URINE (UA) NEGATIVE (NEGATIVE); KETONES,URINE TRACE (NEGATIVE); PH,URINE 5.5 (5-9); PROTEIN,URINE 1+ (NEGATIVE)
[2023-07-22 09:30] LABS: BILIRUBIN,URINE 1+ (NEGATIVE); LEUKOCYTE ESTERASE ,URINE 2+ (NEGATIVE); NITRITE,URINE NEGATIVE (NEGATIVE)
[2023-07-22 09:34] LABS: AMPHETAMINE SCREEN, URINE NEGATIVE (NEGATIVE); BARBITURATE SCREEN URINE NEGATIVE (NEGATIVE); CANNABINOID SCREEN, URINE POSITIVE (NEGATIVE); COCAINE SCREEN URINE NEGATIVE (NEGATIVE); METHADONE STAT NEGATIVE (NEGATIVE); OPIATE SCREEN URINE NEGATIVE (NEGATIVE); OXYCODONE STAT NEGATIVE (NEGATIVE); PROPOXYPHENE STAT NEGATIVE (NEGATIVE); TRICYCLIC ANTIDEPRESSANTS SCRE NEGATIVE (NEGATIVE)
[2023-07-22 09:36] LABS: BACTERIA,URINE LARGE /HPF
[2023-07-22 09:37] LABS: SQUAMOUS EPITHELIAL CELL,UR 25-50 /HPF; URINE OTHER CLUE CELLS PRESENT /HPF
[2023-07-22 10:03] VITALS: BP 124/67
== END 2023-07-22 10:03 | disposition home or self-care (01) ==
LOC: EDUNIT# 07:09 → ER 07:11
DX: F41.9 Anxiety disorder, unspecified (principal); Z91.040 Latex allergy status
CPT/HCPCS: 36415; 80306; 81000; 84703; 85025; 93005

== ENCOUNTER 2023-08-16 06:13 | Emergency (ER) | payer MEDICAID ==
[~2023-08-16] VITALS: Ht 175 cm; Wt 58.9 kg
[2023-08-16] MEDS ORDERED: HALOPERIDOL INJECTION 5 MG/ML VIAL IM ONE (06:30)
--- NOTE | 2023-08-16 06:45 | ED General ---
General Chief Complaint: anxiety Stated Complaint: ANXIETY,PANIC Nursing Triage Note: PATIENT REPORTS FEELING ANXIOUS/ HAVING A PANIC ATTACK. STATES STARTED AT 0130. TOOK MEDICATION WITH NO RELIEF Source of Information: Patient Exam Limitations: No Limitations History of Present Illness Date Seen by Provider: Aug 16, 2023 Time Seen by Provider: 06:30 Allergies and Home Medications Allergies Coded Allergies: morphine (Verified Allergy, Mild, mild rash treated with benadryl (per patient), 12/18/22) mild rash treated with benadryl (per patient) Penicillins (Verified Allergy, Unknown, Hives/Rash, 08/21/21) latex (Verified Allergy, Unknown, 01/30/22) Patient Home Medication List Home Medication List Reviewed: Yes Cefdinir (Cefdinir) 300 Mg Capsule, 300 MG PO BID Prescribed by: EFRAÍN PINEDA on 03/30/23 011 Cephalexin (Cephalexin) 500 Mg Tablet, 500 MG PO TID Prescribed by: APOLONIA HAGEN on 07/21/23 0907 Hydrocodone/Acetaminophen (Hydrocodone-Acetamin 5-325 mg) 5 Mg-325 Mg Tablet, 1 EA PO Q6H PRN for PAIN-MODERATE (5-7) Prescribed by: KRISTYN STARK on 12/20/22 1230 Hydroxyzine HCl (Hydroxyzine HCl) 25 Mg Tablet, 50 MG PO TID Prescribed by: DONTE VEGA MD on 05/26/23 0853 Metoclopramide HCl (Reglan) 10 Mg Tablet, 10 MG PO Q6H Prescribed by: EFRAÍN PINEDA on 03/30/23 0116 Ondansetron (Ondansetron Odt) 8 Mg Tab.rapdis, 8 MG SL Q4H PRN for NAUSEA/VOMITING Prescribed by: KRISTYN STARK on 12/20/22 1229 Ondansetron (Ondansetron Odt) 4 Mg Tab.rapdis, 4 MG SL Q6H PRN for NAUSEA/VOMITING Prescribed by: SHANTEL INFANTE on 03/18/23 0806 Ondansetron (Ondansetron Odt) 8 Mg Tab.rapdis, 8 MG PO Q6H Prescribed by: EFRAÍN PINEDA on 03/30/23 0116 Pantoprazole Sodium (Protonix) 40 Mg Tablet.dr, 40 MG PO DAILY Prescribed by: KRISTYN STARK on 12/20/22 1229 Pantoprazole Sodium (Protonix) 20 Mg Tablet.dr, 20 MG PO DAILY Prescribed by: SHANTEL INFANTE on 03/18/23 0806 Promethazine HCl (Promethazine Suppository) 25 Mg Supp.rect, 25 MG RC Q6 Prescribed by: EFRAÍN PINEDA on 03/30/23 0354 Past Rsjlygy-Ncdhhs-Mkuxpl Hx Immunizations Up To Date Tetanus Booster (TDap): Less than 5yrs First/Initial COVID19 Vaccinat: 06/19/2021 Second COVID19 Vaccination James: 07/17/2021 Third COVID19 Vaccination Date: N/A Past Medical History Surgery/Hospitalization HX: ANXIETY, GERD, UTI, T/A, 2 NATURAL BIRTHS Surgeries: Yes (wisdom teeth removal) Adenoidectomy, Tonsillectomy Respiratory: Yes Pneumonia Cardiac: No Neurological: No Sexually Transmitted Disease: No Genitourinary: Yes Kidney Infection, Kidney Stones Gastrointestinal: Yes (chronic pain, chronic N/V, recurrent cannabis hyperemesis syndrome) Gastroesophageal Reflux Musculoskeletal: No Endocrine: No HEENT: No Tonsilitis Loss of Vision: Denies Hearing Impairment: Denies Cancer: No Psychosocial: Yes (Recurrent cannabis hyperemesis syndrome) Anxiety Integumentary: No Blood Disorders: No Adverse Reaction/Blood Tranf: No Family Medical History Psychiatric Problems Physical Exam Vital Signs Vital Signs - First Documented 08/16/23 06:20 Temp 36.7 Pulse 110 Resp 20 B/P (MAP) 135/97 (110) Pulse Ox 99 O2 Delivery Room Air Capillary Refill : Less Than 3 Seconds Height, Weight, BMI Height: 5'8.00" Weight: 132lbs. oz. 59.367054ip; 19.00 BMI Method:Stated Progress/Results/Core Measures Suspected Sepsis SIRS Temperature: Pulse: 110 Respiratory Rate: 20 Blood Pressure 135 /97 Mean: 110 Results/Orders My Orders Orders - MIRACLE NGO DO Haloperidol Injection (Haloperidol Injec (08/16/23 06:30) Prochlorperazine Injection (Prochlorpera (08/16/23 07:00) Lorazepam Injection (Lorazepam Injection (08/16/23 07:30) Diphenhydramine Injection (Diphenhydram (08/16/23 07:30) Lorazepam Injection (Lorazepam Injection (08/16/23 07:28) Diphenhydramine Injection (Diphenhydram (08/16/23 07:28) Medications Given in ED Current Medications Medications Dose Ordered Sig/Lane Route Start Time Stop Time Status Last Admin Dose Admin Diphenhydramine HCl 50 mg ONCE ONCE IM 08/16/23 07:30 08/16/23 07:31 DC 08/16/23 07:36 50 MG Haloperidol Lactate 5 mg ONCE ONCE IM 08/16/23 06:30 08/16/23 06:31 DC 08/16/23 06:27 5 MG Lorazepam 2 mg ONCE ONCE IM 08/16/23 07:30 08/16/23 07:31 DC 08/16/23 07:36 2 MG Prochlorperazine Edisylate 10 mg ONCE ONCE IM 08/16/23 07:00 08/16/23 07:01 DC 08/16/23 06:59 10 MG Vital Signs/I&O 08/16/23 08/16/23 06:20 07:22 Temp 36.7 Pulse 110 Resp 20 B/P (MAP) 135/97 (110) 126/91 Pulse Ox 99 O2 Delivery Room Air Capillary Refill : Less Than 3 Seconds Blood Pressure Mean: 110 Departure Impression Primary Impression: Anxiety Disposition: 01 HOME, SELF-CARE Condition: Improved Departure-Patient Inst. [facility]errals: [facility] ([facility]/Family) Primary Care Physician MIRACLE NGO DO Aug 16, 2023 06:45
--- NOTE | 2023-08-16 06:47 | ED General ---
General Chief Complaint: Psych/Social Disorder Stated Complaint: ANXIETY,PANIC Nursing Triage Note: PATIENT REPORTS FEELING ANXIOUS/ HAVING A PANIC ATTACK. STATES STARTED AT 0130. TOOK MEDICATION WITH NO RELIEF Source of Information: Patient History of Present Illness Date Seen by Provider: Aug 16, 2023 Time Seen by Provider: 06:30 Initial Comments Patient is a 23-year-old female well-known to the emergency department for cyclic vomiting presentation. She presents this morning stating that she is having her typical episode of cyclic vomiting with some anxiety. She states her vomiting started about 130 this morning she states her took her prescriptions without relief. She is tearful and tremulous. Vital signs are stable however 131/97 heart rate 109. She denies hematemesis no vomiting no abdominal pain no diarrhea melena hematochezia. No recent fever denies chance of . No recent viral illness fever or chills no headache no trauma denies any ingestion or psychiatric complaints. No bruising or scars. No new medication. Denies any significant stressors. Will administer intramuscular Haldol and reevaluate as per typical treatment course in the emergency department. Timing/Duration: 4-6 Hours Severity: Moderate Associated Systoms: Denies Symptoms Allergies and Home Medications Allergies Coded Allergies: morphine (Verified Allergy, Mild, mild rash treated with benadryl (per patient), 12/18/22) mild rash treated with benadryl (per patient) Penicillins (Verified Allergy, Unknown, Hives/Rash, 08/21/21) latex (Verified Allergy, Unknown, 01/30/22) Patient Home Medication List Home Medication List Reviewed: Yes Cefdinir (Cefdinir) 300 Mg Capsule, 300 MG PO BID Prescribed by: EFRAÍN PINEDA on 03/30/23 0116 Cephalexin (Cephalexin) 500 Mg Tablet, 500 MG PO TID Prescribed by: APOLONIA HAGEN on 07/21/23 0907 Hydrocodone/Acetaminophen (Hydrocodone-Acetamin 5-325 mg) 5 Mg-325 Mg Tablet, 1 EA PO Q6H PRN for PAIN-MODERATE (5-7) Prescribed by: KRISTYN STARK on 12/20/22 1230 Hydroxyzine HCl (Hydroxyzine HCl) 25 Mg Tablet, 50 MG PO TID Prescribed by: DONTE VEGA MD on 05/26/23 0853 Metoclopramide HCl (Reglan) 10 Mg Tablet, 10 MG PO Q6H Prescribed by: EFRAÍN PINEDA on 03/30/23 011 Ondansetron (Ondansetron Odt) 8 Mg Tab.rapdis, 8 MG SL Q4H PRN for NAUSEA/VOMITING Prescribed by: KRISTYN STARK on 12/20/22 1229 Ondansetron (Ondansetron Odt) 4 Mg Tab.rapdis, 4 MG SL Q6H PRN for NAUSEA/VOMITING Prescribed by: SHANTEL INFANTE on 03/18/23 0806 Ondansetron (Ondansetron Odt) 8 Mg Tab.rapdis, 8 MG PO Q6H Prescribed by: EFRAÍN PINEDA on 03/30/23 011 Pantoprazole Sodium (Protonix) 40 Mg Tablet.dr, 40 MG PO DAILY Prescribed by: KRISTYN STARK on 12/20/221228 Pantoprazole Sodium (Protonix) 20 Mg Tablet.dr, 20 MG PO DAILY Prescribed by: SHANTEL INFANTE on 03/18/23 08 Promethazine HCl (Promethazine Suppository) 25 Mg Supp.rect, 25 MG RC Q6 Prescribed by: EFRAÍN PINEDA on 03/30/23 0354 Review of Systems Review of Systems Constitutional: no symptoms reported, see HPI EENTM: no symptoms reported; No blurred vision, No double vision, No throat pain Respiratory: no symptoms reported; No short of breath, No stridor Cardiovascular: no symptoms reported; No edema, No palpitations, No syncope Gastrointestinal: see HPI; No diarrhea; nausea, vomiting Genitourinary: no symptoms reported; No hematuria, No pain : No Musculoskeletal: no symptoms reported Skin: no symptoms reported Psychiatric/Neurological: See HPI; Denies Paresthesia, Denies Seizure, Denies Tingling Hematologic/Lymphatic: See HPI; Denies Anemia, Denies Blood Clots, Denies Other Immunological/Allergic: denies see HPI, denies transplant All Other Systems Reviewed Negative Unless Noted: Yes Past Kaytyup-Ryabck-Cbofsq Hx Immunizations Up To Date Tetanus Booster (TDap): Less than 5yrs First/Initial COVID19 Vaccinat: 06/19/2021 Second COVID19 Vaccination James: 07/17/2021 Third COVID19 Vaccination Date: N/A Past Medical History Surgery/Hospitalization HX: ANXIETY, GERD, UTI, T/A, 2 NATURAL BIRTHS Surgeries: Yes (wisdom teeth removal) Adenoidectomy, Tonsillectomy Respiratory: Yes Pneumonia Cardiac: No Neurological: No Sexually Transmitted Disease: No Genitourinary: Yes Kidney Infection, Kidney Stones Gastrointestinal: Yes (chronic pain, chronic N/V, recurrent cannabis hyperemesis syndrome) Gastroesophageal Reflux Musculoskeletal: No Endocrine: No HEENT: No Tonsilitis Loss of Vision: Denies Hearing Impairment: Denies Cancer: No Psychosocial: Yes (Recurrent cannabis hyperemesis syndrome) Anxiety Integumentary: No Blood Disorders: No Adverse Reaction/Blood Tranf: No Family Medical History Psychiatric Problems Physical Exam Vital Signs Vital Signs - First Documented 08/16/23 06:20 Temp 36.7 Pulse 110 Resp 20 B/P (MAP) 135/97 (110) Pulse Ox 99 O2 Delivery Room Air Capillary Refill : Less Than 3 Seconds Height, Weight, BMI Height: 5'8.00" Weight: 132lbs. oz. [id number]; 19.00 BMI Method:Stated General Appearance: WD/WN, Anxious Eyes: Bilateral Eye Normal Inspection, Bilateral Eye PERRL, Bilateral Eye EOMI HEENT: Normal ENT Inspection Neck: Full Range of Motion, Non Tender Respiratory: Chest Non Tender, Lungs Clear, Normal Breath Sounds, No Accessory Muscle Use, No Respiratory Distress Cardiovascular: Regular Rate, Rhythm, Normal Peripheral Pulses Gastrointestinal: Normal Bowel Sounds, Non Tender, Soft Back: No CVA Tenderness, No Vertebral Tenderness Extremity: Normal Inspection, Normal Range of Motion, Non Tender Neurologic/Psychiatric: Alert, Oriented x3, No Motor/Sensory Deficits, Other (Anxious and tearful) Skin: Normal Color, Warm/Dry Progress/Results/Core Measures Suspected Sepsis SIRS Temperature: Pulse: 110 Respiratory Rate: 20 Blood Pressure 135 /97 Mean: 110 Results/Orders My Orders Orders - MIRACLE NGO DO Haloperidol Injection (Haloperidol Injec (08/16/23 06:30) Prochlorperazine Injection (Prochlorpera (08/16/23 07:00) Medications Given in ED Current Medications Medications Dose Ordered Sig/Lane Route Start Time Stop Time Status Last Admin Dose Admin Haloperidol Lactate 5 mg ONCE ONCE IM 08/16/23 06:30 08/16/23 06:31 DC 08/16/23 06:27 5 MG Prochlorperazine Edisylate 10 mg ONCE ONCE IM 08/16/23 07:00 08/16/23 07:01 DC 08/16/23 06:59 10 MG Vital Signs/I&O 08/16/23 08/16/23 06:20 07:22 Temp 36.7 Pulse 110 Resp 20 B/P (MAP) 135/97 (110) 126/91 Pulse Ox 99 O2 Delivery Room Air Capillary Refill : Less Than 3 Seconds Blood Pressure Mean: 110 Progress Note : Time: 06:45 Progress Note Patient presents to the emergency department with recurrent nausea and vomiting. Denies hematemesis no fever denies any chance of no complaints. She denies diarrhea melena hematochezia. No bad food exposure denies any new medications states this is typical of her cyclic vomiting presentation. 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 She denies recent stress again denies any recent viral illness. Plan to administer intramuscular Haldol as this is standard treatment for her at her presentation and she denies any other symptoms or concerns whatsoever. Will reevaluate and determine if symptoms have abated and discharged home with her regular follow-up. No indication or need for testing at this time as this is a chronic recurrent problem. 0648 after injection patient is requesting the TV remote and wanting a drink out of the vending machine in the lobby she is no longer tremulous or tearful she is not vomiting she has not vomited since she has been in the department. At this time will discharge home after providing a sip of water to ensure p.o. intake. 0655 patient mildly dry heaving. Will administer intramuscular Compazine and continue to wait for symptom resolution prior to discharge. She states she can get a ride she initially had driven herself here. 0728 patient still vomiting however vital signs are stable. Had a long discussion regarding life choices and removing root causes causing untoward effects such as marijuana and cannabinoid induced cyclic vomiting. Patient seems understand and agree with the notion that if we decrease her marijuana intake perhaps her symptoms will improve as this is scientifically proven data and not judgment on her she responds to this affirmatively. Advised her that we have maxed out her capacity to treat her symptoms as the underlying cause is still present in her system. Advised her we will give her 50 mg of Benadryl and 2 mg of Ativan at this point but then she will need to go home and sleep and stop using marijuana to see if this does not alleviate her recurrent chronic symptoms. Patient agrees. ECG Initial ECG Rhythm: Normal Sinus Departure Impression Primary Impression: Cyclic vomiting syndrome Disposition: HOME, SELF-CARE Condition: Improved Departure-Patient Inst. Decision time for Depature: 06:49 Referrals: [facility] (PCP/Family) Primary Care Physician Patient Instructions: Cannabis hyperemesis syndrome, Cannabis use disorder, Nausea and Vomiting, Adult MIRACLE NGO DO Aug 16, 2023 06:47
[2023-08-16] MEDS ORDERED: PROCHLORPERAZINE INJ 10 MG/2ML VIAL IM ONE (07:00)
[2023-08-16 07:22] VITALS: BP 126/91
[2023-08-16] MEDS ORDERED: diphenhydrAMINE INJ 50 MG/ML VIAL ONE (07:28)
[2023-08-16] MEDS ORDERED: diphenhydrAMINE INJ 50 MG/ML VIAL IM ONE (07:30)
== END 2023-08-16 07:47 | disposition home or self-care (01) ==
LOC: EDUNIT# 06:13 → ER 06:15
DX: R11.15 Cyclical vomiting syndrome unrelated to migraine (principal); Z91.040 Latex allergy status
CPT/HCPCS: 96372; 99284

== ENCOUNTER 2023-09-03 07:20 | Emergency (ER) | payer MEDICAID ==
[~2023-09-03] VITALS: Ht 172 cm; Wt 56.6 kg
[2023-09-03] MEDS ORDERED: LORazepam 0.5 MG TABLET BC STA (07:42)
[2023-09-03] MEDS ORDERED: ONDANSETRON INJECTION 4 MG/2 ML (SDV) IVP ONE (07:45)
[2023-09-03] MEDS ORDERED: LACTATED RINGERS 1,000 ML 1,000 ML IV ONE (07:45)
[2023-09-03] MEDS ORDERED: PANTOPRAZOLE INJECTION 40 MG VIAL IV ONE (07:45)
--- NOTE | 2023-09-03 07:51 | ED General ---
General Chief Complaint: General Problems/Pain Stated Complaint: ANXIETY/PANIC ATTACK Nursing Triage Note: PT AMBULATORY TO ER. PT REPORTS ANXIETY/PANIC ATTACK ONSET 0500 TODAY, REPORTS ASSOCIATED ABD PAIN AND N/V. REPORTS RAN OUT OF HER CYMBALTA AND BUSPAR LAST NIGHT. Source of Information: Patient Exam Limitations: No Limitations History of Present Illness Date Seen by Provider: Sep 03, 2023 Time Seen by Provider: 07:35 Initial Comments This 23-year-old young lady presents to the emergency room via private vehicle with complaints of anxiety, nausea, vomiting, and epigastric pain. She has a long history of anxiety and cannabis hyperemesis syndrome and has been seen in this ER numerous times for similar complaints. She is currently receiving care from [facility]. She forgot to make her follow-up appointment and subsequently ran out of BuSpar and Cymbalta. Her last dose of each medication was over 24 hours ago. She had nausea and vomiting that started around 0500. Her last marijuana use was about 1 week ago. She complains of epigastric pain along with her nausea and vomiting. She has not taken any medications for her GI symptoms this morning. She reports presently not having any at home. She is noted to be tachycardic and anxious upon evaluation. Allergies and Home Medications Allergies Coded Allergies: morphine (Verified Allergy, Mild, mild rash treated with benadryl (per patient), 12/18/22) mild rash treated with benadryl (per patient) Penicillins (Verified Allergy, Unknown, Hives/Rash, 08/21/21) latex (Verified Allergy, Unknown, 01/30/22) Patient Home Medication List Home Medication List Reviewed: Yes Buspirone HCl (Buspirone HCl) 7.5 Mg Tablet, 7.5 MG PO HS Prescribed by: APOLONIA HAGEN on 09/03/23 09 Cefdinir (Cefdinir) 300 Mg Capsule, 300 MG PO BID Prescribed by: EFRAÍN PINEDA on 03/30/23 0116 Cephalexin (Cephalexin) 500 Mg Tablet, 500 MG PO TID Prescribed by: APOLONIA HAGEN on 07/21/23 09 Duloxetine HCl (Cymbalta) 30 Mg Capsule.dr, 30 MG PO HS Prescribed by: APOLONIA HAGEN on 09/03/23 0957 Famotidine (Pepcid) 20 Mg Tablet, 20 MG PO BID Prescribed by: APOLONIA HAGEN on 09/03/23 0957 Hydrocodone/Acetaminophen (Hydrocodone-Acetamin 5-325 mg) 5 Mg-325 Mg Tablet, 1 EA PO Q6H PRN for PAIN-MODERATE (5-7) Prescribed by: KRISTYN STARK on 12/20/22 1230 Hydroxyzine HCl (Hydroxyzine HCl) 25 Mg Tablet, 50 MG PO TID Prescribed by: DONTE VEGA MD on 05/26/23 0853 Metoclopramide HCl (Reglan) 10 Mg Tablet, 10 MG PO Q6H Prescribed by: EFRAÍN PINEDA on 03/30/23 011 Ondansetron (Ondansetron Odt) 8 Mg Tab.rapdis, 8 MG SL Q4H PRN for NAUSEA/VOMITING Prescribed by: KRISTYN STARK on 12/20/22 1229 Ondansetron (Ondansetron Odt) 4 Mg Tab.rapdis, 4 MG SL Q6H PRN for NAUSEA/VOMITING Prescribed by: SHANTEL INFANTE on 03/18/23 0806 Ondansetron (Ondansetron Odt) 8 Mg Tab.rapdis, 8 MG PO Q6H Prescribed by: EFRAÍN PINEDA on 03/30/23 0116 Ondansetron (Ondansetron Odt) 4 Mg Tab.rapdis, 4 MG SL Q4H PRN for NAUSEA/VOMITING Prescribed by: APOLONIA HAGEN on 09/03/23 0957 Pantoprazole Sodium (Protonix) 40 Mg Tablet.dr, 40 MG PO DAILY Prescribed by: KRISTYN STARK on 12/20/22 1229 Pantoprazole Sodium (Protonix) 20 Mg Tablet.dr, 20 MG PO DAILY Prescribed by: SHANTEL INFANTE on 03/18/23 0806 Promethazine HCl (Promethazine Suppository) 25 Mg Supp.rect, 25 MG RC Q6 Prescribed by: EFRAÍN PINEDA on 03/30/23 0354 Review of Systems Review of Systems Constitutional: no symptoms reported EENTM: no symptoms reported Respiratory: no symptoms reported Cardiovascular: see HPI Gastrointestinal: see HPI Genitourinary: no symptoms reported : No Musculoskeletal: no symptoms reported Skin: no symptoms reported Psychiatric/Neurological: See HPI Hematologic/Lymphatic: No Symptoms Reported Past Lbupabg-Ljtkde-Nyxnet Hx Patient Social History Tobacco Use?: Yes Tobacco type used: Cigarettes Smoking Status: Current Everyday Smoker Use of E-Cig and/or Vaping dev: Yes E-Cig or Vaping type used: Nicotine Substance use?: Yes Substance type: Marijuana Alcohol Use?: No Pt feels they are or have been: No Immunizations Up To Date Tetanus Booster (TDap): Less than 5yrs First/Initial COVID19 Vaccinat: RECEIVED UNK WHEN Second COVID19 Vaccination James: 07/17/2021 Third COVID19 Vaccination Date: N/A 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: [employer] Past Medical History Surgery/Hospitalization HX: ANXIETY, GERD, UTI, T/A, 2 NATURAL BIRTHS Surgeries: Yes (wisdom teeth removal) Adenoidectomy, Tonsillectomy Respiratory: Yes Pneumonia Cardiac: No Neurological: No : No Sexually Transmitted Disease: No Genitourinary: Yes Kidney Infection, Kidney Stones Gastrointestinal: Yes (chronic pain, chronic N/V, recurrent cannabis hyperemesis syn, gastritis) Gastroesophageal Reflux Musculoskeletal: No Endocrine: No HEENT: No Tonsilitis Loss of Vision: Denies Hearing Impairment: Denies Cancer: No Psychosocial: Yes (Recurrent cannabis hyperemesis syndrome) Anxiety Integumentary: No Blood Disorders: No Adverse Reaction/Blood Tranf: No Family Medical History Psychiatric Problems Physical Exam Vital Signs Capillary Refill : Height, Weight, BMI Height: 5'8.00" Weight: 132lbs. oz. 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 Norm as Tested, Other (Anxious, fidgety) Skin: Normal Color, Warm/Dry Progress/Results/Core Measures Suspected Sepsis SIRS Temperature: Pulse: 130 Respiratory Rate: 16 Laboratory Tests 11/14/23 07:58: White Blood Count 7.8 Blood Pressure 117 /92 Mean: 100 Laboratory Tests 09/03/23 07:58: Creatinine 0.86, Platelet Count 263, Total Bilirubin 0.3 Results/Orders Lab Results Laboratory Tests Test 09/03/23 07:58 Range/Units White Blood Count 7.8 4.3-11.0 10^3/uL Red Blood Count 4.37 3.80-5.11 10^6/uL Hemoglobin 12.8 11.5-16.0 g/dL Hematocrit 40 35-52 % Mean Corpuscular Volume 91 80-99 fL Mean Corpuscular Hemoglobin 29 25-34 pg Mean Corpuscular Hemoglobin Concent 32 32-36 g/dL Red Cell Distribution Width 14.5 10.0-14.5 % Platelet Count 263 130-400 10^3/uL Mean Platelet Volume 10.1 9.0-12.2 fL Immature Granulocyte % (Auto) 0 % Neutrophils (%) (Auto) 54 42-75 % Lymphocytes (%) (Auto) 33 12-44 % Monocytes (%) (Auto) 11 0-12 % Eosinophils (%) (Auto) 1 0-10 % Basophils (%) (Auto) 1 0-10 % Neutrophils # (Auto) 4.2 1.8-7.8 10^3/uL Lymphocytes # (Auto) 2.6 1.0-4.0 10^3/uL Monocytes # (Auto) 0.8 0.0-1.0 10^3/uL Eosinophils # (Auto) 0.1 0.0-0.3 10^3/uL Basophils # (Auto) 0.1 0.0-0.1 10^3/uL Immature Granulocyte # (Auto) 0.0 0.0-0.1 10^3/uL Sodium Level 141 135-145 MMOL/L Potassium Level 2.9 L 3.6-5.0 MMOL/L Chloride Level 108 H 98-107 MMOL/L Carbon Dioxide Level 22 21-32 MMOL/L Anion Gap 11 5-14 MMOL/L Blood Urea Nitrogen 10 7-18 MG/DL Creatinine 0.86 0.60-1.30 MG/DL Estimat Glomerular Filtration Rate 98 BUN/Creatinine Ratio 12 Glucose Level 117 H 70-105 MG/DL Calcium Level 8.8 8.5-10.1 MG/DL Corrected Calcium 8.5 8.5-10.1 MG/DL Magnesium Level 1.9 1.6-2.4 MG/DL Total Bilirubin 0.3 0.1-1.0 MG/DL Aspartate Amino Transf (AST/SGOT) 14 5-34 U/L Alanine Aminotransferase (ALT/SGPT) 13 0-55 U/L Alkaline Phosphatase 69 40-136 U/L Total Protein 6.7 6.4-8.2 GM/DL Albumin 4.4 3.2-4.5 GM/DL Lipase 17 8-78 U/L Serum Test, Qualitative NEGATIVE NEGATIVE My Orders Orders - APOLONIA BERG MD Cbc And Automated Diff (09/03/23 07:42) Comprehensive Metabolic Panel (09/03/23 07:42) Hcg,Qualitative Serum (09/03/23 07:42) Lipase (09/03/23 07:42) Magnesium (09/03/23 07:42) Pantoprazole Injection (Pantoprazole Inj (09/03/23 07:45) Ondansetron Injection (Ondansetron Inj (09/03/23 07:45) Ed Iv/Invasive Line Start (09/03/23 07:42) Lactated Ringers 1,000 Ml (Lactated Ring (09/03/23 07:45) Lorazepam Tablet (Lorazepam Tablet) (09/03/23 07:42) Potassium Cl 10meq/50ml Ivpb (Kcl 10 Meq (09/03/23 08:45) Ns Iv 500 Ml (Ns Iv 500 Ml) (09/03/23 08:45) Ekg Tracing (09/03/23 08:35) Droperidol Injection (Ed Only) (Droperid (09/03/23 09:15) Potassium Chloride (Tablet) (Potassium C (09/03/23 09:15) Buspirone Tablet (Buspirone Tablet) (09/03/23 09:15) Duloxetine Capsule (Duloxetine Capsule) (09/03/23 09:15) Iv Push 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 She was interviewed and examined. She believes her symptoms are bad enough at this point she needs IV hydration and treatment. Labs have been ordered. A 1 L LR bolus has been ordered along with Zofran had and Protonix for GI symptoms. Ativan 1 mg buccally has been ordered for her anxiety. If she does not have satisfactory results with this treatment, we may obtain an EKG and give droperidol. Progress Note #2: Time: 08:36 Progress Note Patient is feeling significantly improved. Heart rate has dropped to around 100 bpm. Nausea has improved but is still present somewhat. Anxiety has improved significantly. She has received about 750 mL of the LR bolus. Labs have been reviewed and interpreted by me. CBC is unremarkable. CMP is only remarkable for a potassium of 2.9. This hypokalemia will be treated first with IV potassium and then with oral potassium after her nausea is better controlled. I plan to obtain an EKG and administer droperidol due to her history of cannabis hyperemesis syndrome. Progress Note #3: Progress Note Gauri had significant improvement with droperidol and potassium was replaced. Since her symptoms may be due to, at least in part, to withdrawal from her other medications, the first dose of buspirone and Cymbalta were given in the ER. See discharge instructions for further discussion. ECG Initial ECG Impression Date: Sep 03, 2023 Initial ECG Impression Time: 08:43 Initial ECG Rate: 84 Initial ECG Rhythm: Normal Sinus Comment Sinus rhythm with no ST elevation or depression. Incomplete right bundle branch block by automated criteria. QTc 427 ms. No axis deviation. Departure Impression Primary Impression: Anxiety Additional Impressions: Nausea & vomiting Qualified Codes: R11.2 - Nausea with vomiting, unspecified Cannabis hyperemesis syndrome concurrent with and due to cannabis abuse Has run out of medications Epigastric pain Hypokalemia Disposition: 01 HOME, SELF-CARE Condition: Improved Departure-Patient Inst. Decision time for Depature: 09:54 Referrals: [facility] (PCP/Family) Primary Care Physician Patient Instructions: Anxiety, Adult ED, Cannabis hyperemesis syndrome, Hypok alemia Add. Discharge Instructions: Start with a noncarbonated clear liquid diet and gradually advance your diet with small quantities of bland food as tolerated. Continue abstaining from marijuana use and seek assistance from [facility] if needed for substance abuse treatment and counseling. Use the Zofran (ondansetron) as prescribed for nausea or vomiting. Take your other medications as prescribed and follow-up with your prescribing providers as soon as possible. Return to the ER if you have worsening symptoms despite following these instructions. All discharge instructions reviewed with patient and/or family. Voiced understanding. Scripts Duloxetine HCl (Cymbalta) 30 Mg Capsule.dr 30 MG PO HS, #10 CAP Prov: APOLONIA BERG MD 09/03/23 Buspirone HCl (Buspirone HCl) 7.5 Mg Tablet 7.5 MG PO HS, #10 TAB May take in the morning if experiencing excessive anxiety early in the day. Prov: APOLONIA BERG MD 09/03/23 Ondansetron (Ondansetron Odt) 4 Mg Tab.rapdis 4 MG SL Q4H PRN for NAUSEA/VOMITING, #10 TAB Prov: APOLONIA BERG MD 09/03/23 Famotidine (Pepcid) 20 Mg Tablet 20 MG PO BID, #60 TAB Prov: APOLONIA BERG MD 09/03/23 Copy Copies To 1: [facility]/APOLONIA KOWALSKI MD Sep 03, 2023 07:51
[2023-09-03 08:04] LABS: BASOPHILS # (AUTO) 0.1 10^3/uL (0.0-0.1); BASOPHILS % (AUTO) 1 % (0-10); EOSINOPHILS # (AUTO) 0.1 10^3/uL (0.0-0.3); EOSINOPHILS % (AUTO) 1 % (0-10); HEMATOCRIT 40 % (35-52); HEMOGLOBIN 12.8 g/dL (11.5-16.0); LYMPHOCYTES # (AUTO) 2.6 10^3/uL (1.0-4.0); LYMPHOCYTES % (AUTO) 33 % (12-44); MEAN CORPUSCULAR HEMOGLOBIN 29 pg (25-34); MEAN CORPUSCULAR HGB CONC 32 g/dL (32-36); MEAN CORPUSCULAR VOLUME 91 fL (80-99); MEAN PLATELET VOLUME 10.1 fL (9.0-12.2); MONOCYTES # (AUTO) 0.8 10^3/uL (0.0-1.0); MONOCYTES % (AUTO) 11 % (0-12); NEUTROPHILS # (AUTO) 4.2 10^3/uL (1.8-7.8); NEUTROPHILS % (AUTO) 54 % (42-75); PLATELET COUNT 263 10^3/uL (130-400); WHITE BLOOD COUNT 7.8 10^3/uL (4.3-11.0)
[2023-09-03 08:16] LABS: ALBUMIN 4.4 GM/DL (3.2-4.5); POTASSIUM 2.9 MMOL/L (3.6-5.0)
[2023-09-03 08:17] LABS: CALCIUM 8.8 MG/DL (8.5-10.1)
[2023-09-03 08:18] LABS: TOTAL PROTEIN 6.7 GM/DL (6.4-8.2)
[2023-09-03 08:20] LABS: BILIRUBIN,TOTAL 0.3 MG/DL (0.1-1.0)
[2023-09-03 08:22] LABS: CREATININE SERUM 0.86 MG/DL (0.60-1.30)
[2023-09-03 08:25] LABS: MAGNESIUM 1.9 MG/DL (1.6-2.4)
[2023-09-03] MEDS ORDERED: NS IV 500 ML 500 ML IV ONE (08:45)
[2023-09-03] MEDS ORDERED: POTASSIUM CL 10MEQ/50ML IVPB 50 ML IV ONE (08:45)
[2023-09-03] MEDS ORDERED: POTASSIUM CHLORIDE 10 MEQ TABLET PO ONE (09:15)
[2023-09-03] MEDS ORDERED: DroPERidol INJECTION 5 MG/2 ML (ED ONLY!) IV ONE (09:15)
[2023-09-03] MEDS ORDERED: busPIRone 15 MG TABLET PO ONE (09:15)
[2023-09-03] MEDS ORDERED: DULoxetine 30 MG CAPSULE PO ONE (09:15)
[2023-09-03] MEDS ORDERED: FAMO-119 PO (09:57)
[2023-09-03] MEDS ORDERED: DULO30CA3 PO (09:57)
[2023-09-03] MEDS ORDERED: BUSP7.5T5 PO (09:57)
[2023-09-03] MEDS ORDERED: ONDA4TAB11 SL (09:57)
[2023-09-03 10:10] VITALS: BP 107/83
== END 2023-09-03 10:10 | disposition home or self-care (01) ==
LOC: EDUNIT# 07:20 → ER 07:25
DX: R11.2 Nausea with vomiting, unspecified (principal); F12.10 Cannabis abuse, uncomplicated; R10.13 Epigastric pain; F41.9 Anxiety disorder, unspecified; E87.6 Hypokalemia; F17.210 Nicotine dependence, cigarettes, uncomplicated; F17.290 Nicotine dependence, other tobacco product, uncomplicated; Z76.0 Encounter for issue of repeat prescription; Z91.040 Latex allergy status
CPT/HCPCS: 36415; 80053; 83690; 83735; 84703; 85025; 93005; 96374; 96375